=== PATIENT | female | born 1945 | race Caucasian/White ===

== ENCOUNTER 2023-10-14 09:33 | Inpatient (IN) | payer MEDICARE, OTHER, SELFPAY ==
[2023-10-14] VITALS (50 sets, daily range): BP systolic 61–126; BP diastolic 38–95; BMI 31.5; BMI 34.2
[2023-10-14 06:44] LABS: Glucose - Point of Care 140 mg/dl (70-99)
--- NOTE | 2023-10-14 07:01 | ED.GENMED ---
History of Present Illness
General
Chief Complaint: Unresponsive
Source: records, ambulance crew and [facility]
Exam Limitations: clinical condition
Time Seen by Provider: 10/14/23 06:57
Nursing documentation reviewed up to this point in time: agreed with
History of Present Illness
History of Present Illness:
77-year-old female with past medical history as documented presents to the emergency room for evaluation of respiratory distress. Patient is unable to meaningfully participate in history due to change in mental status and respiratory distress. Per
EMS report they received a call for 'unresponsive patient.' On their arrival [facility] they found the patient unresponsive and hypoxic. Accu-Chek normal. They placed patient on 15 L nonrebreather with improvement in oxygenation from the low
80s to the mid 90s. She apparently has been on Levaquin for the past few days for pneumonia diagnosis outpatient.
Past History
Past History
ED Past Medical History: Arrthythmia (PAF), COPD (Restrictive lung disease, O2 dependent), GERD, HTN, NIDDM, Psychiatric (Chronic anxiety), Other (Pulmonary hypertension, chronic interstitial lung disease, O2 dependent) and Other (Morbid obesity,
constipation); Negative CVA or WI
ED Past Surgical History: Appendectomy, Gynecological (Oophorectomy) and Tonsilectomy
Social History
Tobacco: Non-smoker
Alcohol: None
Drug: None
Personal:
Living: [facility] (Resident of [facility] since July 2020)
Employment: Not employed
Family History
Family History: Hypertension; Negative Early CAD
Review of Systems
Review of Systems
Unable to obtain full review of systems at this time due to: due to acuity
All Other Systems: Not applicable
Phy Exam
Physical Exam
Physical Exam:
General: Laying in bed obtunded
Head: Normocephalic, atraumatic
Eyes: Conjunctiva normal, pupils 3 mm and reactive to light bilaterally
Throat: Dry mucous membranes, not protecting airway, heavy secretions in posterior oropharynx
Neck: Trachea midline, supple without meningismus
Lungs: Rales throughout all lung gonsalves; hypoxia, tachypnea
Heart: Tachycardia with irregularly irregular rhythm, no murmurs, gallops, or rubs appreciated
Abd: Soft, non distended
Neuro: Obtunded
Skin: Dry
Extremities: Equal pulses in all extremities
Scores
Heart Failure Risk
Heart Failure Risk Score: Not Applicable
Heart Score for Chest Pain Patients
STEMI patient?: Not applicable
Withdrawal Assessment of Alcohol
Withdrawal Assessment Completed?: Not applicable
Course
Orders/Labs/Results
Orders:
Orders
10/14/23 06:48
Propofol 1,000,000 Mcg/100 ml [Diprivan] 1,000,000 mcg in 100 ml .ROUTE .STK-MED
10/14/23 06:52
Electrocardiogram (*1) Urgent
Reason for Study: Other
Other Reason for Exam: Possible Sepsis
Cardiac Monitoring- Treatment ONCE
IV Insert/Care/Rem.- Treatment PRN
Straight cath- Treatment ONCE
Complete Blood Count/With Diff Urgent
Comprehensive Metabolic Panel Urgent
Urinalysis Reflex To Culture Urgent
Date Specimen was Collected: 10/14/23
Time Specimen was Collected: 06:53
Portable Chest Xray [CR Chest Portable - 1 View] Urgent
Comment:
Reason For Exam: intubated
Reason Study Needs to be Portable: Unable to Transport
O2 Therapy [RESP] Urgent
Titrate/Wean O2 to maintain O2 sat greater than (%): 93
Special Instructions: TO MAINTAIN CONTINUOUS O2 SATS > OR = 93%
Pulse Ox/cont/shift [RESP] Urgent
Quantity: 1
Special Instructions: CONTINUOUS
10/14/23 06:53
EKG- Treatment ONCE
10/14/23 06:57
ABG [Arterial Blood Gas] Urgent
%Oxygen/Room Air: 84
02/13/24 06:58
NSS 1000mL Bolus over 1 hr 0.9% Sodium Chloride 1000 ml [Nss] 1,000 ml IV BOLUS
Vancomycin 1500 mg IVPB NOW Vancomycin [Vancocin] 1,500 mg 0.9% Sodium Chloride [Nss] 20 ml 0.9% Sodium Chloride 250 ml [Nss] 250 ml IV NOW
Zosyn 3.375 grams IVPB NOW Piperacillin/Tazo 3.375 Gram [Zosyn] 3.375 gram in 50 ml IV NOW
10/14/23 06:59
Triglycerides Routine
Comment: baseline levels with propofol infusion
Propofol INFUSION Titrate NOW X 1 BOTTLE Propofol 1,000,000 Mcg/100 ml [Diprivan] 1,000,000 mcg in 100 ml IV NOW
Indication:: Light Sedation
Begin Infusion:: Now
Goal:: RASS 0 to -2
Maximum dose in mcg/kg/min:: 50
Initial dose based on RASS:: Yes
If RASS is:: +1 or pt hemodynamically unstable (SBP < 90mmHg), initiate at 10 mcg/kg/min
If RASS is:: +2, initiate at 20 mcg/kg/min
If RASS is:: greater than or equal to +3, initiate at 30 mcg/kg/min
Titration Instructions:: Titrate by 5-10 mcg/kg/min every 5 minutes until RASS 0 to -2 achieved.
Taper Instructions:: If RASS is at or below goal for 4 consecutive hours decrease infusion by
Taper Instructions:: 5-10 mcg/kg/min every 2 hours to off.
Over-sedation Instructions:: If CPOT 0-2 (at goal) AND RASS -3 to -5 (below goal) decrease sedative by
Over-sedation Instructions:: 50% first. If pain score remains at goal and RASS remains below goal in
Over-sedation Instructions:: 1 hour, decrease opioid infusion by 50%.
Notify provider:: immediately if patient exhibits signs/symptoms of propofol-related
Notify provider:: infusion syndrome.
Additional Instructions:: Patient MUST be mechanically ventilated and MUST receive analgesia.
10/14/23 07:00
Lactic Acid Q4H
Comment: ON ICE, CANCEL 2ND ORDER IF FIRST LACTIC ACID LEVEL <2
Blood Culture Q30M
SAMUEL Source: Blood/Venous
Specimen Description:
Comment: FROM 2 SEPARATE SITES
10/14/23 07:30
Blood Culture Q30M
SAMUEL Source: Blood/Venous
Specimen Description:
Comment: FROM 2 SEPARATE SITES
10/14/23 11:00
Lactic Acid Q4H
Comment: ON ICE, CANCEL 2ND ORDER IF FIRST LACTIC ACID LEVEL <2
Abnormal Lab Results
10/14/23
06:43
POC Glucose 140 H mg/dl
(70-99)
Vital Signs
Initial and Last Documented VS:
Initial Vital Signs
Pulse BP Pulse Ox
131 103/52 98
10/14/23 06:46 10/14/23 06:46 10/14/23 06:46
Last Documented Vital Signs
Pulse BP Pulse Ox
131 103/52 98
10/14/23 06:46 10/14/23 06:46 10/14/23 06:46
Procedures
Cardioversion
Indication:: Afib
Performed by:: Jaime Brizuela MD
Synchronized?: Yes
Energy Used: 200 joules
Number of attempts: 1
Successful?: Yes
ASA Risk Score: Class IV
Any reaction or bad outcome to prior sedation/anesthesia?: No history of a reaction
Sedation level to be attained: deep
Chart and allergies reviewed: No
Patient reassessed prior to sedation: Yes
Time out completed at (validating right patient & procedure): 07:08
History of difficult intubation: Not applicable
Airway free of obstruction: Not applicable
Patient has a gag reflex: Not applicable
Patient is able to open mouth: Not applicable
Patient has no dentures: Not applicable
Patient has no loose teeth: Not applicable
Medication administered by Provider during Moderate Sedation: Other (intubated)
Start Time: 07:08
Stop Time: 07:25
Intubations
Procedure completed by: Jaime Brizuela MD
Method of Intubation: curved blade
Tube size (cm): 7.5
Placement confirmed by: auscutation, CXR, capnography and direct visualization
Breath sounds after intubation: equal
Intubation complications: no complications
Central Line
Left Femoral:
Indication for procedure:: shock
Procedure completed by: Jaime Brizuela MD
Consent form signed: No
If no, reason: Emergency procedure
Anesthesia: 1% Lidocaine
Central line lumen: triple
Number of attempts: 1
Central line complications: none
Sterile dressing applied?: Yes
MDM/Problems Addressed
Differential Diagnosis Includes:
Pneumonia, COPD, CHF, aspiration
MDM/Problems Addressed:
77-year-old female presents obtunded and hypoxic from [facility] that she is currently being treated for pneumonia as an outpatient. She arrives to us normotensive but tachycardic with heart rates in the 130s-150s, tachypneic, low-grade fever.
She is obtunded. Thick secretions in the posterior oropharynx and very dry mucous membranes. Accu-Chek normal. She was intubated on arrival. Review chest x-ray shows appropriate ET tube placement, left lower lobe pneumonia. EKG shows A-fib with
RVR. She is on Eliquis. After intubation she had significant hypotension with blood pressures in the 60s (no sedation ordered for this reason at least initially). IV fluids started on arrival and she remained hypotensive after a few minutes and
with heart rates in the 150s, A-fib with RVR on the monitor she was cardioverted as documented in procedure note. Blood pressure normalized after cardioversion, sinus rhythm on the monitor with heart rates in the 60s-70s. At this point initiated
low-dose propofol for sedation. Placed a left femoral CVC for medications and pressors if needed. Will cover with Vanco and Zosyn for pneumonia. Usual lab work sent off, blood cultures, lactate. Case discussed with hospitalist for admission to
the ICU.
Chronic conditions affecting care:
COPD complicates her acute respiratory failure
*Radiology
Radiology exam reviewed: preliminary read by ED provider and radiology read reviewed
*Pulse Oximetry
Patient hypoxic: no
*EKG
Interpreted by ED Provider?: Yes
Heart Rate: 153
Rate: tachycardiac
Rhythm: a-fib
[place]: normal axis
Interval: normal interval
QRS Pattern: normal QRS
Ischemia: non-specific ST changes
*Critical Care Note
Total Time (30-74mins, 75-104mins- exclusive of procedures): 61
comment:
Critical care statement: A total of 61 minutes of critical care time was provided for this patient. This includes management of unstable vital signs, evaluation of the patient at bedside, frequent reassessment, discussion with
consultants/hospitalist, and review of pertinent medical records. This time was separate from time utilized to perform any aforementioned documented procedures
Data Reviewed
Review of Other/Old Records Reveals: Labs and Records
Source: records, ambulance crew and [facility]
Patient Management
Discussion with other providers: Hospitalist (Discussed with hospitalist)
Escalation/DeEscalation of care consider admission/obs:
Admission indicated
ED Attending Note
-
Portions of this chart may have been created with voice recognition software.� Occasional wrong word or��sound alike� substitutions may have occurred due to the inherent limitations of voice recognition software.
Discharge Plan
Departure
Patient Disposition: Admit
Date of Disposition: 10/14/23
Time of Disposition: 07:46
Admit to: ICU
Admit to doctor: Jimmy
Presentation/result/management discussed w/ accepting MD/DO: Hospitalist
Discharge Problem:
Acute hypoxic respiratory failure, Pneumonia, Sepsis
Prescriptions:
No Action
bisacodyl [OneLAX Bisacodyl] 10 MG suppository
10 mg NV [id number] PRN (Reason: if mom ineffective)
acetaminophen 325 MG tablet
650 mg PO Q4HPRN PRN (Reason: mild pain, fever>100.4F)
lidocaine 4 % Adhesive Patch,Medicated
1 patch TOPICAL DAILY
metoprolol succinate [Toprol XL] 25 mg Tablet Extended Release 24 Hr
25 mg PO DAILY
Rx Instructions:
Hold if pulse is <60
pantoprazole [Protonix] [address] For Susp In Packet
20 mg PO HS
Rx Instructions:
2mg/ml 10mlat 2029
digoxin [Digitek] 0.25 MG tablet
0.25 mg PO HS
cyanocobalamin (vitamin B-12) 1,000 MCG tablet
1,000 mcg PO DAILY
polyethylene glycol 3350 17 GRAMS powder in packet
17 grams PO DAILY Qty: 0 0RF
tamsulosin [Flomax] 0.4 mg capsule
0.4 mg PO HS Qty: 30 0RF
sennosides-docusate sodium [Senna Plus] 8.6-50 mg Tablet
2 tab PO DAILY
cranberry 450 mg Tablet
425 mg PO DAILY
Eliquis 5 mg Tablet
5 mg PO BID Qty: 0 0RF
Anti-Dandruff 1 % Shampoo
1 applic TOPICAL MOTH
Debrox 6.5 % Drops
2 drp OTIC (EAR) TUFR
Chloraseptic Sore Throat 6-10 mg Lozenge
1 brianda MUCOUS MEMBRANE Q4HPRN PRN (Reason: sore throat)
Refresh Optive 0.5-0.9 % Drops
1 drp BOTH EYES BID
phenylephrine-cocoa butter 0.25-88.44 % Suppository
1 supp NV DAILYPRN PRN (Reason: hemmorhoids)
midodrine 5 mg Tablet
5 mg PO Q8HPRN PRN (Reason: SBP < 90) Qty: 30 0RF
carbidopa-levodopa 25-100 mg Tablet
0.5 tab PO TID Qty: 90 0RF
levetiracetam 500 mg/5 mL (5 mL) Solution
1,500 mg PO BID Qty: 250 0RF
lacosamide 100 mg Tablet
100 mg PO BID Qty: 60 0RF
furosemide [Lasix] 40 MG tablet
40 mg PO DAILY PRN (Reason: Fluid retention/Swelling) Qty: 0 0RF
[2023-10-14] MEDS: ZOSYN 50 IV (07:32)
[2023-10-14] MEDS: NSS 1000 IV ×4 (07:32→21:54)
[2023-10-14] MEDS: DIPRIVAN 100 IV ×2 (07:33→20:11)
[2023-10-14 07:35] LABS: % Basophils 0.5 % (0-2); % Immature Granulocytes 1.5 % (0-0.5); % Lymphocytes 12.7 % (20.5-51.1); % Monocytes 10.3 % (1.7-9.3); Absolute Immature Granulocytes 0.1 10^3/uL (0-0.05); Absolute Lymphocytes 0.9 10^3/uL (1.2-3.4); Absolute Monocytes 0.8 10^3/uL (0.1-0.6); Absolute Neutrophils 5.5 10^3/uL (1.4-6.5); Hemoglobin 13.2 g/dL (12.0-16.0); Mean Corp Hgb Conc. 32.2 g/dL (33.0-37.0); Mean Corpuscular Hgb 35.8 pg (27.0-31.0); Mean Corpuscular Volume 111.1 fL (81.0-99.0); Mean Platelet Volume 8.8 fL (7.4-10.4); Nucleated Red Blood Cells % 0 %; Platelet Count 187 10^3/uL (130-400); Red Blood Cell Count 3.69 10^6/uL (4.20-5.40); Red Cell Dist. Width 13.8 % (11.5-14.5); White Blood Cell Count 7.3 10^3/uL (4.8-10.8)
[2023-10-14 07:46] LABS: Lactic Acid 1.4 mmol/L (0.7-2.0)
[2023-10-14] MEDS: TYLENOL/FEVERALL 650 MG RECTAL (07:51)
[2023-10-14 07:53] LABS: Blood Urea Nitrogen 12 mg/dl (7-17); Carbon Dioxide 38 mmol/L (22-30); Chloride 100 mmol/L (98-107); Estimated Creatinine Clearance 77 ml/min; Glucose 147 mg/dl (70-99); Sodium 136 mmol/L (135-145); Triglycerides 56 mg/dl (10-149); eGFR > 60.00
[2023-10-14] MEDS: VANCOCIN 300 ML IV (08:04)
[2023-10-14] MEDS: VANCOCIN 300 MG IV (08:04)
[2023-10-14 08:20] LABS: B.E. 10.6 mmol/L; HCO3 35.7 mmol/L (21-28); PCO2 49 mmHg (32-35); PO2 225 mmHg (83-108); pH 7.47 (7.35-7.45)
[2023-10-14 08:28] LABS: Urine Albumin 1+ (Neg - Trace); Urine Bilirubin 1+ (Negative); Urine Character Clear (Clear); Urine Color Yellow; Urine Glucose Negative (Negative); Urine Ketone Negative (Negative); Urine Leukocyte Trace (Negative); Urine Nitrite Negative (Negative); Urine Occult Blood Negative (Negative); Urine Specific Gravity 1.025 (<1.030); Urine Urobilinogen 3+ (Neg - 1+)
[2023-10-14 08:36] LABS: Urine Mucus Many
[2023-10-14 08:37] LABS: Urine Squamous Cell >30 /LPF (Few)
[2023-10-14 08:40] LABS: Urine Red Blood Cell 0-2 /HPF (0-2)
[2023-10-14 08:41] LABS: Urine Bacteria Few (Negative)
--- NOTE | 2023-10-14 09:14 | HPS.HSE ---
Family Physician
-
Family Physician: Solomon Troy DO
Chief Complaint
-
Acute Hypoxia, Unresponsiveness
History of Present Illness
77 y/o female with past medical history of seizure diagnosis in September 2023, atrial fibrillation on Eliquis at home, pulmonary hypertension, restrictive lung disease, chronic respiratory failure, obstructive sleep apnea, non-alcoholic
steatohepatitis, gastroesophageal reflux disease, chronic dysphagia, History of left lower extremity deep vein thrombosis (January 2023), hypertension, diabetes mellitus, gout, Basal Cell Skin Cancer, urinary retention, osteoporosis, ambulatory
dysfunction anxiety, and morbid obesity presented from [facility] with with unresponsiveness and hypoxia. Patient was intubated and sedated at the time of patient encounter. Patient was on Levaquin outpatient for pneumonia. Patient was also
recently hospitalized for a new-onset seizure.
Medical History
Past Medical History
Past Medical History: Reports Other (As per HPI above)
Past Surgical History: Reports Appendectomy, Gynocological (Oophorectomy) and Tonsilectomy
Social History
Unable to obtain full social history at this time due to: Patient Intubation
Family History
Family History: Hypertension
Allergies / Home Medications
Allergies reflects when Allergies were last updated in [facility].
Home Medications with original date entered in [facility]
Allergy/Medication List:
Allergies
Allergy/AdvReac Type Severity Reaction Status Date / Time
Influenza Virus Vaccines Allergy Unknown ' Verified 09/17/23 04:18
Ricardo
Mosher
told me
never to
take it'
Neuromuscular Blockers, Allergy Unknown Unknown Verified 09/17/23 04:18
Steroidal
steroids Allergy Unknown in a Uncoded 09/17/23 04:18
coma for 5
days after
taken
Home Medications
acetaminophen 325 mg tablet 650 mg PO Q4HPRN PRN mild pain, fever>100.4F 07/18/20
cyanocobalamin (vitamin B-12) 1,000 mcg tablet 1,000 mcg PO DAILY Supplement 01/20/23
digoxin 250 mcg (0.25 mg) tablet (Digitek) 0.25 mg PO HS AFib 01/20/23
lidocaine 4 % topical patch 1 patch topical DAILY lower back 01/20/23
metoprolol succinate 25 mg tablet,extended release 24 hr (Toprol XL) 25 mg PO DAILY Blood pressure 01/20/23
pantoprazole 40 mg granules delayed-release for susp in packet (Protonix) 20 mg PO HS Gastrointestinal issue 01/20/23
polyethylene glycol 3350 17 gram oral powder packet 17 grams PO DAILY Constipation #0 ea 01/23/23
tamsulosin 0.4 mg capsule (Flomax) 0.4 mg PO HS Urinary issue #30 caps 01/24/23
cranberry fruit 450 mg tablet (cranberry) 425 mg PO DAILY UTI prophylaxis 02/20/23
sennosides 8.6 mg-docusate sodium 50 mg tablet (Senna Plus) 2 tab PO DAILY Constipation 02/20/23
benzocaine 6 mg-menthol 10 mg lozenges (Chloraseptic Sore Throat) 1 brianda mucous membrane Q4HPRN PRN cough/sore throat 09/17/23
carbamide peroxide 6.5 % ear drops (Debrox) 4 drp RIGHT EAR HS x 30 days starting 10/08/23 09/17/23
carboxymethylcellulose 0.5 %-glycerin 0.9 % eye drops (Refresh Optive) 1 drp BOTH EYES BID Eye Condition 09/17/23
phenylephrine 0.25 %-cocoa butter 88.44 % rectal suppository 1 supp TN DAILYPRN PRN hemorrhoids 09/17/23
selenium sulfide 1 % shampoo (Anti-Dandruff) 1 applic topical MOTH scalp 09/17/23
furosemide 40 mg tablet (Lasix) 40 mg PO DAILY PRN Fluid retention/Swelling #0 tabs 09/22/23
Probiotic 250 mg PO DAILY GI health 10/14/23
apixaban 5 mg tablet (Eliquis) 5 mg PO BID Blood Clot Prevention/Tx 10/14/23
bisacodyl 10 mg rectal suppository 10 mg TN DAILY PRN every 3 days if no BM and MOM and/or lactulose ine 10/14/23
carbidopa 25 mg-levodopa 100 mg tablet 0.5 tab PO TID parkinson's disease 10/14/23
dextromethorphan-guaifenesin 10 mg-100 mg/5 mL oral liquid (Tussin DM) 10 ml PO Q4H PRN cough/congestion 10/14/23
ipratropium 0.5 mg-albuterol 3 mg (2.5 mg base)/3 mL nebulization soln 3 ml inhalation BID Cough 10/14/23
ipratropium 0.5 mg-albuterol 3 mg (2.5 mg base)/3 mL nebulization soln 3 ml inhalation Q4H PRN cough 10/14/23
lacosamide 100 mg tablet 100 mg PO BID seizure 10/14/23
levetiracetam 500 mg/5 mL (5 mL) oral solution 1,500 mg PO BID seizure 10/14/23
magnesium hydroxide 400 mg/5 mL oral suspension (Milk of Magnesia) 60 ml PO HS PRN constipation 10/14/23
midodrine 5 mg tablet 5 mg PO Q8HPRN PRN SBP<90 10/14/23
oseltamivir 75 mg capsule (Tamiflu) 75 mg PO DAILY Flu A Prophylaxis 10/14/23
Review of Systems
-
Unable to obtain full review of systems at this time due to: Patient Intubation
Physical Exam
Vital Signs
Vital Signs
Temp Pulse Resp BP Pulse Ox
100.3 F 53 16 92/45 99
10/14/23 07:18 10/14/23 08:45 10/14/23 08:45 10/14/23 08:45 10/14/23 08:45
Physical Exam
General: No Apparent Distress and Intubated
HEENT: NormoCephalic
Respiratory: Other (Equal air entry bilaterally)
Cardiac: S1/S2 and Regular Rhythm
GI: Soft, Non Tender and Normal Bowel Sounds
Musculoskeletal: No Cyanosis
Skin: Warm and Dry
Neuro: Sedated
Psych: Calm
Laboratory Results
-
10/14/23 07:21
10/14/23 07:21
Laboratory Results
pH 7.47 (7.35-7.45) H 10/14/23 08:11
pCO2 49 mmHg (32-35) H 10/14/23 08:11
pO2 225 mmHg (83-108) H 10/14/23 08:11
HCO3 35.7 mmol/L (21-28) H 10/14/23 08:11
Lactic Acid Cancelled 10/14/23 11:00
Total Bilirubin Cancelled 10/14/23 07:21
AST Cancelled 10/14/23 07:21
ALT Cancelled 10/14/23 07:21
Alkaline Phosphatase Cancelled 10/14/23 07:21
Impression/Plan
-
Assessment/Plan
Acute Hypoxic Respiratory Failure
Acute Toxic Metabolic Encephalopathy
Left Lower Lobe Pneumonia (diagnosed and was being treated with antibiotics for pneumonia as an outpatient)
Suspected Sepsis Secondary to Pneumonia
-Monitor in ICU, continue mechanical ventilation
-Continue broad spectrum antibiotics with Vancomycin and Zosyn
-Follow blood and sputum cultures
Atrial Fibrillation with Rapid Ventricular Response
Hypotension
Atrial Fibrillation - on Eliquis at home
-Cardioverted in the ER to NSR on October 14, 2023
Seizure diagnosis in September 2023
History of Parkinsonism
-On home Keppra 1500 mg BID PO and Lacosamide 100 mg PO BID
-Continue seizure medications when able
-September 2023 neurology note indicates that patient should take Sinemet 0.5 tab TID with titration to 1 tab TID within 1 week
Pulmonary hypertension
Restrictive lung disease
Chronic respiratory failure
Obstructive sleep apnea
Non-alcoholic steatohepatitis
Gastroesophageal reflux disease - continue PPI
Chronic dysphagia - will consider speech consultation
History of left lower extremity deep vein thrombosis (January 2023) - will continue Eliquis when able
Hypertension
Diabetes mellitus - accuchecks and sliding scale insulin
Gout
Basal Cell Skin Cancer
Urinary retention
Osteoporosis
Ambulatory dysfunction
Anxiety
Morbid obesity
DVT PPx: SCDs, Eliquis when able
Code Status: Full Code
Acute Hypoxic Respiratory Failure, Suspected Sepsis from pneumonia, AFib with RVR needing mechanical ventilation and close monitoring in the ICU is a high risk encounter.
[2023-10-14] MEDS: VERSED 1 MG IV (09:30)
--- NOTE | 2023-10-14 09:43 | CON.INTV ---
Consultation
Consultation Request
Date/Time Consultation Requested: 10/14/2023912
Date/Time Consultation Performed: 10/14/2023939
Requesting Provider: Dr. Hutchinson
Performing Provider: Dr.. Moreno
Reason for Consultation: Hypotension/Intubated
Medical History
-
Chief Complaint: Found unresponsive
History of Present Illness:
77-year-old F with PMHx of A-fib on digoxin and Eliquis, kyphosis with restrictive lung disease, chronic hypotension on midodrine, chronic respiratory failure, history of seizures with parkinsonism diagnosed last month during hospitalization, and
CHETNA who p/w unresponsiveness. Patient was TRX to ER via EMS from [facility] and in the ER she was intubated. Pt tachycardic and hypotensive in ER and was cardioverted and developed tachy-lang syndrome. Of note, she is Rx midodrine as an
outpatient. She was TRX here to ICU for additional care. Of note she was recently hospitalized here for seizures and takes lacosamide and keppra, and neurology concluded that patient has multifactorial encephalopathy and had experienced focal
status epilepticus last month. Due to her parkinsonism symptoms, Sinemet was started last month as well. [facility] where she had been taking care of of until this current hospital stay.
Seen this AM, she remains tachy/lang with HR as low as 31 and as high as 132. She is intubated on AC/VC 16/450/40%/5, SpO2 98%, peak pressures 28, VTE 450. BP 84/58 and she has received 2L since admission.
PMHx: Essential tremor, A-fib on Eliquis, CHF, COPD, former tobacco use disorder, sleep apnea, dyspepsia, history of UTI, gout, kyphosis, left femur fracture, DM type II, impaired vision, history of skin cancer, anxiety/depression, left-sided DVT,
osteoporosis, ambulatory dysfunction, chronic hypotension on midodrine
PSHx: �Appendectomy, left proximal femur ORIF, tonsillectomy, ZULY
Past Medical History
Past Medical History: Other (Above as per HPI)
Past Surgical History: Other (Above as per HPI)
Social History
Tobacco: Non-smoker
Alcohol: None
Drug: Other (Former amphetamine use)
Living: Residential
Family History
Family History: Reviewed & Not Pertinent
Allergies / Home Medications
Allergies
Allergy/AdvReac Type Severity Reaction Status Date / Time
Influenza Virus Vaccines Allergy Unknown ' Verified 09/17/23 04:18
Ricardo
Msoher
told me
never to
take it'
Neuromuscular Blockers, Allergy Unknown Unknown Verified 09/17/23 04:18
Steroidal
steroids Allergy Unknown in a Uncoded 09/17/23 04:18
coma for 5
days after
taken
Home Medications
Medication Instructions Recorded Confirmed Last Taken Type
acetaminophen 325 mg tablet 650 mg PO Q4HPRN PRN mild pain, 07/18/20 10/14/23 10/11/23 History
fever>100.4F
cyanocobalamin (vitamin B-12) 1,000 mcg PO DAILY Supplement 01/20/23 10/14/23 10/13/23 History
1,000 mcg tablet
digoxin 250 mcg (0.25 mg) tablet 0.25 mg PO HS AFib 01/20/23 10/14/23 10/13/23 History
(Digitek)
lidocaine 4 % topical patch 1 patch topical DAILY lower back 01/20/23 10/14/23 10/13/23 History
metoprolol succinate 25 mg 25 mg PO DAILY Blood pressure 01/20/23 10/14/23 10/13/23 History
tablet,extended release 24 hr
(Toprol XL)
pantoprazole 40 mg granules 20 mg PO HS Gastrointestinal issue 01/20/23 10/14/23 10/13/23 History
delayed-release for susp in packet
(Protonix)
polyethylene glycol 3350 17 gram 17 grams PO DAILY Constipation #0 05/25/23 02/13/24 02/12/24 Rx
oral powder packet ea
tamsulosin 0.4 mg capsule (Flomax) 0.4 mg PO HS Urinary issue #30 caps 01/24/23 10/14/23 10/13/23 Rx
cranberry fruit 450 mg tablet 425 mg PO DAILY UTI prophylaxis 02/20/23 10/14/23 10/13/23 History
(cranberry)
sennosides 8.6 mg-docusate sodium 2 tab PO DAILY Constipation 02/20/23 10/14/23 10/13/23 History
50 mg tablet (Senna Plus)
benzocaine 6 mg-menthol 10 mg 1 brianda mucous membrane Q4HPRN PRN 09/17/23 10/14/23 10/10/23 History
lozenges (Chloraseptic Sore Throat) cough/sore throat
carbamide peroxide 6.5 % ear drops 4 drp RIGHT EAR HS x 30 days 09/17/23 10/14/23 10/13/23 History
(Debrox) starting 10/08/23
carboxymethylcellulose 0.5 1 drp BOTH EYES BID Eye Condition 09/17/23 10/14/23 10/13/23 History
%-glycerin 0.9 % eye drops
(Refresh Optive)
phenylephrine 0.25 %-cocoa butter 1 supp IN DAILYPRN PRN hemorrhoids 09/17/23 10/14/23 Unknown History
88.44 % rectal suppository
selenium sulfide 1 % shampoo 1 applic topical MOTH scalp 09/17/23 10/14/23 Unknown History
(Anti-Dandruff)
furosemide 40 mg tablet (Lasix) 40 mg PO DAILY PRN Fluid 09/22/23 10/14/23 02/19/23 Rx
retention/Swelling #0 tabs
Probiotic 250 mg PO DAILY GI health 10/14/23 10/14/23 10/13/23 History
apixaban 5 mg tablet (Eliquis) 5 mg PO BID Blood Clot 10/14/23 10/14/2310/13/24 History
Prevention/Tx
bisacodyl 10 mg rectal suppository 10 mg IN DAILY PRN every 3 days if 10/14/23 10/14/23 Unknown History
no BM and MOM and/or lactulose ine
carbidopa 25 mg-levodopa 100 mg 0.5 tab PO TID parkinson's disease 10/14/23 10/14/23 10/13/23 History
tablet
dextromethorphan-guaifenesin 10 10 ml PO Q4H PRN cough/congestion 10/14/23 10/14/23 Unknown History
mg-100 mg/5 mL oral liquid (Tussin
DM)
ipratropium 0.5 mg-albuterol 3 mg 3 ml inhalation BID Cough 10/14/23 10/14/23 10/13/23 History
(2.5 mg base)/3 mL nebulization
soln
ipratropium 0.5 mg-albuterol 3 mg 3 ml inhalation Q4H PRN cough 10/14/23 10/14/23 10/14/23 05:50 History
(2.5 mg base)/3 mL nebulization
soln
lacosamide 100 mg tablet 100 mg PO BID seizure 10/14/23 10/14/23 10/13/23 History
levetiracetam 500 mg/5 mL (5 mL) 1,500 mg PO BID seizure 10/14/23 10/14/23 10/13/23 History
oral solution
magnesium hydroxide 400 mg/5 mL 60 ml PO HS PRN constipation 10/14/23 10/14/23 Unknown History
oral suspension (Milk of Magnesia)
midodrine 5 mg tablet 5 mg PO Q8HPRN PRN SBP<90 10/14/23 10/14/23 Unknown History
oseltamivir 75 mg capsule (Tamiflu) 75 mg PO DAILY Flu A Prophylaxis 10/14/23 10/14/23 10/13/23 History
Review of Systems
-
Unable to Obtain full review of systems at this time due to: Patient Intubation
Vitals / Labs / Diagnostic Testing
Vital Signs
Temp Pulse Resp BP Pulse Ox
100.3 F 53 16 92/45 99
10/14/23 07:18 10/14/23 08:45 10/14/23 08:45 10/14/23 08:45 10/14/23 08:45
Lab Data
10/14/23 07:21
10/14/23 07:21
Laboratory Results
10/14/23
08:11
pH 7.47 H
pCO2 49 H
pO2 225 H
HCO3 35.7 H
O2 Delivery Level
Diagnostic Testing:
Physical Exam
-
HEENT: Normocephalic and Anicteric
Cardiovascular: S1/S2 and Peripheral Edema (Trace lower extremity pitting edema)
Respiratory: Wheeze (Negative), Rales (Negative), Rhonchi (Right anterior hemithorax), Non-Labored Respirations and Other (Mechanical breath sounds heard bilaterally)
GI: Soft, Non Distended and Non Tender
Neurology: Tremors (negative) and Other (Opens eyes but not following commands)
Skin: Warm and Dry
General: Chills (negative) and Other (Intubated/sedated)
Assessment
-
Assessment: 77-year-old F former tobacco smoker with PMHx of A-fib on digoxin and Eliquis, kyphosis with reported history of restrictive lung disease, chronic hypotension on midodrine, chronic respiratory failure, history of seizures with
parkinsonism diagnosed last month during hospitalization, and CHETNA who p/w unresponsiveness. Patient found to be tachycardic, hypotensive, cardioverted in the ER and then developed tachybradycardia syndrome. CXR was concerning for left lower lobe
pneumonia - of note patient was on Levaquin for the past few days for pneumonia which was diagnosed as an outpatient. Patient transferred to the ICU for further care and critical care services consulted for additional management/recommendations.
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
left-sided DVT, osteoporosis, ambulatory dysfunction, chronic hypotension on midodrine
Impression:
#Acute respiratory failure with hypoxemia on mechanical ventilation
#Left sided HAP
#Influenza A
#Acute COPD exacerbation due to above with flu and bacterial superinfection
#Septic shock due to pneumonia
#Elevated troponin - likely due to type II DC from demand ischemia
#Tachy-Lang syndrome
#Primary hyperthyroidism
#Moderate restrictive lung defect (T% predicted via PFT from 2016)
#Physical deconditioning with wheel chair bound status at baseline
Plan:
- Continue mechanical ventilation with daily SAT/SBT if clinically appropriate
- Start vasopressors with neosynephrine and maintain MAP>65
- if pressor requirements remain low and pt not extubated by tomorrow AM, then will start tube feeds at that time
- Titrate FiO2 and PEEP to maintain SpO2 >90-94%
- Lightly sedate to maintain RASS -1 to -2
- Cardiology on board --> continue rate control medications with hold parameters given her intermittent bradycardia
- Change DuoNebs to atrovent + xopenex given her tachycardia
- Continue broad spectrum ABx (cefepime/vanc) and follow up infectious workup (sputum Cx and blood Cx)
- Check urine legionella and Strep pneumonia
- Check MRSA swab --> if negative then DC vanc
- Consider starting methimazole given her elevated free T4 with low TSH; check total T4 and T3 and re-assess
- Will start systemic steroids but first check random cortisol level ---> if <19 then start hydrocortisone, otherwise will start Solumedrol
- Trend troponin level until begins to downtrend
- Maintain MAP>65
- Maintain BG 140-180 with ISS q6hr
- Check flu swab and if (+) then resume tamiflu 75 BID x 5 days
- reduce lacosamide to 50mg IV BID given bradycardia
- Titrate FiO2 to keep SpO2 >90-94%
- PPI for stress ulcer ppx
- DVT ppx - Eliquis
Lines:
Left femoral CVC - placed by ER on 10-14-2023
Critical care statement: A total of 40 minutes of critical care time was provided for this patient today. This includes management of unstable vital signs, evaluation of the patient at bedside, reviewing the patient's pertinent medical records
including radiographs, microbiology, laboratory evaluations, and discussion with primary team, consultants, pharmacy, nutrition, physical therapy, case management, charge nurse, critical care nursing, and respiratory therapy.
Data:
CXR 10-14-2023:
Endotracheal tube is present with tip 2.2 cm above the guanakito.
Nasogastric or orogastric tube present with tip extending into the left upper quadrant, off the inferior to the radiograph.
Focal parenchymal airspace opacity within the left lower lung, which likely represents pneumonia.
PFT - 08/2016
FEV1/FVC: 61
FEV1: 1L (53%)
FVC: 1.64L (66%)
T% (2.78L)
VC: 66%
RV: 61%
DLco: 45%
VA: 85% (3.65L)
DLco/VA: 52%
Flow volume loop: Scooped expiratory limb and restricted
--- NOTE | 2023-10-14 10:17 | CON.CAR ---
Addendum entered and electronically signed by Benton Grajeda MD 10/14/23 11:41:
I saw and examined the patient.
The HYDRAULIC ASSEMBLER or PA's note was reviewed and I agree with the note.
Comment: Unresponsive on ventilator
Neck: Supple, no JVD, HJR, carotids +2 B/L, no bruits bilaterally.
Heart: Non displaced PMI, RRR, no murmurs, No S3, S4, no rubs.
Lungs: Scattered rhonchi
Abdomen: Normal bowel sounds, soft, non-tender, non-distended.
Extremities: No clubbing, cyanosis or edema bilaterally.
Neuro: Unresponsive
Nella has a history of atrial fibrillation on chronic Eliquis, interstitial lung disease on chronic oxygen, sleep apnea, seizure disorder, chronic dysphagia, GERD, ESPARZA, anxiety. She presented with unresponsiveness and hypoxia. She had been on
Levaquin for pneumonia. She was intubated and is currently sedate. Cardiology is consulted for rapid atrial fibrillation with hypotension underwent cardioversion in the ER with initial yarsani of sinus rhythm. She has had evidence of
tachycardia since that cardioversion and blood pressure is borderline with plans for possibly going on pressors.
She has some evidence of tachy bradycardia which likely is exacerbated by respiratory failure. She underwent cardioversion which was initially successful but now is having episodes of probable atrial tachycardia. There is consideration for
pressors as well for hypotension and would prefer Demetrio-Synephrine. Need to be careful about treating tachycardia as this may worsen bradycardia when she converts to sinus rhythm. Need to treat underlying likely sepsis. Vimpat was started for
seizures in September 2023 and has been associated with increased risk of sick sinus syndrome and atrial and ventricular arrhythmias. May need to consider changing medications although bradycardia/tachycardia could be associated with current
underlying conditions. No indication for pacing at present. Await proBNP.
Original Note:
Consultation
Consultation Request
Date/Time Consultation Requested: 10/14/2023
Date/Time Consultation Performed: 10/14/2023
Requesting Provider: Dr. Hutchinson
Performing Provider: Ruby Millan PA-C for Dr. Grajeda
Reason for Consultation: tachy-katerine syndrome, Afib w/ RVR
Medical History
-
History of Present Illness:
Patient is a 77 y/o female with past medical history of seizure diagnosis in September 2023, paroxysmal atrial fibrillation on chronic anticoagulation with Eliquis, pulmonary hypertension, restrictive lung disease, chronic respiratory failure,
obstructive sleep apnea, non-alcoholic steatohepatitis, gastroesophageal reflux disease, chronic dysphagia, left lower extremity deep vein thrombosis (January 2023), hypertension, diabetes mellitus, gout, Basal Cell Skin Cancer, urinary retention,
osteoporosis, ambulatory dysfunction anxiety, and morbid obesity whom presented 10/14/2023 from [facility] with with unresponsiveness and hypoxia.�She apparently has been on Levaquin for the past few days for pneumonia. She required intubation
in emergency department upon arrival and is currently intubated and sedated. Chest x-ray concerning for left lower lobe pneumonia. She was noted to be in atrial fibrillation with rapid ventricular response associated with hypotension and
underwent successful cardioversion with yarsani of sinus rhythm. Patient has continued to have evidence of tachybradycardia syndrome with PAF followed by bradycardia with heart rate in the 40s following cardioversion. Patient currently remains
hypotensive despite yarsani of sinus rhythm.
PMH:
Paroxysmal atrial fibrillation
Chronic anticoagulation on Eliquis
VDRF (2009)
ILD/Restrictive lung disease/chronic respiratory failure/chronic O2
CHETNA
Seizure disorder
Chronic Dysphagia on pureed diet
GERD
ESPARZA
Anxiety
History of left lower extremity deep vein thrombosis (January 2023)
Non-occlusive DVT L popliteal vein
Gout
Basal Cell Skin Cancer
Urinary retention Osteoporosis
Ambulatory dysfunction/bed-bound
Past Medical History
Past Medical History: Other (See HPI)
Past Surgical History: Appendectomy, Gynecological (ZULY w/ right oopherectomy), Orthopedic (Left Femur JUANITA) and Tonsilectomy
Social History
Tobacco: Non-Smoker
Alcohol: None
Drug: None
Living: [facility] (Resident of [facility] since July 2020)
Family History
Family History: Other (Father: stroke, CAD. Mother:COPD)
Allergies / Home Medications
Allergy/AdvReac Type Severity Reaction Status Date / Time
Influenza Virus Vaccines Allergy Unknown ' Verified 09/17/23 04:18
Ricardo
Mosher
told me
never to
take it'
Neuromuscular Blockers, Allergy Unknown Unknown Verified 09/17/23 04:18
Steroidal
steroids Allergy Unknown in a Uncoded 09/17/23 04:18
coma for 5
days after
taken
Medication Instructions Recorded Confirmed Type
acetaminophen 325 mg tablet 650 mg PO Q4HPRN PRN mild pain, 07/18/20 10/14/23 History
fever>100.4F
cyanocobalamin (vitamin B-12) 1,000 mcg PO DAILY Supplement 01/20/23 10/14/23 History
1,000 mcg tablet
digoxin 250 mcg (0.25 mg) tablet 0.25 mg PO HS AFib 01/20/23 10/14/23 History
(Digitek)
lidocaine 4 % topical patch 1 patch topical DAILY lower back 01/20/23 10/14/23 History
metoprolol succinate 25 mg 25 mg PO DAILY Blood pressure 01/20/23 10/14/23 History
tablet,extended release 24 hr
(Toprol XL)
pantoprazole 40 mg granules 20 mg PO HS Gastrointestinal issue 01/20/23 10/14/23 History
delayed-release for susp in packet
(Protonix)
polyethylene glycol 3350 17 gram 17 grams PO DAILY Constipation #0 01/23/23 10/14/23 Rx
oral powder packet ea
tamsulosin 0.4 mg capsule (Flomax) 0.4 mg PO HS Urinary issue #30 caps 01/24/23 10/14/23 Rx
cranberry fruit 450 mg tablet 425 mg PO DAILY UTI prophylaxis 02/20/23 10/14/23 History
(cranberry)
sennosides 8.6 mg-docusate sodium 2 tab PO DAILY Constipation 02/20/23 10/14/23 History
50 mg tablet (Senna Plus)
benzocaine 6 mg-menthol 10 mg 1 brianda mucous membrane Q4HPRN PRN 09/17/23 10/14/23 History
lozenges (Chloraseptic Sore Throat) cough/sore throat
carbamide peroxide 6.5 % ear drops 4 drp RIGHT EAR HS x 30 days 09/17/23 10/14/23 History
(Debrox) starting 10/08/23
carboxymethylcellulose 0.5 1 drp BOTH EYES BID Eye Condition 09/17/23 10/14/23 History
%-glycerin 0.9 % eye drops
(Refresh Optive)
phenylephrine 0.25 %-cocoa butter 1 supp [place] DAILYPRN PRN hemorrhoids 09/17/23 10/14/23 History
88.44 % rectal suppository
selenium sulfide 1 % shampoo 1 applic topical MOTH scalp 09/17/23 10/14/23 History
(Anti-Dandruff)
furosemide 40 mg tablet (Lasix) 40 mg PO DAILY PRN Fluid 09/22/23 10/14/23 Rx
retention/Swelling #0 tabs
Probiotic 250 mg PO DAILY GI health 10/14/23 10/14/23 History
apixaban 5 mg tablet (Eliquis) 5 mg PO BID Blood Clot 10/14/23 10/14/23 History
Prevention/Tx
bisacodyl 10 mg rectal suppository 10 mg [place] DAILY PRN every 3 days if 10/14/23 10/14/23 History
no BM and MOM and/or lactulose ine
carbidopa 25 mg-levodopa 100 mg 0.5 tab PO TID parkinson's disease 10/14/23 10/14/23 History
tablet
dextromethorphan-guaifenesin 10 10 ml PO Q4H PRN cough/congestion 10/14/23 10/14/23 History
mg-100 mg/5 mL oral liquid (Tussin
DM)
ipratropium 0.5 mg-albuterol 3 mg 3 ml inhalation BID Cough 10/14/23 10/14/23 History
(2.5 mg base)/3 mL nebulization
soln
ipratropium 0.5 mg-albuterol 3 mg 3 ml inhalation Q4H PRN cough 10/14/23 10/14/23 History
(2.5 mg base)/3 mL nebulization
soln
lacosamide 100 mg tablet 100 mg PO BID seizure 10/14/23 10/14/23 History
levetiracetam 500 mg/5 mL (5 mL) 1,500 mg PO BID seizure 10/14/23 10/14/23 History
oral solution
magnesium hydroxide 400 mg/5 mL 60 ml PO HS PRN constipation 10/14/23 10/14/23 History
oral suspension (Milk of Magnesia)
midodrine 5 mg tablet 5 mg PO Q8HPRN PRN SBP<90 10/14/23 10/14/23 History
oseltamivir 75 mg capsule (Tamiflu) 75 mg PO DAILY Flu A Prophylaxis 10/14/23 10/14/23 History
Review of Systems
-
Unable to obtain full review of systems at this time due to: Patient Intubation
History Source: [facility], Transfer Record and Coordinating Provider
Physical Exam
Vital Signs
Temp Pulse Resp BP Pulse Ox
100.3 F 53 16 92/45 99
10/14/23 07:18 10/14/23 08:45 10/14/23 08:45 10/14/23 08:45 10/14/23 08:45
GEN: Intubated and sedated
LUNGS: Course/rhonchus breath sounds on right, decreased BS on left anteriorly
CV: Reg, S1/S2, no murmur, rub or gallop
ABD: soft, BS+, NT/ND
EXT: Trace to +1 LE edema, +1 LUE edema
NEURO:unable to access, intubated and sedated
SKIN: No rash, warm, dry, pink
Lab Results
10/14/23 07:21
10/14/23 07:21
Impression / Plan
-
Family Physician:� Solomon Troy, DO
Manager Sap: Dr. Solis, last seen in May 2020 in office
Impression:
Presents 10/14/2022 with unresponsiveness, hypoxia
Acute hypoxic respiratory failure requiring intubation 10/14/2023
Pneumonia
Fever
Atrial fibrillation with rapid ventricular response
Status post cardioversion 10/14/2023 in emergency department
Tachybradycardia syndrome
Hypotension
Paroxysmal atrial fibrillation
Chronic anticoagulation on Eliquis
VDRF (2009)
ILD/Restrictive lung disease/chronic respiratory failure/chronic O2
CHETNA
Seizure disorder (diagnosed September 2023)
Chronic Dysphagia on pureed diet
GERD
ESPARZA
Anxiety
History of left lower extremity deep vein thrombosis (January 2023)
Non-occlusive DVT L popliteal vein
Gout
Basal Cell Skin Cancer
Urinary retention Osteoporosis
Ambulatory dysfunction/bed-bound
Echo 04/03/2020: EF 55 to 60%, stage II DD. Mildly dilated RA. Mild MR, mild TR with PAP 50 mmHg
Plan:
Patient is a 77 y/o female with past medical history of seizure diagnosis in September 2023, paroxysmal atrial fibrillation on chronic anticoagulation with Eliquis, pulmonary hypertension, restrictive lung disease, chronic respiratory failure,
obstructive sleep apnea, non-alcoholic steatohepatitis, gastroesophageal reflux disease, chronic dysphagia, left lower extremity deep vein thrombosis (January 2023), hypertension, diabetes mellitus, gout, Basal Cell Skin Cancer, urinary retention,
osteoporosis, ambulatory dysfunction anxiety, and morbid obesity whom presented 10/14/2023 from [facility] with with unresponsiveness and hypoxia.�She apparently has been on Levaquin for the past few days for pneumonia. She required intubation
in emergency department upon arrival and is currently intubated and sedated. Chest x-ray concerning for left lower lobe pneumonia. She was noted to be in atrial fibrillation with rapid ventricular response associated with hypotension and
underwent successful cardioversion with yarsani of sinus rhythm. Patient has continued to have evidence of tachybradycardia syndrome with PAF followed by bradycardia with heart rate in the 40s following cardioversion. Patient currently remains
hypotensive despite yarsani of sinus rhythm.
-Presents 10/14/2023 with unresponsiveness and hypoxia.
-Acute hypoxic respiratory failure requiring intubation 10/14/2023.
-Chest x-ray concerning for pneumonia. Treatment per primary service
-Would test for COVID and Flu
-Blood cultures pending
-Paroxysmal atrial fibrillation with rapid ventricular response on presentation to the emergency department 10/14/2023. Patient underwent successful urgent cardioversion with yarsani of sinus rhythm.
-Now having runs of tachy-katerine syndrome on tele post CV. Continue to monitor. Was on Toprol as outpt. Would hold due to hypotension. Consider prn IV Lopressor if needed for tachy arrhythmia
-Troponin pending, although will likely be elevated given urgent CV. ProBNP pending
-Check TSH and dig level
-Maintained on chronic anticoagulation with Eliquis. Would continue Eliquis given CV 10/14/2023. If unable to give Eliquis then would need heparin gtt
-Hypotensive back in sinus rhythm. Getting IVF If BP does not improve may require pressors.
-Recently diagnosed w/ seizure disorder in September 2023 and started on Vimpat and Keppra. Consider neurology consult as per review of literature Vimpat can be cardiotoxic w/ increased risk of SSS and both atrial and ventricular arrhythmias
Data Reviewed
-
EKG: Report Reviewed by me, Discussed with Physician and Discussed with Nurse
Radiology: Report Reviewed by me and Discussed with Physician
Labs: Labs Reviewed by me, Discussed with Physician and Discussed with Nurse
Old Records: Reviewed
--- NOTE | 2023-10-14 10:40 | PTCARENOTE ---
Received pt from ed vented on propofol as charted with 2nd liter of nss infusing. CHG completed. Pt with smear of stool. Agressive mouth care completed. Large amounts of oral and ett secretions. IV sites as charted. Purewick placed given
baseline incontinence with femoral central line placed in ed. Pt squeezing eyes shut with, moving r arm towards ett, not following any commands, Restrained for safety. Discussed on rounds tachy katerine since cardioversion in ED. Dr Grajeda at
bedside. Aware of borderline bp, preferred neosynephrine given tachycardia. Demetrio gtt ordered on rounds. Otherwise please refer to flowsheet.
[2023-10-14 11:17] LABS: INR 2.25; PT 24.8 Sec (11.4-14.6)
[2023-10-14 11:18] LABS: APTT 41.4 Sec (23.4-35.0)
[2023-10-14 11:24] LABS: Digoxin 0.9 ng/ml (0.8-2.0); Magnesium 1.6 mg/dl (1.6-2.3)
[2023-10-14 11:36] LABS: NT-proBNP 4040 pg/ml; Troponin I 0.056 ng/ml
[2023-10-14 11:57] LABS: Glucose - Point of Care 156 mg/dl (70-99)
[2023-10-14] MEDS: NEO-SYNEPHRINE 250 IV ×2 (12:21→23:36)
[2023-10-14 12:23] LABS: TSH Reflex To Free T4 0.09 uIU/ml (0.47-4.68)
[2023-10-14 12:53] LABS: Free T4 3.12 ng/dl (0.78-2.19)
--- NOTE | 2023-10-14 13:00 | PTCARENOTE ---
Systems without change since admission. Propofol stopped. Phenylephrine started as charted for persistent hypotension. Otherwise no changes.
[2023-10-14] MEDS: ELIQUIS 5 MG TUBE ×2 (14:11→21:25)
[2023-10-14] MEDS: VIMPAT 50 MG TUBE ×2 (14:11→21:25)
[2023-10-14] MEDS: LIDOCAINE 4% PATCH 1 PATCH TOPICAL (14:11)
[2023-10-14] MEDS: STERILE WATER FOR INJECTION 10 ML IV ×2 (14:12→21:25)
[2023-10-14] MEDS: MIRALAX 17 GRAMS TUBE (14:12)
[2023-10-14] MEDS: MAXIPIME 2000 MG IV ×2 (14:12→21:25)
[2023-10-14] MEDS: VITAMIN B-12 1000 MCG TUBE (14:12)
[2023-10-14] MEDS: SENOKOT-S 2 TABLET TUBE (14:12)
[2023-10-14] MEDS: ProAmatine 5 MG TUBE (14:13)
[2023-10-14] MEDS: KEPPRA 1500 MG TUBE ×2 (14:19→21:25)
[2023-10-14] MEDS: SUBLIMAZE 50 MCG IV ×3 (14:42→22:19)
[2023-10-14] MEDS: NOVOLOG FLEXPEN-LOW RESISTANCE SC ×3 (15:10→23:36)
[2023-10-14] MEDS: TAMIFLU 75 MG TUBE ×2 (15:10→21:29)
[2023-10-14] MEDS: SINEMET 25-100 0.5 TABLET TUBE ×2 (15:12→21:26)
--- NOTE | 2023-10-14 15:12 | PHA.VAN.IN ---
Assessment
- Assessment
Renal Function: Appears similar to baseline
Concomitant Antimicrobials: cefepime, oseltamivir
- Previous Dosing Experience
Previous Regimen: Vanc 1000mg Q12H
Date of Regimen: Aug 2017
Provided Trough of: 12
Patient's SCR is: Similar to previous dosing experience
Patient's weight is: Decreased compared to previous dosing experience (Patient wighs ~77kg vs ~95kg previously)
AUC Dosing Plan
- Dosing Variables
Dosing Weight (kg): 77
Dosing CrCl (ml/min): 77
Vd coefficient (L/kg): 0.6
- Empiric Dosing
Initial / Loading Dose: 1500mg - 10/14 08:04
Maintenance Regimen: Vanc 750mg Q12H starting at 1800
Estimated AUC (mcg*h/mL): 492
Estimated Peak (mcg*h/mL): 29
Estimated Trough (mcg/ml): 13.7
Estimated Half Life (H): 10.1
Will decrease dose slightly from prior dosing experience - patient has aged ~6 to 7 years and weight has reduced
- Monitoring
No levels ordered at this time: consider levels in next few days
MRSA Screen: Ordered per protocol
Pharmacokinetics Vancomycin I
- -
Patient Age: 77
Patient Sex: Female
Vancomycin Day #: 1
Indication: Skin And Soft Tissue
Requesting Provider: Dr. Moreno
Pertinent Antimicrobial Allergies:
no pertinent antibiotic allergies
Height / Weight:
Height 4 ft 11 in
Actual Weight 76.7 kg
Pertinent Past Medical History: BMI ~34, Restrictive lung disease, DM
- Vital Signs / Lab Results
Temp Pulse Resp BP Pulse Ox
98.1 F 40 16 92/76 100
10/14/23 12:09 10/14/23 15:00 10/14/23 15:00 10/14/23 14:31 10/14/23 15:00
Lab Results - Hematology
10/14/23
07:21
WBC 7.3
Lab Results - Chemistry
10/14/23
07:21
BUN 12
Creatinine 0.3 L
Estimated Creat Clear 77
Albumin Cancelled
10/14/23 10/14/23
07:21 11:00
Lactic Acid 1.4 Cancelled
Lab Results - Urine
10/14/23
07:21
Urine Nitrite (Reflex) Negative
Leukocyte Esterase Rfl Trace A
Urine WBC (Reflex) 3-5
Ur Squamous Epith Cells >30
Urine Bacteria (Reflex) Few A
Microbiology Results
10/14/23 10:51 Gram Stain - Preliminary
Sputum
10/14/23 13:33 Influenza Types A & B (GALE) - Final
Nasal Swab Influenza A Positive, NAAT
--- NOTE | 2023-10-14 17:00 | PTCARENOTE ---
PT without urine output since st cath in ED. Bladder scan for 44ml. Dr Moreno aware and will address.
[2023-10-14 17:07] LABS: Troponin I 0.046 ng/ml
[2023-10-14 17:21] LABS: Glucose - Point of Care 131 mg/dl (70-99)
[2023-10-14] MEDS: MAGNESIUM OXIDE 500 MG PO (18:03)
[2023-10-14] MEDS: DESENEX/MITRAZOL/ZEASORB 1 APPLIC TOPICAL (20:10)
--- NOTE | 2023-10-14 20:23 | PTCARENOTE ---
received patient. does not follows commands. b/l soft wrist restraints in place. pt awake and coughing over ventilator. ICU ELECTRICAL INSTRUMENT TECHNICIAN notified, propofol gtt initiated. SB on monitor with intermittent tachycardia. doppler pedal pulses. layton gtt infusing
through femoral CVC to maintain MAP >65. #7.5 ETT, 23 at lip, moved to center. large amount of puente secretions orally and through ETT. oral care provided. vent settings: 16-450-5-40%. OGT in place, clamped and used for meds. + bowel sounds noted.
purewick in place, draining frothy yellow urine. droplet precautions maintained for flu. labs sent. plan of care ongoing.
[2023-10-14] MEDS: DUONEB 3 ML INH (20:35)
[2023-10-14 20:36] LABS: Triglycerides 91 mg/dl (10-149)
[2023-10-14] MEDS: DEBROX EAR DROPS 4 DROP RIGHT EAR (21:24)
[2023-10-14] MEDS: LANOXIN 125 MCG PO (21:30)
[2023-10-14] MEDS: PERIDEX 0.12% ORAL RINSE 15 ML PO (21:55)
--- NOTE | 2023-10-14 22:56 | W.PN.UPDATE ---
Update Note
Progress Note Update
Procedure Note: Arterial Line�
� Right Wrist Arrow 20 (11/02)�
Diagnosis:��Sepsis
IV Line Comments: Uneventful Procedure�
Juan's test completed pre-procedure: Yes�
A-Line Comments: Sterile technique as per standard protocol, Ultrasound guided insertion�
Functioning A-line in situ: Yes�
A-line Insertion Start Time:�1030�
A-line in at:��1035
[2023-10-14 23:33] LABS: Glucose - Point of Care 90 mg/dl (70-99)
[2023-10-14 23:38] LABS: B.E. 5.7 mmol/L; HCO3 27.5 mmol/L (21-28); Ionized Calcium 1.05 mMOL/L (1.15-1.33); O2 Saturation % 99.7 % (94-98); PCO2 30 mmHg (32-35); PO2 108 mmHg (83-108); Potassium 3.1 mMOL/L (3.5-5.1); Sodium 137 mMOL/L (136-145); pH 7.57 (7.35-7.45)
[2023-10-15] VITALS (7 sets, daily range): BP systolic 97–108; BP diastolic 36–54; BMI 34.3
--- NOTE | 2023-10-15 00:17 | PTCARENOTE ---
patient reassessed. bustos inserted, 175ml dumped post insertion, dark yellow. urine sent. ICU SEED SPECIALIST placed right radial arterial line, leveled and zeroed. ABG sent. layton/propofol/IVF infusing through femoral CVC. patient bathed, oral care and suction
provided, fresh linens placed and repositioned with pillows. plan of care ongoing.
[2023-10-15 01:52] LABS: ALT (SGPT) 10 U/L (0-35); AST (SGOT) 25 U/L (14-36); Albumin 1.9 g/dl (3.5-5.0); Alkaline Phosphatase 74 U/L (38-126); Blood Urea Nitrogen 19 mg/dl (7-17); Calcium 7.3 mg/dl (8.4-10.2); Carbon Dioxide 27 mmol/L (22-30); Chloride 103 mmol/L (98-107); Estimated Creatinine Clearance 71 ml/min; Glucose 96 mg/dl (70-99); Magnesium 1.6 mg/dl (1.6-2.3); Phosphorus 1.7 mg/dl (2.5-4.5); Potassium 3.2 mmol/L (3.5-5.1); Sodium 136 mmol/L (135-145); Total Bilirubin 1.4 mg/dl (0.2-1.3); Total Protein 4.6 g/dl (6.3-8.2); eGFR > 60.00
[2023-10-15 02:21] LABS: Free T3 2.91 pg/ml (2.77-5.27)
[2023-10-15] MEDS: KCL 100 IV (02:24)
[2023-10-15] MEDS: SUBLIMAZE 50 MCG IV (02:24)
[2023-10-15 04:48] LABS: B.E. 7.1 mmol/L; HCO3 28.8 mmol/L (21-28); Ionized Calcium 1.07 mMOL/L (1.15-1.33); O2 Saturation % 99.9 % (94-98); PCO2 30 mmHg (32-35); PO2 141 mmHg (83-108); Potassium 3.7 mMOL/L (3.5-5.1); Sodium 137 mMOL/L (136-145); pH 7.59 (7.35-7.45)
[2023-10-15 05:01] LABS: % Basophils 0.3 % (0-2); % Immature Granulocytes 0.4 % (0-0.5); % Lymphocytes 15.9 % (20.5-51.1); % Neutrophils 73.4 % (42.2-75.2); Absolute Lymphocytes 1.2 10^3/uL (1.2-3.4); Absolute Monocytes 0.8 10^3/uL (0.1-0.6); Absolute Neutrophils 5.5 10^3/uL (1.4-6.5); Hematocrit 31.5 % (37.0-47.0); Hemoglobin 10.7 g/dL (12.0-16.0); Mean Corpuscular Hgb 34.2 pg (27.0-31.0); Mean Corpuscular Volume 100.6 fL (81.0-99.0); Mean Platelet Volume 9.3 fL (7.4-10.4); Nucleated Red Blood Cells % 0 %; Platelet Count 161 10^3/uL (130-400); Red Blood Cell Count 3.13 10^6/uL (4.20-5.40); Red Cell Dist. Width 13.9 % (11.5-14.5); White Blood Cell Count 7.5 10^3/uL (4.8-10.8)
[2023-10-15] MEDS: NOVOLOG FLEXPEN-LOW RESISTANCE SC ×4 (05:01→23:54)
[2023-10-15] MEDS: MAXIPIME 2000 MG IV ×3 (05:01→21:31)
[2023-10-15] MEDS: STERILE WATER FOR INJECTION 10 ML IV ×3 (05:01→21:31)
[2023-10-15] MEDS: DIPRIVAN 100 IV ×2 (05:05→10:49)
[2023-10-15 05:12] LABS: Glucose - Point of Care 78 mg/dl (70-99)
--- NOTE | 2023-10-15 05:20 | PTCARENOTE ---
patient reassessed. AM labs sent. SB/ST on monitor. vent settings adjusted: 12-450-5-40%. moderate amount of secretions, oral care and suction provided. ETT repositioned. pt repositioned. plan of care ongoing.
[2023-10-15] MEDS: CALCIUM CHLORIDE 10% SYRINGE 60 MG IV (05:50)
[2023-10-15] MEDS: XOPENEX 1.25 MG INHALANT SOLUTION INH ×3 (07:25→20:24)
[2023-10-15] MEDS: ATROVENT NEBULES 0.5 MG INH ×3 (07:25→20:24)
[2023-10-15] MEDS: LIDOCAINE 4% PATCH 1 PATCH TOPICAL (07:55)
[2023-10-15] MEDS: DESENEX/MITRAZOL/ZEASORB 1 APPLIC TOPICAL ×2 (07:55→20:02)
[2023-10-15] MEDS: PROTONIX IV 40 MG IV (07:56)
[2023-10-15] MEDS: NSS (PRESERVATIVE FREE) 10 ML IV (07:56)
[2023-10-15] MEDS: PERIDEX 0.12% ORAL RINSE 15 ML PO (08:00)
--- NOTE | 2023-10-15 08:00 | PTCARENOTE ---
Assumed care of patient. Pt rec'd sedated on ventilator. Bilateral wrist restraints on. Eye movement to voice...coughs and turns red w/ repositioning. Attempts to ONEAL's...weak and tremulous. S1 S2 irregular w/ sinus katerine/BBC/prolonged
QT...PVC's noted. Bilateral RP's & DP's by doppler. +2 generalized edema. Knee hi SCD's on. #7.5 ETT 23cm left lip...current vent settings: 10/400/+5/40%...sats 99%. Lungs diminished w/ scattered rhonchi in bilateral bases. Suctioned orally
for thick puente via ETT and orally. Abdomen obese...+BS. OG clamped...placement confirmed. Incontinent of soft brown/puente stool. Pericare done...miconazole powder to bilateral groins. Monaco draining rylan urine. Monaco care done. Skin pale in
color...sacrum intact (red blanchable). Right radial nicholas...flushed and zeroed. Left femoral TLC w/ NSS, layton gtt, and propofol gtts infusing...see interventions. Peripheral INT's flushed and WNL. VS documented. Will continue to monitor
closely.
[2023-10-15] MEDS: KEPPRA 1500 MG TUBE (08:01)
[2023-10-15] MEDS: VIMPAT 50 MG TUBE (08:02)
[2023-10-15] MEDS: MIRALAX 17 GRAMS TUBE (08:02)
[2023-10-15] MEDS: SENOKOT-S 2 TABLET TUBE (08:02)
[2023-10-15] MEDS: ELIQUIS 5 MG TUBE (08:02)
[2023-10-15] MEDS: SINEMET 25-100 0.5 TABLET TUBE ×2 (08:02→15:13)
[2023-10-15] MEDS: VISBIOME 1 CAP TUBE (08:02)
[2023-10-15] MEDS: VITAMIN B-12 1000 MCG TUBE (08:02)
[2023-10-15] MEDS: TAMIFLU 75 MG TUBE ×2 (08:04→20:07)
--- NOTE | 2023-10-15 08:28 | W.PN.INTV ---
Today's Communication / Plan
Recommendations
Extubated today to nasal cannula
Starting stress dose steroids
Wean off vasopressors
Aspiration precautions
Abx x 10-14 days total
Replete K>4, Mg>2, PO4>3
Assessment
-
Assessment: 77-year-old F former tobacco smoker with PMHx of A-fib on digoxin and Eliquis, kyphosis with reported history of restrictive lung disease, chronic hypotension on midodrine, chronic respiratory failure, history of seizures with
parkinsonism diagnosed last month during hospitalization, and CHETNA who p/w unresponsiveness. Patient found to be tachycardic, hypotensive, cardioverted in the ER and then developed tachybradycardia syndrome. CXR was concerning for left lower lobe
pneumonia - of note patient was on Levaquin for the past few days for pneumonia which was diagnosed as an outpatient. Patient transferred to the ICU for further care and critical care services consulted for additional management/recommendations.
Chronic conditions TOOL TENDER: Essential tremor, A-fib on Eliquis, CHF, COPD, former tobacco use disorder, sleep apnea, dyspepsia, history of UTI, gout, kyphosis, left femur fracture, DM type II, impaired vision, history of skin cancer, anxiety/depression,
left-sided DVT, osteoporosis, ambulatory dysfunction, chronic hypotension on midodrine
Impression:
#Acute respiratory failure with hypoxemia on mechanical ventilation --> now extubated
#Left sided HAP
#Influenza A
#Acute COPD exacerbation due to above with flu and bacterial superinfection
#Septic shock due to pneumonia
#Critical illness related corticosteroid insufficiency
#Elevated troponin - likely due to type II OH from demand ischemia
#Tachy-katerine syndrome
#Primary hyperthyroidism
#Moderate restrictive lung defect (T% predicted via PFT from 2016)
#Physical deconditioning with wheel chair bound status at baseline
Plan:
- Continue mechanical ventilation with daily SAT/SBT if clinically appropriate --> patient was weaned today, did well with VTe 320-350 and no hypercapnea on blood gas, and pt was extubated to nasal cannula
- Continue vasopressors with neosynephrine and maintain MAP>65
- non-invasive hemodynamic monitoring was used showing low stroke volume, low CI and elevated SVR
- Give 1 L bolus to help improve pre-load and assess for response in hemodynamics
- Titrate FiO2 to maintain SpO2 >90-94%
- Cardiology on board --> continue rate control medications with hold parameters given her intermittent bradycardia
- Change DuoNebs to atrovent + xopenex given her tachycardia
- Continue broad spectrum ABx (cefepime) and follow up infectious workup (sputum Cx and blood Cx); MRSA swab negative, hence IV vanco DC'd
- Negative urine legionella and Strep pneumonia
- Consider starting methimazole given her elevated free T4 with low TSH; Total T4 and free T3 are WNL; will hold off for now
- Given her low random cortisol level with septic shock, I will start stress dose steroids with plans to taper
- No need to continue trending troponin as it had peaked at 0.056
- Maintain MAP>65
- Maintain BG 140-180 with ISS q6hr
- Continue tamiflu 75 BID x 5 days
- Reduced lacosamide to 50mg IV BID given bradycardia
- Titrate FiO2 to keep SpO2 >90-94%
- PPI (home med)
- DVT ppx - Eliquis
Lines:
Left femoral CVC - placed by ER on 10-14-2023 --> plan to remove by tomorrw assuming she has adequate PIV access and if off the vasopressors
Critical care statement: A total of 43 minutes of critical care time was provided for this patient today. This includes management of unstable vital signs, evaluation of the patient at bedside, reviewing the patient's pertinent medical records
including radiographs, microbiology, laboratory evaluations, and discussion with primary team, consultants, pharmacy, nutrition, physical therapy, case management, charge nurse, critical care nursing, and respiratory therapy.
Data:
CXR 10-15-2023:
Lines and tubes as described.
The endotracheal tube is low.
Bibasilar atelectasis persists.
CXR 10-14-2023:
Endotracheal tube is present with tip 2.2 cm above the guanakito.
Nasogastric or orogastric tube present with tip extending into the left upper quadrant, off the inferior to the radiograph.
Focal parenchymal airspace opacity within the left lower lung, which likely represents pneumonia.
PFT - 08/2016
FEV1/FVC: 61
FEV1: 1L (53%)
FVC: 1.64L (66%)
T% (2.78L)
VC: 66%
RV: 61%
DLco: 45%
VA: 85% (3.65L)
DLco/VA: 52%
Flow volume loop: Scooped expiratory limb and restricted
Subjective Dataa
Subjective Data
Date of Service:
Date of Service: October 15, 2023
Chief Complaint: Cotton Farmer Follow Up
Subjective:
Pt seen this AM. Remains on layton at 80mcg/min. She is on propofol at 20mcg/kg/min and getting fentanyl pushes. When sedation is lowered she awakens and is following commands. Wants the tube out of her throat.
Review of Systems
General: Other (Negative unless mentioned above)
Objective Data
Data Reviewed
Vital Signs / I&O / Oxygen:
Vital Signs
Temp Pulse Resp BP Pulse Ox
97.8 F 61 10 97/36 100
10/15/23 07:50 10/15/23 09:00 10/15/23 09:00 10/15/23 04:00 10/15/23 09:00
Intake and Output
10/14/23 10/15/23 10/16/23
06:59 06:59 06:59
Intake Total 3505.7 / 3615.4 529.1 / 529.1
Output Total 240 / 262
Balance 3265.7 / 3353.4 507.1 / 507.1
SaO2 [A/C] 99
SaO2 100
Nasal Cannula flow liters per 100
minute
Physical Exam
General: Comfortable and Chills (negative)
HEENT: Normocephalic and Anicteric
Cardiovascular: S1-S2, Peripheral Edema and Other (Bradycardic)
Respiratory: ET Tube and Other (Mechanical breath sounds)
GI: Soft, Non Distended and Non Tender
Neurology: Tremors (occasionally seen at rest on RUE) and Other (Sedated but when sedation lowered she is awake, alert and following commands)
Skin: Warm and Dry
Labs/Micro/Reports
Lab Data
10/15/23 04:29
10/15/23 01:19
Laboratory Results
10/14/23 10/14/23 10/15/23
10:51 23:28 04:29
PT 24.8 H
INR 2.25
APTT 41.4 H
pH 7.57 H 7.59 H
pCO2 30 L 30 L
pO2 108 141 H
HCO3 27.5 28.8 H
O2 Delivery Level
10/15/23
06:00
PT
INR
APTT
pH Cancelled
pCO2 Cancelled
pO2 Cancelled
HCO3 Cancelled
O2 Delivery Level Cancelled
Microbiology
10/14/23 10:51 Sputum Respiratory Culture - Preliminary
NO GROWTH
10/14/23 10:51 Sputum Gram Stain - Preliminary
10/14/23 08:08 Blood/Venous Blood Culture - Preliminary
No Growth in 24 hours- Final report to follow
10/14/23 23:28 Urine Legionella Urinary Antigen - Final
Negative for Legionella pneumophila Serogroup 1 antigen.
A negative result does not rule out the possiblity of
Legionella infection due to other serogroups or species of
Legionella. Clinical correlation is recommended.
10/14/23 23:28 Urine Streptococcus pneumoniae Antigen (M - Final
Negative for Streptococcus pneumoniae antigen.
A negative result does not exclude infection with
Streptococcus pneumoniae. Clinical correlation is
recommended.
10/14/23 07:21 Blood/Venous Blood Culture - Preliminary
No Growth in 24 hours- Final report to follow
10/14/23 13:33 Nose Nasal Screen MRSA (PCR) - Final
MRSA not detected - performed by PCR methodology.
10/14/23 13:33 Nasal Swab Influenza Types A & B (GALE) - Final
Influenza A Positive, NAAT
--- NOTE | 2023-10-15 09:10 | W.PN.CARDCBS ---
Today's Communication / Plan
-
Hold digoxin as it may be provoking episodes of tachycardia
Replete electrolytes
Monitor on tele
Impression / Plan
-
Family Physician:� Solomon Troy, DO
Multiple Drum Sander: Dr. Solis, last seen in May 2020 in office
Impression:
Influenza A
Presents 10/14/2022 with unresponsiveness, hypoxia
Acute hypoxic respiratory failure requiring intubation 10/14/2023
Pneumonia
Fever
Atrial fibrillation with rapid ventricular response
Status post cardioversion 10/14/2023 in emergency department
Tachybradycardia syndrome
Hypotension
Paroxysmal atrial fibrillation
Chronic anticoagulation on Eliquis
VDRF (2009)
ILD/Restrictive lung disease/chronic respiratory failure/chronic O2
CHETNA
Seizure disorder (diagnosed September 2023)
Chronic Dysphagia on pureed diet
GERD
ESPARZA
Anxiety
History of left lower extremity deep vein thrombosis (January 2023)
Non-occlusive DVT L popliteal vein
Gout
Basal Cell Skin Cancer
Urinary retention Osteoporosis
Ambulatory dysfunction/bed-bound
Echo 04/03/2020: EF 55 to 60%, stage II DD. Mildly dilated RA. Mild MR, mild TR with PAP 50 mmHg
Patient is a 77 y/o female with past medical history of seizure diagnosis in September 2023, paroxysmal atrial fibrillation on chronic anticoagulation with Eliquis, pulmonary hypertension, restrictive lung disease, chronic respiratory failure,
obstructive sleep apnea, non-alcoholic steatohepatitis, gastroesophageal reflux disease, chronic dysphagia, left lower extremity deep vein thrombosis (January 2023), hypertension, diabetes mellitus, gout, Basal Cell Skin Cancer, urinary retention,
osteoporosis, ambulatory dysfunction anxiety, and morbid obesity whom presented 10/14/2023 from [facility] with with unresponsiveness and hypoxia.�She apparently has been on Levaquin for the past few days for pneumonia. She required intubation
in emergency department upon arrival and is currently intubated and sedated. Chest x-ray concerning for left lower lobe pneumonia. She was noted to be in atrial fibrillation with rapid ventricular response associated with hypotension and
underwent successful cardioversion with baptist of sinus rhythm. Patient has continued to have evidence of tachybradycardia syndrome with PAF followed by bradycardia with heart rate in the 40s following cardioversion. Patient currently remains
hypotensive despite baptist of sinus rhythm.
Plan:
-Presents 10/14/2023 with unresponsiveness and hypoxia requiring intubation 10/14/2023 and CXR c/w pneumonia, now Flu+
-Paroxysmal atrial fibrillation with rapid ventricular response on presentation to the emergency department 10/14/2023. Patient underwent successful urgent cardioversion with baptist of sinus rhythm.
-In sinus rhythm with short salvos of likely SVT/AVNRT
-These episodes of tachycardia could be provoked by digoxin, would hold for now
-Continue to monitor on tele
-Home Toprol on hold for hypotension and add back as BP improves
-Cont Eliquis for cardioembolic ppx of AFib
Progress Note - Multiple Drum Sander
Subjective
Date of Service: October 15, 2023
NAOE. Remains intubated and sedated in the MICU. Pressor support with phenylephrine.
Objective
Labs:
10/15/23 04:29
10/15/23 01:19
Labs
Hgb 10.7 g/dL (12.0-16.0) L 10/15/23 04:29
Hct 31.5 % (37.0-47.0) L 10/15/23 04:29
Plt Count 161 10^3/uL (130-400) 10/15/23 04:29
PT 24.8 Sec (11.4-14.6) H 10/14/23 10:51
INR 2.25 10/14/23 10:51
APTT 41.4 Sec (23.4-35.0) H 10/14/23 10:51
Sodium 136 mmol/L (135-145) 10/15/23 01:19
Potassium 3.2 mmol/L (3.5-5.1) L 10/15/23 01:19
BUN 19 mg/dl (7-17) H 10/15/23 01:19
Creatinine 0.3 mg/dL (0.6-1.0) L 10/15/23 01:19
Glucose 96 mg/dl (70-99) 10/15/23 01:19
Digoxin 0.9 ng/ml (0.8-2.0) 10/14/23 10:51
Troponins
10/14/23 10/14/23 10/14/23
10:51 16:28 21:42
Troponin I 0.056 H* 0.046 H* Cancelled
Vital Signs and I&O:
Vital Signs
Temp Pulse Resp BP Pulse Ox
97.8 F 41 10 97/36 99
10/15/23 07:50 10/15/23 07:33 10/15/23 07:33 10/15/23 04:00 10/15/23 08:00
Vital Signs
Temp Pulse Resp BP Pulse Ox
97.8 F 41 10 97/36 99
10/15/23 07:50 10/15/23 07:33 10/15/23 07:33 10/15/23 04:00 10/15/23 08:00
Intake & Output
10/13/23 10/14/23 10/15/23 10/16/23
06:59 06:59 06:59 06:59
Intake Total 3505.7 / 3615.4 529.1 / 529.1
Output Total 240 / 262
Balance 3265.7 / 3353.4 507.1 / 507.1
Physical Exam
Physical Exam
Gen: NAD
HEENT: NC/AT, sclera anicteric
Neck: No JVD
CV: RRR, NL s1/s2, no M/R/G
Lungs: Mechanically ventilated
Abd: S/ND
: Monaco with rylan urine.
Ext: Nonpitting LE edema
Skin: Warm, dry.
Neuro: Sedated
[2023-10-15 09:29] LABS: Glycohemoglobin (HgbA1c) 5.2 % (4.0-5.6)
--- NOTE | 2023-10-15 10:15 | PTCARENOTE ---
Pt placed on Hemosphere monitoring via arterial line. Cardiac output, index, and SVR derived from Hemosphere monitor. Stroke volume is currently 70.
[2023-10-15] MEDS: NSS 1000 IV (10:42)
[2023-10-15] MEDS: NEO-SYNEPHRINE 250 IV (10:48)
[2023-10-15] MEDS: NSS 500 IV (10:59)
[2023-10-15 11:56] LABS: Glucose - Point of Care 75 mg/dl (70-99)
--- NOTE | 2023-10-15 12:00 | PTCARENOTE ---
Diprivan gtt off since 1129. Placed on CPAP/PSV wean. Will monitor closely.
[2023-10-15] MEDS: MAGNESIUM OXIDE 500 MG PO ×2 (12:29→19:52)
[2023-10-15] MEDS: NEUTRA-PHOS POWDER PACKET 500 MG PO ×3 (12:29→19:54)
[2023-10-15 12:47] LABS: B.E. 1.5 mmol/L; HCO3 26.6 mmol/L (21-28); O2 Saturation % 99.4 % (94-98); PCO2 43 mmHg (32-35); PO2 102 mmHg (83-108)
--- NOTE | 2023-10-15 13:20 | PTCARENOTE ---
Hem[employer] monitoring rep....Lucia Juarez...[phone]. Call with any questions or concerned. Will return tmr for follow up.
[2023-10-15] MEDS: SOLU-CORTEF 50 MG IV ×2 (13:58→20:08)
--- NOTE | 2023-10-15 15:20 | PTCARENOTE ---
Pt incontinent of liquid brown stool....rectal trumpet inserted. Pt extubated to 6L N/C...sats 100%. Will continue to monitor.
--- NOTE | 2023-10-15 15:52 | CM ---
CM following re: discharge planning.
Reviewed pt's chart, met with pt.
Pt is a 77 year old female, admitted with primary dx of Acute respiratory failure with hypoxemia on mechanical ventilation
Pt is intermediate care at [facility] and is on an [place] bed hold.
The patient requires total care, is dependent/requires total assist for mobility, transfers using a damian lift to w/c, is non-ambulatory & w/c bound. She was not participating in PT/OT at the SNF. The patient is able to feed herself with
assistance.
D/C plan: return to [facility] when medically ready.
CM will follow with discharge plan updates as hospitalization progresses
--- NOTE | 2023-10-15 16:15 | PTCARENOTE ---
No major changes in physical assessment. Pt currently on 4L N/C...sats 99%. Currently on NSS and layton gtt...see intervention. Call wyman within reach. Will continue to monitor closely.
[2023-10-15 17:26] LABS: Blood Urea Nitrogen 17 mg/dl (7-17); Calcium 7.5 mg/dl (8.4-10.2); Carbon Dioxide 26 mmol/L (22-30); Chloride 109 mmol/L (98-107); Estimated Creatinine Clearance 71 ml/min; Glucose 102 mg/dl (70-99); Magnesium 1.6 mg/dl (1.6-2.3); Phosphorus 3.9 mg/dl (2.5-4.5); Potassium 4.2 mmol/L (3.5-5.1); Sodium 136 mmol/L (135-145); eGFR > 60.00
[2023-10-15 17:37] LABS: Glucose - Point of Care 93 mg/dl (70-99)
--- NOTE | 2023-10-15 19:16 | W.PN.HOSP.TC ---
Today's Communication/Plan
-
Continue antibiotics
Extubated
Wean pressors
Assessment / Plan
Assessment / Plan
Physical Exam
General: No Apparent Distress and Intubated earlier in the day
HEENT: Normocephalic
Respiratory: Other (Equal air entry bilaterally)
Cardiac: S1/S2 and Regular Rhythm
GI: Soft, Non Tender and Normal Bowel Sounds
Musculoskeletal: No Cyanosis
Skin: Warm and Dry
Neuro: Sedated
Psych: Calm

Assessment/Plan
Acute Hypoxic Respiratory Failure
Acute Toxic Metabolic Encephalopathy
Left Lower Lobe Pneumonia (diagnosed and was being treated with antibiotics for pneumonia as an outpatient)
Suspected Sepsis Secondary to Pneumonia
Influenza A
Septic Shock
-Monitor in ICU, was intubated, on 10/15/23 was extubated to nasal cannula
-Continue broad spectrum antibiotics with Cefepime
-Vancomycin discontinued due to the fact that MRSA is negative
-Continue tamiflu 75 BID x 5 days
-Wean vasopressors
-IV fluids to help with hemodynamics
-Was on Levaquin for pneumonia outpatient
-Follow blood and sputum cultures
-Titrate FiO2 to maintain SpO2 >90-94%
-Low random cortisol in setting of septic shock: stress dose steroids started
Atrial Fibrillation with Rapid Ventricular Response with Associated Hypotension
Tachycardia bradycardia syndrome
Probably Atrial tachycardia
Hypotension
Atrial Fibrillation - on Eliquis at home
-Cardioverted in the ER to NSR on October 14, 2023
-Continue Eliquis
Seizure diagnosis in September 2023
History of Parkinsonism
-On home Keppra 1500 mg BID PO and Lacosamide 50 mg PO BID (Lacosamide reduced from home 100 mg PO BID due to bradycardia)
-Continue seizure medications when able
-September 2023 neurology note indicates that patient should take Sinemet 0.5 tab TID with titration to 1 tab TID within 1 week
Pulmonary hypertension
Restrictive lung disease/Interstitial Lung Disease on Chronic Oxygen - Duonebs changed to Atrovent + Xopenex given her tachycardia
Chronic respiratory failure
Obstructive sleep apnea
Non-alcoholic steatohepatitis
Gastroesophageal reflux disease - continue PPI
Chronic dysphagia - will consider speech consultation
History of left lower extremity deep vein thrombosis (January 2023) - will continue Eliquis when able
Hypertension
Diabetes mellitus - accuchecks and sliding scale insulin
Gout
Basal Cell Skin Cancer
Urinary retention
Osteoporosis
Ambulatory dysfunction
Anxiety
Morbid obesity
DVT PPx: Eliquis
Code Status: Full Code
Septic shock is a high risk encounter
Anticipated Discharge: > 48 hours
Subjective/Interval History
-
Date of Service: October 15, 2023
Patient was seen and examined. She remained intubated, but extubated later in the day.
Objective Data
-
Labs:
Laboratory Results
10/15/23 10/15/23 10/15/23
12:37 15:08 16:15
HCO3 26.6
Sodium Cancelled Cancelled
Potassium Cancelled Cancelled
Chloride Cancelled Cancelled
Carbon Dioxide Cancelled Cancelled
BUN Cancelled Cancelled
Creatinine Cancelled Cancelled
Glucose Cancelled Cancelled
Calcium Cancelled Cancelled
10/15/23
16:51
HCO3
Sodium 136
Potassium 4.2 D
Chloride 109 H
Carbon Dioxide 26
BUN 17
Creatinine 0.3 L
Glucose 102 H
Calcium 7.5 L
Vital Signs:
Vital Signs
Temp Pulse Resp BP Pulse Ox
97.9 F 82 23 104/52 98
02/14/24 15:00 10/15/23 18:30 10/15/23 18:30 10/15/23 16:00 10/15/23 18:30
I&O
10/14/23 10/15/23 10/16/23
06:59 06:59 06:59
Intake Total 3505.7 / 3615.4 2029.9 / 2029.
Output Total 240 / 262 147 / 147
Balance 3265.7 / 3353.4 1883.9 / 1883.9
[2023-10-15] MEDS: PROTONIX 20 MG PO (19:55)
[2023-10-15] MEDS: ELIQUIS 5 MG PO (19:55)
[2023-10-15] MEDS: VIMPAT 50 MG PO (19:56)
[2023-10-15] MEDS: KEPPRA 1500 MG PO (19:59)
--- NOTE | 2023-10-15 20:00 | PTCARENOTE ---
rec`d pt at 1900 awake and alert resting in bed. flat affect. left hand contracted. pt continuously repeats words. SR on monitor. +2 edema. DP/PT found by doppler. 20g Rt AC. Left fem 3 lumen. 22g in left finger. 22g right hand. RT R a-line. 2L NC
satting at 98%. lung sounds diminished and rancorous. occasional wet cough, not productive. + BS, rectal trumpet in place. Monaco in place draining yellow urine. skin opening on rt cheek, open to air. SCDs on bilaterally. MASD in groin area. call
wyman in reach, safe environment maintained.
[2023-10-15] MEDS: DEBROX EAR DROPS 4 DROP RIGHT EAR (21:30)
[2023-10-15] MEDS: SINEMET 25-100 0.5 TABLET PO (21:31)
[2023-10-16] VITALS (9 sets, daily range): BP systolic 93–114; BP diastolic 49–67; BMI 36.8
[2023-10-16] LABS: Glucose - Point of Care 117 mg/dl (70-99)
--- NOTE | 2023-10-16 | PTCARENOTE ---
pt reassessed, no changes in pt assessment. pt resting in bed.
[2023-10-16] MEDS: SOLU-CORTEF 50 MG IV ×4 (01:36→20:27)
[2023-10-16] MEDS: ProAmatine 5 MG PO (02:25)
--- NOTE | 2023-10-16 04:00 | PTCARENOTE ---
pt reassessed. no changes in pt assessment. pt resting.
[2023-10-16 04:38] LABS: % Immature Granulocytes 0.5 % (0-0.5); % Lymphocytes 9.7 % (20.5-51.1); % Monocytes 2.8 % (1.7-9.3); Absolute Lymphocytes 0.4 10^3/uL (1.2-3.4); Absolute Monocytes 0.1 10^3/uL (0.1-0.6); Absolute Neutrophils 3.8 10^3/uL (1.4-6.5); Hemoglobin 9.8 g/dL (12.0-16.0); Mean Corp Hgb Conc. 33.8 g/dL (33.0-37.0); Mean Corpuscular Volume 103.6 fL (81.0-99.0); Mean Platelet Volume 9.2 fL (7.4-10.4); Nucleated Red Blood Cells % 0 %; Platelet Count 149 10^3/uL (130-400); Red Cell Dist. Width 14.4 % (11.5-14.5); White Blood Cell Count 4.3 10^3/uL (4.8-10.8)
[2023-10-16 04:54] LABS: ALT (SGPT) < 10 U/L (0-35); AST (SGOT) 27 U/L (14-36); Alkaline Phosphatase 74 U/L (38-126); Blood Urea Nitrogen 18 mg/dl (7-17); Calcium 7.2 mg/dl (8.4-10.2); Carbon Dioxide 30 mmol/L (22-30); Chloride 110 mmol/L (98-107); Estimated Creatinine Clearance 71 ml/min; Glucose 120 mg/dl (70-99); Magnesium 1.8 mg/dl (1.6-2.3); Phosphorus 4.4 mg/dl (2.5-4.5); Potassium 4.7 mmol/L (3.5-5.1); Sodium 136 mmol/L (135-145); Total Protein 4.8 g/dl (6.3-8.2); eGFR > 60.00
[2023-10-16] MEDS: MAXIPIME 2000 MG IV ×3 (05:17→20:47)
[2023-10-16] MEDS: STERILE WATER FOR INJECTION 10 ML IV ×3 (05:18→20:47)
[2023-10-16] MEDS: NOVOLOG FLEXPEN-LOW RESISTANCE SC ×4 (05:21→23:35)
[2023-10-16 05:31] LABS: Glucose - Point of Care 118 mg/dl (70-99)
[2023-10-16] MEDS: XOPENEX 1.25 MG INHALANT SOLUTION INH ×3 (07:50→20:12)
[2023-10-16] MEDS: ATROVENT NEBULES 0.5 MG INH ×3 (07:51→20:12)
--- NOTE | 2023-10-16 08:15 | PTCARENOTE ---
Received pt in droplet precautions. She is awake and calling out 'help, help, help'. She was oriented to place and time. She was able to tell me she was here for PNA and able to make her needs known. Left knuckle #22g protective catheter, right
AC#20g flushed and patent. Right hand #20g protective catheter leaked with flushing. Right radial arterial line transduced, calibrated and monitored. Left femoral TL CVC with 0.9NSS @ 75ml/hr via distal port. Proximal and medial ports flushed and
patent. Weak radial pulses. Doppler DP pulses. +2 anasarca. Moist non-productive cough. Tolerating oxygen 2 liters nasal cannula. 97%. Lungs diminished posteriorly, Right base fine crackles. Obese. NPO except meds. Nasal trumpet [place] for diarrhea.
Colace, senna and miralax held at this time. Monaco catheter with small amounts rylan urine. Tremors noted in her left foot and both hands. Thorough moth care performed. Aspiration precautions maintained. Safe environment maintained. Will continue to
monitor.
[2023-10-16] MEDS: VISBIOME 1 CAP PO (08:43)
[2023-10-16] MEDS: KEPPRA 1500 MG PO ×2 (08:43→20:30)
[2023-10-16] MEDS: PROTONIX 20 MG PO (08:43)
[2023-10-16] MEDS: VITAMIN B-12 1000 MCG TUBE (08:44)
[2023-10-16] MEDS: VIMPAT 50 MG PO ×2 (08:44→20:38)
[2023-10-16] MEDS: SINEMET 25-100 0.5 TABLET PO ×2 (08:44→20:48)
[2023-10-16] MEDS: ELIQUIS 5 MG PO ×2 (08:44→20:38)
[2023-10-16] MEDS: LIDOCAINE 4% PATCH 1 PATCH TOPICAL (08:45)
[2023-10-16] MEDS: DESENEX/MITRAZOL/ZEASORB 1 APPLIC TOPICAL ×2 (08:45→20:38)
[2023-10-16] MEDS: SAFETUSSIN DM (SUGAR/ALCOHOL FREE) 200 MG PO (08:47)
--- NOTE | 2023-10-16 09:05 | PTCARENOTE ---
Dr. Moreno aware pt off vasopressors. ABP reading 20mmHg higher than her left U/A cuff pressure. Tolerating oxygen 2 liters and mentating at her baseline. Able to make her needs known. Will discontinue as ordered.
--- NOTE | 2023-10-16 09:16 | W.PN.INTV ---
Today's Communication / Plan
Recommendations
Remove femoral CVC and place midline (IV team came to bedside)
Stress dose steroids with wean
Diet as per DESIGNATED BROKER --> pt failed --> dobhoff being placed by RN and then tube feeds will start
Aspiration precautions
Abx x 14 days total
Replete K>4, Mg>2, PO4>3
Downgrade out of ICU to IMU. Pulmonary will follow.
Assessment
-
Assessment: 77-year-old F former tobacco smoker with PMHx of A-fib on digoxin and Eliquis, kyphosis with reported history of restrictive lung disease, chronic hypotension on midodrine, chronic respiratory failure, history of seizures with
parkinsonism diagnosed last month during hospitalization, and CHETNA who p/w unresponsiveness. Patient found to be tachycardic, hypotensive, cardioverted in the ER and then developed tachybradycardia syndrome. CXR was concerning for left lower lobe
pneumonia - of note patient was on Levaquin for the past few days for pneumonia which was diagnosed as an outpatient. Patient transferred to the ICU for further care and critical care services consulted for additional management/recommendations.
Chronic conditions VALET: Essential tremor, A-fib on Eliquis, CHF, COPD, former tobacco use disorder, sleep apnea, dyspepsia, history of UTI, gout, kyphosis, left femur fracture, DM type II, impaired vision, history of skin cancer, anxiety/depression,
left-sided DVT, osteoporosis, ambulatory dysfunction, chronic hypotension on midodrine
Impression:
#Acute respiratory failure with hypoxemia required mechanical ventilation on admission--> extubated 10/15/2023
#Left sided HAP
#Influenza A
#Acute COPD exacerbation due to above with flu and bacterial superinfection
#Septic shock due to pneumonia - shock state now resolved
#Critical illness related corticosteroid insufficiency
#Elevated troponin - likely due to type II IL from demand ischemia
#Tachy-katerine syndrome
#Primary hyperthyroidism
#Moderate restrictive lung defect (T% predicted via PFT from 2016)
#Physical deconditioning with wheel chair bound status at baseline
Plan:
- Maintain MAP>65
- IV team will place midline and then we will remove femoral CVC
- Titrate FiO2 to maintain SpO2 >90-94%
- Cardiology on board --> continue rate control medications with hold parameters given her intermittent bradycardia
- Changed DuoNebs to atrovent + xopenex given her tachycardia
- Continue broad spectrum ABx (cefepime) and follow up infectious workup (sputum Cx and blood Cx); MRSA swab negative, hence IV vanco DC'd --> would complete 10-14 day course of ABx, and assuming pt remains afebrile by tomorrow then would narrow ABx
to rocephin.
- Negative urine legionella and Strep pneumonia
- Consider starting methimazole given her elevated free T4 with low TSH; Total T4 and free T3 are WNL; will consult endo for better insight on this
- Given her low random cortisol level with septic shock on ICU admission, I started stress dose steroids with plans to taper --> finish 3 days of 50mg IV q6hr and then taper after that (this is ordered)
- No need to continue trending troponin as it had peaked at 0.056
- Maintain MAP>65
- Maintain BG 140-180 with ISS q6hr
- Continue tamiflu 75 BID x 5 days
- Reduced lacosamide to 50mg IV BID given bradycardia
- Titrate FiO2 to keep SpO2 >90-94%
- PPI (home med)
- DVT ppx - Eliquis
Dispo: Downgrade out of ICU to IMU. Pulmonary service will continue to follow.
Lines:
Left femoral CVC - placed by ER on 10-14-2023 --> plan to remove today --> IV team contacted who will place midline and then remove CVC.
Data:
CXR 10-15-2023:
Lines and tubes as described.
The endotracheal tube is low.
Bibasilar atelectasis persists.
CXR 10-14-2023:
Endotracheal tube is present with tip 2.2 cm above the guan[place]ito.
Nasogastric or orogastric tube present with tip extending into the left upper quadrant, off the inferior to the radiograph.
Focal parenchymal airspace opacity within the left lower lung, which likely represents pneumonia.
PFT - 08/2016
FEV1/FVC: 61
FEV1: 1L (53%)
FVC: 1.64L (66%)
T% (2.78L)
VC: 66%
RV: 61%
DLco: 45%
VA: 85% (3.65L)
DLco/VA: 52%
Flow volume loop: Scooped expiratory limb and restricted
Subjective Dataa
Subjective Data
Date of Service:
Date of Service: October 16, 2023
Chief Complaint: Hvac Project Manager Follow Up
Subjective:
Pt seen this AM. [place] removed. Stool is loose - C diff negative. On 2L/min NC with SpO2 97%. Off pressors since yesterday evening. BP via A line 116/66. She is awake and confused. Says she needs 'help,' but does not elaborate further.
Review of Systems
General: Other (Unable to obtain due to patient's clinical status/confusion)
Objective Data
Data Reviewed
Vital Signs / I&O / Oxygen:
Vital Signs
Temp Pulse Resp BP Pulse Ox
97.9 F 78 27 106/53 95
10/16/23 08:18 10/16/23 09:12 10/16/23 09:12 10/16/23 09:12 10/16/23 09:12
Intake and Output
10/15/23 10/16/23 10/17/23
06:59 06:59 06:59
Intake Total 3505.7 / 3615.4 2930.9 / 3005.9 270 / 270
Output Total 240 / 262 272 / 297 50 / 50
Balance 3265.7 / 3353.4 2658.9 / 2708.9 220 / 220
SaO2 [CPAP/PSV] 99
SaO2 [A/C] 99
SaO2 95
Nasal Cannula flow liters per 2
minute
Physical Exam
General: Comfortable and Chills (negative)
HEENT: Normocephalic and Anicteric
Cardiovascular: S1-S2 and Peripheral Edema (+1 LE pitting edema)
Respiratory: Other (Reduced breath sounds bilaterally)
GI: Soft, Non Distended and Non Tender
Neurology: Awake and Tremors
Skin: Warm, Dry and Cyanosis (negative)
Labs/Micro/Reports
Lab Data
10/16/23 04:25
10/16/23 04:25
Laboratory Results
10/15/23
12:37
pH 7.40
pCO2 43 H
pO2 102
HCO3 26.6
O2 Delivery Level
Microbiology
10/14/23 08:08 Blood/Venous Blood Culture - Preliminary
No Growth in 48 hours- Final report to follow
10/14/23 07:21 Blood/Venous Blood Culture - Preliminary
No Growth in 48 hours- Final report to follow
10/15/23 15:08 Feces/Stool C. difficile GDH Antigen & Toxins - Final
Negative for toxigenic C.difficile
10/14/23 10:51 Sputum Respiratory Culture - Preliminary
NO GROWTH
10/14/23 10:51 Sputum Gram Stain - Preliminary
10/14/23 23:28 Urine Legionella Urinary Antigen - Final
Negative for Legionella pneumophila Serogroup 1 antigen.
A negative result does not rule out the possiblity of
Legionella infection due to other serogroups or species of
Legionella. Clinical correlation is recommended.
10/14/23 23:28 Urine Streptococcus pneumoniae Antigen (M - Final
Negative for Streptococcus pneumoniae antigen.
A negative result does not exclude infection with
Streptococcus pneumoniae. Clinical correlation is
recommended.
10/14/23 13:33 Nose Nasal Screen MRSA (PCR) - Final
MRSA not detected - performed by PCR methodology.
10/14/23 13:33 Nasal Swab Influenza Types A & B (GALE) - Final
Influenza A Positive, NAAT
--- NOTE | 2023-10-16 10:06 | W.PN.CARDCBS ---
Today's Communication / Plan
-
-She appears volume overloaded. Will give 1 dose of Lasix 40 IV and reassess
-Resume Toprol-XL low-dose and digoxin
-Outpatient she is on as needed midodrine and will use if needed
-Check echocardiogram
-Check EKG
Impression / Plan
-
Family Physician:� Solomon Troy, DO
Rivet Machine Operator: Dr. Solis, last seen in May 2020 in office
Impression:
Influenza A
Presents 10/14/2022 with unresponsiveness, hypoxia
Acute hypoxic respiratory failure requiring intubation 10/14/2023
Pneumonia
Fever
Atrial fibrillation with rapid ventricular response
Status post cardioversion 10/14/2023 in emergency department
Tachybradycardia syndrome
Hypotension
Paroxysmal atrial fibrillation
Chronic anticoagulation on Eliquis
VDRF (2009)
ILD/Restrictive lung disease/chronic respiratory failure/chronic O2
CHETNA
Seizure disorder (diagnosed September 2023)
Chronic Dysphagia on pureed diet
GERD
ESPARZA
Anxiety
History of left lower extremity deep vein thrombosis (January 2023)
Non-occlusive DVT L popliteal vein
Gout
Basal Cell Skin Cancer
Urinary retention Osteoporosis
Ambulatory dysfunction/bed-bound
Echo 04/03/2020: EF 55 to 60%, stage II DD. Mildly dilated RA. Mild MR, mild TR with PAP 50 mmHg
Plan:
-Presents 10/14/2023 with unresponsiveness and hypoxia requiring intubation 10/14/2023 and CXR c/w pneumonia, now Flu+
-Paroxysmal atrial fibrillation with rapid ventricular response on presentation to the emergency department 10/14/2023. Patient underwent successful urgent cardioversion with oriental orthodox of sinus rhythm.
-In sinus rhythm with short salvos of likely atrial fibrillation/SVT or atrial tach reviewed with electrophysiology
-Resume digoxin but will try lower dose 0.125 mg daily. Resume Toprol-XL 25 mg daily
-Watch blood pressure at home on midodrine 5 mg 3 times daily as needed
-Cont Eliquis for cardioembolic ppx of AFib
-Patient appears volume overloaded will give 40 mg of IV Lasix now and reassess in the morning. Follow weights, input and output.
-Check echocardiogram
-Likely non-SD troponin elevation can assess further as an outpatient. Check EKG
-Continue treatment of influenza/pneumonia
Patient is a 77 y/o female with past medical history of seizure diagnosis in September 2023, paroxysmal atrial fibrillation on chronic anticoagulation with Eliquis, pulmonary hypertension, restrictive lung disease, chronic respiratory failure,
obstructive sleep apnea, non-alcoholic steatohepatitis, gastroesophageal reflux disease, chronic dysphagia, left lower extremity deep vein thrombosis (January 2023), hypertension, diabetes mellitus, gout, Basal Cell Skin Cancer, urinary retention,
osteoporosis, ambulatory dysfunction anxiety, and morbid obesity whom presented 10/14/2023 from [facility] with with unresponsiveness and hypoxia.�She apparently has been on Levaquin for the past few days for pneumonia. She required intubation
in emergency department upon arrival and is currently intubated and sedated. Chest x-ray concerning for left lower lobe pneumonia. She was noted to be in atrial fibrillation with rapid ventricular response associated with hypotension and
underwent successful cardioversion with oriental orthodox of sinus rhythm. Patient has continued to have evidence of tachybradycardia syndrome with PAF followed by bradycardia with heart rate in the 40s following cardioversion. Patient currently remains
hypotensive despite oriental orthodox of sinus rhythm.
Progress Note - Rivet Machine Operator
Subjective
Date of Service: October 16, 2023
She is nervous but currently extubated and denies chest pain and palpitations.
Objective
Labs:
10/16/23 04:25
10/16/23 04:25
Labs
Hgb 9.8 g/dL (12.0-16.0) L 10/16/23 04:25
Hct 29.0 % (37.0-47.0) L 10/16/23 04:25
Plt Count 149 10^3/uL (130-400) 02/15/24 04:25
PT 24.8 Sec (11.4-14.6) H 10/14/23 10:51
INR 2.25 10/14/23 10:51
APTT 41.4 Sec (23.4-35.0) H 10/14/23 10:51
Sodium 136 mmol/L (135-145) 10/16/23 04:25
Potassium 4.7 mmol/L (3.5-5.1) 10/16/23 04:25
BUN 18 mg/dl (7-17) H 10/16/23 04:25
Creatinine 0.3 mg/dL (0.6-1.0) L 10/16/23 04:25
Glucose 120 mg/dl (70-99) H 10/16/23 04:25
Digoxin 0.9 ng/ml (0.8-2.0) 10/14/23 10:51
Troponins
10/14/23 10/14/23 10/14/23
10:51 16:28 21:42
Troponin I 0.056 H* 0.046 H* Cancelled
Vital Signs and I&O:
Vital Signs
Temp Pulse Resp BP Pulse Ox
97.9 F 78 27 106/53 96
10/16/23 08:18 10/16/23 09:12 10/16/23 09:12 10/16/23 09:12 10/16/23 09:17
Vital Signs
Temp Pulse Resp BP Pulse Ox
97.9 F 78 27 106/53 96
10/16/23 08:18 10/16/23 09:12 10/16/23 09:12 10/16/23 09:12 10/16/23 09:17
Intake & Output
10/14/23 10/15/23 10/16/23 10/17/23
06:59 06:59 06:59 06:59
Intake Total 3505.7 / 3615.4 2930.9 / 3005.9 270 / 270
Output Total 240 / 262 272 / 297 50 / 50
Balance 3265.7 / 3353.4 2658.9 / 2708.9 220 / 220
Physical Exam
Physical Exam
General: Ill-appearing woman
Neck: Supple, difficult to assess JVD, HJR,
Heart: Distant heart sounds ed PMI, RRR, no murmurs, No S3, S4, no rubs.
Lungs: Decreased breath sounds and crackles
Extremities: No clubbing, cyanosis +2 edema bilaterally.
Neuro: Grossly nonfocal, awake, alert and oriented x3.
--- NOTE | 2023-10-16 11:42 | PTOTSP ---
Dysphagia Evaluation
Patient has a chronic history of dysphagia (baseline diet ground solids, thin liquids) and a prior swallow study 01/24/2023 which identified moderate oral/pharyngeal dysphagia. Patient has acute (i.e., LLL PNA prior to admission, flu positive, AHRF
with 2 day intubation and extubation less than 48 hours ago) on chronic risk factors (i.e., COPD, Parkinsonism, GERD) for dysphagia at this time.
Signs concerning for aspiration observed with thin and mildly thick liquids at time of evaluation. Given risk factors, bacterial PNA, and dysphagia history, recommend video swallow study prior to any potential diet initiation.
Recommend:
1. NPO
2. Oral care 3-5x daily with suctioning
3. Medications crushed in puree if medically cleared to do so
4. Video swallow study when medically cleared to leave the floors to r/o aspiration and develop treatment plan
5. Will continue to follow for dysphagia tx as appropriate at the acute care level.
[2023-10-16 11:46] LABS: Glucose - Point of Care 117 mg/dl (70-99)
[2023-10-16] MEDS: SENOKOT-S TUBE (12:11)
[2023-10-16] MEDS: MIRALAX PO (12:11)
[2023-10-16] MEDS: TOPROL XL 25 MG PO (12:21)
[2023-10-16] MEDS: TAMIFLU 75 MG TUBE ×2 (12:26→20:46)
[2023-10-16] MEDS: LANOXIN 125 MCG PO (12:26)
--- NOTE | 2023-10-16 12:37 | W.PN.HOSP.TC ---
Today's Communication/Plan
-
Antibiotics, diuresis
Speaking, good insight
Video Swallow again needed, should be NPO as per speech until then
Assessment / Plan
Assessment / Plan
Physical Exam
General: No Apparent Distress
HEENT: Normocephalic
Respiratory: Other (Equal air entry bilaterally) on 2 L nasal cannula oxygen
Cardiac: S1/S2 and Regular Rhythm
GI: Soft, Non Tender and Normal Bowel Sounds
Musculoskeletal: No Cyanosis
Skin: Warm and Dry
Neuro: Awake. Alert.
Psych: Calm

Assessment/Plan
Acute Hypoxic Respiratory Failure
Acute Toxic Metabolic Encephalopathy
Left Lower Lobe Pneumonia (diagnosed and was being treated with antibiotics for pneumonia as an outpatient)
Suspected Sepsis Secondary to Pneumonia
Influenza A
Septic Shock
-Monitor in ICU, was intubated, on 10/15/23 was extubated to nasal cannula
-Continue broad spectrum antibiotics with Cefepime
-Vancomycin discontinued due to the fact that MRSA is negative
-Continue tamiflu 75 BID x 5 days
-IV fluids to help with hemodynamics
-Was on Levaquin for pneumonia outpatient
-Follow blood and sputum cultures
-Titrate FiO2 to maintain SpO2 >90-94%
-Low random cortisol in setting of septic shock: stress dose steroids continued
Atrial Fibrillation with Rapid Ventricular Response with Associated Hypotension
Tachycardia bradycardia syndrome
Probably Atrial tachycardia
Hypotension
Atrial Fibrillation - on Eliquis at home
-Cardioverted in the ER to NSR on October 14, 2023
-Continue Eliquis
-Digoxin resumed but at a lower dose of 0.125 mg daily
-Continue Toprol XL 25 mg daily
-Midodrine 5 mg 3 times daily as needed
Volume Overloaded
-Lasix dosing as per cardiology
-Echocardiogram
Seizure diagnosis in September 2023
History of Parkinsonism
-On home Keppra 1500 mg BID PO and Lacosamide 50 mg PO BID (Lacosamide reduced from home 100 mg PO BID due to bradycardia)
-Continue seizure medications when able
-September 2023 neurology note indicates that patient should take Sinemet 0.5 tab TID with titration to 1 tab TID within 1 week
Pulmonary hypertension
Restrictive lung disease/Interstitial Lung Disease on Chronic Oxygen - Duonebs changed to Atrovent + Xopenex given her tachycardia
Chronic respiratory failure
Obstructive sleep apnea
Non-alcoholic steatohepatitis
Gastroesophageal reflux disease - continue PPI
Chronic dysphagia - will consider speech consultation
History of left lower extremity deep vein thrombosis (January 2023) - will continue Eliquis when able
Hypertension
Diabetes mellitus - accuchecks and sliding scale insulin
Gout
Basal Cell Skin Cancer
Urinary retention
Osteoporosis
Ambulatory dysfunction
Anxiety
Morbid obesity
DVT PPx: Eliquis
Code Status: Full Code
Anticipated Discharge: > 48 hours
Subjective/Interval History
-
Date of Service: October 16, 2023
Patient was seen and examined. She was awake, speaking, and demonstrated good insight as to why she is in the hospital.
Objective Data
-
Labs:
Laboratory Results
10/16/23
04:25
WBC 4.3 L
Hgb 9.8 L
Hct 29.0 L
Plt Count 149
Sodium 136
Potassium 4.7
Chloride 110 H
Carbon Dioxide 30
BUN 18 H
Creatinine 0.3 L
Glucose 120 H
Calcium 7.2 L
Total Bilirubin 1.0
AST 27
ALT < 10
Alkaline Phosphatase 74
Vital Signs:
Vital Signs
Temp Pulse Resp BP Pulse Ox
97.4 F 63 27 114/67 96
10/16/23 11:27 10/16/23 12:26 10/16/23 09:12 10/16/23 12:21 10/16/23 09:17
I&O
10/15/23 10/16/23 10/17/23
06:59 06:59 06:59
Intake Total 3505.7 / 3615.4 2930.9 / 3005.9 270 / 270
Output Total 240 / 262 272 / 297 50 / 50
Balance 3265.7 / 3353.4 2658.9 / 2708.9 220 / 220
--- NOTE | 2023-10-16 14:25 | CM ---
CM following re: discharge planning.
Discussed in rounds, reviewed pt's chart, met with pt. per Rounds meeting, pt extubated yesterday, requires 2L NC of O2, continue supportive care.
Pt is correction care at [facility] and is on an [place] bed hold.
The patient requires total care, is dependent/requires total assist for mobility, transfers using a Mukund lift to w/c, is non-ambulatory & w/c bound. She was not participating in PT/OT at the SNF. The patient is able to feed herself with
assistance.
CM faxed pt's clinical to [facility] for a review.
D/C plan: return to [facility] for a LTC when medically ready.
CM will follow with discharge plan updates as hospitalization progresses
--- NOTE | 2023-10-16 16:45 | PTOTSP ---
Video Swallow Examination
Patient presents with mild oral and at least moderate-severe pharyngeal dysphagia. She had silent transient aspiration which did not clear the larynx with thin liquids via straw, mildly thick liquids via cup, and puree. Cued coughing was
ineffective to clear larynx.
Severity of pharyngeal dysphagia is worse than last known swallow study (moderate oral/pharyngeal). Suspect recent extubation (<48 hours) and acute illness (septic shock) may be further impacting dysphagia severity.
Recommend:
1. NPO - consider temporary non-oral means
2. Medications via non-oral means
3. Oral care 3-5x daily with suctioning
4. Will follow up for dysphagia tx at the acute care level as appropriate and determine appropriateness for aspiration risk hydration protocol pending mentation and respiratory status.
[2023-10-16 17:13] LABS: Glucose - Point of Care 134 mg/dl (70-99)
--- NOTE | 2023-10-16 18:15 | PTCARENOTE ---
Pt removed her DHT, new DHT to be reinserted. Once DHT in place will restrain as ordered.
[2023-10-16] MEDS: SINEMET 25-100 PO (19:15)
[2023-10-16] MEDS: NSS (PRESERVATIVE FREE) IV (19:16)
--- NOTE | 2023-10-16 20:00 | PTCARENOTE ---
rec`d pt at 1900 awake and alert resting in bed. pt continuously repeats words. RN continues to reorient pt. SR on monitor. +2 edema. DP/PT found by doppler. 22g in left finger. Rt midline. 2L NC satting at 100%. lung sounds diminished and
rancorous. occasional wet cough, not productive. + BS, rectal trumpet in place. Left nare dobhoff with TF. osmo 1.2 20mLs/hr with 25 flush. skin opening on rt and left cheek, open to air. SCDs on bilaterally. MASD in groin area. Deconex placed. eye
drops given PRN. call wyman in reach, safe environment maintained.
[2023-10-16] MEDS: LOPRESSOR TUBE (20:43)
[2023-10-16] MEDS: DEBROX EAR DROPS 4 DROP RIGHT EAR (20:56)
[2023-10-16] MEDS: REFRESH EYE DROPS (PF) 1 DROPS BOTH EYES (22:13)
[2023-10-16] MEDS: CARDURA 1 MG TUBE (22:13)
[2023-10-16 23:33] LABS: Glucose - Point of Care 146 mg/dl (70-99)
[2023-10-17] VITALS (12 sets, daily range): BP systolic 89–113; BP diastolic 44–71; BMI 36.9
--- NOTE | 2023-10-17 00:06 | PTCARENOTE ---
pt reassessed. no changes in pt assessment. call wyman in reach.
[2023-10-17] MEDS: SOLU-CORTEF 50 MG IV ×4 (01:14→19:51)
[2023-10-17 05:32] LABS: Glucose - Point of Care 140 mg/dl (70-99)
[2023-10-17] MEDS: NOVOLOG FLEXPEN-LOW RESISTANCE SC ×3 (05:40→18:24)
[2023-10-17 05:41] LABS: % Immature Granulocytes 0.3 % (0-0.5); % Lymphocytes 14.3 % (20.5-51.1); % Monocytes 8.1 % (1.7-9.3); % Neutrophils 77.3 % (42.2-75.2); Absolute Lymphocytes 0.6 10^3/uL (1.2-3.4); Absolute Monocytes 0.3 10^3/uL (0.1-0.6); Hematocrit 31.6 % (37.0-47.0); Hemoglobin 10.2 g/dL (12.0-16.0); Mean Corp Hgb Conc. 32.3 g/dL (33.0-37.0); Mean Corpuscular Hgb 34.2 pg (27.0-31.0); Mean Platelet Volume 9.3 fL (7.4-10.4); Nucleated Red Blood Cells % 0 %; Platelet Count 179 10^3/uL (130-400); Red Blood Cell Count 2.98 10^6/uL (4.20-5.40); Red Cell Dist. Width 14.4 % (11.5-14.5); White Blood Cell Count 3.8 10^3/uL (4.8-10.8)
[2023-10-17] MEDS: STERILE WATER FOR INJECTION 20 ML IV (05:47)
[2023-10-17] MEDS: ROCEPHIN 2000 MG IV (05:47)
[2023-10-17] MEDS: STERILE WATER FOR INJECTION IV ×3 (05:51→21:38)
[2023-10-17 05:59] LABS: ALT (SGPT) < 10 U/L (0-35); AST (SGOT) 24 U/L (14-36); Albumin 2.1 g/dl (3.5-5.0); Alkaline Phosphatase 72 U/L (38-126); Blood Urea Nitrogen 22 mg/dl (7-17); Calcium 7.8 mg/dl (8.4-10.2); Carbon Dioxide 29 mmol/L (22-30); Chloride 104 mmol/L (98-107); Estimated Creatinine Clearance 74 ml/min; Glucose 154 mg/dl (70-99); Magnesium 2.1 mg/dl (1.6-2.3); Phosphorus 3.3 mg/dl (2.5-4.5); Potassium 4.7 mmol/L (3.5-5.1); Sodium 136 mmol/L (135-145); Total Protein 5.1 g/dl (6.3-8.2); eGFR > 60.00
--- NOTE | 2023-10-17 06:10 | PTCARENOTE ---
pt reassessed. no changes. rectal trumpet out.
[2023-10-17] MEDS: ATROVENT NEBULES 0.5 MG INH ×3 (07:14→20:17)
[2023-10-17] MEDS: XOPENEX 1.25 MG INHALANT SOLUTION INH ×3 (07:14→20:17)
--- NOTE | 2023-10-17 08:30 | PTCARENOTE ---
Received pt @ change of shift. Pt. drowsy, awakens to verbal stimuli, blinks spont. Oriented to self, required reorientation to time/place. Confused/forgetful. SB-SR-ST/afib w PVC's. SpO2 99% on 2LNC. Occ moist cleaner assistant cough. L nare dobhoff w TF
infusing; no residual. Inc bowel, rectal trumpet removed this AM d/t diarrhea improving. Inc of bladder. R midline in place, patent, dressing c/d/i. Repositioned per protocol. SAfe environment maintained.
--- NOTE | 2023-10-17 08:49 | PTOTSP ---
PT will sign off as Pt requires total care at baseline and resides in LTC setting at [facility].
[2023-10-17] MEDS: KEPPRA 1500 MG PO ×2 (08:55→19:50)
[2023-10-17] MEDS: LOPRESSOR TUBE ×2 (08:55→21:40)
[2023-10-17] MEDS: ELIQUIS 5 MG PO ×2 (08:55→19:51)
[2023-10-17] MEDS: DESENEX/MITRAZOL/ZEASORB 1 APPLIC TOPICAL ×2 (08:55→19:51)
[2023-10-17] MEDS: MIRALAX 17 GRAMS PO (08:56)
[2023-10-17] MEDS: NSS (PRESERVATIVE FREE) IV (08:56)
[2023-10-17] MEDS: LIDOCAINE 4% PATCH 1 PATCH TOPICAL (08:56)
[2023-10-17] MEDS: SENOKOT-S TUBE (08:57)
[2023-10-17] MEDS: PREVACID 30 MG TUBE (08:57)
[2023-10-17] MEDS: SINEMET 25-100 0.5 TABLET PO ×3 (08:57→21:38)
[2023-10-17] MEDS: VISBIOME 1 CAP PO (08:58)
[2023-10-17] MEDS: VIMPAT 50 MG PO ×2 (08:58→19:50)
[2023-10-17] MEDS: VITAMIN B-12 1000 MCG TUBE (08:59)
[2023-10-17] MEDS: TAMIFLU TUBE (09:18)
--- NOTE | 2023-10-17 09:43 | W.PN.PUL3 ---
Today's Communication / Plan
-
Continue stress dose steroids with wean
Diet as per TRANSMISSION ENGINEER --> pt failed --> dobhoff placed by RN and tube feeds started
Aspiration precautions
Abx x 14 days total - narrowed to rocephin today
Replete K>4, Mg>2, PO4>3
Assessment
-
Assessment:��77-year-old F former tobacco smoker with PMHx of A-fib on digoxin and Eliquis, kyphosis with reported history of restrictive lung disease, chronic hypotension on midodrine, chronic respiratory failure, history of seizures with
parkinsonism diagnosed last month during hospitalization, and CHETNA who p/w unresponsiveness.� Patient found to be tachycardic, hypotensive, cardioverted in the ER and then developed tachybradycardia syndrome.� CXR was concerning for left lower lobe
pneumonia - of note patient was on Levaquin for the past few days for pneumonia which was diagnosed as an outpatient.� Patient transferred to the ICU for further care and critical care services consulted for additional management/recommendations.�
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
left-sided DVT, osteoporosis, ambulatory dysfunction, chronic hypotension on midodrine
Impression:
#Acute respiratory failure with hypoxemia required mechanical ventilation on admission--> extubated 10/15/2023
#Left sided HAP
#Influenza A
#Acute COPD exacerbation due to above with flu and bacterial superinfection
#Septic shock due to pneumonia - shock state now resolved
#Critical illness related corticosteroid insufficiency
#Elevated troponin - likely due to type II FL from demand ischemia - troponin peaked at 0.056 on 10/14/2023
#Tachy-katerine syndrome
#Primary hyperthyroidism vs euthyroid sick syndrome
#Moderate restrictive lung defect (T% predicted via PFT from 2016)
#Physical deconditioning with wheel chair bound status at baseline
Plan:
- Maintain MAP>65
- Titrate FiO2 to maintain SpO2 >90-94%
- Cardiology on board --> continue rate control medications with hold parameters given her intermittent bradycardia
- Changed DuoNebs to atrovent + xopenex given her tachycardia
- Continue broad spectrum ABx (on 10/17 I narrowed Abx from cefepime to rocephin) and follow up infectious workup (sputum Cx and blood Cx); MRSA swab negative, hence IV vanco DC'd -->�would complete 10-14 day course of ABx
- Negative urine legionella and Strep pneumonia
- Consider starting methimazole given her elevated free T4 with low TSH; Total T4 and free T3 are WNL; endo consulted and recs appreciated --> hold off methimazole for now and recheck TFTs in 1 week - if TSH still low then will start methimazole at
that time
- Given her low random cortisol level with septic shock on ICU admission, I started stress dose steroids with plans to taper --> finish 3 days of 50mg IV q6hr and then taper after that (this is ordered)
- No need to continue trending troponin as it had peaked at 0.056
- Maintain MAP>65
- Maintain BG 140-180 with ISS q6hr
- Continue tamiflu 75 BID x 5 days
- Reduced lacosamide to 50mg IV BID given bradycardia
- Titrate FiO2 to keep SpO2 >90-94%
- PPI (home med)
- DVT ppx - Eliquis
Data:
CXR 10-15-2023:
Lines and tubes as described.
The endotracheal tube is low.
Bibasilar atelectasis persists.
CXR 10-14-2023:
Endotracheal tube is present with tip 2.2 cm above the guanakito.
Nasogastric or orogastric tube present with tip extending into the left upper quadrant, off the inferior to the radiograph.
Focal parenchymal airspace opacity within the left lower lung, which likely represents pneumonia.
PFT - 08/2016
FEV1/FVC: 61
FEV1: 1L (53%)
FVC: 1.64L (66%)
T% (2.78L)
VC: 66%
RV: 61%
DLco: 45%
VA: 85% (3.65L)
DLco/VA: 52%
Flow volume loop: Scooped expiratory limb and restricted
Subjective Data
-
Date of Service:
Date of Service: October 17, 2023
Chief Complaint: Pulmonary Follow Up
Subjective:
Patient seen this morning. Saturating 95% on 2 L/min nasal cannula. She is lethargic but easily arousable/confused. No acute events reported overnight.
Review of Systems
General: Other (Negative unless mentioned above)
Objective Data
Data Reviewed
Vital Signs / I&O / Oxygen:
Vital Signs
Temp Pulse Resp BP Pulse Ox
98 F 51 20 100/61 99
10/17/23 07:25 10/17/23 08:55 10/17/23 07:16 10/17/23 04:00 10/17/23 07:16
Intake and Output
10/16/23 10/17/23 10/18/23
06:59 06:59 06:59
Intake Total 2930.9 / 3005.9 795 / 795
Output Total 272 / 297 75 / 75
Balance 2658.9 / 2708.9 720 / 720
SaO2 [CPAP/PSV] 99
SaO2 [A/C] 99
SaO2 99
Nasal Cannula flow liters per 2
minute
Physical Exam
General: Comfortable
HEENT: Normocephalic and Anicteric
Cardiovascular: S1-S2, Murmur (negative), Peripheral Edema (+2 LE pitting edema) and Other (bradycardic)
Respiratory: Clear, Wheeze (negative), Crackles (negative), Non-Labored Respirations and Other (Reduced BS b/l)
GI: Soft, Non Distended, Non Tender and Normal Bowel Sounds
Neurology: Lethargic (Easily arousable to tactile stimuli)
Skin: Warm and Dry
Labs/Micro/Reports
Lab Data
10/17/23 05:07
10/17/23 05:07
Microbiology
10/14/23 08:08 Blood/Venous Blood Culture - Preliminary
No Growth in 72 hours- Final report to follow
10/14/23 07:21 Blood/Venous Blood Culture - Preliminary
No Growth in 72 hours- Final report to follow
10/14/23 10:51 Sputum Respiratory Culture - Final
Yeast
10/14/23 10:51 Sputum Gram Stain - Final
10/15/23 15:08 Feces/Stool C. difficile GDH Antigen & Toxins - Final
Negative for toxigenic C.difficile
10/14/23 23:28 Urine Legionella Urinary Antigen - Final
Negative for Legionella pneumophila Serogroup 1 antigen.
A negative result does not rule out the possiblity of
Legionella infection due to other serogroups or species of
Legionella. Clinical correlation is recommended.
10/14/23 23:28 Urine Streptococcus pneumoniae Antigen (M - Final
Negative for Streptococcus pneumoniae antigen.
A negative result does not exclude infection with
Streptococcus pneumoniae. Clinical correlation is
recommended.
10/14/23 13:33 Nose Nasal Screen MRSA (PCR) - Final
MRSA not detected - performed by PCR methodology.
10/14/23 13:33 Nasal Swab Influenza Types A & B (GALE) - Final
Influenza A Positive, NAAT
[2023-10-17] MEDS: COMPOUND MEDICATION 1 UNIT TUBE (10:59)
--- NOTE | 2023-10-17 11:53 | W.PN.CARDCBS ---
Today's Communication / Plan
-
still with paroxysms of afib. Cont Metoprolol/Digoxin
Cont Eliquis
Will continue Lasix 40mg Iv daily and try and diurese.
Impression / Plan
-
Family Physician:� Solomon Troy, DO
Supervisory Investigative Specialist: Dr. Solis, last seen in May 2020 in office
Impression:
Influenza A
Presents 10/14/2022 with unresponsiveness, hypoxia
Acute hypoxic respiratory failure requiring intubation 10/14/2023
Pneumonia
Fever
Atrial fibrillation with rapid ventricular response
Status post cardioversion 10/14/2023 in emergency department
Tachybradycardia syndrome
Hypotension
Paroxysmal atrial fibrillation
Chronic anticoagulation on Eliquis
VDRF (2009)
ILD/Restrictive lung disease/chronic respiratory failure/chronic O2
CHETNA
Seizure disorder (diagnosed September 2023)
Chronic Dysphagia on pureed diet
GERD
ESPARZA
Anxiety
History of left lower extremity deep vein thrombosis (January 2023)
Non-occlusive DVT L popliteal vein
Gout
Basal Cell Skin Cancer
Urinary retention Osteoporosis
Ambulatory dysfunction/bed-bound
Echo 04/03/2020: EF 55 to 60%, stage II DD. Mildly dilated RA. Mild MR, mild TR with PAP 50 mmHg
Echo 10/17/23: EF 55%, dilated atrium. Moderate MR, mild
Plan:
-Presents 10/14/2023 with unresponsiveness and hypoxia requiring intubation 10/14/2023 and CXR c/w pneumonia, now Flu+
-Paroxysmal atrial fibrillation with rapid ventricular response on presentation to the emergency department 10/14/2023. Patient underwent successful urgent cardioversion with gnosticist of sinus rhythm.
-In sinus rhythm, still with bursts of afib.
-continue Digoxin 0.125 mg daily and metoprolol 12.5mg po bid
-Watch blood pressure at home on midodrine 5 mg 3 times daily as needed
-Cont Eliquis for cardioembolic ppx of AFib
-weights still elevated. Will continue Lasix 40mg IV daily. Creat normal.
-Likely non-NM troponin elevation
-Continue treatment of influenza/pneumonia
Patient is a 77 y/o female with past medical history of seizure diagnosis in September 2023, paroxysmal atrial fibrillation on chronic anticoagulation with Eliquis, pulmonary hypertension, restrictive lung disease, chronic respiratory failure,
obstructive sleep apnea, non-alcoholic steatohepatitis, gastroesophageal reflux disease, chronic dysphagia, left lower extremity deep vein thrombosis (January 2023), hypertension, diabetes mellitus, gout, Basal Cell Skin Cancer, urinary retention,
osteoporosis, ambulatory dysfunction anxiety, and morbid obesity whom presented 10/14/2023 from [facility] with unresponsiveness and hypoxia.�She apparently has been on Levaquin for the past few days for pneumonia. She required intubation
in emergency department upon arrival and is currently intubated and sedated. Chest x-ray concerning for left lower lobe pneumonia. She was noted to be in atrial fibrillation with rapid ventricular response associated with hypotension and
underwent successful cardioversion with gnosticist of sinus rhythm. Patient has continued to have evidence of tachybradycardia syndrome with PAF followed by bradycardia with heart rate in the 40s following cardioversion. Patient currently remains
hypotensive despite gnosticist of sinus rhythm.
Progress Note - Supervisory Investigative Specialist
Subjective
Date of Service: October 17, 2023
denies overt chest pains/palps. IN restraints
Objective
Labs:
10/17/23 05:07
10/17/23 05:07
Labs
Hgb 10.2 g/dL (12.0-16.0) L 10/17/23 05:07
Hct 31.6 % (37.0-47.0) L 10/17/23 05:07
Plt Count 179 10^3/uL (130-400) D 10/17/23 05:07
PT 24.8 Sec (11.4-14.6) H 10/14/23 10:51
INR 2.25 10/14/23 10:51
APTT 41.4 Sec (23.4-35.0) H 10/14/23 10:51
Sodium 136 mmol/L (135-145) 10/17/23 05:07
Potassium 4.7 mmol/L (3.5-5.1) 10/17/23 05:07
BUN 22 mg/dl (7-17) H 10/17/23 05:07
Creatinine 0.4 mg/dL (0.6-1.0) L 10/17/23 05:07
Glucose 154 mg/dl (70-99) H 10/17/23 05:07
Digoxin 0.9 ng/ml (0.8-2.0) 10/14/23 10:51
Troponins
10/14/23 10/14/23
16:28 21:42
Troponin I 0.046 H* Cancelled
Vital Signs and I&O:
Vital Signs
Temp Pulse Resp BP Pulse Ox
98 F 51 20 100/61 99
10/17/23 07:25 10/17/23 08:55 10/17/23 07:16 10/17/23 04:00 10/17/23 07:16
Vital Signs
Temp Pulse Resp BP Pulse Ox
98 F 51 20 100/61 99
10/17/23 07:25 10/17/23 08:55 10/17/23 07:16 10/17/23 04:00 10/17/23 07:16
Intake & Output
10/15/23 10/16/23 10/17/23 10/18/23
06:59 06:59 06:59 06:59
Intake Total 3505.7 / 3615.4 2930.9 / 3005.9 795 / 795
Output Total 240 / 262 272 / 297 75 / 75
Balance 3265.7 / 3353.4 2658.9 / 2708.9 720 / 720
Physical Exam
Physical Exam
GEN: No distress, awake
HEENT: supple, anicteric, mmm
LUNGS: scatt rhonchi
CV: irreg, S1/S2, 1/6 syst LSB, no gallop
ABD: soft, BS+, NT/ND
EXT: No edema
NEURO: Gross non-focal
SKIN: No rash
[2023-10-17] MEDS: TAMIFLU 75 MG TUBE ×2 (12:13→19:50)
[2023-10-17 12:23] LABS: Glucose - Point of Care 141 mg/dl (70-99)
--- NOTE | 2023-10-17 12:27 | CM ---
CM following re: discharge planning.
Discussed in rounds, reviewed pt's chart, met with pt. per Rounds meeting, pt requires 2L NC of O2, tolerated mask treatment well, continue supportive care.
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
The patient requires total care, is dependent/requires total assist for mobility, transfers using a Mukund lift to w/c, is non-ambulatory & w/c bound. She was not participating in PT/OT at the SNF. The patient is able to feed herself with
assistance.
CM faxed pt's clinical to [facility] for a review.
D/C plan: return to [facility] for a LTC when medically ready.
CM will follow with discharge plan updates as hospitalization progresses
--- NOTE | 2023-10-17 12:43 | W.PN.HOSP.TC ---
Today's Communication/Plan
-
Continue antibiotics, diuresis
AFib - monitor
Assessment / Plan
Assessment / Plan
Physical Exam
General: No Apparent Distress
HEENT: Normocephalic
Respiratory: Other (Equal air entry bilaterally) on 2 L nasal cannula oxygen
Cardiac: S1/S2 and Regular Rhythm
GI: Soft, Non Tender and Normal Bowel Sounds
Musculoskeletal: No Cyanosis
Skin: Warm and Dry
Neuro: Awake. Alert.
Psych: Calm

Assessment/Plan
Acute Hypoxic Respiratory Failure
Acute Toxic Metabolic Encephalopathy
Left Lower Lobe Pneumonia (diagnosed and was being treated with antibiotics for pneumonia as an outpatient)
Suspected Sepsis Secondary to Pneumonia
Influenza A
Septic Shock
-Monitored in ICU, was intubated, on 10/15/23 was extubated to nasal cannula
-Status post Cefepime
-Vancomycin discontinued due to the fact that MRSA is negative
-Now on Ceftriaxone; continue
-Continue Tamiflu 75 BID x 5 days
-IV fluids to help with hemodynamics
-Was on Levaquin for pneumonia outpatient
-Follow blood and sputum cultures
-Titrate FiO2 to maintain SpO2 >90-94%
-Low random cortisol in setting of septic shock: stress dose steroids continued
Atrial Fibrillation with Rapid Ventricular Response with Associated Hypotension - status post successful urgent cardioversion with evangelical of sinus rhythm
Tachycardia bradycardia syndrome
Probably Atrial tachycardia
Hypotension
Atrial Fibrillation - on Eliquis at home
-Cardioverted in the ER to NSR on October 14, 2023
-Continue Eliquis
-Digoxin resumed but at a lower dose of 0.125 mg daily
-Continue Lopressor 12.5 mg BID
-Midodrine 5 mg 3 times daily as needed
Volume Overloaded
-Lasix dosing IV 40 mg daily
-Echocardiogram
Seizure diagnosis in September 2023
History of Parkinsonism
-On home Keppra 1500 mg BID PO and Lacosamide 50 mg PO BID (Lacosamide reduced from home 100 mg PO BID due to bradycardia)
-Continue seizure medications when able
-September 2023 neurology note indicates that patient should take Sinemet 0.5 tab TID with titration to 1 tab TID within 1 week
Pulmonary hypertension
Restrictive lung disease/Interstitial Lung Disease on Chronic Oxygen - Duonebs changed to Atrovent + Xopenex given her tachycardia
Chronic respiratory failure
Obstructive sleep apnea
Non-alcoholic steatohepatitis
Gastroesophageal reflux disease - continue PPI
Chronic dysphagia - speech following - continue NPO
History of left lower extremity deep vein thrombosis (January 2023) - continue Eliquis
Hypertension
Diabetes mellitus - accuchecks and sliding scale insulin
Gout
Basal Cell Skin Cancer
Urinary retention
Osteoporosis
Ambulatory dysfunction
Anxiety
Morbid obesity
DVT PPx: Eliquis
Code Status: Full Code
Anticipated Discharge: > 48 hours
Subjective/Interval History
-
Date of Service: October 17, 2023
Patient was seen and examined. She was sleepy and drowsy but somewhat responded to calling and commands.
Objective Data
-
Labs:
Laboratory Results
10/17/23
05:07
WBC 3.8 L
Hgb 10.2 L
Hct 31.6 L
Plt Count 179 D
Sodium 136
Potassium 4.7
Chloride 104
Carbon Dioxide 29
BUN 22 H
Creatinine 0.4 L
Glucose 154 H
Calcium 7.8 L
Total Bilirubin 1.0
AST 24
ALT < 10
Alkaline Phosphatase 72
Vital Signs:
Vital Signs
Temp Pulse Resp BP Pulse Ox
97.8 F 51 20 100/61 99
10/17/23 12:00 10/17/23 08:55 10/17/23 07:16 10/17/23 04:00 10/17/23 07:16
I&O
10/16/23 10/17/23 10/18/23
06:59 06:59 06:59
Intake Total 2930.9 / 3005.9 795 / 795
Output Total 272 / 297 75 / 75
Balance 2658.9 / 2708.9 720 / 720
[2023-10-17] MEDS: LASIX 40 MG IV (14:10)
[2023-10-17] MEDS: LANOXIN 125 MCG PO (14:10)
--- NOTE | 2023-10-17 14:58 | PTCARENOTE ---
L nare Dobbhoff sluggish to flush for med pass. Unable to flush after med pass completion. Pharmacy aware and further orders received for compound med- see MAR. Able to flush tube @ first, then clogged off again. L nare Dobbhoff removed and
replaced w another Dobbhoff. Inserted in L nare @ 70cm and placement confirmed w abd x-ray and Dr. Moreno approval to use. TF infusing and medical records receptionist via new tube w/ out issue. Pt.'s HR bradycardic w HR 40-50's, Dr. Solis (cards) aware of
HR/digoxin order, received input to give med-see MAR. HR remains bradycardic s/p dig admin w HR 40-50's.
[2023-10-17 18:24] LABS: Glucose - Point of Care 140 mg/dl (70-99)
[2023-10-17] MEDS: TYLENOL ORAL SOLUTION 650 MG PO (20:55)
[2023-10-17] MEDS: CARDURA 1 MG TUBE (21:39)
[2023-10-17] MEDS: DEBROX EAR DROPS 4 DROP RIGHT EAR (21:39)
[2023-10-17] MEDS: SAFETUSSIN DM (SUGAR/ALCOHOL FREE) 200 MG PO (21:41)
--- NOTE | 2023-10-17 22:00 | PTCARENOTE ---
Received pt resting in bed, calling out. Pt. oriented to self and place but is forgetful and anxious. Calling out 'help me help me' when staff is in the room providing care. She is unable to verbalize what she needs help with. Did complain of mild
pain 'all over.' Tylenol given. Restraints in place for safety per orders. SR with occasional PVCs on tele, HR in the 70s but occasionally drops to 50s. +2 anasarca. Titrated up to 3L for sats in high 80s while coughing. Moist, harsh PHYSICIAN PRESIDENT cough.
Rhonchi throughout with mild exp wheezing anteriorly. DH tube with osmo @ 30ml/hr with 25ml/hr h20 flush. + bowel sounds. Purewick in place- voiding yellow urine. R midline patent and capped. Turning q2. Monitoring
[2023-10-18] VITALS (13 sets, daily range): BP systolic 81–156; BP diastolic 41–95; PULSE 95–97; BMI 37.4
[2023-10-18] MEDS: NOVOLOG FLEXPEN-LOW RESISTANCE 1 UNITS SC ×3 (01:01→11:09)
[2023-10-18 01:10] LABS: Glucose - Point of Care 178 mg/dl (70-99)
[2023-10-18] MEDS: SOLU-CORTEF 50 MG IV ×3 (02:10→20:31)
[2023-10-18] MEDS: ProAmatine 5 MG PO ×3 (02:10→17:07)
--- NOTE | 2023-10-18 02:16 | PTCARENOTE ---
Pt been resting calmly. BP dropped to 81/45. PRN midodrine given. HR mostly 40s-50s but had periods of HR in 100s.
[2023-10-18 04:24] LABS: % Immature Granulocytes 0.4 % (0-0.5); % Lymphocytes 11.4 % (20.5-51.1); % Monocytes 7.9 % (1.7-9.3); % Neutrophils 80.3 % (42.2-75.2); Absolute Lymphocytes 0.7 10^3/uL (1.2-3.4); Absolute Monocytes 0.5 10^3/uL (0.1-0.6); Absolute Neutrophils 4.6 10^3/uL (1.4-6.5); Hematocrit 30.2 % (37.0-47.0); Mean Corp Hgb Conc. 33.1 g/dL (33.0-37.0); Mean Corpuscular Hgb 34.4 pg (27.0-31.0); Mean Corpuscular Volume 103.8 fL (81.0-99.0); Mean Platelet Volume 9.3 fL (7.4-10.4); Nucleated Red Blood Cells % 0 %; Platelet Count 194 10^3/uL (130-400); Red Blood Cell Count 2.91 10^6/uL (4.20-5.40); Red Cell Dist. Width 14.3 % (11.5-14.5); White Blood Cell Count 5.7 10^3/uL (4.8-10.8)
[2023-10-18 04:48] LABS: Blood Urea Nitrogen 25 mg/dl (7-17); Calcium 8.2 mg/dl (8.4-10.2); Carbon Dioxide 31 mmol/L (22-30); Chloride 104 mmol/L (98-107); Estimated Creatinine Clearance 74 ml/min; Glucose 166 mg/dl (70-99); Potassium 4.7 mmol/L (3.5-5.1); Sodium 139 mmol/L (135-145); eGFR > 60.00
[2023-10-18] MEDS: STERILE WATER FOR INJECTION 20 ML IV (06:09)
[2023-10-18] MEDS: ROCEPHIN 2000 MG IV (06:09)
[2023-10-18] MEDS: TYLENOL ORAL SOLUTION 650 MG PO ×2 (06:09→11:55)
--- NOTE | 2023-10-18 07:08 | W.PN.HOSP.TC ---
Today's Communication/Plan
-
cont tube feeds
midodrine scheduled with holding parameters
lasix diuresis
cont abx
ativan prn anxiety
stable for downgrade to Tele
Assessment / Plan
Assessment / Plan
Physical Exam
General: No Apparent Distress
HEENT: Normocephalic
Respiratory: clear to auscultation b/l on 2 L nasal cannula oxygen
Cardiac: S1/S2 and Regular Rhythm
GI: Soft, Non Tender and Normal Bowel Sounds NGT tube feed in place
Musculoskeletal: No Cyanosis
Skin: Warm and Dry
Neuro: Lethargic but arousable oriented x2, disoriented to time
Psych: Calm

Assessment/Plan
Acute Hypoxic Respiratory Failure
Acute Toxic Metabolic Encephalopathy
Left Lower Lobe Pneumonia (diagnosed and was being treated with antibiotics for pneumonia as an outpatient)
Suspected Sepsis Secondary to Pneumonia
Influenza A
Septic Shock
-Monitored in ICU, was intubated, on 10/15/23 extubated to nasal cannula
-Was on Levaquin for pneumonia outpatient
-Status post Cefepime
-MRSA neg empiric Vancomycin discontinued
-Now on Ceftriaxone; continue
-Continue Tamiflu 75 BID x 5 days
-IVF support completed
-Follow blood and sputum cultures no significant growth to date
-Titrate FiO2 to maintain SpO2 >90-94%
-Low random cortisol in setting of septic shock: stress dose steroid taper as per Breakfast Hostess
Atrial Fibrillation with Rapid Ventricular Response with Associated Hypotension - status post successful urgent cardioversion with caodaism of sinus rhythm
Tachycardia bradycardia syndrome
Probably Atrial tachycardia
Hypotension
Atrial Fibrillation - on Eliquis at home
-Cardioverted in the ER to NSR on October 14, 2023
-Continue Eliquis
-Digoxin resumed but at a lower dose of 0.125 mg daily
-Continue Lopressor 12.5 mg BID
-Midodrine 5 mg 3 times daily as needed, scheduled TID with holding parameters also started
Volume Overloaded
-Lasix dosing IV 40 mg daily
-Echocardiogram appreciated EF 55-60% severe atrial dilation, mod MR
-cardio eval appreciated
Seizure diagnosis in September 2023
History of Parkinsonism
-On home Keppra 1500 mg BID PO and Lacosamide 50 mg PO BID (Lacosamide reduced from home 100 mg PO BID due to bradycardia)
-Continue seizure medications when able
-September 2023 neurology note indicates that patient should take Sinemet 0.5 tab TID with titration to 1 tab TID within 1 week
Possible Hyperthyroidism vs Sick Euthyroid syndrome
-Endocrine eval appreciated
-possible start methimazole if repeat TSH remains low 10/23/23
Anxiety 10/18
noted to be anxious earlier in the day
since resolved spontaneously
will cont to monitor, ativan 0.25 mg IV q8Hprn ordered
Pulmonary hypertension
Restrictive lung disease/Interstitial Lung Disease on Chronic Oxygen - Duonebs changed to Atrovent + Xopenex given her tachycardia
Chronic respiratory failure
Obstructive sleep apnea
Non-alcoholic steatohepatitis
Gastroesophageal reflux disease - continue PPI
Chronic dysphagia - speech following - continue NPO
History of left lower extremity deep vein thrombosis (January 2023) - continue Eliquis
Hypertension
Diabetes mellitus - accuchecks and sliding scale insulin
Gout
Basal Cell Skin Cancer
Urinary retention
Osteoporosis
Ambulatory dysfunction
Anxiety
Morbid obesity
DVT PPx: Eliquis
GI ppx: prevacid
Code Status: Full Code
Stable for downgrade to Tele 10/18/23
Primary contact friend Pat updated at contact number as listed in Stretchr
I spent a total of 50 minutes with the patient or on the floor. More than 50% of this time involved counseling and coordination of care.
Anticipated Discharge: > 48 hours
Subjective/Interval History
-
Date of Service: October 18, 2023
Seen examined at bedside in no acute distress appears comfortable at this time. Lethargic but arousable oriented x2 disoriented to time
Objective Data
-
Labs:
Laboratory Results
10/18/23
03:56
WBC 5.7
Hgb 10.0 L
Hct 30.2 L
Plt Count 194
Sodium 139
Potassium 4.7
Chloride 104
Carbon Dioxide 31 H
BUN 25 H
Creatinine 0.4 L
Glucose 166 H
Calcium 8.2 L
Vital Signs:
Vital Signs
Temp Pulse Resp BP Pulse Ox
97.5 F 58 23 92/54 92
10/18/23 03:47 10/18/23 06:00 10/18/23 06:00 10/18/23 06:00 10/18/23 05:30
I&O
10/17/23 10/18/23 10/19/23
06:59 06:59 06:59
Intake Total 795 / 840 1185 / 1185
Output Total 75 / 75 875 / 875
Balance 720 / 765 310 / 310
[2023-10-18] MEDS: XOPENEX 1.25 MG INHALANT SOLUTION INH ×3 (07:45→20:00)
[2023-10-18] MEDS: ATROVENT NEBULES 0.5 MG INH ×3 (07:45→20:00)
[2023-10-18] MEDS: LASIX 40 MG IV (08:25)
[2023-10-18] MEDS: VISBIOME 1 CAP PO (08:26)
[2023-10-18] MEDS: SINEMET 25-100 0.5 TABLET PO ×3 (08:26→22:52)
[2023-10-18] MEDS: PREVACID 30 MG TUBE (08:26)
[2023-10-18] MEDS: KEPPRA 1500 MG PO ×2 (08:26→20:30)
[2023-10-18] MEDS: VIMPAT 50 MG PO ×2 (08:26→20:30)
[2023-10-18] MEDS: LOPRESSOR TUBE ×2 (08:27→20:29)
[2023-10-18] MEDS: SENOKOT-S 2 TABLET TUBE (08:27)
[2023-10-18] MEDS: MIRALAX 17 GRAMS PO (08:27)
[2023-10-18] MEDS: VITAMIN B-12 1000 MCG TUBE (08:27)
[2023-10-18] MEDS: LIDOCAINE 4% PATCH 1 PATCH TOPICAL (08:27)
[2023-10-18] MEDS: ELIQUIS 5 MG PO ×2 (08:27→20:30)
[2023-10-18] MEDS: TAMIFLU 75 MG TUBE ×2 (08:28→20:34)
[2023-10-18] MEDS: NSS (PRESERVATIVE FREE) IV (08:28)
[2023-10-18] MEDS: DESENEX/MITRAZOL/ZEASORB 1 APPLIC TOPICAL ×2 (08:29→20:35)
--- NOTE | 2023-10-18 09:10 | W.PN.PUL3 ---
Today's Communication / Plan
-
Continue stress dose steroids with wean (already ordered)
Start midodrine with goal MAP >65
Diet as per PET CARE ASSOCIATE --> pt failed --> dobhoff placed by RN and tube feeds started
If she continues to fail then she will need PEG tube
Aspiration precautions
Abx x 14 days total - narrowed to rocephin on 10/17/2023
Replete K>4, Mg>2, PO4>3
Assessment
-
Assessment:��77-year-old F former tobacco smoker with PMHx of A-fib on digoxin and Eliquis, kyphosis with reported history of restrictive lung disease, chronic hypotension on midodrine, chronic respiratory failure, history of seizures with
parkinsonism diagnosed last month during hospitalization, and CHETNA who p/w unresponsiveness.� Patient found to be tachycardic, hypotensive, cardioverted in the ER and then developed tachybradycardia syndrome.� CXR was concerning for left lower lobe
pneumonia - of note patient was on Levaquin for the past few days for pneumonia which was diagnosed as an outpatient.� Patient transferred to the ICU for further care and critical care services consulted for additional management/recommendations.�
Chronic conditions LOGGING ASSISTANT: Essential tremor, A-fib on Eliquis, CHF, COPD, former tobacco use disorder, sleep apnea, dyspepsia, history of UTI, gout, kyphosis, left femur fracture, DM type II, impaired vision, history of skin cancer, anxiety/depression,
left-sided DVT, osteoporosis, ambulatory dysfunction, chronic hypotension on midodrine
Impression:
#Acute respiratory failure with hypoxemia required mechanical ventilation on admission--> extubated 10/15/2023
#Left sided HAP
#Influenza A
#Acute COPD exacerbation due to above with flu and bacterial superinfection
#Septic shock due to pneumonia - shock state now resolved
#Critical illness related corticosteroid insufficiency
#Elevated troponin - likely due to type II [place] from demand ischemia - troponin peaked at 0.056 on 10/14/2023
#Tachy-katerine syndrome
#Primary hyperthyroidism vs euthyroid sick syndrome
#Moderate restrictive lung defect (T% predicted via PFT from 2016)
#Physical deconditioning with wheel chair bound status at baseline
Plan:
- Maintain MAP>65
- Titrate FiO2 to maintain SpO2 >90-94%
- Cardiology on board --> continue rate control medications with hold parameters given her intermittent bradycardia
- Changed DuoNebs to atrovent + xopenex given her tachycardia
- Continue broad spectrum ABx (on 10/17 I narrowed Abx from cefepime to rocephin) and follow up infectious workup (sputum Cx and blood Cx); MRSA swab negative, hence IV vanco DC'd -->�would complete 10-14 day course of ABx
- Negative urine legionella and Strep pneumonia
- Consider starting methimazole given her elevated free T4 with low TSH; Total T4 and free T3 are WNL; endo consulted and recs appreciated --> hold off methimazole for now and recheck TFTs in 1 week - if TSH still low then will start methimazole at
that time
- Given her low random cortisol level with septic shock on ICU admission, I started stress dose steroids with plans to taper --> finish 3 days of 50mg IV q6hr and then taper after that (this is ordered)
- No need to continue trending troponin as it had peaked at 0.056
- Midodrine started today per hospitalist given hypotension overnight
- Maintain MAP>65
- Maintain BG 140-180 with ISS q6hr
- Continue tamiflu 75 BID x 5 days
- Reduced lacosamide to 50mg IV BID given bradycardia
- Titrate FiO2 to keep SpO2 >90-94%
- PPI (home med)
- DVT ppx - Eliquis
Data:
CXR 10-15-2023:
Lines and tubes as described.
The endotracheal tube is low.
Bibasilar atelectasis persists.
CXR 10-14-2023:
Endotracheal tube is present with tip 2.2 cm above the guanakito.
Nasogastric or orogastric tube present with tip extending into the left upper quadrant, off the inferior to the radiograph.
Focal parenchymal airspace opacity within the left lower lung, which likely represents pneumonia.
PFT - 08/2016
FEV1/FVC: 61
FEV1: 1L (53%)
FVC: 1.64L (66%)
T% (2.78L)
VC: 66%
RV: 61%
DLco: 45%
VA: 85% (3.65L)
DLco/VA: 52%
Flow volume loop: Scooped expiratory limb and restricted
Subjective Data
-
Date of Service:
Date of Service: October 18, 2023
Chief Complaint: Pulmonary Follow Up
Subjective:
Patient seen today at bedside. She is sleeping but easily arousable. She is answering my questions appropriately today. Occasionally confused. She is on 2 L/min nasal cannula saturating 96%. Hypotensive overnight with SBP in the 80s�90s.
Midodrine started today. Heart rate in the 50s�70s.
Review of Systems
General: Other (Negative unless mentioned above)
Objective Data
Data Reviewed
Vital Signs / I&O / Oxygen:
Vital Signs
Temp Pulse Resp BP Pulse Ox
97.0 F 53 19 102/44 95
10/18/23 08:00 10/18/23 08:30 10/18/23 08:30 10/18/23 08:00 10/18/23 08:30
Intake and Output
10/17/23 10/18/23 10/19/23
06:59 06:59 06:59
Intake Total 795 / 840 1185 / 1260 150 / 150
Output Total 75 / 75 875 / 875
Balance 720 / 765 310 / 385 150 / 150
SaO2 [CPAP/PSV] 99
SaO2 [A/C] 99
SaO2 95
Nasal Cannula flow liters per 2
minute
Physical Exam
General: Comfortable
HEENT: Normocephalic and Anicteric
Cardiovascular: S1-S2, Murmur (negative) and Peripheral Edema (+2 pitting pedal edema)
Respiratory: Clear, Wheeze (negative), Crackles (negative), Non-Labored Respirations, Accessory Resp Muscle Use (negative) and Other (Reduced BS b/l)
GI: Soft, Non Distended, Non Tender and Normal Bowel Sounds
Neurology: Lethargic (Easily arousable to tactile stimuli and voice, answering my questions appropriately)
Skin: Warm and Dry
Labs/Micro/Reports
Lab Data
10/18/23 03:56
10/18/23 03:56
Microbiology
10/14/23 08:08 Blood/Venous Blood Culture - Preliminary
No Growth in 4 days- Final report to follow
10/14/23 07:21 Blood/Venous Blood Culture - Preliminary
No Growth in 4 days- Final report to follow
10/14/23 10:51 Sputum Respiratory Culture - Final
Yeast
10/14/23 10:51 Sputum Gram Stain - Final
10/15/23 15:08 Feces/Stool C. difficile GDH Antigen & Toxins - Final
Negative for toxigenic C.difficile
10/14/23 23:28 Urine Legionella Urinary Antigen - Final
Negative for Legionella pneumophila Serogroup 1 antigen.
A negative result does not rule out the possiblity of
Legionella infection due to other serogroups or species of
Legionella. Clinical correlation is recommended.
10/14/23 23:28 Urine Streptococcus pneumoniae Antigen (M - Final
Negative for Streptococcus pneumoniae antigen.
A negative result does not exclude infection with
Streptococcus pneumoniae. Clinical correlation is
recommended.
[2023-10-18] MEDS: LANOXIN 125 MCG PO (11:09)
[2023-10-18 11:13] LABS: Glucose - Point of Care 180 mg/dl (70-99)
--- NOTE | 2023-10-18 11:48 | W.PN.CARDCBS ---
Today's Communication / Plan
-
Continue IV Lasix and follow weight and input/output
Atrial fibrillation stable currently. If significant recurrence could consider amiodarone but would need to alter other medications given drug to drug interactions
Continue treatment of pneumonia
Consider psychiatry for anxiety
Impression / Plan
-
Family Physician:� Solomon Troy, DO
Mobile Device Developer: Dr. Solis, last seen in May 2020 in office
Impression:
Influenza A
Presents 10/14/2022 with unresponsiveness, hypoxia
Acute hypoxic respiratory failure requiring intubation 10/14/2023
Pneumonia
Fever
Atrial fibrillation with rapid ventricular response
Status post cardioversion 10/14/2023 in emergency department
Tachybradycardia syndrome
Hypotension
Paroxysmal atrial fibrillation
Chronic anticoagulation on Eliquis
VDRF (2009)
ILD/Restrictive lung disease/chronic respiratory failure/chronic O2
CHETNA
Seizure disorder (diagnosed September 2023)
Chronic Dysphagia on pureed diet
GERD
ESPARZA
Anxiety
History of left lower extremity deep vein thrombosis (January 2023)
Non-occlusive DVT L popliteal vein
Gout
Basal Cell Skin Cancer
Urinary retention Osteoporosis
Ambulatory dysfunction/bed-bound
Echo 04/03/2020: EF 55 to 60%, stage II DD. Mildly dilated RA. Mild MR, mild TR with PAP 50 mmHg
Echo 10/17/23: EF 55%, dilated atrium. Moderate MR, mild
Plan:
-Presents 10/14/2023 with unresponsiveness and hypoxia requiring intubation 10/14/2023 and CXR c/w pneumonia, now Flu+
-Today appears very anxious and is screaming. Fairly comfortable otherwise.
-Paroxysmal atrial fibrillation with rapid ventricular response on presentation to the emergency department 10/14/2023. Patient underwent successful urgent cardioversion with yazdanism of sinus rhythm.
-In sinus rhythm, still with bursts of afib, however none noted this morning..
-continue Digoxin 0.125 mg daily and metoprolol 12.5mg po bid. Although would need to reassess drug to drug interactions if significant breakthrough of atrial arrhythmias consider amiodarone. I cannot find that she has failed amiodarone previously.
-She continues on midodrine as needed for low blood pressure which has been chronic.
-Cont Eliquis for cardioembolic ppx of AFib
-Weights still elevated. Will continue Lasix 40mg IV daily. Creat normal.
-Likely non-NM troponin elevation
-Continue treatment of influenza/pneumonia
-Continue treatment of anxiety. Consider psychiatry.
Patient is a 77 y/o female with past medical history of seizure diagnosis in September 2023, paroxysmal atrial fibrillation on chronic anticoagulation with Eliquis, pulmonary hypertension, restrictive lung disease, chronic respiratory failure,
obstructive sleep apnea, non-alcoholic steatohepatitis, gastroesophageal reflux disease, chronic dysphagia, left lower extremity deep vein thrombosis (January 2023), hypertension, diabetes mellitus, gout, Basal Cell Skin Cancer, urinary retention,
osteoporosis, ambulatory dysfunction anxiety, and morbid obesity whom presented 10/14/2023 from [facility] with with unresponsiveness and hypoxia.�She apparently has been on Levaquin for the past few days for pneumonia. She required intubation
in emergency department upon arrival and is currently intubated and sedated. Chest x-ray concerning for left lower lobe pneumonia. She was noted to be in atrial fibrillation with rapid ventricular response associated with hypotension and
underwent successful cardioversion with yazdanism of sinus rhythm. Patient has continued to have evidence of tachybradycardia syndrome with PAF followed by bradycardia with heart rate in the 40s following cardioversion. Patient currently remains
hypotensive despite yazdanism of sinus rhythm.
Progress Note - Mobile Device Developer
Subjective
Date of Service: October 18, 2023
She is screaming that she needs help. She denies chest pain and palpitations.
Objective
Labs:
10/18/23 03:56
10/18/23 03:56
Labs
Hgb 10.0 g/dL (12.0-16.0) L 10/18/23 03:56
Hct 30.2 % (37.0-47.0) L 10/18/23 03:56
Plt Count 194 10^3/uL (130-400) 10/18/23 03:56
PT 24.8 Sec (11.4-14.6) H 10/14/23 10:51
INR 2.25 10/14/23 10:51
APTT 41.4 Sec (23.4-35.0) H 10/14/23 10:51
Sodium 139 mmol/L (135-145) 10/18/23 03:56
Potassium 4.7 mmol/L (3.5-5.1) 10/18/23 03:56
BUN 25 mg/dl (7-17) H 10/18/23 03:56
Creatinine 0.4 mg/dL (0.6-1.0) L 10/18/23 03:56
Glucose 166 mg/dl (70-99) H 10/18/23 03:56
Digoxin 0.9 ng/ml (0.8-2.0) 10/14/23 10:51
Vital Signs and I&O:
Vital Signs
Temp Pulse Resp BP Pulse Ox
97.2 F 65 21 113 96
10/18/23 11:44 10/18/23 11:30 10/18/23 11:30 10/18/23 10:00 10/18/23 11:30
Vital Signs
Temp Pulse Resp BP Pulse Ox
97.2 F 65 21 113 96
10/18/23 11:44 10/18/23 11:30 10/18/23 11:30 10/18/23 10:00 10/18/23 11:30
Intake & Output
10/16/23 10/17/23 10/18/23 10/19/23
06:59 06:59 06:59 06:59
Intake Total 2930.9 / 3005.9 795 / 840 1185 / 1260 150 / 150
Output Total 272 / 297 75 / 75 875 / 875
Balance 2658.9 / 2708.9 720 / 765 310 / 385 150 / 150
Physical Exam
Physical Exam
General: yelling intermittently
Heart: Distant heart sounds no obvious murmur, No S3, S4, no rubs.
Lungs: Coarse anterior breath sounds
Extremities: No clubbing, cyanosis and +1 edema bilaterally.
--- NOTE | 2023-10-18 11:56 | PTCARENOTE ---
Received pt resting in bed, calling out. Pt. oriented to self and place but is forgetful and anxious. Calling out 'help me help me' when staff is in the room providing care. She is unable to verbalize what she needs help with. Says no to pain.
Restraints in place for safety per orders. SB with occasional PVCs on tele, HR in the 70s but occasionally drops to 50s. +2 anasarca. Placed O2 on for SpO2 88-90%. 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 Rhonchi throughout with mild exp wheezing anteriorly. DH tube
with osmo @ 55ml/hr with 25ml/hr h20 flush. + bowel sounds. Purewick in place- voiding yellow urine. R midline patent and capped. Turning q2. Monitoring
[2023-10-18] MEDS: NOVOLOG FLEXPEN-LOW RESISTANCE 2 UNITS SC (17:06)
[2023-10-18 17:15] LABS: Glucose - Point of Care 202 mg/dl (70-99)
[2023-10-18] MEDS: CARDURA 1 MG TUBE (22:53)
[2023-10-19] VITALS (7 sets, daily range): BP systolic 107–112; BP diastolic 50–59; BMI 37.2
[2023-10-19] MEDS: NOVOLOG FLEXPEN-LOW RESISTANCE 1 UNITS SC ×3 (00:04→12:51)
[2023-10-19] MEDS: DEBROX EAR DROPS 4 DROP RIGHT EAR ×2 (00:04→20:53)
[2023-10-19 00:10] LABS: Glucose - Point of Care 166 mg/dl (70-99)
[2023-10-19 03:53] LABS: % Basophils 0.1 % (0-2); % Immature Granulocytes 0.9 % (0-0.5); % Lymphocytes 5.8 % (20.5-51.1); % Monocytes 8.3 % (1.7-9.3); % Neutrophils 84.9 % (42.2-75.2); Absolute Immature Granulocytes 0.1 10^3/uL (0-0.05); Absolute Lymphocytes 0.5 10^3/uL (1.2-3.4); Absolute Monocytes 0.6 10^3/uL (0.1-0.6); Absolute Neutrophils 6.6 10^3/uL (1.4-6.5); Hematocrit 31.1 % (37.0-47.0); Hemoglobin 10.2 g/dL (12.0-16.0); Mean Corp Hgb Conc. 32.8 g/dL (33.0-37.0); Mean Corpuscular Hgb 35.3 pg (27.0-31.0); Mean Corpuscular Volume 107.6 fL (81.0-99.0); Mean Platelet Volume 9.5 fL (7.4-10.4); Nucleated Red Blood Cells % 0 %; Platelet Count 201 10^3/uL (130-400); Red Blood Cell Count 2.89 10^6/uL (4.20-5.40); Red Cell Dist. Width 14.1 % (11.5-14.5); White Blood Cell Count 7.7 10^3/uL (4.8-10.8)
[2023-10-19] MEDS: TYLENOL ORAL SOLUTION 650 MG PO (04:13)
[2023-10-19 04:16] LABS: Blood Urea Nitrogen 25 mg/dl (7-17); Carbon Dioxide 38 mmol/L (22-30); Chloride 106 mmol/L (98-107); Digoxin 0.7 ng/ml (0.8-2.0); Estimated Creatinine Clearance 75 ml/min; Glucose 174 mg/dl (70-99); Magnesium 2.3 mg/dl (1.6-2.3); Phosphorus 2.3 mg/dl (2.5-4.5); Potassium 5.1 mmol/L (3.5-5.1); Sodium 138 mmol/L (135-145); eGFR > 60.00
[2023-10-19] MEDS: ROCEPHIN 2000 MG IV (05:46)
[2023-10-19] MEDS: STERILE WATER FOR INJECTION 20 ML IV (05:47)
[2023-10-19 05:54] LABS: Glucose - Point of Care 183 mg/dl (70-99)
--- NOTE | 2023-10-19 07:27 | W.PN.HOSP.TC ---
Today's Communication/Plan
-
cont tube feeds
psych eval in AM
ativan prn
steroid taper
glycemic control
wean restraints as tolerated
Assessment / Plan
Assessment / Plan
Physical Exam
General: No Apparent Distress
HEENT: Normocephalic
Respiratory: clear to auscultation b/l on 2 L nasal cannula oxygen
Cardiac: S1/S2 and Regular Rhythm
GI: Soft, Non Tender and Normal Bowel Sounds NGT tube feed in place
Musculoskeletal: No Cyanosis
Skin: Warm and Dry
Neuro: Lethargic but arousable noncommunicative today
Psych: Calm

Assessment/Plan
Acute Hypoxic Respiratory Failure
Acute Toxic Metabolic Encephalopathy
Left Lower Lobe Pneumonia (diagnosed and was being treated with antibiotics for pneumonia as an outpatient)
Suspected Sepsis Secondary to Pneumonia
Influenza A
Septic Shock
-Monitored in ICU, was intubated, on 10/15/23 extubated to nasal cannula
-Was on Levaquin for pneumonia outpatient
-Status post Cefepime
-MRSA neg empiric Vancomycin discontinued
-Now on Ceftriaxone; continue
-Continue Tamiflu 75 BID x 5 days
-IVF support completed
-Follow blood and sputum cultures no significant growth to date
-Titrate FiO2 to maintain SpO2 >90-94%
-Low random cortisol in setting of septic shock: stress dose steroid taper as per Cinetechnician
-Stable for downgraded to Tele 10/18/23
Atrial Fibrillation with Rapid Ventricular Response with Associated Hypotension - status post successful urgent cardioversion with worship of sinus rhythm
Tachycardia bradycardia syndrome
Probably Atrial tachycardia
Hypotension
Atrial Fibrillation - on Eliquis at home
-Cardioverted in the ER to NSR on October 14, 2023
-Continue Eliquis
-Digoxin resumed but at a lower dose of 0.125 mg daily
-Continue Lopressor 12.5 mg BID
-Midodrine 5 mg 3 times daily as needed, scheduled TID with holding parameters also started
Volume Overloaded
-Lasix dosing IV 40 mg daily
-Echocardiogram appreciated EF 55-60% severe atrial dilation, mod MR
-cardio eval appreciated
Seizure diagnosis in September 2023
History of Parkinsonism
-On home Keppra 1500 mg BID PO and Lacosamide 50 mg PO BID (Lacosamide reduced from home 100 mg PO BID due to bradycardia)
-Continue seizure medications when able
-September 2023 neurology note indicates that patient should take Sinemet 0.5 tab TID with titration to 1 tab TID within 1 week
Possible Hyperthyroidism vs Sick Euthyroid syndrome
-Endocrine eval appreciated
-possible start methimazole if repeat TSH remains low 10/23/23
Anxiety 10/18
noted to be anxious earlier in the day
since resolved spontaneously
will cont to monitor, ativan 0.25 mg IV q8Hprn ordered
Hypophosphatemia
-monitor and replete as necessary
Pulmonary hypertension
Restrictive lung disease/Interstitial Lung Disease on Chronic Oxygen - Duonebs changed to Atrovent + Xopenex given her tachycardia
Chronic respiratory failure
Obstructive sleep apnea
Non-alcoholic steatohepatitis
Gastroesophageal reflux disease - continue PPI
Chronic dysphagia - speech following - continue NPO
History of left lower extremity deep vein thrombosis (January 2023) - continue Eliquis
Hypertension
Diabetes mellitus - accuchecks and sliding scale insulin
Gout
Basal Cell Skin Cancer
Urinary retention
Osteoporosis
Ambulatory dysfunction
Anxiety
Morbid obesity
DVT PPx: Eliquis
GI ppx: prevacid
Code Status: Full Code
Primary contact friend Marina updated at contact number as listed in [facility]
I spent a total of 55 minutes with the patient or on the floor. More than 50% of this time involved counseling and coordination of care.
Anticipated Discharge: 24 - 48 hours
Subjective/Interval History
-
Date of Service: October 19, 2023
noncommunicative today. lethargic but arousable.
Objective Data
-
Labs:
Laboratory Results
10/19/23
03:32
WBC 7.7
Hgb 10.2 L
Hct 31.1 L
Plt Count 201
Sodium 138
Potassium 5.1
Chloride 106
Carbon Dioxide 38 H
BUN 25 H
Creatinine 0.3 L
Glucose 174 H
Calcium 8.0 L
Vital Signs:
Vital Signs
Temp Pulse Resp BP Pulse Ox
98.4 F 56 15 107/59 98
10/19/23 03:08 10/19/23 06:00 10/19/23 06:00 10/19/23 04:00 10/19/23 06:00
I&O
10/18/23 10/19/23 10/20/23
06:59 06:59 06:59
Intake Total 1185 / 1260 1030 / 1030
Output Total 875 / 875 550 / 550
Balance 310 / 385 480 / 480
[2023-10-19] MEDS: KEPPRA 1500 MG PO ×2 (08:01→20:52)
[2023-10-19] MEDS: SOLU-CORTEF 50 MG IV (08:01)
[2023-10-19] MEDS: LASIX 40 MG IV (08:01)
[2023-10-19] MEDS: SENOKOT-S 2 TABLET TUBE (08:02)
[2023-10-19] MEDS: ELIQUIS 5 MG PO ×2 (08:02→20:52)
[2023-10-19] MEDS: VISBIOME 1 CAP PO (08:02)
[2023-10-19] MEDS: ProAmatine 5 MG PO ×3 (08:02→17:49)
[2023-10-19] MEDS: PREVACID 30 MG TUBE (08:02)
[2023-10-19] MEDS: VIMPAT 50 MG PO ×2 (08:02→20:52)
[2023-10-19] MEDS: LIDOCAINE 4% PATCH 1 PATCH TOPICAL (08:03)
[2023-10-19] MEDS: DESENEX/MITRAZOL/ZEASORB 1 APPLIC TOPICAL ×2 (08:03→20:55)
[2023-10-19] MEDS: VITAMIN B-12 1000 MCG TUBE (08:03)
[2023-10-19] MEDS: SINEMET 25-100 0.5 TABLET PO ×3 (08:03→23:04)
[2023-10-19] MEDS: MIRALAX 17 GRAMS PO (08:03)
[2023-10-19] MEDS: LOPRESSOR TUBE (08:04)
[2023-10-19] MEDS: NSS (PRESERVATIVE FREE) IV (08:04)
[2023-10-19] MEDS: ATROVENT NEBULES 0.5 MG INH ×3 (08:07→20:39)
[2023-10-19] MEDS: XOPENEX 1.25 MG INHALANT SOLUTION INH ×2 (08:07→13:18)
--- NOTE | 2023-10-19 09:45 | W.PN.PUL3 ---
Today's Communication / Plan
-
Continue stress dose steroids with wean (already ordered)
Continue midodrine with goal MAP >65
Diet as per LABEL STAMPER --> pt failed --> dobhoff placed by RN and tube feeds started
If she continues to fail then she will need PEG tube
Aspiration precautions
Abx x 14 days total - narrowed to rocephin on 10/17/2023
Replete K>4, Mg>2, PO4>3
Assessment
-
Assessment:��77-year-old F former tobacco smoker with PMHx of A-fib on digoxin and Eliquis, kyphosis with reported history of restrictive lung disease, chronic hypotension on midodrine, chronic respiratory failure, history of seizures with
parkinsonism diagnosed last month during hospitalization, and CHETNA who p/w unresponsiveness.� Patient found to be tachycardic, hypotensive, cardioverted in the ER and then developed tachybradycardia syndrome.� CXR was concerning for left lower lobe
pneumonia - of note patient was on Levaquin for the past few days for pneumonia which was diagnosed as an outpatient.� Patient transferred to the ICU for further care and critical care services consulted for additional management/recommendations.�
Chronic conditions DATA MANAGER: Essential tremor, A-fib on Eliquis, CHF, COPD, former tobacco use disorder, sleep apnea, dyspepsia, history of UTI, gout, kyphosis, left femur fracture, DM type II, impaired vision, history of skin cancer, anxiety/depression,
left-sided DVT, osteoporosis, ambulatory dysfunction, chronic hypotension on midodrine
Impression:
#Acute respiratory failure with hypoxemia required mechanical ventilation on admission--> extubated 10/15/2023
#Left sided HAP
#Influenza A
#Acute COPD exacerbation due to above with flu and bacterial superinfection
#Septic shock due to pneumonia - shock state now resolved
#Critical illness related corticosteroid insufficiency
#Elevated troponin - likely due to type II [place] from demand ischemia - troponin peaked at 0.056 on 10/14/2023
#Tachy-katerine syndrome
#Primary hyperthyroidism vs euthyroid sick syndrome
#Moderate restrictive lung defect (T% predicted via PFT from 2016)
#Physical deconditioning with wheel chair bound status at baseline
Plan:
- Maintain MAP>65
- Titrate FiO2 to maintain SpO2 >90-94%
- Cardiology on board --> continue rate control medications with hold parameters given her intermittent bradycardia
- Changed DuoNebs to atrovent + xopenex given her tachycardia --> ok to use this prn given it seems to agitate the pt when we give the scheduled neb treatments. We can change this back to scheduled if needed if her SOB worsens
- Continue broad spectrum ABx (on 10/17 I narrowed Abx from cefepime to rocephin) and follow up infectious workup (sputum Cx and blood Cx); MRSA swab negative, hence IV vanco DC'd -->�would complete 10-14 day course of ABx
- Negative urine legionella and Strep pneumonia
- Consider starting methimazole given her elevated free T4 with low TSH; Total T4 and free T3 are WNL; endo consulted and recs appreciated --> hold off methimazole for now and recheck TFTs in 1 week - if TSH still low then will start methimazole at
that time
- Given her low random cortisol level with septic shock on ICU admission, I started stress dose steroids with plans to taper --> finish 3 days of 50mg IV q6hr and then taper after that (this is ordered)
- No need to continue trending troponin as it had peaked at 0.056
- Midodrine started per hospitalist given hypotension overnight from 10/17 - 10/18 --> BP better now
- Maintain MAP>65
- Maintain BG 140-180 with ISS q6hr
- Continue tamiflu 75 BID x 5 days
- Reduced lacosamide to 50mg IV BID given bradycardia
- Titrate FiO2 to keep SpO2 >90-94%
- PPI (home med)
- DVT ppx - Eliquis
Pulmonary service will continue to follow along
Data:
CXR 10-15-2023:
Lines and tubes as described.
The endotracheal tube is low.
Bibasilar atelectasis persists.
CXR 10-14-2023:
Endotracheal tube is present with tip 2.2 cm above the guanakito.
Nasogastric or orogastric tube present with tip extending into the left upper quadrant, off the inferior to the radiograph.
Focal parenchymal airspace opacity within the left lower lung, which likely represents pneumonia.
PFT - 08/2016
FEV1/FVC: 61
FEV1: 1L (53%)
FVC: 1.64L (66%)
T% (2.78L)
VC: 66%
RV: 61%
DLco: 45%
VA: 85% (3.65L)
DLco/VA: 52%
Flow volume loop: Scooped expiratory limb and restricted
Subjective Data
-
Date of Service:
Date of Service: October 19, 2023
Chief Complaint: Pulmonary Follow Up
Subjective:
Patient seen today. Afebrile overnight. No acute events reported from overnight. Currently on 2 L/min nasal cannula saturating 99%. Patient says she feels okay, denies chest pain, fevers or chills. Still occasionally confused and lethargic.
Review of Systems
General: Other (Negative unless mentioned above)
Objective Data
Data Reviewed
Vital Signs / I&O / Oxygen:
Vital Signs
Temp Pulse Resp BP Pulse Ox
97.5 F 73 16 107/59 96
10/19/23 07:30 10/19/23 08:10 10/19/23 08:10 10/19/23 04:00 10/19/23 08:10
Intake and Output
10/18/23 10/19/23 10/20/23
06:59 06:59 06:59
Intake Total 1185 / 1260 1830 / 1910 240 / 240
Output Total 875 / 875 550 / 550
Balance 310 / 385 1280 / 1360 240 / 240
SaO2 [CPAP/PSV] 99
SaO2 [A/C] 99
SaO2 96
Nasal Cannula flow liters per 2
minute
Physical Exam
General: Comfortable
HEENT: Normocephalic and Anicteric
Cardiovascular: S1-S2, Murmur (negative) and Peripheral Edema (+1 pitting pedal edema)
Respiratory: Clear, Wheeze (negative), Crackles (negative), Non-Labored Respirations, Accessory Resp Muscle Use (negative) and Other (Reduced BS b/l)
GI: Soft, Non Distended, Non Tender and Normal Bowel Sounds
Neurology: Lethargic (Easily arousable to tactile stimuli and voice, answering my questions appropriately)
Skin: Warm and Dry
Labs/Micro/Reports
Lab Data
10/19/23 03:32
10/19/23 03:32
Microbiology
10/14/23 08:08 Blood/Venous Blood Culture - Final
No Growth - Final Report
10/14/23 07:21 Blood/Venous Blood Culture - Final
No Growth - Final Report
10/14/23 10:51 Sputum Respiratory Culture - Final
Yeast
10/14/23 10:51 Sputum Gram Stain - Final
--- NOTE | 2023-10-19 09:54 | PTCARENOTE ---
Received pt resting in bed, calling out. Pt. oriented to self but is forgetful and anxious. Calling out 'help me help me' when staff is in the room providing care. She is unable to verbalize what she needs help with. Says no to pain. Restraints in
place for safety per orders. SB with occasional PVCs/PACs on tele, HR in the 70s but occasionally drops to 50s and rises to 100s. +2 anasarca. 2L O2 SpO2 99-100%. 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 Rhonchi throughout. DH tube with osmo @ 55ml/hr with 25ml/hr
h20 flush. + bowel sounds. Purewick in place, minimal UOP noted. R midline patent and capped. Turning q2. Monitoring
--- NOTE | 2023-10-19 10:00 | W.PN.CARDCBS ---
Today's Communication / Plan
-
Seems weak and frail and noncommunicative today, keeps eyes closed.
Consider psychiatry
Continue current dose of diuretic. Check proBNP level given volume status is difficult to ascertain
Continue current treatment of paroxysmal A-fib, remains in sinus
Impression / Plan
-
Family Physician:� Solomon Troy, DO
Telesales Specialist: Dr. Solis, last seen in May 2020 in office
Impression:
Influenza A
Presents 10/14/2022 with unresponsiveness, hypoxia
Acute hypoxic respiratory failure requiring intubation 10/14/2023
Pneumonia
Fever
Atrial fibrillation with rapid ventricular response
Status post cardioversion 10/14/2023 in emergency department
Tachybradycardia syndrome
Hypotension
Paroxysmal atrial fibrillation
Chronic anticoagulation on Eliquis
VDRF (2009)
ILD/Restrictive lung disease/chronic respiratory failure/chronic O2
CHETNA
Seizure disorder (diagnosed September 2023)
Chronic Dysphagia on pureed diet
GERD
ESPARZA
Anxiety
History of left lower extremity deep vein thrombosis (January 2023)
Non-occlusive DVT L popliteal vein
Gout
Basal Cell Skin Cancer
Urinary retention Osteoporosis
Ambulatory dysfunction/bed-bound
Echo 04/03/2020: EF 55 to 60%, stage II DD. Mildly dilated RA. Mild MR, mild TR with PAP 50 mmHg
Echo 10/17/23: EF 55%, dilated atrium. Moderate MR, mild
Plan:
Continues to fail clinically with fatigue and weakness. Will not open her eyes and will not answer questions this morning. She initially presented 10/14/2023 with unresponsiveness and hypoxia requiring intubation 10/14/2023 and CXR c/w pneumonia,
now Flu+
-Paroxysmal atrial fibrillation with rapid ventricular response on presentation to the emergency department 10/14/2023. Patient underwent successful urgent cardioversion with moravian of sinus rhythm. She remains in sinus rhythm. Continue
digoxin and metoprolol. Continue oral anticoagulation.
-Cont Eliquis for cardioembolic ppx of AFib
-Telemetry stable with no bursts of atrial fibrillation overnight.
-If significant recurrence of atrial fibrillation could consider amiodarone. I cannot find a contraindication.
-She has chronic intermittent hypotension. She continues on midodrine as needed for low blood pressure which has been chronic.
-Heart failure with preserved ejection fraction. Weights still elevated. Will continue Lasix 40mg IV daily. Creat normal.
-Oxygen requirement stable
-Likely non-MD troponin elevation with peak 0.056.
-Continue treatment of influenza/pneumonia
-Continue treatment of anxiety. Consider psychiatry.
Patient is a 77 y/o female with past medical history of seizure diagnosis in September 2023, paroxysmal atrial fibrillation on chronic anticoagulation with Eliquis, pulmonary hypertension, restrictive lung disease, chronic respiratory failure,
obstructive sleep apnea, non-alcoholic steatohepatitis, gastroesophageal reflux disease, chronic dysphagia, left lower extremity deep vein thrombosis (January 2023), hypertension, diabetes mellitus, gout, Basal Cell Skin Cancer, urinary retention,
osteoporosis, ambulatory dysfunction anxiety, and morbid obesity whom presented 10/14/2023 from [facility] with with unresponsiveness and hypoxia.�She apparently has been on Levaquin for the past few days for pneumonia. She required intubation
in emergency department upon arrival and is currently intubated and sedated. Chest x-ray concerning for left lower lobe pneumonia. She was noted to be in atrial fibrillation with rapid ventricular response associated with hypotension and
underwent successful cardioversion with moravian of sinus rhythm. Patient has continued to have evidence of tachybradycardia syndrome with PAF followed by bradycardia with heart rate in the 40s following cardioversion. Patient currently remains
hypotensive despite moravian of sinus rhythm.
Progress Note - Telesales Specialist
Subjective
Date of Service: October 19, 2023
Would not open her eyes or communicate today
Objective
Labs:
10/19/23 03:32
10/19/23 03:32
Labs
Hgb 10.2 g/dL (12.0-16.0) L 10/19/23 03:32
Hct 31.1 % (37.0-47.0) L 10/19/23 03:32
Plt Count 201 10^3/uL (130-400) 10/19/23 03:32
PT 24.8 Sec (11.4-14.6) H 10/14/23 10:51
INR 2.25 10/14/23 10:51
APTT 41.4 Sec (23.4-35.0) H 10/14/23 10:51
Sodium 138 mmol/L (135-145) 10/19/23 03:32
Potassium 5.1 mmol/L (3.5-5.1) 10/19/23 03:32
BUN 25 mg/dl (7-17) H 10/19/23 03:32
Creatinine 0.3 mg/dL (0.6-1.0) L 10/19/23 03:32
Glucose 174 mg/dl (70-99) H 10/19/23 03:32
Digoxin 0.7 ng/ml (0.8-2.0) L 10/19/23 03:32
Vital Signs and I&O:
Vital Signs
Temp Pulse Resp BP Pulse Ox
97.5 F 79 19 109/51 97
10/19/23 07:30 10/19/23 09:30 10/19/23 09:30 10/19/23 08:00 10/19/23 09:30
Vital Signs
Temp Pulse Resp BP Pulse Ox
97.5 F 79 19 109/51 97
10/19/23 07:30 10/19/23 09:30 10/19/23 09:30 10/19/23 08:00 10/19/23 09:30
Intake & Output
10/17/23 10/18/23 10/19/23 10/20/23
06:59 06:59 06:59 06:59
Intake Total 795 / 840 1185 / 1260 1830 / 1910 240 / 240
Output Total 75 / 75 875 / 875 550 / 550
Balance 720 / 765 310 / 385 1280 / 1360 240 / 240
Physical Exam
Physical Exam
General: Chronically ill woman
Heart: Distant heart sounds regular
Lungs: Coarse anterior breath sounds
Extremities: No clubbing, cyanosis and trace to +1 dependent edema bilaterally.
[2023-10-19 12:43] LABS: Glucose - Point of Care 150 mg/dl (70-99)
[2023-10-19] MEDS: LANOXIN 125 MCG PO (12:49)
[2023-10-19 17:43] LABS: Glucose - Point of Care 215 mg/dl (70-99)
[2023-10-19] MEDS: NOVOLOG FLEXPEN-LOW RESISTANCE 2 UNITS SC (17:49)
[2023-10-19] MEDS: SODIUM PHOSPHATE 255 MEQ IV (18:40)
[2023-10-19] MEDS: XOPENEX 0.63 MG INHALANT SOLUTION 0.630000000000000004 MG INH (20:39)
[2023-10-19] MEDS: SOLU-CORTEF 25 MG IV (20:52)
[2023-10-19] MEDS: LOPRESSOR 12.5 MG TUBE (20:53)
[2023-10-19] MEDS: CARDURA 1 MG TUBE (23:04)
[2023-10-20 00:10] LABS: Glucose - Point of Care 184 mg/dl (70-99)
[2023-10-20] MEDS: NOVOLOG FLEXPEN-LOW RESISTANCE 1 UNITS SC ×3 (00:18→18:35)
[2023-10-20 05:11] LABS: % Basophils 0.1 % (0-2); % Immature Granulocytes 0.8 % (0-0.5); % Lymphocytes 8.2 % (20.5-51.1); % Monocytes 12.7 % (1.7-9.3); % Neutrophils 78.2 % (42.2-75.2); Absolute Immature Granulocytes 0.1 10^3/uL (0-0.05); Absolute Lymphocytes 0.6 10^3/uL (1.2-3.4); Absolute Neutrophils 5.9 10^3/uL (1.4-6.5); Hematocrit 30.8 % (37.0-47.0); Hemoglobin 10.2 g/dL (12.0-16.0); Mean Corp Hgb Conc. 33.1 g/dL (33.0-37.0); Mean Corpuscular Hgb 35.4 pg (27.0-31.0); Mean Corpuscular Volume 106.9 fL (81.0-99.0); Mean Platelet Volume 9.3 fL (7.4-10.4); Nucleated Red Blood Cells % 0 %; Platelet Count 208 10^3/uL (130-400); Red Blood Cell Count 2.88 10^6/uL (4.20-5.40); Red Cell Dist. Width 13.9 % (11.5-14.5); White Blood Cell Count 7.6 10^3/uL (4.8-10.8)
[2023-10-20 05:35] LABS: NT-proBNP 1690 pg/ml
[2023-10-20 05:39] LABS: Chloride 102 mmol/L (98-107); Potassium 4.8 mmol/L (3.5-5.1); Sodium 136 mmol/L (135-145)
[2023-10-20 05:48] LABS: Blood Urea Nitrogen 27 mg/dl (7-17); Calcium 8.3 mg/dl (8.4-10.2); Estimated Creatinine Clearance 75 ml/min; Glucose 164 mg/dl (70-99); Magnesium 2.2 mg/dl (1.6-2.3); Phosphorus 2.2 mg/dl (2.5-4.5); eGFR > 60.00
[2023-10-20] MEDS: ROCEPHIN 2000 MG IV (05:53)
[2023-10-20] MEDS: STERILE WATER FOR INJECTION 20 ML IV (05:53)
[2023-10-20 05:58] VITALS: BMI 37.2
[2023-10-20 06:24] LABS: Glucose - Point of Care 171 mg/dl (70-99)
--- NOTE | 2023-10-20 06:59 | W.PN.HOSP.TC ---
Today's Communication/Plan
-
cont tube feeds
psych neuro eval
ativan prn
steroid tapered off
glycemic control
wean restraints as tolerated
replete phos
Assessment / Plan
Assessment / Plan
Physical Exam
General: No Apparent Distress
HEENT: Normocephalic
Respiratory: clear to auscultation b/l on 2 L nasal cannula oxygen
Cardiac: S1/S2 and Regular Rhythm
GI: Soft, Non Tender and Normal Bowel Sounds NGT tube feed in place
Musculoskeletal: No Cyanosis, upper extremities rigidity noted
Skin: Warm and Dry
Neuro: Lethargic difficult to arouse nonverbal
Psych: Calm

Assessment/Plan
Acute Hypoxic Respiratory Failure
Acute Toxic Metabolic Encephalopathy
Left Lower Lobe Pneumonia (diagnosed and was being treated with antibiotics for pneumonia as an outpatient)
Suspected Sepsis Secondary to Pneumonia
Influenza A
Septic Shock
-Monitored in ICU, was intubated, on 10/15/23 extubated to nasal cannula
-Was on Levaquin for pneumonia outpatient
-Status post Cefepime
-MRSA neg empiric Vancomycin discontinued
-Now on Ceftriaxone; continue
-Continue Tamiflu 75 BID x 5 days
-IVF support completed
-Follow blood and sputum cultures no significant growth to date
-Titrate FiO2 to maintain SpO2 >90-94%
-Low random cortisol in setting of septic shock: stress dose steroid tapered off as per Filing Writer
-Downgraded to Tele 10/18/23
Atrial Fibrillation with Rapid Ventricular Response with Associated Hypotension - status post successful urgent cardioversion with congregation of sinus rhythm
Tachycardia bradycardia syndrome
Probably Atrial tachycardia
Hypotension
Atrial Fibrillation - on Eliquis at home
-Cardioverted in the ER to NSR on October 14, 2023
-Continue Eliquis
-Digoxin resumed but at a lower dose of 0.125 mg daily
-Continue Lopressor 12.5 mg BID
-Midodrine 5 mg 3 times daily as needed, scheduled TID with holding parameters also started
Volume Overloaded
-Lasix dosing IV 40 mg daily
-Echocardiogram appreciated EF 55-60% severe atrial dilation, mod MR
-cardio eval appreciated
Seizure diagnosis in September 2023
History of Parkinsonism
-On home Keppra 1500 mg BID PO and Lacosamide 50 mg PO BID (Lacosamide reduced from home 100 mg PO BID due to bradycardia)
-Continue seizure medications when able
-neurology eval appreciated cont Sinemet 0.5 tab TID, EEG supportive toxic metabolic encephalopathy, avoid antipsychotics, cont current sz medications as above
-CT head appreciated no acute abn's
Possible Hyperthyroidism vs Sick Euthyroid syndrome
-Endocrine eval appreciated
-possible start methimazole if repeat TSH remains low 10/23/23
Anxiety
significant anxiety noted 10/18 patient screaming 'help'
since resolved without medication
ativan 0.25 mg IV q8Hprn ordered but has yet to require
psych eval appreciated since signed off
Hypophosphatemia
-monitor and replete as necessary
Pulmonary hypertension
Restrictive lung disease/Interstitial Lung Disease on Chronic Oxygen - Duonebs changed to Atrovent + Xopenex given her tachycardia
Chronic respiratory failure
Obstructive sleep apnea
Non-alcoholic steatohepatitis
Gastroesophageal reflux disease - continue PPI
Chronic dysphagia - speech following - continue NPO
History of left lower extremity deep vein thrombosis (January 2023) - continue Eliquis
Hypertension
Diabetes mellitus - accuchecks and sliding scale insulin
Gout
Basal Cell Skin Cancer
Urinary retention
Osteoporosis
Ambulatory dysfunction
Anxiety
Morbid obesity
DVT PPx: Eliquis
GI ppx: prevacid
Code Status: Full Code
I spent a total of 55 minutes with the patient or on the floor. More than 50% of this time involved counseling and coordination of care.
Anticipated Discharge: > 48 hours
Subjective/Interval History
-
Date of Service: October 20, 2023
Altered mental status persists. lethargic, difficult to arouse. Some upper extremity rigidity noted.
Objective Data
-
Labs:
Laboratory Results
10/20/23
04:51
WBC 7.6
Hgb 10.2 L
Hct 30.8 L
Plt Count 208
Sodium 136
Potassium 4.8
Chloride 102
Carbon Dioxide Pending
BUN 27 H
Creatinine 0.3 L
Glucose 164 H
Calcium 8.3 L
Vital Signs:
Vital Signs
Temp Pulse Resp BP Pulse Ox
98.8 F 77 18 110/57 97
10/19/23 22:50 10/19/23 22:50 10/19/23 22:50 10/19/23 22:50 10/19/23 22:50
I&O
10/18/23 10/19/23 10/20/23
06:59 06:59 06:59
Intake Total 1185 / 1260 1830 / 1910 2275 / 2275
Output Total 875 / 875 550 / 550 450 / 450
Balance 310 / 385 1280 / 1360 1825 / 1825
[2023-10-20 07:00] VITALS: BP 106/57
[2023-10-20] MEDS: XOPENEX 0.63 MG INHALANT SOLUTION 0.630000000000000004 MG INH ×2 (07:34→19:42)
[2023-10-20] MEDS: ATROVENT NEBULES 0.5 MG INH ×2 (07:34→19:42)
[2023-10-20 07:58] LABS: Carbon Dioxide 36 mmol/L (22-30)
[2023-10-20] MEDS: SENOKOT-S 2 TABLET TUBE (08:56)
[2023-10-20] MEDS: SODIUM PHOSPHATE 255 MEQ IV (08:56)
[2023-10-20] MEDS: ELIQUIS 5 MG TUBE ×2 (08:56→20:00)
[2023-10-20] MEDS: PREVACID 30 MG TUBE (08:57)
[2023-10-20] MEDS: VISBIOME 1 CAP TUBE (08:57)
[2023-10-20] MEDS: VITAMIN B-12 1000 MCG TUBE (08:57)
[2023-10-20] MEDS: LOPRESSOR 12.5 MG TUBE (08:57)
[2023-10-20] MEDS: ProAmatine 5 MG TUBE ×3 (08:57→18:39)
[2023-10-20] MEDS: SINEMET 25-100 0.5 TABLET TUBE ×3 (08:58→23:00)
[2023-10-20] MEDS: VIMPAT 50 MG TUBE ×2 (08:58→20:00)
[2023-10-20] MEDS: LIDOCAINE 4% PATCH 1 PATCH TOPICAL (08:59)
[2023-10-20] MEDS: MIRALAX 17 GRAMS TUBE (08:59)
[2023-10-20] MEDS: DESENEX/MITRAZOL/ZEASORB 1 APPLIC TOPICAL ×2 (09:02→20:01)
[2023-10-20] MEDS: LASIX 40 MG IV ×2 (09:03→15:41)
[2023-10-20] MEDS: NSS (PRESERVATIVE FREE) IV (09:05)
[2023-10-20] MEDS: SOLU-CORTEF 25 MG IV (09:07)
[2023-10-20] MEDS: KEPPRA 1500 MG TUBE ×2 (09:50→20:00)
[2023-10-20 11:00] VITALS: BP 107/54
--- NOTE | 2023-10-20 11:29 | CS.PSYCHR ---
Consult Summary - Psychiatry
-
Pt seen, chart reviewed, discussed with nursing staff. Pt is 77 yo female admitted 10/14/23, presented unresponsive, hypoxic, was cardioverted and intubated in ED. Pt admitted with acute hypoxic respiratory failure, acute TME, Left lower lobe
pneumonia, suspected sepsis. Pt has had persistent confusion, oriented x 1. Pt noted with some anxiety, calling out 'help me' at times, though not able to verbalize specific needs. Pt lying in bed, sleeping/ lethargic, not responding to verbal
attempts at waking her. Pt receiving meds through tube.
PMH: seizure diagnosis in September 2023, atrial fibrillation on Eliquis at home, pulmonary hypertension, restrictive lung disease, chronic respiratory failure, obstructive sleep apnea, non-alcoholic steatohepatitis, gastroesophageal reflux disease,
chronic dysphagia, hx of left lower extremity DVT January 2023, hypertension, diabetes mellitus, gout, Basal Cell Skin Cancer, urinary retention, osteoporosis, ambulatory dysfunction, morbid obesity
Pt had Neurology consult during previous admission Sep 2023, dx with multifactorial encephalopathy.
Psych Hx: unspecified anxiety, unable to obtain further info
MSE: as above, lethargic/sleeping, difficult to arouse
Imp: TME; Unspecified anxiety. No primary or acute psychiatric disorder evident
Rec: Continue order for Ativan 0.25 mg IV prn- not given yet
Psychiatry will sign off; please reconsult for any further concerns
--- NOTE | 2023-10-20 11:54 | CM ---
patient continues NPO with oral intake.
DH feeding tube.
Patient from [facility] total care, damian lift.
Continues on oxygen 2 liters.
Plan: back to [facility] when stable.
--- NOTE | 2023-10-20 14:39 | EEG.RPT ---
Electroencephalogram Report
Recording
Date of EE10/20/23
Length of EEG recordin minutes
Done with Video Recording: Yes
Patient Status: Inpatient
Recording Conditions: Awake and Drowsy
Hyperventilation Performed: No
Photic Stimulation Performed: Yes
Hand Dominance: Unknown
Report
LESS THAN 1 HOUR EEG REPORT
METHODS:
A 21 channel digitized electroencephalogram (EEG) was performed in the Clinical Neurophysiology Laboratory. The 10/20 international system of electrode placement was used with EKG and lateral/vertical eye movements recorded. Study lasted 27 minutes.
ELECTROENCEPHALOGRAPHER IMPRESSION(S):
Quality of study
Good
Background
Predominantly medium amplitude delta frequency
No normal posterior dominant rhythm seen
No background asymmetry seen
Sleep
Drowsiness present
Hyperventilation
Not performed
Photic Stimulation
No activation
EKG
Normal sinus rhythm
Abnormalities
Frequent generalized frontally predominant triphasic waves throughout the study. No evolution of rhythmicity to the triphasic waves and no electrographic or clinical seizures were seen.
���������������
LESS THAN 1 HOUR EEG INTERPRETATION:
The study was moderately abnormal due to diffuse slowing along with triphasic waves. Diffuse slowing is nonspecific as to etiology and indicates moderate cerebral dysfunction. Triphasic waves are generally seen in metabolic causes of
encephalopathy including but not limited to hypercarbia, liver and renal failure, lithium intoxication, and other toxic metabolic encephalopathies.
CLINICAL CORRELATION:
This study support mild to moderate cerebral dysfunction and is nonspecific as to etiology, findings of slowing as well as triphasic waves may be seen in a number of toxic metabolic encephalopathies. No electrographic seizures or interictal
epileptiform discharges were seen.
--- NOTE | 2023-10-20 14:43 | CON.NEURO4 ---
Consultation - Neurology 4
-
CONSULTING PHYSICIAN: Luana Dennis
REFERRING PHYSICIAN: Hospitalist
DICTATED BY: Luana Dennis
DATE/TIME OF REQUEST: 10/20/23
DATE/TIME OF CONSULTATION: 10/20/23
Reason for Consultation: Encephalopathy
History of Present Illness:
Patient is a 77-year-old woman with a past medical history of epilepsy, atrial fibrillation, interstitial lung disease presented to hospital with respiratory failure and pneumonia suspected due to influenza A and had septic shock as well. She
required intubation. She was treated for bacterial pneumonia as well. She was continued on anticoagulation for history of atrial fibrillation. She required cardioversion due to atrial fibrillation with associated hypotension, additionally treated
for volume overload with diuretics.
Since extubation patient has remained persistently encephalopathic with little verbal output. No overt seizure activity has been seen.
She had a recent hospitalization here at [place] from 09/17 to 09/22 where the main diagnosis was status epilepticus which was treated with antiseizure medications in the form of levetiracetam and lacosamide. It was noted that she had rigidity and
parkinsonism and is started on low-dose carbidopa/levodopa 0.5 mg tablet 3 times a day.
Past Medical History: Parkinson's disease, epilepsy, chronic dysphagia, interstitial lung disease, GERD, left lower extremity DVT, atrial fibrillation, basal skin cancer, urinary retention, osteoporosis
Surgical History: Total abdominal hysterectomy, oophorectomy, appendectomy, tonsillectomy, left proximal femur ORIH
Family History: Unable to obtain
Social History: intermediate, retired, no tobacco or alcohol
Review of Symptoms:
Unable to obtain with encephalopathy
Physical Exam:
Elderly woman appears chronically ill no signs of overt distress, oropharynx is dry, neck with limited range of motion no meningismus, no signs of head or neck trauma, heart rate irregular, breathing with scattered rales, no wheezing, abdomen soft
nontender, no lower extremity edema or rash
Neurologic Examination:
Mental status examination shows GCS [id number], patient will moan to noxious stimulation but did not produce any discernible words and does not obey any commands, does not open eyes or track.
Cranial nerve examination showed round and reactive pupils equal 3 mm to light, resting gaze is midline extraocular movements with vestibular ocular reflex testing were normal, there is mild dysarthria, tongue is midline, and face is grossly
symmetric
There is no tremor seen, bilateral arm rigidity is noted, arms withdraw 2/5 strength and symmetric manner as well as the legs 2/5 and symmetric manner to noxious stimulation
Noxious stimulation present in all limbs
Unable to obtain any reflexes
Unable to evaluate for ataxia
Unable to evaluate gait
Neuro Imaging: CT head non contrast no acute abnormality, no hemorrhage, mass or actute infarct
Impressions
1. Mixed toxic metabolic encephalopathy due to recent severe illness with pneumonia requiring intubation, influenza on top of a suspected neurodegenerative disorder with parkinsonism
2. Epilepsy with previous status epilepticus
3. EEG with triphasic waves and slowing supportive toxic metabolic encephalopathy
4. Concern for a parkinsonian disorder: Parkinson's disease and Dementia with lewy bodies are most likely
Recommendations:
1. Continue the existing antiseizure medication regimen with levetiracetam 1500 mg twice daily and lacosamide 50 mg twice daily
2. Keep the same dose of carbidopa/levodopa, I do not think the small dose is contributing to her mental status abnormalities
3. Avoid antipsychotic medications especially first generation such as haloperidol as these can worsen parkinsonism and rigidity, if they become consideration then would refer small doses of quetiapine or risperidone
4. Minimize sedating medications
5. Not recommending any further brain imaging
Discussed patient care with: Hospitalist
[2023-10-20 15:00] VITALS: BP 106/55
[2023-10-20 15:04] LABS: Glucose - Point of Care 134 mg/dl (70-99)
[2023-10-20] MEDS: NOVOLOG FLEXPEN-LOW RESISTANCE SC (15:04)
--- NOTE | 2023-10-20 15:09 | W.PN.CARDCBS ---
Addendum entered and electronically signed by Benton Grajeda MD 10/20/23 15:38:
I saw and examined the patient.
The SHEET ROCK INSTALLER or PA's note was reviewed and I agree with the note.
Comment: General: Awake but no response
Neck: Supple, no JVD, HJR, carotids +2 B/L, no bruits bilaterally.
Heart: Non displaced PMI, Irreg, no murmurs, No S3, S4, no rubs.
Lungs: Poor effort
Extremities: No clubbing, cyanosis or edema bilaterally.
Neuro: Awake but no response
Mental status remains poor. Stable from cardiology viewpoint. Might consider change to oral Lasix in the next 24 hours. Rate controlled in atrial fibrillation. Continue Toprol and Eliquis. Overall prognosis remains poor. Neuro and psychiatry
now seeing patient.
Original Note:
Today's Communication / Plan
-
Weight is up, BP and Cre stable. Will try an extra dose of Lasix 40 mg IV this evening
Impression / Plan
-
Family Physician:� Solomon Troy, DO
Truck Body Repairer: Dr. Solis, last seen in May 2020 in office
Impression:
Influenza A
Presents 10/14/2022 with unresponsiveness, hypoxia
Acute hypoxic respiratory failure requiring intubation 10/14/2023
Pneumonia
Fever
Atrial fibrillation with rapid ventricular response
Status post cardioversion in the ER 10/14/23
Tachybradycardia syndrome
Hypotension
Acute HFpEF
Paroxysmal atrial fibrillation
Chronic anticoagulation on Eliquis
VDRF (2009)
ILD/Restrictive lung disease/chronic respiratory failure/chronic O2
CHETNA
Seizure disorder (diagnosed September 2023)
Chronic Dysphagia on pureed diet
GERD
ESPARZA
Anxiety
History of left lower extremity deep vein thrombosis (January 2023)
Non-occlusive DVT L popliteal vein
Gout
Basal Cell Skin Cancer
Urinary retention Osteoporosis
Ambulatory dysfunction/bed-bound
Echo 04/03/2020: EF 55 to 60%, stage II DD. Mildly dilated RA. Mild MR, mild TR with PAP 50 mmHg
Echo 10/17/23: EF 55%, dilated atrium. Moderate MR, mild
Plan:
-Neurology and Psychiatry consults from 10/20/23 reviewed. Mixed TME from recent VDRF, PNA and h/o epilepsy suspected as causes. Psychiatry recommends Ativan as a PRN.
-From a CV standpoint, weight is stable at 183 lbs. Weight on admission to ICU on 10/14/23 was 169 lbs. Lasix 40 mg IV daily is ordered. Patient was taking Lasix 40 mg PO daily PRN prior to admission.
-BP and Cre stable. Will try an extra dose of Lasix 40 mg IV x1 10/20/23 evening.
-Patient with a h/o paroxysmal Afib and was in rapid Afib on admission 10/14/23 that was treated with emergent CV that day.
-Last ECG 10/16/23 with SVT. HRs 70s on Lopressor 12.5 mg tube BID started 10/19/23 and Digoxin 0.125 mg daily ordered to start 10/20/23. Patient was taking Toprol XL 25 mg daily prior to admission and now receiving meds via tube.
-Outpatient dose of Eliquis 5 mg BID resumed 10/20/23 AM.
-If significant recurrence of atrial fibrillation could consider amiodarone, there is no obvious contraindication.
-Midodrine PRN hypotension ordered
-Troponin peaked at 0.056. No ischemic ECG changes. No chest pain. Will manage as a nonischemic myocardial injury Troponin elevation due to VDRF.
-Likely non-UT troponin elevation with peak 0.056.
Patient is a 77 y/o female with past medical history of seizure diagnosis in September 2023, paroxysmal atrial fibrillation on chronic anticoagulation with Eliquis, pulmonary hypertension, restrictive lung disease, chronic respiratory failure,
obstructive sleep apnea, non-alcoholic steatohepatitis, gastroesophageal reflux disease, chronic dysphagia, left lower extremity deep vein thrombosis (January 2023), hypertension, diabetes mellitus, gout, Basal Cell Skin Cancer, urinary retention,
osteoporosis, ambulatory dysfunction anxiety, and morbid obesity whom presented 10/14/2023 from [facility] with with unresponsiveness and hypoxia.�She apparently has been on Levaquin for the past few days for pneumonia. She required intubation
in emergency department upon arrival and is currently intubated and sedated. Chest x-ray concerning for left lower lobe pneumonia. She was noted to be in atrial fibrillation with rapid ventricular response associated with hypotension and
underwent successful cardioversion with jainism of sinus rhythm. Patient has continued to have evidence of tachybradycardia syndrome with PAF followed by bradycardia with heart rate in the 40s following cardioversion. Patient currently remains
hypotensive despite jainism of sinus rhythm.
Progress Note - Truck Body Repairer
Subjective
Date of Service: October 20, 2023
Not opening her eyes to talk
Objective
Labs:
10/20/23 04:51
10/20/23 04:51
Labs
Hgb 10.2 g/dL (12.0-16.0) L 10/20/23 04:51
Hct 30.8 % (37.0-47.0) L 10/20/23 04:51
Plt Count 208 10^3/uL (130-400) 10/20/23 04:51
PT 24.8 Sec (11.4-14.6) H 10/14/23 10:51
INR 2.25 10/14/23 10:51
APTT 41.4 Sec (23.4-35.0) H 10/14/23 10:51
Sodium 136 mmol/L (135-145) 10/20/23 04:51
Potassium 4.8 mmol/L (3.5-5.1) 10/20/23 04:51
BUN 27 mg/dl (7-17) H 10/20/23 04:51
Creatinine 0.3 mg/dL (0.6-1.0) L 10/20/23 04:51
Glucose 164 mg/dl (70-99) H 10/20/23 04:51
Digoxin 0.7 ng/ml (0.8-2.0) L 10/19/23 03:32
Vital Signs and I&O:
Vital Signs
Temp Pulse Resp BP Pulse Ox
97.7 F 76 18 107/54 95
10/20/23 11:00 10/20/23 11:00 10/20/23 11:00 10/20/23 11:00 10/20/23 11:00
Vital Signs
Temp Pulse Resp BP Pulse Ox
97.7 F 76 18 107/54 95
10/20/23 11:00 10/20/23 11:00 10/20/23 11:00 10/20/23 11:00 10/20/23 11:00
Intake & Output
10/18/23 10/19/23 10/20/23 10/21/23
06:59 06:59 06:59 06:59
Intake Total 1185 / 1260 1830 / 1910 2275 / 2275
Output Total 875 / 875 550 / 550 450 / 450
Balance 310 / 385 1280 / 1360 1825 / 1825
Physical Exam
Physical Exam
General: Frail appearing. NAD.
Skin: Warm, dry and pink.
Heart: Reg
Lungs: No wheeze
Extremities: Trace B/L LE edema
[2023-10-20] MEDS: LANOXIN 125 MCG TUBE (15:40)
--- NOTE | 2023-10-20 15:52 | W.PN.PUL3 ---
Today's Communication / Plan
-
O2
Atb
CXR
Asp precs
Assessment
-
Assessment:��77-year-old F former tobacco smoker with PMHx of A-fib on digoxin and Eliquis, kyphosis with reported history of restrictive lung disease, chronic hypotension on midodrine, chronic respiratory failure, history of seizures with
parkinsonism diagnosed last month during hospitalization, and CHETNA who p/w unresponsiveness.� Patient found to be tachycardic, hypotensive, cardioverted in the ER and then developed tachybradycardia syndrome.� CXR was concerning for left lower lobe
pneumonia - of note patient was on Levaquin for the past few days for pneumonia which was diagnosed as an outpatient.� Patient transferred to the ICU for further care and critical care services consulted for additional management/recommendations.�
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
left-sided DVT, osteoporosis, ambulatory dysfunction, chronic hypotension on midodrine
Impression:
#Acute respiratory failure with hypoxemia required mechanical ventilation on admission--> extubated 10/15/2023
#Left sided HAP
#Influenza A
#Acute COPD exacerbation due to above with flu and bacterial superinfection
#Septic shock due to pneumonia - shock state now resolved
#Critical illness related corticosteroid insufficiency
#Elevated troponin - likely due to type II FL from demand ischemia - troponin peaked at 0.056 on 10/14/2023
#Tachy-katerine syndrome
#Primary hyperthyroidism vs euthyroid sick syndrome
#Moderate restrictive lung defect (T% predicted via PFT from 2016)
#Physical deconditioning with wheel chair bound status at baseline
Plan:
Continue O2 protocol
Currently on O2 2L, POx 96%
- Cardiology on board --> continue rate control medications with hold parameters given her intermittent bradycardia
Diuretic dosing x1 at 40 mg IV 10-20
- Changed DuoNebs to atrovent + xopenex bid given her tachycardia --> ok to use this prn given it seems to agitate the pt when we give the scheduled neb treatments.
- Continue broad spectrum ABx (on 10/17, narrowed Abx from cefepime [which started on adm 10-14) to high dose rocephin) and follow up infectious workup (sputum Cx with yeast, and blood Cxs negative); MRSA swab negative, hence IV vanco DC'd -->�would
complete 10 d till 10-24
Portable CXR 10-21
- Negative urine legionella and Strep pneumonia
- Elevated free T4 with low TSH; Total T4 and free T3 are WNL; endo consulted 10-17 and recs appreciated --> hold off methimazole for now and recheck TFTs in 1 week - if TSH still low then will start methimazole at that time
-S/p HC stress dosing, random cortisol level was within normal range
- No need to continue trending troponin as it had peaked at 0.056
- Midodrine started per hospitalist given hypotension overnight from 10/17 - 10/18 --> BP better now
- Maintain MAP>65
- Maintain BG 140-180 with ISS q6hr
- Completed tamiflu 75 BID x 5 days
- Seen by Neurology, mixed TME, continue levetiracetam, lacosamide
Seen by Psych, TME, unspecified anxiety, rec ativan prn IV and signed off same day 10-20
- Titrate FiO2 to keep SpO2 >90-94%
- PPI (home med)
- DVT ppx - Eliquis
Data:
CXR 10-15-2023:
Lines and tubes as described.
The endotracheal tube is low.
Bibasilar atelectasis persists.
CXR 10-14-2023:
Endotracheal tube is present with tip 2.2 cm above the guanakito.
Nasogastric or orogastric tube present with tip extending into the left upper quadrant, off the inferior to the radiograph.
Focal parenchymal airspace opacity within the left lower lung, which likely represents pneumonia.
PFT - 08/2016
FEV1/FVC: 61
FEV1: 1L (53%)
FVC: 1.64L (66%)
T% (2.78L)
VC: 66%
RV: 61%
DLco: 45%
VA: 85% (3.65L)
DLco/VA: 52%
Flow volume loop: Scooped expiratory limb and restricted
Subjective Data
-
Date of Service:
Date of Service: October 20, 2023
Chief Complaint: Pulmonary Follow Up
Subjective:
MS status remains poor
Review of Systems
General: Unobtainable - Pat Unresp
Objective Data
Data Reviewed
Vital Signs / I&O / Oxygen:
Vital Signs
Temp Pulse Resp BP Pulse Ox
98.4 F 91 18 106/55 98
10/20/23 15:00 10/20/23 15:41 10/20/23 15:00 10/20/23 15:41 10/20/23 15:00
Intake and Output
10/19/23 10/20/23 10/21/23
06:59 06:59 06:59
Intake Total 1830 / 1910 2275 / 2275
Output Total 550 / 550 450 / 450
Balance 1280 / 1360 1825 / 1825
SaO2 [CPAP/PSV] 99
SaO2 [A/C] 99
SaO2 98
Nasal Cannula flow liters per 2
minute
Physical Exam
General: Comfortable
HEENT: Normocephalic, Anicteric and Other (DHT)
Cardiovascular: S1-S2, Murmur (negative) and Peripheral Edema (+1 pitting pedal edema)
Respiratory: Clear, Wheeze (negative), Crackles (negative), Non-Labored Respirations, Accessory Resp Muscle Use (negative) and Other (Reduced BS b/l)
GI: Soft, Non Distended, Non Tender and Normal Bowel Sounds
Neurology: Lethargic (Easily arousable to tactile stimuli and voice, answering my questions appropriately)
Skin: Warm and Dry
Labs/Micro/Reports
Lab Data
10/20/23 04:51
10/20/23 04:51
Microbiology
10/14/23 08:08 Blood/Venous Blood Culture - Final
No Growth - Final Report
10/14/23 07:21 Blood/Venous Blood Culture - Final
No Growth - Final Report
--- NOTE | 2023-10-20 16:23 | WOUNDNOTE ---
[facility] RN note: Patient seen for HAPI report for stage 2 cheek pressure injury. Patient has a nickel sized dry scabbed abrasion on her R facial cheek suspect r/t medical adhesive from previous ETT albarado use. Area SPRING. Sacral crease with MASD. Patient
incontinent of liquid stool. Aggie care given and patient turned to L semi side lying position with help from ASHELY Alexis. Skin on heels intact. Foam dressing maintained on heels. Patient is on a [facility] air bed. Heels off bed with an air chair cushion.
Skin care needed being met. Patient at high risk for pressure injury despite pressure relief measures in place d/t overall medical condition. See physician report for patient history. Consult as needed.
[2023-10-20 18:36] LABS: Glucose - Point of Care 160 mg/dl (70-99)
[2023-10-20 19:22] VITALS: BP 95/47
[2023-10-20] MEDS: LOPRESSOR TUBE (19:59)
[2023-10-20 22:50] VITALS: BP 106/57
[2023-10-20] MEDS: DEBROX EAR DROPS 4 DROP RIGHT EAR (23:00)
[2023-10-20] MEDS: CARDURA 1 MG TUBE (23:01)
[2023-10-21 00:21] LABS: Glucose - Point of Care 150 mg/dl (70-99)
[2023-10-21] MEDS: NOVOLOG FLEXPEN-LOW RESISTANCE 1 UNITS SC (00:26)
--- NOTE | 2023-10-21 00:39 | PTCARENOTE ---
Mirella WALLACE made aware that pt removed her dobhoff tube. aware that she had rec'd all of her po meds for this shift. No new orders obtained.
[2023-10-21 03:52] VITALS: BP 107/57
[2023-10-21 05:40] LABS: % Eosinophils 0.7 % (0-6); % Lymphocytes 15.7 % (20.5-51.1); % Monocytes 14.4 % (1.7-9.3); % Neutrophils 68.2 % (42.2-75.2); Absolute Eosinophils 0.1 10^3/uL (0-0.7); Absolute Immature Granulocytes 0.1 10^3/uL (0-0.05); Absolute Lymphocytes 1.1 10^3/uL (1.2-3.4); Absolute Neutrophils 4.6 10^3/uL (1.4-6.5); Hematocrit 29.3 % (37.0-47.0); Hemoglobin 9.8 g/dL (12.0-16.0); Mean Corp Hgb Conc. 33.4 g/dL (33.0-37.0); Mean Corpuscular Hgb 34.6 pg (27.0-31.0); Mean Corpuscular Volume 103.5 fL (81.0-99.0); Mean Platelet Volume 9.4 fL (7.4-10.4); Nucleated Red Blood Cells % 0 %; Platelet Count 189 10^3/uL (130-400); Red Blood Cell Count 2.83 10^6/uL (4.20-5.40); Red Cell Dist. Width 14.2 % (11.5-14.5); White Blood Cell Count 6.8 10^3/uL (4.8-10.8)
[2023-10-21] MEDS: STERILE WATER FOR INJECTION 20 ML IV (05:53)
[2023-10-21] MEDS: ROCEPHIN 2000 MG IV (05:53)
[2023-10-21 05:58] VITALS: BMI 36.3
[2023-10-21 06:02] LABS: Glucose - Point of Care 98 mg/dl (70-99)
[2023-10-21] MEDS: NOVOLOG FLEXPEN-LOW RESISTANCE SC ×3 (06:02→18:08)
[2023-10-21 06:08] LABS: Blood Urea Nitrogen 22 mg/dl (7-17); Calcium 7.6 mg/dl (8.4-10.2); Chloride 96 mmol/L (98-107); Estimated Creatinine Clearance 74 ml/min; Glucose 100 mg/dl (70-99); Magnesium 2.1 mg/dl (1.6-2.3); Phosphorus 2.9 mg/dl (2.5-4.5); Sodium 135 mmol/L (135-145); eGFR > 60.00
[2023-10-21 06:43] LABS: Carbon Dioxide 39 mmol/L (22-30)
--- NOTE | 2023-10-21 07:28 | W.PN.HOSP.TC ---
Addendum entered and electronically signed by Kelsea Lin MD 10/22/23 09:10:
Stage 2 left cheek pressure injury
-cont local wound care
Original Note:
Today's Communication/Plan
-
hold off on re-insertion dobhoff for now
minimize sedating medications as possible
sz medications and digoxin converted to IV while NPO
glycemic control
medsitter requested (patient anxious while alone in room)
Assessment / Plan
Assessment / Plan
Physical Exam
General: No Apparent Distress
HEENT: Normocephalic
Respiratory: clear to auscultation b/l on 2 L nasal cannula oxygen
Cardiac: S1/S2 and Regular Rhythm
GI: Soft, Non Tender and Normal Bowel Sounds NGT tube feed in place
Musculoskeletal: No Cyanosis, upper extremities rigidity noted swollen +2 pitting edema
Skin: Warm and Dry
Neuro: Awake Alert
Psych: Intermittently anxious Confused but redirectable

Assessment/Plan
Acute Hypoxic Respiratory Failure
Acute Toxic Metabolic Encephalopathy
Left Lower Lobe Pneumonia (diagnosed and was being treated with antibiotics for pneumonia as an outpatient)
Suspected Sepsis Secondary to Pneumonia
Influenza A
Septic Shock
-Monitored in ICU, was intubated, on 10/15/23 extubated to nasal cannula
-Was on Levaquin for pneumonia outpatient
-Status post Cefepime
-MRSA neg empiric Vancomycin discontinued
-Now on Ceftriaxone; continue
-Continue Tamiflu 75 BID x 5 days
-IVF support completed
-Follow blood and sputum cultures no significant growth to date
-Titrate FiO2 to maintain SpO2 >90-94%
-Low random cortisol in setting of septic shock: stress dose steroid tapered off as per Car Sales Associate
-Downgraded to Tele 10/18/23
Dysphagia AMS
neurology eval appreciated AMS can take weeks to recover in Parkinsonian neurodegenerative disorder patients
on NGT tube feeds patient however self removed dobhoff 10/21
more awake and alert as day progressed unfortunately failed VSE earlier in the day but was lethargic at the time the test was performed
will hold off on re-inserting Dobhoff for now as patient's mental status improving concern re-insertion will require more sedation restraints leading worsening mental status and reducing patient's chance to return to oral feeding
necessary oral meds converted to IV for now as able.
Atrial Fibrillation with Rapid Ventricular Response with Associated Hypotension - status post successful urgent cardioversion with church of sinus rhythm
Tachycardia bradycardia syndrome
Probably Atrial tachycardia
Hypotension
Atrial Fibrillation - on Eliquis at home
-Cardioverted in the ER to NSR on October 14, 2023
-Continue Eliquis
-Digoxin resumed but at a lower dose of 0.125 mg daily
-Continue Lopressor 12.5 mg BID
-Midodrine 5 mg 3 times daily as needed, scheduled TID with holding parameters also started
Volume Overloaded
-Lasix dosing IV 40 mg daily
-Echocardiogram appreciated EF 55-60% severe atrial dilation, mod MR
-cardio eval appreciated
Seizure diagnosis in September 2023
History of Parkinsonism
-On home Keppra 1500 mg BID PO and Lacosamide 50 mg PO BID (Lacosamide reduced from home 100 mg PO BID due to bradycardia)
-Continue seizure medications converted to IV when unable to take oral
-neurology eval appreciated cont Sinemet 0.5 tab TID, EEG supportive toxic metabolic encephalopathy, avoid antipsychotics, cont current sz medications as above
-CT head appreciated no acute abn's
Possible Hyperthyroidism vs Sick Euthyroid syndrome
-Endocrine eval appreciated
-possible start methimazole if repeat TSH remains low 10/23/23
Anxiety
significant anxiety noted 10/18 patient screaming 'help'
since resolved without medication
ativan 0.25 mg IV q8Hprn
psych eval appreciated since signed off
Hypophosphatemia
-monitor and replete as necessary
Pulmonary hypertension
Restrictive lung disease/Interstitial Lung Disease on Chronic Oxygen - Duonebs changed to Atrovent + Xopenex given her tachycardia
Chronic respiratory failure
Obstructive sleep apnea
Non-alcoholic steatohepatitis
Gastroesophageal reflux disease - continue PPI
Chronic dysphagia - speech following - continue NPO
History of left lower extremity deep vein thrombosis (January 2023) - continue Eliquis
Hypertension
Diabetes mellitus - accuchecks and sliding scale insulin
Gout
Basal Cell Skin Cancer
Urinary retention
Osteoporosis
Ambulatory dysfunction
Anxiety
Morbid obesity
DVT PPx: Eliquis
GI ppx: prevacid
Code Status: Full Code
I spent a total of 55 minutes with the patient or on the floor. More than 50% of this time involved counseling and coordination of care.
Anticipated Discharge: 24 - 48 hours
Subjective/Interval History
-
Date of Service: October 21, 2023
patient had removed her own dobhoff. Gradually more awake and alert as the day progressed. Crying but redirectable. Unfortunately failed VSE but it was noted that patient was lethargic at the time the test was performed.
Objective Data
-
Labs:
Laboratory Results
10/21/23
05:33
WBC 6.8
Hgb 9.8 L
Hct 29.3 L
Plt Count 189
Sodium 135
Potassium 4.0
Chloride 96 L
Carbon Dioxide 39 H
BUN 22 H
Creatinine 0.3 L
Glucose 100 H
Calcium 7.6 L
Vital Signs:
Vital Signs
Temp Pulse Resp BP Pulse Ox
98.3 F 93 18 107/57 92
10/21/23 03:52 10/21/23 03:52 10/21/23 03:52 10/21/23 03:52 10/21/23 03:52
I&O
10/20/23 10/21/23 10/22/23
06:59 06:59 06:59
Intake Total 2275 / 2275 1170 / 1170
Output Total 450 / 450
Balance 1825 / 1825 1170 / 1170
[2023-10-21] MEDS: XOPENEX 0.63 MG INHALANT SOLUTION 0.630000000000000004 MG INH (07:52)
[2023-10-21] MEDS: ATROVENT NEBULES 0.5 MG INH (07:52)
[2023-10-21 08:30] VITALS: BP 110/59
[2023-10-21] MEDS: NSS (PRESERVATIVE FREE) 0.125 ML IV ×2 (08:37→17:22)
[2023-10-21] MEDS: ATIVAN 0.25 MG IV ×2 (08:38→17:21)
[2023-10-21] MEDS: FLUSH (NSS) 2 FLUSH IV (08:39)
[2023-10-21] MEDS: LIDOCAINE 4% PATCH 1 PATCH TOPICAL (09:02)
[2023-10-21] MEDS: LASIX 40 MG IV (09:03)
[2023-10-21] MEDS: FLUSH (NSS) 1 FLUSH IV (09:04)
[2023-10-21] MEDS: DESENEX/MITRAZOL/ZEASORB 1 APPLIC TOPICAL ×2 (09:05→20:25)
[2023-10-21] MEDS: NSS (PRESERVATIVE FREE) IV (09:06)
--- NOTE | 2023-10-21 10:00 | PN.CDI ---
CDI
- -
CDI:
Physician Documentation Request
Admit Date: 10/14/23 09:33
Dear Doctor Riley,
Patient admitted with acute hypoxic respiratory failure.
10/18 Nursing skin assessment, 'Stage 2 left cheek pressure injury.'
Physician documentation of the type and location of wounds is required for compliant documentation. Based on the above clinical findings and your assessment, please provide the following in your progress note:
Type (etiology) of ulcer/wound:
- Pressure (decubitus) ulcer
- Non-healing surgical wound
- Other =
- Unable to determine
For a pressure ulcer, please also include the stage* of the ulcer:
- Stage 1 - Skin intact, non-blanchable redness
- Stage 2 - Partial thickness loss of dermis, includes intact or open blister
- Stage 3 - Full thickness tissue not including bone, tendon or muscle
- Stage 4 - Full thickness tissue loss, including exposed bone, tendon or muscle
- Unstageable - Full thickness loss in which the base of the ulcer is covered by slough (yellow, puente, packer, green or brown) and/or eschar (puente, brown or black) in the wound bed.
- Unable to determine
Use of terms such as suspected, likely, concern for, or probable (associated with a specific diagnosis that is being evaluated, monitored, or treated as if it exists) are acceptable and can be coded in the inpatient setting, when documented at the
time of discharge.
Thank you,
Stacey RINALDI,RN,CCDS
CDI Specialist
Available via [place] text
Please use your independent medical judgment in providing your response.
*Source: National Pressure Ulcer Advisory Panel (NPUAP)
[2023-10-21 12:27] LABS: Glucose - Point of Care 102 mg/dl (70-99)
[2023-10-21 13:05] VITALS: BP 107/61
--- NOTE | 2023-10-21 13:26 | W.PN.PUL3 ---
Today's Communication / Plan
-
VEST/HS-alb tid
Atbs
BDs
Assessment
-
Assessment:��77-year-old F former tobacco smoker with PMHx of A-fib on digoxin and Eliquis, kyphosis with reported history of restrictive lung disease, chronic hypotension on midodrine, chronic respiratory failure, history of seizures with
parkinsonism diagnosed last month during hospitalization, and CHETNA who p/w unresponsiveness.� Patient found to be tachycardic, hypotensive, cardioverted in the ER and then developed tachybradycardia syndrome.� CXR was concerning for left lower lobe
pneumonia - of note patient was on Levaquin for the past few days for pneumonia which was diagnosed as an outpatient.� Patient transferred to the ICU for further care and critical care services consulted for additional management/recommendations.�
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
left-sided DVT, osteoporosis, ambulatory dysfunction, chronic hypotension on midodrine
Impression:
#Acute respiratory failure with hypoxemia required mechanical ventilation on admission--> extubated 10/15/2023
#Left sided HAP
#Influenza A
CHRIS atelectasis on CXR 10-21
#Acute COPD exacerbation due to above with flu and bacterial superinfection
#Septic shock due to pneumonia - shock state now resolved
#Critical illness related corticosteroid insufficiency
#Elevated troponin - likely due to type II [place] from demand ischemia - troponin peaked at 0.056 on 10/14/2023
#Tachy-katerine syndrome
#Primary hyperthyroidism vs euthyroid sick syndrome
#Moderate restrictive lung defect (T% predicted via PFT from 2016)
#Physical deconditioning with wheel chair bound status at baseline
Plan:
Continue O2 protocol
Currently on O2 2L, POx 96%
- Cardiology on board --> continue rate control medications with hold parameters given her intermittent bradycardia
Diuretic dosing 40 mg IV qd
- Changed DuoNebs to atrovent + xopenex bid given her tachycardia --> ok to use this prn given it seems to agitate the pt when we give the scheduled neb treatments.
- Continue broad spectrum ABx (on 10/17, narrowed Abx from cefepime [which started on adm 10-14) to high dose rocephin) and follow up infectious workup (sputum Cx with yeast, and blood Cxs negative); MRSA swab negative, hence IV vanco DC'd -->�would
complete 10 d till 10-24
- Negative urine legionella and Strep pneumonia
Portable CXR 10-21: CHRIS atelectasis/effusion
Start VEST/HS-alb tid
- Elevated free T4 with low TSH; Total T4 and free T3 are WNL; endo consulted 10-17 and recs appreciated --> hold off methimazole for now and recheck TFTs in 1 week - if TSH still low then will start methimazole at that time
-S/p HC stress dosing, random cortisol level was within normal range
- No need to continue trending troponin as it had peaked at 0.056
- Midodrine started per hospitalist given hypotension overnight from 10/17 - 10/18 --> BP better now
- Maintain MAP>65
- Maintain BG 140-180 with ISS q6hr
- Completed tamiflu 75 BID x 5 days
- Seen by Neurology, mixed TME, continue levetiracetam, lacosamide
Seen by Psych, TME, unspecified anxiety, rec ativan prn IV and signed off same day 10-20
- Titrate FiO2 to keep SpO2 >90-94%
Due to waxing and waning level of alertness 10-21 could not complete VSE
- PPI (home med)
- DVT ppx - Eliquis
Prognosis guarded
Rec GOC discussions with family
Data:
CXR 10-15-2023:
Lines and tubes as described.
The endotracheal tube is low.
Bibasilar atelectasis persists.
CXR 10-14-2023:
Endotracheal tube is present with tip 2.2 cm above the guanakito.
Nasogastric or orogastric tube present with tip extending into the left upper quadrant, off the inferior to the radiograph.
Focal parenchymal airspace opacity within the left lower lung, which likely represents pneumonia.
PFT - 08/2016
FEV1/FVC: 61
FEV1: 1L (53%)
FVC: 1.64L (66%)
T% (2.78L)
VC: 66%
RV: 61%
DLco: 45%
VA: 85% (3.65L)
DLco/VA: 52%
Flow volume loop: Scooped expiratory limb and restricted
Subjective Data
-
Date of Service:
Date of Service: October 21, 2023
Chief Complaint: Pulmonary Follow Up
Subjective:
Could not complete VSE due to decreased MS
Pulled off DHT last night
Remains lethargic
Review of Systems
General: Unobtainable - Pat Unresp
Objective Data
Data Reviewed
Vital Signs / I&O / Oxygen:
Vital Signs
Temp Pulse Resp BP Pulse Ox
98.2 F 84 18 107/61 93
10/21/23 13:05 10/21/23 13:05 10/21/23 13:05 10/21/23 13:05 10/21/23 13:05
Intake and Output
10/20/23 10/21/23 10/22/23
06:59 06:59 06:59
Intake Total 2275 / 2275 1170 / 1170
Output Total 450 / 450
Balance 1825 / 1825 1170 / 1170
SaO2 [CPAP/PSV] 99
SaO2 [A/C] 99
SaO2 93
Nasal Cannula flow liters per 2
minute
Physical Exam
General: Comfortable
HEENT: Normocephalic, Anicteric, Moist Mucous Membranes (n) and Other (DHT)
Cardiovascular: S1-S2, Murmur (negative) and Peripheral Edema (+1 pitting pedal edema)
Respiratory: Clear, Wheeze (negative), Crackles (negative), Non-Labored Respirations, Accessory Resp Muscle Use (negative) and Other (decreased sounds at L)
GI: Soft, Non Distended, Non Tender and Normal Bowel Sounds
Neurology: Lethargic (worsening MS)
Skin: Warm and Dry
Labs/Micro/Reports
Lab Data
10/21/23 05:33
10/21/23 05:33
Microbiology
10/14/23 08:08 Blood/Venous Blood Culture - Final
No Growth - Final Report
10/14/23 07:21 Blood/Venous Blood Culture - Final
No Growth - Final Report
--- NOTE | 2023-10-21 14:31 | W.PN.CARDCBS ---
Today's Communication / Plan
-
Continue IV Lasix for CHF
Check ECG and continue rate control of A-fib with Toprol and Eliquis
Workup for aspiration in progress
Mental status remains poor
Impression / Plan
-
Family Physician:� Solomon Troy, DO
Student Activities Director: Dr. Solis, last seen in May 2020 in office
Impression:
Influenza A
Presented 10/14/2022 with unresponsiveness, hypoxia
Acute hypoxic respiratory failure requiring intubation 10/14/2023
Pneumonia
Fever
Atrial fibrillation with rapid ventricular response
Status post cardioversion in the ER 10/14/23
Tachybradycardia syndrome
Hypotension
Acute HFpEF
Non-VA troponin elevation
Paroxysmal atrial fibrillation
Chronic anticoagulation on Eliquis
VDRF (2009)
ILD/Restrictive lung disease/chronic respiratory failure/chronic O2
CHETNA
Seizure disorder (diagnosed September 2023)
Chronic Dysphagia on pureed diet
GERD
ESPARZA
Anxiety
History of left lower extremity deep vein thrombosis (January 2023)
Non-occlusive DVT L popliteal vein
Gout
Basal Cell Skin Cancer
Urinary retention Osteoporosis
Ambulatory dysfunction/bed-bound
Echo 04/03/2020: EF 55 to 60%, stage II DD. Mildly dilated RA. Mild MR, mild TR with PAP 50 mmHg
Echo 10/17/23: EF 55%, dilated atrium. Moderate MR, mild
Plan:
She remains lethargic and no response to commands
Neurology and psychiatry feels that is metabolic
Volume status is very difficult but we will continue IV Lasix with stable renal function and continued hypoxia
Aspiration is being evaluated with barium swallow
Continue rate control of atrial fibrillation with Toprol and Eliquis
Patient is a 77 y/o female with past medical history of seizure diagnosis in September 2023, paroxysmal atrial fibrillation on chronic anticoagulation with Eliquis, pulmonary hypertension, restrictive lung disease, chronic respiratory failure,
obstructive sleep apnea, non-alcoholic steatohepatitis, gastroesophageal reflux disease, chronic dysphagia, left lower extremity deep vein thrombosis (January 2023), hypertension, diabetes mellitus, gout, Basal Cell Skin Cancer, urinary retention,
osteoporosis, ambulatory dysfunction anxiety, and morbid obesity whom presented 10/14/2023 from [facility] with unresponsiveness and hypoxia.�She apparently has been on Levaquin for the past few days for pneumonia. She required intubation
in emergency department upon arrival and is currently intubated and sedated. Chest x-ray concerning for left lower lobe pneumonia. She was noted to be in atrial fibrillation with rapid ventricular response associated with hypotension and
underwent successful cardioversion with taoist of sinus rhythm. Patient has continued to have evidence of tachybradycardia syndrome with PAF followed by bradycardia with heart rate in the 40s following cardioversion. Patient currently remains
hypotensive despite taoist of sinus rhythm.
Progress Note - Student Activities Director
Subjective
Date of Service: October 21, 2023
Patient lethargic and no response to command
Objective
Labs:
10/21/23 05:33
10/21/23 05:33
Labs
Hgb 9.8 g/dL (12.0-16.0) L 10/21/23 05:33
Hct 29.3 % (37.0-47.0) L 10/21/23 05:33
Plt Count 189 10^3/uL (130-400) 10/21/23 05:33
PT 24.8 Sec (11.4-14.6) H 10/14/23 10:51
INR 2.25 10/14/23 10:51
APTT 41.4 Sec (23.4-35.0) H 10/14/23 10:51
Sodium 135 mmol/L (135-145) 10/21/23 05:33
Potassium 4.0 mmol/L (3.5-5.1) 10/21/23 05:33
BUN 22 mg/dl (7-17) H 10/21/23 05:33
Creatinine 0.3 mg/dL (0.6-1.0) L 10/21/23 05:33
Glucose 100 mg/dl (70-99) H 10/21/23 05:33
Digoxin 0.7 ng/ml (0.8-2.0) L 10/19/23 03:32
Vital Signs and I&O:
Vital Signs
Temp Pulse Resp BP Pulse Ox
98.2 F 84 18 107/61 93
10/21/23 13:05 10/21/23 13:05 10/21/23 13:05 10/21/23 13:05 10/21/23 13:05
Vital Signs
Temp Pulse Resp BP Pulse Ox
98.2 F 84 18 107/61 93
10/21/23 13:05 10/21/23 13:05 10/21/23 13:05 10/21/23 13:05 10/21/23 13:05
Intake & Output
10/19/23 10/20/23 10/21/23 10/22/23
06:59 06:59 06:59 06:59
Intake Total 1830 / 1910 2275 / 2275 1170 / 1170
Output Total 550 / 550 450 / 450
Balance 1280 / 1360 1825 / 1825 1170 / 1170
Physical Exam
Physical Exam
General: Lethargic and no response to command
Neck: Supple, no JVD, HJR, carotids +2 B/L, no bruits bilaterally.
Heart: Non displaced PMI, irregular, no murmurs, No S3, S4, no rubs.
Lungs: Poor effort
Abdomen: Normal bowel sounds, soft, non-tender, non-distended.
Extremities: No clubbing, cyanosis or edema bilaterally.
Neuro: Lethargic and no response to commands
[2023-10-21] MEDS: SODIUM CHLORIDE 3% FOR INHALATION INH (15:29)
[2023-10-21 15:33] VITALS: BP 106/55
--- NOTE | 2023-10-21 16:03 | CM ---
patient continues NPO with oral intake.
DH feeding tube.
VSE unable to be completed today.
Continue IV Lasix.
Continues on oxygen 2 liters.
Plan: back to [facility] when stable, LTC.
[2023-10-21] MEDS: ELIQUIS TUBE ×2 (16:56→20:09)
[2023-10-21] MEDS: LOPRESSOR TUBE ×2 (16:56→20:09)
[2023-10-21] MEDS: KEPPRA TUBE (16:56)
[2023-10-21] MEDS: ProAmatine TUBE ×3 (16:57)
[2023-10-21] MEDS: PREVACID TUBE (16:57)
[2023-10-21] MEDS: MIRALAX TUBE (16:57)
[2023-10-21] MEDS: VISBIOME TUBE (16:58)
[2023-10-21] MEDS: SINEMET 25-100 TUBE ×3 (16:58→21:01)
[2023-10-21] MEDS: SENOKOT-S TUBE (16:58)
[2023-10-21] MEDS: VIMPAT TUBE (16:58)
[2023-10-21] MEDS: VITAMIN B-12 TUBE (16:59)
[2023-10-21] MEDS: LANOXIN TUBE (16:59)
[2023-10-21 18:08] LABS: Glucose - Point of Care 116 mg/dl (70-99)
[2023-10-21] MEDS: VIMPAT 50 MG IV (18:45)
[2023-10-21] MEDS: KEPPRA 1500 MG IV (18:45)
[2023-10-21] MEDS: FLUSH (NSS) 3 FLUSH IV (18:47)
[2023-10-21 19:10] VITALS: BP 141/97
[2023-10-21] MEDS: VENTOLIN NEBULES 2.5 MG INH (19:49)
[2023-10-21] MEDS: SODIUM CHLORIDE 3% FOR INHALATION 1 VIAL INH (19:49)
[2023-10-21] MEDS: CARDURA TUBE (21:01)
[2023-10-21] MEDS: DEBROX EAR DROPS 4 DROP RIGHT EAR (21:02)
[2023-10-21 23:06] VITALS: BP 126/73
[2023-10-21 23:56] LABS: Glucose - Point of Care 99 mg/dl (70-99)
[2023-10-22] MEDS: NOVOLOG FLEXPEN-LOW RESISTANCE SC ×5 (00:01→21:11)
[2023-10-22 03:25] VITALS: BP 129/73
--- NOTE | 2023-10-22 04:26 | DOWNTIME ---
There was a [employer] Client Rat Exterminator Downtime on 10/22/2023 from 0111 to 10/22/2023 at 0405. Downtime documentation of patient's care, including medication administrations, has been reconciled in the electronic record per guidelines. Refer to the
patient's paper chart under the miscellaneous tab to see printed paper medication records and downtime forms.
[2023-10-22 04:38] LABS: % Eosinophils 1.7 % (0-6); % Lymphocytes 17.6 % (20.5-51.1); % Monocytes 14.5 % (1.7-9.3); % Neutrophils 65.2 % (42.2-75.2); Absolute Eosinophils 0.1 10^3/uL (0-0.7); Absolute Immature Granulocytes 0.1 10^3/uL (0-0.05); Absolute Lymphocytes 0.9 10^3/uL (1.2-3.4); Absolute Monocytes 0.8 10^3/uL (0.1-0.6); Absolute Neutrophils 3.4 10^3/uL (1.4-6.5); Hematocrit 32.1 % (37.0-47.0); Hemoglobin 10.8 g/dL (12.0-16.0); Mean Corp Hgb Conc. 33.6 g/dL (33.0-37.0); Mean Corpuscular Hgb 35.3 pg (27.0-31.0); Mean Corpuscular Volume 104.9 fL (81.0-99.0); Mean Platelet Volume 9.4 fL (7.4-10.4); Nucleated Red Blood Cells % 0 %; Platelet Count 193 10^3/uL (130-400); Red Blood Cell Count 3.06 10^6/uL (4.20-5.40); Red Cell Dist. Width 14.3 % (11.5-14.5); White Blood Cell Count 5.2 10^3/uL (4.8-10.8)
[2023-10-22 05:22] LABS: Blood Urea Nitrogen 20 mg/dl (7-17); Chloride 95 mmol/L (98-107); Estimated Creatinine Clearance 74 ml/min; Glucose 97 mg/dl (70-99); Magnesium 2.2 mg/dl (1.6-2.3); Phosphorus 3.7 mg/dl (2.5-4.5); Potassium 3.8 mmol/L (3.5-5.1); Sodium 137 mmol/L (135-145); eGFR > 60.00
[2023-10-22 05:37] LABS: Carbon Dioxide 38 mmol/L (22-30)
[2023-10-22 05:40] LABS: Glucose - Point of Care 86 mg/dl (70-99)
[2023-10-22] MEDS: VIMPAT 50 MG IV ×2 (05:53→17:03)
[2023-10-22] MEDS: STERILE WATER FOR INJECTION 20 ML IV (05:54)
[2023-10-22] MEDS: ROCEPHIN 2000 MG IV (05:54)
[2023-10-22] MEDS: KEPPRA 1500 MG IV ×2 (05:55→17:03)
[2023-10-22 06:00] VITALS: BMI 35.8
--- NOTE | 2023-10-22 07:13 | W.PN.HOSP.TC ---
Today's Communication/Plan
-
strict supervised feed with dimitrios griceldamichael strategy assistance started, meds crushed in pureed
minimize sedating medications as possible
maintain sz medications and digoxin as IV for now
glycemic control
Assessment / Plan
Assessment / Plan
Physical Exam
General: No Apparent Distress
HEENT: Normocephalic
Respiratory: clear to auscultation b/l on 2 L nasal cannula oxygen
Cardiac: S1/S2 and Regular Rhythm
GI: Soft, Non Tender and Normal Bowel Sounds NGT tube feed in place
Musculoskeletal: No Cyanosis, upper extremities rigidity noted swollen +2 pitting edema
Skin: Warm and Dry
Neuro: Awake Alert
Psych: Intermittently anxious Confused but redirectable

Assessment/Plan
Acute Hypoxic Respiratory Failure
Acute Toxic Metabolic Encephalopathy
Left Lower Lobe Pneumonia (diagnosed and was being treated with antibiotics for pneumonia as an outpatient)
Suspected Sepsis Secondary to Pneumonia
Influenza A
Septic Shock
-Monitored in ICU, was intubated, on 10/15/23 extubated to nasal cannula
-Was on Levaquin for pneumonia outpatient
-Status post Cefepime
-MRSA neg empiric Vancomycin discontinued
-Now on Ceftriaxone; continue
-Continue Tamiflu 75 BID x 5 days
-IVF support completed
-Follow blood and sputum cultures no significant growth to date
-Titrate FiO2 to maintain SpO2 >90-94%
-Low random cortisol in setting of septic shock: stress dose steroid tapered off as per Drip Pumper
-Downgraded to Tele 10/18/23
Dysphagia AMS
neurology eval appreciated AMS can take weeks to recover in Parkinsonian neurodegenerative disorder patients
on NGT tube feeds patient however self removed dobhoff 10/21
more awake and alert as day progressed unfortunately failed VSE earlier in the day but was lethargic at the time the test was performed
will hold off on re-inserting Dobhoff for now as patient's mental status improving concern re-insertion will require more sedation restraints leading worsening mental status and reducing patient's chance to return to oral feeding
seizure medications and digoxin converted to IV for now
10/22 followup repeat speech VSE exam noted improvement
-patient able to swallow with reduce risk aspiration by using chin tuck strategy, concern however given patient's AMS that she would not be able to consistently perform this strategy on her own.
-IDDSI Level 4 (Puree), IDDSI Level 2 (Mildly Thick Liquids) with 1:1 supervision and direct assistance to tuck chin with every swallow. meds crushed in pureed
-POA patient's friend Pat updated regarding patient's situation, risk of aspiration, potential benefit and risks of alternative means of nutrition such as PEG tube also discussed, in agreement with pursuing diet as above for now, also re-confirmed
patient's full code status, POA also endorsed that she would be willing to consent to PEG tube if necessary
Atrial Fibrillation with Rapid Ventricular Response with Associated Hypotension - status post successful urgent cardioversion with religion of sinus rhythm
Tachycardia bradycardia syndrome
Probably Atrial tachycardia
Hypotension
Atrial Fibrillation - on Eliquis at home
-Cardioverted in the ER to NSR on October 14, 2023
-Continue Eliquis
-Digoxin resumed but at a lower dose of 0.125 mg daily
-Continue Lopressor 12.5 mg BID
-Midodrine 5 mg 3 times daily as needed, scheduled TID with holding parameters also started
Volume Overloaded
-Lasix dosing IV 40 mg daily
-Echocardiogram appreciated EF 55-60% severe atrial dilation, mod MR
-cardio eval appreciated
Seizure diagnosis in September 2023
History of Parkinsonism
-On home Keppra 1500 mg BID PO and Lacosamide 50 mg PO BID (Lacosamide reduced from home 100 mg PO BID due to bradycardia)
-Continue seizure medications converted to IV when unable to take oral
-neurology eval appreciated cont Sinemet 0.5 tab TID, EEG supportive toxic metabolic encephalopathy, avoid antipsychotics, cont current sz medications as above
-CT head appreciated no acute abn's
Possible Hyperthyroidism vs Sick Euthyroid syndrome
-Endocrine eval appreciated
-possible start methimazole if repeat TSH remains low 10/23/23
Anxiety
intermittently anxious yelling/confused
ativan 0.25 mg IV q8Hprn
psych eval appreciated since signed off
Hypophosphatemia
-monitor and replete as necessary
Stage 2 left cheek pressure injury
-cont local wound care
Pulmonary hypertension
Restrictive lung disease/Interstitial Lung Disease on Chronic Oxygen - Duonebs changed to Atrovent + Xopenex given her tachycardia
Chronic respiratory failure
Obstructive sleep apnea
Non-alcoholic steatohepatitis
Gastroesophageal reflux disease - continue PPI
Chronic dysphagia - speech following - continue NPO
History of left lower extremity deep vein thrombosis (January 2023) - continue Eliquis
Hypertension
Diabetes mellitus - accuchecks and sliding scale insulin
Gout
Basal Cell Skin Cancer
Urinary retention
Osteoporosis
Ambulatory dysfunction
Anxiety
Morbid obesity
DVT PPx: Eliquis
GI ppx: prevacid
Code Status: Full Code
I spent a total of 55 minutes with the patient or on the floor. More than 50% of this time involved counseling and coordination of care.
Anticipated Discharge: > 48 hours
Subjective/Interval History
-
Date of Service: October 22, 2023
Mental status slowly improving. remains confused intermittently lethargic but arousable.
Objective Data
-
Labs:
Laboratory Results
10/22/23
04:28
WBC 5.2
Hgb 10.8 L
Hct 32.1 L
Plt Count 193
Sodium 137
Potassium 3.8
Chloride 95 L
Carbon Dioxide 38 H
BUN 20 H
Creatinine 0.3 L
Glucose 97
Calcium 8.0 L
Vital Signs:
Vital Signs
Temp Pulse Resp BP Pulse Ox
98.2 F 90 18 129/73 95
10/22/23 03:25 10/22/23 03:25 10/22/23 03:25 10/22/23 03:25 10/22/23 03:25
I&O
10/21/23 10/22/23 10/23/23
06:59 06:59 06:59
Intake Total 1170 / 1170 0 / 0
Balance 1170 / 1170 0 / 0
[2023-10-22 07:20] VITALS: BP 96/63
[2023-10-22] MEDS: SODIUM CHLORIDE 3% FOR INHALATION INH (07:46)
[2023-10-22] MEDS: VENTOLIN NEBULES INH (08:11)
[2023-10-22] MEDS: VITAMIN B-12 TUBE (10:39)
[2023-10-22] MEDS: VISBIOME TUBE (10:39)
[2023-10-22] MEDS: SENOKOT-S TUBE (10:39)
[2023-10-22] MEDS: SINEMET 25-100 TUBE (10:39)
[2023-10-22] MEDS: ProAmatine TUBE (10:40)
[2023-10-22] MEDS: MIRALAX TUBE (10:40)
[2023-10-22] MEDS: LOPRESSOR TUBE (10:40)
[2023-10-22] MEDS: PREVACID TUBE (10:40)
[2023-10-22] MEDS: ELIQUIS TUBE (10:41)
[2023-10-22] MEDS: DESENEX/MITRAZOL/ZEASORB 1 APPLIC TOPICAL ×2 (10:50→19:24)
[2023-10-22] MEDS: LASIX 40 MG IV (10:50)
[2023-10-22] MEDS: LIDOCAINE 4% PATCH 1 PATCH TOPICAL (10:53)
[2023-10-22 11:22] LABS: Glucose - Point of Care 113 mg/dl (70-99)
[2023-10-22 11:24] VITALS: BP 132/79
--- NOTE | 2023-10-22 11:31 | PTOTSP ---
Video Swallow Examination
Patient presents with mild oral stage and moderate pharyngeal dysphagia for consistencies assessed. She had deep laryngeal penetration which did not clear with the swallow and did not consistently clear with a cued cough with thin liquids, mildly
thick liquids, and moderately thick liquids. Penetration could be eliminated with use of a chin tuck.
Per chart review, patient has had on-going AMS which per neurology may take weeks to recover given her Parkinsonian neurodegenerative disorder. Patient is at high risk to aspirate if she does not consistently use a chin tuck. She is at an elevated
risk for complications from aspiration given bedbound status, comorbidities, and current pulmonary status (white out of left lung).
If POA would like to opt for an oral diet understanding risk for aspiration and subsequent complication, consider IDDSI Level 4 (Puree), IDDSI Level 2 (Mildly Thick Liquids) with 1:1 supervision and direct assistance to tuck chin with every swallow.
If POA does not wish to initiate an oral diet due to these risks, consider non-oral means.
Recommend:
1. Goals of care discussion regarding nutrition/hydration
2. Medications - crushed in puree
3. Oral care 3-5x daily
4. Dysphagia tx pending patient/POA goals of care.
[2023-10-22] MEDS: LANOXIN 125 MCG IV (12:24)
[2023-10-22] MEDS: ELIQUIS 5 MG PO ×2 (12:28→19:24)
--- NOTE | 2023-10-22 14:52 | CM ---
Patient continues NPO with oral intake.
DH feeding tube.
VSE completed today.
Continue IV Lasix, IV anbx.
Continues on oxygen 2 liters.
Plan: back to [facility] when stable, LTC.
[2023-10-22] MEDS: VENTOLIN NEBULES 2.5 MG INH ×2 (15:30→19:47)
[2023-10-22] MEDS: SODIUM CHLORIDE 3% FOR INHALATION 1 VIAL INH ×2 (15:30→19:47)
[2023-10-22 15:31] VITALS: BP 141/73
--- NOTE | 2023-10-22 16:26 | W.PN.PUL3 ---
Today's Communication / Plan
-
O2
Asp precs
CPT
CXR AM
Assessment
-
Assessment:��77-year-old F former tobacco smoker with PMHx of A-fib on digoxin and Eliquis, kyphosis with reported history of restrictive lung disease, chronic hypotension on midodrine, chronic respiratory failure, history of seizures with
parkinsonism diagnosed last month during hospitalization, and CHETNA who p/w unresponsiveness.� Patient found to be tachycardic, hypotensive, cardioverted in the ER and then developed tachybradycardia syndrome.� CXR was concerning for left lower lobe
pneumonia - of note patient was on Levaquin for the past few days for pneumonia which was diagnosed as an outpatient.� Patient transferred to the ICU for further care and critical care services consulted for additional management/recommendations.�
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
left-sided DVT, osteoporosis, ambulatory dysfunction, chronic hypotension on midodrine
Impression:
#Acute respiratory failure with hypoxemia required mechanical ventilation on admission--> extubated 10/15/2023
#Left sided HAP
#Influenza A
CHRIS atelectasis on CXR 02-
#Acute COPD exacerbation due to above with flu and bacterial superinfection
#Septic shock due to pneumonia - shock state now resolved
#Critical illness related corticosteroid insufficiency
#Elevated troponin - likely due to type II [place] from demand ischemia - troponin peaked at 0.056 on 10/14/2023
#Tachy-katerine syndrome
#Primary hyperthyroidism vs euthyroid sick syndrome
#Moderate restrictive lung defect (T% predicted via PFT from 2016)
#Physical deconditioning with wheel chair bound status at baseline
Plan:
Continue O2 protocol
Currently on O2 2L, POx 99%
- Cardiology on board --> continue rate control medications and diuretic
- Changed DuoNebs to atrovent + xopenex bid given her tachycardia --> ok to use this prn given it seems to agitate the pt when we give the scheduled neb treatments.
- Continue broad spectrum ABx (on 10/17, narrowed Abx from cefepime [which started on adm 10-14) to high dose rocephin) and follow up infectious workup (sputum Cx with yeast, and blood Cxs negative); MRSA swab negative, hence IV vanco DC'd -->�would
complete 10 d till 10-24
- Negative urine legionella and Strep pneumonia
Portable CXR 10-21: CHRIS atelectasis/effusion
Started VEST/HS-alb tid
POx improved
Repeat CXR 10-23
- Elevated free T4 with low TSH; Total T4 and free T3 are WNL; endo consulted 10-17 and recs appreciated --> hold off methimazole for now and recheck TFTs in 1 week - if TSH still low then will start methimazole at that time
-S/p HC stress dosing, random cortisol level was within normal range
- No need to continue trending troponin as it had peaked at 0.056
- Midodrine started per hospitalist given hypotension overnight from 10/17 - 10/18 --> BP better now
- Maintain MAP>65
- Maintain BG 140-180 with ISS q6hr
- Completed tamiflu 75 BID x 5 days
- Seen by Neurology, mixed TME, continue levetiracetam, lacosamide
Seen by Psych, TME, unspecified anxiety, rec ativan prn IV and signed off same day 10-20
- Titrate FiO2 to keep SpO2 >90-94%
Due to waxing and waning level of alertness 10-21 could not complete VSE
Speech following, rec GOC discussion re nutrition/hydration, still with mild oral and moderate pharyngeal dysphagia
- PPI (home med)
- DVT ppx - Eliquis
Prognosis guarded
Rec GOC discussions with family
Data:
CXR 10-15-2023:
Lines and tubes as described.
The endotracheal tube is low.
Bibasilar atelectasis persists.
CXR 10-14-2023:
Endotracheal tube is present with tip 2.2 cm above the [place]ito.
Nasogastric or orogastric tube present with tip extending into the left upper quadrant, off the inferior to the radiograph.
Focal parenchymal airspace opacity within the left lower lung, which likely represents pneumonia.
PFT - 08/2016
FEV1/FVC: 61
FEV1: 1L (53%)
FVC: 1.64L (66%)
T% (2.78L)
VC: 66%
RV: 61%
DLco: 45%
VA: 85% (3.65L)
DLco/VA: 52%
Flow volume loop: Scooped expiratory limb and restricted
Subjective Data
-
Date of Service:
Date of Service: October 22, 2023
Chief Complaint: Pulmonary Follow Up
Subjective:
More awake today but agitated
Review of Systems
General: Other (poor historian, agitated)
Objective Data
Data Reviewed
Vital Signs / I&O / Oxygen:
Vital Signs
Temp Pulse Resp BP Pulse Ox
98.5 F 96 18 141/73 99
10/22/23 15:31 10/22/23 15:31 10/22/23 15:31 10/22/23 15:31 10/22/23 15:31
Intake and Output
10/21/23 10/22/23 10/23/23
06:59 06:59 06:59
Intake Total 1170 / 1170 0 / 0
Balance 1170 / 1170 0 / 0
SaO2 [CPAP/PSV] 99
SaO2 [A/C] 99
SaO2 99
Nasal Cannula flow liters per 2
minute
Physical Exam
General: Comfortable
HEENT: Normocephalic, Anicteric, Moist Mucous Membranes (n) and Other (DHT)
Cardiovascular: S1-S2, Murmur (negative) and Peripheral Edema (+1 pitting pedal edema)
Respiratory: Clear, Wheeze (negative), Crackles (negative), Non-Labored Respirations, Accessory Resp Muscle Use (negative) and Other (decreased sounds at L)
GI: Soft, Non Distended, Non Tender and Normal Bowel Sounds
Neurology: Lethargic (worsening MS)
Skin: Warm and Dry
Labs/Micro/Reports
Lab Data
10/22/23 04:28
10/22/23 04:28
[2023-10-22 16:49] LABS: Glucose - Point of Care 116 mg/dl (70-99)
[2023-10-22] MEDS: SINEMET 25-100 0.5 TABLET PO ×2 (17:03→21:03)
[2023-10-22 19:05] VITALS: BP 138/67
[2023-10-22] MEDS: LOPRESSOR 12.5 MG PO (19:23)
--- NOTE | 2023-10-22 19:31 | W.PN.CARDCBS ---
Today's Communication / Plan
-
Continue IV Lasix
Continue telemetry monitoring
Impression / Plan
-
Family Physician:� Solomon Troy, DO
Jail Keeper: Dr. Solis, last seen in May 2020 in office
Impression:
Influenza A
Presented 10/14/2022 with unresponsiveness, hypoxia
Acute hypoxic respiratory failure requiring intubation 10/14/2023
Pneumonia
Fever
Atrial fibrillation with rapid ventricular response
Status post cardioversion in the ER 10/14/23
Tachybradycardia syndrome
Hypotension
Acute HFpEF
Non-UT troponin elevation
Paroxysmal atrial fibrillation
Chronic anticoagulation on Eliquis
VDRF (2009)
ILD/Restrictive lung disease/chronic respiratory failure/chronic O2
CHETNA
Seizure disorder (diagnosed September 2023)
Chronic Dysphagia on pureed diet
GERD
ESPARZA
Anxiety
History of left lower extremity deep vein thrombosis (January 2023)
Non-occlusive DVT L popliteal vein
Gout
Basal Cell Skin Cancer
Urinary retention Osteoporosis
Ambulatory dysfunction/bed-bound
Echo 04/03/2020: EF 55 to 60%, stage II DD. Mildly dilated RA. Mild MR, mild TR with PAP 50 mmHg
Echo 10/17/23: EF 55%, dilated atrium. Moderate MR, mild
Plan:
Medically complex 77-year-old female with acute hypoxic respiratory failure with influenza A status post intubation 10/14/2023 and extubated 10/15/2023
-Pulmonary is following.
-On baseline nasal cannula O2, currently on 2 L nasal cannula.
-Antibiotics, vest therapy and bronchodilator agonist per pulmonary. Completed Tamiflu.
-Aspiration precautions and diet as per speech therapy
Tachybradycardia syndrome currently in rate controlled atrial fibrillation
-Patient had cardioversion in ED October 14, 2023
-Continue to monitor on telemetry
-Eliquis anticoagulation
Volume status is difficult however appears volume overloaded/suspect third spacing with hypoproteinemia and malnutrition
-Will continue IV Lasix
-Hyperthyroid status post endocrine consult with plan to repeat TFTs in 1 week-defer to primary
Patient is a 77 y/o female with past medical history of seizure diagnosis in September 2023, paroxysmal atrial fibrillation on chronic anticoagulation with Eliquis, pulmonary hypertension, restrictive lung disease, chronic respiratory failure,
obstructive sleep apnea, non-alcoholic steatohepatitis, gastroesophageal reflux disease, chronic dysphagia, left lower extremity deep vein thrombosis (January 2023), hypertension, diabetes mellitus, gout, Basal Cell Skin Cancer, urinary retention,
osteoporosis, ambulatory dysfunction anxiety, and morbid obesity whom presented 10/14/[address] [facility] with with unresponsiveness and hypoxia.�She apparently has been on Levaquin for the past few days for pneumonia. She required intubation
in emergency department upon arrival and is currently intubated and sedated. Chest x-ray concerning for left lower lobe pneumonia. She was noted to be in atrial fibrillation with rapid ventricular response associated with hypotension and
underwent successful cardioversion with restorationism of sinus rhythm. Patient has continued to have evidence of tachybradycardia syndrome with PAF followed by bradycardia with heart rate in the 40s following cardioversion. Patient currently remains
hypotensive despite restorationism of sinus rhythm.
Progress Note - Jail Keeper
Subjective
Date of Service: October 22, 2023
Seen and examined with nursing at bedside. Patient is slow to respond but does answer questions. Offers no complaints
Objective
Labs:
10/22/23 04:28
10/22/23 04:28
Labs
Hgb 10.8 g/dL (12.0-16.0) L 10/22/23 04:28
Hct 32.1 % (37.0-47.0) L 10/22/23 04:28
Plt Count 193 10^3/uL (130-400) 10/22/23 04:28
PT 24.8 Sec (11.4-14.6) H 10/14/23 10:51
INR 2.25 10/14/23 10:51
APTT 41.4 Sec (23.4-35.0) H 10/14/23 10:51
Sodium 137 mmol/L (135-145) 10/22/23 04:28
Potassium 3.8 mmol/L (3.5-5.1) 10/22/23 04:28
BUN 20 mg/dl (7-17) H 10/22/23 04:28
Creatinine 0.3 mg/dL (0.6-1.0) L 10/22/23 04:28
Glucose 97 mg/dl (70-99) 10/22/23 04:28
Digoxin 0.7 ng/ml (0.8-2.0) L 10/19/23 03:32
Vital Signs and I&O:
Vital Signs
Temp Pulse Resp BP Pulse Ox
98.5 F 96 18 141/73 99
10/22/23 15:31 10/22/23 15:31 10/22/23 15:31 10/22/23 15:31 10/22/23 15:31
Vital Signs
Temp Pulse Resp BP Pulse Ox
98.5 F 96 18 141/73 99
10/22/23 15:31 10/22/23 15:31 10/22/23 15:31 10/22/23 15:31 10/22/23 15:31
Intake & Output
10/20/23 10/21/23 10/22/23 10/23/23
06:59 06:59 06:59 06:59
Intake Total 2275 / 2275 1170 / 1170 0 / 0 120 / 120
Output Total 450 / 450
Balance 1825 / 1825 1170 / 1170 0 / 0 120 / 120
Physical Exam
Physical Exam
General: Awake and alert, appears older than stated age.
Heart: Non displaced PMI, irregular, no murmurs,
Lungs: Bronchovesicular breath sounds with overall poor effort.
Abdomen: obese, disteneded. NT +BS
Extremities: +++ edema
[2023-10-22] MEDS: DEBROX EAR DROPS 4 DROP RIGHT EAR (21:02)
[2023-10-22] MEDS: CARDURA 1 MG PO (21:02)
[2023-10-22 21:12] LABS: Glucose - Point of Care 122 mg/dl (70-99)
[2023-10-22 23:05] VITALS: BP 133/67
[2023-10-23 03:05] VITALS: BP 129/64
[2023-10-23 04:23] LABS: % Eosinophils 3.6 % (0-6); % Immature Granulocytes 0.5 % (0-0.5); % Lymphocytes 20.7 % (20.5-51.1); % Monocytes 16.8 % (1.7-9.3); % Neutrophils 58.4 % (42.2-75.2); Absolute Eosinophils 0.1 10^3/uL (0-0.7); Absolute Lymphocytes 0.8 10^3/uL (1.2-3.4); Absolute Monocytes 0.7 10^3/uL (0.1-0.6); Absolute Neutrophils 2.3 10^3/uL (1.4-6.5); Hematocrit 31.6 % (37.0-47.0); Hemoglobin 10.8 g/dL (12.0-16.0); Mean Corp Hgb Conc. 34.2 g/dL (33.0-37.0); Mean Corpuscular Hgb 35.6 pg (27.0-31.0); Mean Corpuscular Volume 104.3 fL (81.0-99.0); Nucleated Red Blood Cells % 0 %; Platelet Count 164 10^3/uL (130-400); Red Blood Cell Count 3.03 10^6/uL (4.20-5.40); Red Cell Dist. Width 13.9 % (11.5-14.5); White Blood Cell Count 3.9 10^3/uL (4.8-10.8)
[2023-10-23] MEDS: ROCEPHIN 2000 MG IV (05:05)
[2023-10-23] MEDS: STERILE WATER FOR INJECTION 20 ML IV (05:05)
[2023-10-23] MEDS: KEPPRA 1500 MG IV ×2 (05:06→17:55)
[2023-10-23] MEDS: VIMPAT 50 MG IV ×2 (05:06→17:55)
[2023-10-23 05:08] LABS: Free T3 3.04 pg/ml (2.77-5.27); Total Thyroxine 7.51 ug/dl (5.5-11.0)
[2023-10-23 05:26] LABS: TSH Reflex To Free T4 0.57 uIU/ml (0.47-4.68)
[2023-10-23 06:00] VITALS: BMI 34.8
--- NOTE | 2023-10-23 06:43 | W.PN.HOSP.TC ---
Today's Communication/Plan
-
cont supervised feeds
cont IV sz digoxin medications for now, eventual switch back to PO
lasix as per cardio
cont abx as per pulm
Fluconazole started for likely oral thrush
Oral care
Assessment / Plan
Assessment / Plan
Physical Exam
General: No Apparent Distress
HEENT: Normocephalic, white plaques noted on tongue suspect oral thrush
Respiratory: clear to auscultation b/l on 2 L nasal cannula oxygen
Cardiac: S1/S2 and Regular Rhythm
GI: Soft, Non Tender and Normal Bowel Sounds NGT tube feed in place
Musculoskeletal: No Cyanosis, upper extremities rigidity noted swollen +2 pitting edema
Skin: Warm and Dry
Neuro: Awake Alert
Psych: Intermittently anxious Confused but redirectable

Assessment/Plan
Acute Hypoxic Respiratory Failure
Acute Toxic Metabolic Encephalopathy
Left Lower Lobe Pneumonia (diagnosed and was being treated with antibiotics for pneumonia as an outpatient)
Suspected Sepsis Secondary to Pneumonia
Influenza A
Septic Shock
-Monitored in ICU, was intubated, on 10/15/23 extubated to nasal cannula
-Was on Levaquin for pneumonia outpatient
-Status post Cefepime
-MRSA neg empiric Vancomycin discontinued
-Now on Ceftriaxone; continue
-Continue Tamiflu 75 BID x 5 days
-IVF support completed
-Follow blood and sputum cultures no significant growth to date
-Titrate FiO2 to maintain SpO2 >90-94%
-Low random cortisol in setting of septic shock: stress dose steroid tapered off as per Day Care Teacher
-Downgraded to Tele 10/18/23
Dysphagia AMS
neurology eval appreciated AMS can take weeks to recover in Parkinsonian neurodegenerative disorder patients
on NGT tube feeds patient however self removed dobhoff 10/21
more awake and alert as day progressed unfortunately failed VSE earlier in the day but was lethargic at the time the test was performed
will hold off on re-inserting Dobhoff for now as patient's mental status improving concern re-insertion will require more sedation restraints leading worsening mental status and reducing patient's chance to return to oral feeding
seizure medications and digoxin converted to IV for now
10/22 followup repeat speech VSE exam noted improvement
-patient able to swallow with reduce risk aspiration by using chin tuck strategy, concern however given patient's AMS that she would not be able to consistently perform this strategy on her own.
-IDDSI Level 4 (Puree), IDDSI Level 2 (Mildly Thick Liquids) with 1:1 supervision and direct assistance to tuck chin with every swallow. meds crushed in pureed
-POA patient's friend Pat updated regarding patient's situation, risk of aspiration, potential benefit and risks of alternative means of nutrition such as PEG tube also discussed, in agreement with pursuing diet as above for now, also re-confirmed
patient's full code status, POA also endorsed that she would be willing to consent to PEG tube if necessary
Likely Oral thrush noted 10/23
Fluconazole treatment started 200 mg once followed by 100 mg daily planned for 7-14 days depending on clinical course
Atrial Fibrillation with Rapid Ventricular Response with Associated Hypotension - status post successful urgent cardioversion with uatsdin of sinus rhythm
Tachycardia bradycardia syndrome
Probably Atrial tachycardia
Hypotension
Atrial Fibrillation - on Eliquis at home
-Cardioverted in the ER to NSR on October 14, 2023
-Continue Eliquis
-Digoxin resumed but at a lower dose of 0.125 mg daily
-Continue Lopressor 12.5 mg BID
-Midodrine 5 mg 3 times daily as needed, scheduled TID with holding parameters also started
Volume Overloaded
-Lasix dosing IV 40 mg daily
-Echocardiogram appreciated EF 55-60% severe atrial dilation, mod MR
-cardio eval appreciated
Seizure diagnosis in September 2023
History of Parkinsonism
-On home Keppra 1500 mg BID PO and Lacosamide 50 mg PO BID (Lacosamide reduced from home 100 mg PO BID due to bradycardia)
-Continue seizure medications converted to IV when unable to take oral
-neurology eval appreciated cont Sinemet 0.5 tab TID, EEG supportive toxic metabolic encephalopathy, avoid antipsychotics, cont current sz medications as above
-CT head appreciated no acute abn's
Possible Hyperthyroidism (ruled out) vs Sick Euthyroid syndrome (more likely)
-Endocrine eval appreciated
-Repeat Thyroid function tests since show resolution TSH T4 T3 wnl
Anxiety
intermittently anxious yelling/confused, since improved
ativan 0.25 mg IV q8Hprn
psych eval appreciated since signed off
Hypophosphatemia
-monitor and replete as necessary
Stage 2 left cheek pressure injury
-cont local wound care
Pulmonary hypertension
Restrictive lung disease/Interstitial Lung Disease on Chronic Oxygen - Duonebs changed to Atrovent + Xopenex given her tachycardia
Chronic respiratory failure
Obstructive sleep apnea
Non-alcoholic steatohepatitis
Gastroesophageal reflux disease - continue PPI
Chronic dysphagia - speech following - continue NPO
History of left lower extremity deep vein thrombosis (January 2023) - continue Eliquis
Hypertension
Diabetes mellitus - accuchecks and sliding scale insulin
Gout
Basal Cell Skin Cancer
Urinary retention
Osteoporosis
Ambulatory dysfunction
Anxiety
Morbid obesity
DVT PPx: Eliquis
GI ppx: prevacid
Code Status: Full Code
I spent a total of 56 minutes with the patient or on the floor. More than 50% of this time involved counseling and coordination of care.
Anticipated Discharge: > 48 hours
Subjective/Interval History
-
Date of Service: October 23, 2023
Objective Data
-
Labs:
Laboratory Results
10/23/23 10/23/23
04:09 04:40
WBC 3.9 L
Hgb 10.8 L
Hct 31.6 L
Plt Count 164
Sodium Cancelled Pending
Potassium Cancelled Pending
Chloride Cancelled Pending
Carbon Dioxide Cancelled Pending
BUN Cancelled Pending
Creatinine Cancelled Pending
Glucose Cancelled Pending
Calcium Cancelled Pending
Vital Signs:
Vital Signs
Temp Pulse Resp BP Pulse Ox
97 F 92 18 129/64 95
10/23/23 03:05 10/23/23 03:05 10/23/23 03:05 10/23/23 03:05 10/23/23 03:05
I&O
10/21/23 10/22/23 10/23/23
06:59 06:59 06:59
Intake Total 1170 / 1170 0 / 0 120 / 120
Balance 1170 / 1170 0 / 0 120 / 120
[2023-10-23] MEDS: SODIUM CHLORIDE 3% FOR INHALATION 1 VIAL INH ×2 (07:53→20:34)
[2023-10-23] MEDS: VENTOLIN NEBULES 2.5 MG INH ×2 (07:54→20:34)
[2023-10-23 07:56] VITALS: BP 117/71
[2023-10-23 08:22] LABS: Glucose - Point of Care 79 mg/dl (70-99)
[2023-10-23] MEDS: NOVOLOG FLEXPEN-LOW RESISTANCE SC ×4 (08:43→22:18)
[2023-10-23] MEDS: LIDOCAINE 4% PATCH 1 PATCH TOPICAL (08:45)
[2023-10-23] MEDS: MIRALAX 17 GRAMS PO (08:45)
[2023-10-23] MEDS: SENOKOT-S 2 TABLET PO (08:46)
[2023-10-23] MEDS: LOPRESSOR 12.5 MG PO ×2 (08:46→19:41)
[2023-10-23] MEDS: VISBIOME 1 CAP PO (08:46)
[2023-10-23] MEDS: PREVACID 30 MG PO (08:46)
[2023-10-23] MEDS: SINEMET 25-100 0.5 TABLET PO ×3 (08:46→21:24)
[2023-10-23] MEDS: ELIQUIS 5 MG PO ×2 (08:47→19:42)
[2023-10-23] MEDS: VITAMIN B-12 1000 MCG PO (08:47)
[2023-10-23] MEDS: LASIX 40 MG IV (08:47)
[2023-10-23] MEDS: DESENEX/MITRAZOL/ZEASORB 1 APPLIC TOPICAL ×2 (08:49→19:42)
[2023-10-23 10:42] LABS: Blood Urea Nitrogen 16 mg/dl (7-17); Calcium 7.6 mg/dl (8.4-10.2); Carbon Dioxide 32 mmol/L (22-30); Chloride 102 mmol/L (98-107); Estimated Creatinine Clearance 72 ml/min; Glucose 88 mg/dl (70-99); Phosphorus 3.5 mg/dl (2.5-4.5); Potassium 4.2 mmol/L (3.5-5.1); Sodium 136 mmol/L (135-145); eGFR > 60.00
--- NOTE | 2023-10-23 11:35 | CM ---
Patient seen bedside.
Patient resumed diet, started on IDDSI level 4 puree diet.
Continues with IV diuresis and IV anbx.
PT/OT- total care.
ST- following for aspiration precautions.
Wound care following.
Plan: back to [facility] when medically stable. (no auth required)
Ambulance transport will be required.
Daja [facility]
Report# [phone]
[2023-10-23 11:57] VITALS: BP 99/58
[2023-10-23] MEDS: DIFLUCAN 200 MG PO (12:02)
[2023-10-23] MEDS: LANOXIN 125 MCG IV (12:02)
[2023-10-23 12:33] LABS: Glucose - Point of Care 139 mg/dl (70-99)
--- NOTE | 2023-10-23 12:39 | W.PN.PUL3 ---
Today's Communication / Plan
-
O2
CPT
Atb
Assessment
-
Assessment:��77-year-old F former tobacco smoker with PMHx of A-fib on digoxin and Eliquis, kyphosis with reported history of restrictive lung disease, chronic hypotension on midodrine, chronic respiratory failure, history of seizures with
parkinsonism diagnosed last month during hospitalization, and CHETNA who p/w unresponsiveness.� Patient found to be tachycardic, hypotensive, cardioverted in the ER and then developed tachybradycardia syndrome.� CXR was concerning for left lower lobe
pneumonia - of note patient was on Levaquin for the past few days for pneumonia which was diagnosed as an outpatient.� Patient transferred to the ICU for further care and critical care services consulted for additional management/recommendations.�
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
left-sided DVT, osteoporosis, ambulatory dysfunction, chronic hypotension on midodrine
Impression:
#Acute respiratory failure with hypoxemia required mechanical ventilation on admission--> extubated 10/15/2023
#Left sided HAP
#Influenza A
CHRIS atelectasis on CXR -
#Acute COPD exacerbation due to above with flu and bacterial superinfection
#Septic shock due to pneumonia - shock state now resolved
#Critical illness related corticosteroid insufficiency
#Elevated troponin - likely due to type II FL from demand ischemia - troponin peaked at 0.056 on 10/14/2023
#Tachy-katerine syndrome
#Primary hyperthyroidism vs euthyroid sick syndrome
#Moderate restrictive lung defect (T% predicted via PFT from 2016)
#Physical deconditioning with wheel chair bound status at baseline
Plan:
Continue O2 protocol
Currently on O2 2L, POx 99%
- Cardiology on board --> continue rate control medications and diuretic
- Changed DuoNebs to atrovent + xopenex bid given her tachycardia --> ok to use this prn given it seems to agitate the pt when we give the scheduled neb treatments.
- Continue broad spectrum ABx (on 10/17, narrowed Abx from cefepime [which started on adm 10-14) to high dose rocephin) and follow up infectious workup (sputum Cx with yeast, and blood Cxs negative); MRSA swab negative, hence IV vanco DC'd -->�to
complete 10 d ceftriaxone through 10-24 and can d/c then
- Negative urine legionella and Strep pneumonia
Portable CXR 10-21: CHRIS atelectasis
Started VEST/HS-alb tid
POx improved, POx 95% on 2L earlier today
Repeat CXR 10-23: resolved CHRIS atelectasis
D/c VEST and HS prior to d/c
- Elevated free T4 with low TSH; Total T4 and free T3 are WNL; endo consulted 10-17 and recs appreciated --> hold off methimazole for now and recheck TFTs in 1 week - if TSH still low then will start methimazole at that time
-S/p HC stress dosing, random cortisol level was within normal range
- No need to continue trending troponin as it had peaked at 0.056
- Midodrine started per hospitalist given hypotension overnight from 10/17 - 10/18 --> BP better now
- Maintain MAP>65
- Maintain BG 140-180 with ISS q6hr
- Completed tamiflu 75 BID x 5 days
- Seen by Neurology, mixed TME, continue levetiracetam, lacosamide
Seen by Psych, TME, unspecified anxiety, rec ativan prn IV and signed off same day 10-20
- Titrate FiO2 to keep SpO2 >90-94%
Due to waxing and waning level of alertness 10-21 could not complete VSE
Speech following, puree diet and thick liquids recommended
- PPI (home med)
- DVT ppx - Eliquis
OOB as tolerated
Data:
CXR 10-15-2023:
Lines and tubes as described.
The endotracheal tube is low.
Bibasilar atelectasis persists.
CXR 10-14-2023:
Endotracheal tube is present with tip 2.2 cm above the guanakito.
Nasogastric or orogastric tube present with tip extending into the left upper quadrant, off the inferior to the radiograph.
Focal parenchymal airspace opacity within the left lower lung, which likely represents pneumonia.
PFT - 08/2016
FEV1/FVC: 61
FEV1: 1L (53%)
FVC: 1.64L (66%)
T% (2.78L)
VC: 66%
RV: 61%
DLco: 45%
VA: 85% (3.65L)
DLco/VA: 52%
Flow volume loop: Scooped expiratory limb and restricted
Subjective Data
-
Date of Service:
Date of Service: October 23, 2023
Chief Complaint: Pulmonary Follow Up
Subjective:
No major events reported
More awake and conversant today
Review of Systems
General: Other (poor historian but denies major complaints)
Objective Data
Data Reviewed
Vital Signs / I&O / Oxygen:
Vital Signs
Temp Pulse Resp BP Pulse Ox
97.9 F 81 20 99/58 99
10/23/23 11:57 10/23/23 11:57 10/23/23 11:57 10/23/23 11:57 10/23/23 11:57
Intake and Output
10/22/23 10/23/23 10/24/23
06:59 06:59 06:59
Intake Total 0 / 0 120 / 120
Balance 0 / 0 120 / 120
SaO2 [CPAP/PSV] 99
SaO2 [A/C] 99
SaO2 99
Nasal Cannula flow liters per 2
minute
Physical Exam
General: Comfortable
HEENT: Normocephalic, Anicteric, Moist Mucous Membranes (n) and Other (DHT)
Cardiovascular: S1-S2, Murmur (negative) and Peripheral Edema (+1 pitting pedal edema)
Respiratory: Clear, Wheeze (negative), Crackles (negative), Non-Labored Respirations, Accessory Resp Muscle Use (negative) and Other (decreased sounds at L)
GI: Soft, Non Distended, Non Tender and Normal Bowel Sounds
Neurology: Awake and Other (poor historian)
Skin: Warm and Dry
Labs/Micro/Reports
Lab Data
10/23/23 04:09
10/23/23 07:50
[2023-10-23] MEDS: VENTOLIN NEBULES INH (13:44)
[2023-10-23] MEDS: SODIUM CHLORIDE 3% FOR INHALATION INH (13:44)
[2023-10-23 16:00] VITALS: BP 101/54
--- NOTE | 2023-10-23 16:47 | W.PN.CARDCBS ---
Addendum entered and electronically signed by Anastacio Solis MD 10/23/23 16:57:
I saw and examined the patient.
The Pecan Cleaner's note was reviewed and I agree with the note.
Comment:
GEN: No distress, awake,
HEENT: supple, anicteric, mmm
LUNGS: scatt rhnchi
CV: Irreg, S1/S2, 1/6 syst LSB, no gallop
ABD: soft, BS+, NT/ND
EXT: + 1 edema
NEURO: Gross non-focal
SKIN: Diffuse ecchymosis
PLan:
Continues to slowly improve. Will continue IV Lasix for another 24 hours and switch to Lasix 40 mg p.o. daily. Her creatinine remains normal.
Her A-fib remains rate controlled with a normal digoxin level. Continue Eliquis.
Original Note:
Today's Communication / Plan
-
Ongoing diuresis
Impression / Plan
-
Family Physician:� Solomon Troy, DO
Music Engineer: Dr. Solis, last seen in May 2020 in office
Impression:
Influenza A
Presented 10/14/2022 with unresponsiveness, hypoxia
Acute hypoxic respiratory failure requiring intubation 10/14/2023
Pneumonia
Fever
Atrial fibrillation with rapid ventricular response
Status post cardioversion in the ER 10/14/23
Tachybradycardia syndrome
Hypotension
Acute HFpEF
Non-CT troponin elevation
Paroxysmal atrial fibrillation
Chronic anticoagulation on Eliquis
VDRF (2009)
ILD/Restrictive lung disease/chronic respiratory failure/chronic O2
CHETNA
Seizure disorder (diagnosed September 2023)
Chronic Dysphagia on pureed diet
GERD
ESPARZA
Anxiety
History of left lower extremity deep vein thrombosis (January 2023)
Non-occlusive DVT L popliteal vein
Gout
Basal Cell Skin Cancer
Urinary retention Osteoporosis
Ambulatory dysfunction/bed-bound
Echo 04/03/2020: EF 55 to 60%, stage II DD. Mildly dilated RA. Mild MR, mild TR with PAP 50 mmHg
Echo 10/17/23: EF 55%, dilated atrium. Moderate MR, mild
Plan:
-Remains on Lasix 40 mg IV daily. Weight peaked at 184 lbs this admission and is down to 172 lbs on 10/23/23. Patient was taking Lasix 40 mg PO daily PRN prior to admission.
-Patient with a h/o paroxysmal Afib and was in rapid Afib on admission 10/14/23 that was treated with emergent CV that day and is back in Afib now.
-HRs 80s on Lopressor 12.5 mg BID started 10/19/23 and Digoxin 0.125 mg daily. Patient was taking Toprol XL 25 mg daily prior to admission and now receiving meds crushed
-Outpatient dose of Eliquis 5 mg BID resumed
-If significant recurrence of atrial fibrillation could consider amiodarone, there is no obvious contraindication.
-Midodrine PRN hypotension ordered
-Troponin peaked at 0.056. No ischemic ECG changes. No chest pain. Will manage as a nonischemic myocardial injury Troponin elevation due to VDRF.
Patient is a 77 y/o female with past medical history of seizure diagnosis in September 2023, paroxysmal atrial fibrillation on chronic anticoagulation with Eliquis, pulmonary hypertension, restrictive lung disease, chronic respiratory failure,
obstructive sleep apnea, non-alcoholic steatohepatitis, gastroesophageal reflux disease, chronic dysphagia, left lower extremity deep vein thrombosis (January 2023), hypertension, diabetes mellitus, gout, Basal Cell Skin Cancer, urinary retention,
osteoporosis, ambulatory dysfunction anxiety, and morbid obesity whom presented 10/14/[address] [facility] with with unresponsiveness and hypoxia.�She apparently has been on Levaquin for the past few days for pneumonia. She required intubation
in emergency department upon arrival and is currently intubated and sedated. Chest x-ray concerning for left lower lobe pneumonia. She was noted to be in atrial fibrillation with rapid ventricular response associated with hypotension and
underwent successful cardioversion with nondenominational of sinus rhythm. Patient has continued to have evidence of tachybradycardia syndrome with PAF followed by bradycardia with heart rate in the 40s following cardioversion. Patient currently remains
hypotensive despite nondenominational of sinus rhythm.
Progress Note - Music Engineer
Subjective
Date of Service: October 23, 2023
No SOB
Objective
Labs:
10/23/23 04:09
10/23/23 07:50
Labs
Hgb 10.8 g/dL (12.0-16.0) L 10/23/23 04:09
Hct 31.6 % (37.0-47.0) L 10/23/23 04:09
Plt Count 164 10^3/uL (130-400) 10/23/23 04:09
PT 24.8 Sec (11.4-14.6) H 10/14/23 10:51
INR 2.25 10/14/23 10:51
APTT 41.4 Sec (23.4-35.0) H 10/14/23 10:51
Sodium 136 mmol/L (135-145) 10/23/23 07:50
Potassium 4.2 mmol/L (3.5-5.1) 10/23/23 07:50
BUN 16 mg/dl (7-17) 10/23/23 07:50
Creatinine 0.2 mg/dL (0.6-1.0) L 10/23/23 07:50
Glucose 88 mg/dl (70-99) 10/23/23 07:50
Digoxin 0.7 ng/ml (0.8-2.0) L 10/19/23 03:32
Vital Signs and I&O:
Vital Signs
Temp Pulse Resp BP Pulse Ox
97.9 F 81 20 99/58 99
10/23/23 11:57 10/23/23 11:57 10/23/23 11:57 10/23/23 11:57 10/23/23 11:57
Vital Signs
Temp Pulse Resp BP Pulse Ox
97.9 F 81 20 99/58 99
10/23/23 11:57 10/23/23 11:57 10/23/23 11:57 10/23/23 11:57 10/23/23 11:57
Intake & Output
10/21/23 10/22/23 10/23/23 10/24/23
06:59 06:59 06:59 06:59
Intake Total 1170 / 1170 0 / 0 120 / 120
Balance 1170 / 1170 0 / 0 120 / 120
Physical Exam
Physical Exam
General: Frail appearing. NAD.
Skin: Warm, dry and pink.
Heart: Reg
Lungs: No wheeze
Extremities: Trace B/L LE edema
[2023-10-23 17:42] LABS: Glucose - Point of Care 115 mg/dl (70-99)
[2023-10-23 19:05] VITALS: BP 127/86
[2023-10-23] MEDS: CARDURA 1 MG PO (21:24)
[2023-10-23] MEDS: DEBROX EAR DROPS 4 DROP RIGHT EAR (21:29)
[2023-10-23 22:10] LABS: Glucose - Point of Care 116 mg/dl (70-99)
[2023-10-23 23:05] VITALS: BP 115/64
[2023-10-24 03:10] VITALS: BP 101/68
[2023-10-24] MEDS: VIMPAT 50 MG IV ×2 (05:09→17:44)
[2023-10-24] MEDS: KEPPRA 1500 MG IV ×2 (05:09→17:44)
[2023-10-24] MEDS: STERILE WATER FOR INJECTION 20 ML IV (05:10)
[2023-10-24] MEDS: ROCEPHIN 2000 MG IV (05:10)
[2023-10-24 06:00] VITALS: BMI 34.8
[2023-10-24 06:03] LABS: % Basophils 0.2 % (0-2); % Eosinophils 3.2 % (0-6); % Immature Granulocytes 0.5 % (0-0.5); % Lymphocytes 23.8 % (20.5-51.1); % Monocytes 14.4 % (1.7-9.3); % Neutrophils 57.9 % (42.2-75.2); Absolute Eosinophils 0.1 10^3/uL (0-0.7); Absolute Monocytes 0.6 10^3/uL (0.1-0.6); Absolute Neutrophils 2.5 10^3/uL (1.4-6.5); Hematocrit 31.7 % (37.0-47.0); Hemoglobin 10.3 g/dL (12.0-16.0); Mean Corp Hgb Conc. 32.5 g/dL (33.0-37.0); Mean Corpuscular Hgb 34.9 pg (27.0-31.0); Mean Corpuscular Volume 107.5 fL (81.0-99.0); Mean Platelet Volume 9.8 fL (7.4-10.4); Nucleated Red Blood Cells % 0 %; Platelet Count 165 10^3/uL (130-400); Red Blood Cell Count 2.95 10^6/uL (4.20-5.40); White Blood Cell Count 4.3 10^3/uL (4.8-10.8)
[2023-10-24 06:32] LABS: Blood Urea Nitrogen 17 mg/dl (7-17); Calcium 7.9 mg/dl (8.4-10.2); Chloride 96 mmol/L (98-107); Estimated Creatinine Clearance 72 ml/min; Glucose 87 mg/dl (70-99); Magnesium 2.1 mg/dl (1.6-2.3); Phosphorus 3.7 mg/dl (2.5-4.5); Potassium 3.8 mmol/L (3.5-5.1); Sodium 137 mmol/L (135-145); eGFR > 60.00
[2023-10-24 06:58] LABS: Carbon Dioxide 39 mmol/L (22-30)
[2023-10-24] MEDS: SODIUM CHLORIDE 3% FOR INHALATION 1 VIAL INH ×3 (07:26→20:27)
[2023-10-24] MEDS: VENTOLIN NEBULES 2.5 MG INH ×3 (07:26→20:27)
--- NOTE | 2023-10-24 07:36 | W.PN.HOSP.TC ---
Today's Communication/Plan
-
cont abx
convert IV sz medications and digox back to PO
continue supervised feeds
Fluconazole
Speech therapy
diuresis as per cardio
wean O2 supplementtation as tolerated
Assessment / Plan
Assessment / Plan
Physical Exam
General: No Apparent Distress
HEENT: Normocephalic, white plaques noted on tongue suspect oral thrush appears to be improved
Respiratory: clear to auscultation b/l on 2 L nasal cannula oxygen
Cardiac: S1/S2 and Regular Rhythm
GI: Soft, Non Tender and Normal Bowel Sounds
Musculoskeletal: No Cyanosis, upper extremities noted swollen +2 pitting edema
Skin: Warm and Dry
Neuro: Lethargic but arousable
Psych: confused but calm cooperative

Assessment/Plan
Acute Hypoxic Respiratory Failure
Acute Toxic Metabolic Encephalopathy
Left Lower Lobe Pneumonia (diagnosed and was being treated with antibiotics for pneumonia as an outpatient)
Suspected Sepsis Secondary to Pneumonia
Influenza A
Septic Shock
-Monitored in ICU, was intubated, on 10/15/23 extubated to nasal cannula
-Was on Levaquin for pneumonia outpatient
-Status post Cefepime
-MRSA neg empiric Vancomycin discontinued
-Now on Ceftriaxone; continue, planned for 14 days of abx 10/14/23-10/27/23
-Continue Tamiflu 75 BID x 5 days
-IVF support completed
-Follow blood and sputum cultures no significant growth to date
-Titrate FiO2 to maintain SpO2 >90-94%
-Low random cortisol in setting of septic shock: stress dose steroid tapered off as per Glass Frame Fitter
-Downgraded to Tele 10/18/23
Dysphagia AMS
neurology eval appreciated AMS can take weeks to recover in Parkinsonian neurodegenerative disorder patients
on NGT tube feeds patient however self removed dobhoff 10/21
more awake and alert as day progressed unfortunately failed VSE earlier in the day but was lethargic at the time the test was performed
will hold off on re-inserting Dobhoff for now as patient's mental status improving concern re-insertion will require more sedation restraints leading worsening mental status and reducing patient's chance to return to oral feeding
seizure medications and digoxin converted to IV for now
10/22 followup repeat speech VSE exam noted improvement
-patient able to swallow with reduce risk aspiration by using chin tuck strategy, concern however given patient's AMS that she would not be able to consistently perform this strategy on her own.
-IDDSI Level 4 (Puree), IDDSI Level 2 (Mildly Thick Liquids) with 1:1 supervision and direct assistance to tuck chin with every swallow. meds crushed in pureed
Hospitalist discussed with POA patient's friend Pat updated regarding patient's situation, risk of aspiration, potential benefit and risks of alternative means of nutrition such as PEG tube also discussed, in agreement with pursuing diet as above
for now, also re-confirmed patient's full code status, POA also endorsed that she would be willing to consent to PEG tube if necessary
Likely Oral thrush noted 10/23
Fluconazole treatment started 200 mg once followed by 100 mg daily planned for 7-14 days depending on clinical course
continue Fluconazole and oral care
Atrial Fibrillation with Rapid Ventricular Response with Associated Hypotension - status post successful urgent cardioversion with mandaeism of sinus rhythm
Tachycardia bradycardia syndrome
Probably Atrial tachycardia
Hypotension
Atrial Fibrillation - on Eliquis at home
-Cardioverted in the ER to NSR on October 14, 2023
-Continue Eliquis
-Digoxin resumed but at a lower dose of 0.125 mg daily
-Continue Lopressor 12.5 mg BID
-Midodrine 5 mg 3 times daily as needed, scheduled TID with holding parameters also started
Volume Overloaded
-Lasix dosing IV 40 mg daily
-Echocardiogram appreciated EF 55-60% severe atrial dilation, mod MR
-cardio eval appreciated
Seizure diagnosis in September 2023
History of Parkinsonism
-On home Keppra 1500 mg BID PO and Lacosamide 50 mg PO BID (Lacosamide reduced from home 100 mg PO BID due to bradycardia)
-Continue seizure medications convert to IV when unable to take oral
-neurology eval appreciated cont Sinemet 0.5 tab TID, EEG supportive toxic metabolic encephalopathy, avoid antipsychotics, cont current sz medications as above
-CT head appreciated no acute abn's
Possible Hyperthyroidism (ruled out) vs Sick Euthyroid syndrome (more likely)
-Endocrine eval appreciated
-Repeat Thyroid function tests since show resolution TSH T4 T3 wnl
Anxiety
intermittently anxious yelling/confused, since improved
ativan 0.25 mg IV q8Hprn
psych eval appreciated since signed off
Hypophosphatemia
-monitor and replete as necessary
Stage 2 left cheek pressure injury
-cont local wound care
Pulmonary hypertension
Restrictive lung disease/Interstitial Lung Disease on Chronic Oxygen - Duonebs changed to Atrovent + Xopenex given her tachycardia
Chronic respiratory failure
Obstructive sleep apnea
Non-alcoholic steatohepatitis
Gastroesophageal reflux disease - continue PPI
Chronic dysphagia - speech following - continue NPO
History of left lower extremity deep vein thrombosis (January 2023) - continue Eliquis
Hypertension
Diabetes mellitus - accuchecks and sliding scale insulin
Gout
Basal Cell Skin Cancer
Urinary retention
Osteoporosis
Ambulatory dysfunction
Anxiety
Morbid obesity
DVT PPx: Eliquis
GI ppx: prevacid
Code Status: Full Code
I spent a total of 56 minutes with the patient or on the floor. More than 50% of this time involved counseling and coordination of care.
Anticipated Discharge: > 48 hours
Subjective/Interval History
-
Date of Service: October 24, 2023
Seen and examined at bedside in no acute distress sitting up comfortably in bed. Mental status continues to slowly improve. More awake alert. confusion persists
Objective Data
-
Labs:
Laboratory Results
10/24/23
05:27
WBC 4.3 L
Hgb 10.3 L
Hct 31.7 L
Plt Count 165
Sodium 137
Potassium 3.8
Chloride 96 L
Carbon Dioxide 39 H
BUN 17
Creatinine 0.3 L
Glucose 87
Calcium 7.9 L
Vital Signs:
Vital Signs
Temp Pulse Resp BP Pulse Ox
98.0 F 62 18 101/68 97
10/24/23 03:10 10/24/23 07:29 10/24/23 07:29 10/24/23 03:10 10/24/23 07:29
I&O
10/23/23 10/24/23 10/25/23
06:59 06:59 06:59
Intake Total 120 / 120 300 / 300
Balance 120 / 120 300 / 300
[2023-10-24 09:05] VITALS: BP 131/70
[2023-10-24 09:38] LABS: Glucose - Point of Care 82 mg/dl (70-99)
[2023-10-24] MEDS: NOVOLOG FLEXPEN-LOW RESISTANCE SC ×4 (10:11→21:42)
[2023-10-24] MEDS: SINEMET 25-100 0.5 TABLET PO ×3 (10:45→21:42)
[2023-10-24] MEDS: VITAMIN B-12 1000 MCG PO (10:46)
[2023-10-24] MEDS: ELIQUIS 5 MG PO ×2 (10:46→20:16)
[2023-10-24] MEDS: VISBIOME 1 CAP PO (10:46)
[2023-10-24] MEDS: LOPRESSOR 12.5 MG PO (10:46)
[2023-10-24] MEDS: DIFLUCAN 100 MG PO (10:47)
[2023-10-24] MEDS: PREVACID 30 MG PO (10:47)
[2023-10-24] MEDS: SENOKOT-S 2 TABLET PO (10:47)
[2023-10-24] MEDS: LASIX 40 MG IV (10:50)
[2023-10-24] MEDS: DESENEX/MITRAZOL/ZEASORB 1 APPLIC TOPICAL ×2 (10:51→20:18)
[2023-10-24] MEDS: LIDOCAINE 4% PATCH 1 PATCH TOPICAL (10:51)
[2023-10-24] MEDS: MIRALAX 17 GRAMS PO (10:51)
[2023-10-24 12:03] VITALS: BP 107/70
[2023-10-24 12:20] LABS: Glucose - Point of Care 87 mg/dl (70-99)
[2023-10-24] MEDS: LANOXIN 125 MCG IV (13:03)
[2023-10-24 13:08] LABS: Iron 89 ug/dl (37-170)
--- NOTE | 2023-10-24 13:08 | W.PN.PUL.V3 ---
Today's Communication / Plan
-
Aspiration precautions.
Wean oxygen.
Diuresis.
Antibiotics.
Follow chest x-ray.
Assessment
-
Assessment:��77-year-old F former tobacco smoker with PMHx of A-fib on digoxin and Eliquis, kyphosis with reported history of restrictive lung disease, chronic hypotension on midodrine, chronic respiratory failure, history of seizures with
parkinsonism diagnosed last month during hospitalization, and CHETNA who p/w unresponsiveness.� Patient found to be tachycardic, hypotensive, cardioverted in the ER and then developed tachybradycardia syndrome.� CXR was concerning for left lower lobe
pneumonia - of note patient was on Levaquin for the past few days for pneumonia which was diagnosed as an outpatient.� Patient transferred to the ICU for further care and critical care services consulted for additional management/recommendations.�
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
left-sided DVT, osteoporosis, ambulatory dysfunction, chronic hypotension on midodrine
Impression:
#Acute respiratory failure with hypoxemia required mechanical ventilation on admission--> extubated 10/15/2023
#Left sided HAP
#Influenza A
CHRIS atelectasis on CXR 10-21
#Acute COPD exacerbation due to above with flu and bacterial superinfection
#Septic shock due to pneumonia - shock state now resolved
#Critical illness related corticosteroid insufficiency
#Elevated troponin - likely due to type II MT from demand ischemia - troponin peaked at 0.056 on 10/14/2023
#Tachy-katerine syndrome
#Primary hyperthyroidism vs euthyroid sick syndrome
#Moderate restrictive lung defect (T% predicted via PFT from 2016)
#Physical deconditioning with wheel chair bound status at baseline
Plan:
Respiratory status continues to be tenuou.
Continue supplemental oxygen-attempt to wean
Aspiration precautions
Speech therapy following-appreciate input-pur�ed diet with thickened liquids
Nebulizers as needed
Incentive spirometry and mucus clearing devices if able to
Vest therapy-respiratory therapy reports intolerance
Follow chest x-ray
Atrial fibrillation, rate controlled
Cardiology following-correspondence reviewed.
Diuresis as tolerated
Cultures reviewed
Continue antibiotics
Completed Tamiflu
Fluconazole for thrush
Neurology is following the patient-mixed toxic metabolic encephalopathy.
Seen by psychiatry as well.
DVT prophylaxis-the Eliquis
GI prophylaxis-on PPI.
Nutrition with aspiration precautions.
Early mobilization/physical therapy.
Reviewed with nursing.
Data:
CXR 10-15-2023:
Lines and tubes as described.
The endotracheal tube is low.
Bibasilar atelectasis persists.
CXR 10-14-2023:
Endotracheal tube is present with tip 2.2 cm above the guanakito.
Nasogastric or orogastric tube present with tip extending into the left upper quadrant, off the inferior to the radiograph.
Focal parenchymal airspace opacity within the left lower lung, which likely represents pneumonia.
PFT - 08/2016
FEV1/FVC: 61
FEV1: 1L (53%)
FVC: 1.64L (66%)
T% (2.78L)
VC: 66%
RV: 61%
DLco: 45%
VA: 85% (3.65L)
DLco/VA: 52%
Flow volume loop: Scooped expiratory limb and restricted
Subjective Data
-
Date of Service:
Date of Service: October 24, 2023
Chief Complaint: Pulmonary Follow Up and Dyspnea Follow Up
Subjective:
, Lethargic, unable to answer questions appropriately, mild respiratory distress,
Review of Systems
General: Unobtainable - Sedation
Objective Data
Data Reviewed
Vital Signs / I&O:
Vital Signs
Temp Pulse Resp BP Pulse Ox
97.7 F 120 20 107/70 99
10/24/23 12:03 10/24/23 12:03 10/24/23 12:03 10/24/23 12:03 10/24/23 12:03
Intake and Output
10/23/23 10/24/23 10/25/23
06:59 06:59 06:59
Intake Total 120 / 120 300 / 300
Balance 120 / 120 300 / 300
SaO2: 99
Nasal Cannula flow liters per minute: 2
Physical Exam
General: Respiratory Distress ( mild) and Comfortable
HEENT: Normocephalic, Anicteric, Moist Mucous Membranes (n) and Other (DHT)
Cardiovascular: S1-S2, Murmur (negative) and Peripheral Edema (+1 pitting pedal edema)
Respiratory: Clear, Wheeze (negative), Crackles (negative), Non-Labored Respirations, Accessory Resp Muscle Use (negative) and Other (decreased sounds at L)
GI: Soft, Non Distended, Non Tender and Normal Bowel Sounds
Neurology: Awake, Alert, No Motor Deficits and Other (poor historian-lethargic)
Skin: Warm, Dry, Good Color, Cyanosis (n) and Jaundice (n)
Labs/Micro/Reports
Lab Data
10/24/23 05:27
10/24/23 05:27
[2023-10-24 13:19] LABS: Percent Saturation 49 % (20-50); Total Iron Binding Capacity 180 ug/dl (265-497)
[2023-10-24 14:19] LABS: Vitamin B12 > 1000 pg/ml (239-931)
--- NOTE | 2023-10-24 14:57 | CM ---
Patient seen bedside.
Continues with IV diuresis and IV anbx.
PT/OT- total care.
ST- following for aspiration precautions.
Wound care following.
Plan: back to [facility] when medically stable. (no auth required)
Ambulance transport will be required.
[facility]
Report# [phone]
[2023-10-24 16:00] VITALS: BP 105/69
[2023-10-24 16:38] LABS: Glucose - Point of Care 129 mg/dl (70-99)
--- NOTE | 2023-10-24 18:26 | W.PN.CARDCBS ---
Today's Communication / Plan
-
Weight/output unchanged; PO lasix 24-48 hours
ABX per pulm/primary
Monitor renal function
Check dig level
Impression / Plan
-
Family Physician:� Solomon Troy, DO
Alternative Education Teacher: Dr. Solis, last seen in May 2020 in office
Impression:
Influenza A
Presented 10/14/2022 with unresponsiveness, hypoxia
Acute hypoxic respiratory failure requiring intubation 10/14/2023
Pneumonia
Fever
Atrial fibrillation with rapid ventricular response
Status post cardioversion in the ER 10/14/23
Tachybradycardia syndrome
Hypotension
Acute HFpEF
Non-WV troponin elevation
Paroxysmal atrial fibrillation
Chronic anticoagulation on Eliquis
VDRF (2009)
ILD/Restrictive lung disease/chronic respiratory failure/chronic O2
CHETNA
Seizure disorder (diagnosed September 2023)
Chronic Dysphagia on pureed diet
GERD
ESPARZA
Anxiety
History of left lower extremity deep vein thrombosis (January 2023)
Non-occlusive DVT L popliteal vein
Gout
Basal Cell Skin Cancer
Urinary retention Osteoporosis
Ambulatory dysfunction/bed-bound
Echo 04/03/2020: EF 55 to 60%, stage II DD. Mildly dilated RA. Mild MR, mild TR with PAP 50 mmHg
Echo 10/17/23: EF 55%, dilated atrium. Moderate MR, mild
Plan:
-Remains on Lasix 40 mg IV daily. Weight peaked at 184 lbs this admission and is down to 172 lbs on 10/23/23; unchanged 10/24/23. Patient was taking Lasix 40 mg PO daily PRN prior to admission.
-Patient with a h/o paroxysmal Afib and was in rapid Afib on admission 10/14/23 that was treated with emergent CV that day and is back in Afib now.
-HRs 80s on Lopressor 12.5 mg BID started 10/19/23 and Digoxin 0.125 mg daily. Patient was taking Toprol XL 25 mg daily prior to admission and now receiving meds crushed
- Check dig level
-Outpatient dose of Eliquis 5 mg BID resumed
-If significant recurrence of atrial fibrillation could consider amiodarone, there is no obvious contraindication.
-Midodrine PRN hypotension ordered
-Troponin peaked at 0.056. No ischemic ECG changes. No chest pain. Will manage as a nonischemic myocardial injury Troponin elevation due to VDRF.
Patient is a 77 y/o female with past medical history of seizure diagnosis in September 2023, paroxysmal atrial fibrillation on chronic anticoagulation with Eliquis, pulmonary hypertension, restrictive lung disease, chronic respiratory failure,
obstructive sleep apnea, non-alcoholic steatohepatitis, gastroesophageal reflux disease, chronic dysphagia, left lower extremity deep vein thrombosis (January 2023), hypertension, diabetes mellitus, gout, Basal Cell Skin Cancer, urinary retention,
osteoporosis, ambulatory dysfunction anxiety, and morbid obesity whom [place] [facility] with unresponsiveness and hypoxia.�She apparently has been on Levaquin for the past few days for pneumonia. She required intubation
in emergency department upon arrival and is currently intubated and sedated. Chest x-ray concerning for left lower lobe pneumonia. She was noted to be in atrial fibrillation with rapid ventricular response associated with hypotension and
underwent successful cardioversion with episcopal of sinus rhythm. Patient has continued to have evidence of tachybradycardia syndrome with PAF followed by bradycardia with heart rate in the 40s following cardioversion. Patient currently remains
hypotensive despite episcopal of sinus rhythm.
Progress Note - Alternative Education Teacher
Subjective
Date of Service: October 24, 2023
No complaints, resting comfortably. Denies cp, sob, cough, congestion, or weakness.
Objective
Labs:
10/24/23 05:27
10/24/23 05:27
Labs
Hgb 10.3 g/dL (12.0-16.0) L 10/24/23 05:27
Hct 31.7 % (37.0-47.0) L 10/24/23 05:27
Plt Count 165 10^3/uL (130-400) 10/24/23 05:27
PT 24.8 Sec (11.4-14.6) H 10/14/23 10:51
INR 2.25 10/14/23 10:51
APTT 41.4 Sec (23.4-35.0) H 10/14/23 10:51
Sodium 137 mmol/L (135-145) 10/24/23 05:27
Potassium 3.8 mmol/L (3.5-5.1) 10/24/23 05:27
BUN 17 mg/dl (7-17) 10/24/23 05:27
Creatinine 0.3 mg/dL (0.6-1.0) L 10/24/23 05:27
Glucose 87 mg/dl (70-99) 10/24/23 05:27
Digoxin 0.7 ng/ml (0.8-2.0) L 10/19/23 03:32
Vital Signs and I&O:
Vital Signs
Temp Pulse Resp BP Pulse Ox
97.8 F 73 18 105/69 99
10/24/23 16:00 10/24/23 16:00 10/24/23 16:00 10/24/23 16:00 10/24/23 16:00
Vital Signs
Temp Pulse Resp BP Pulse Ox
97.8 F 73 18 105/69 99
10/24/23 16:00 10/24/23 16:00 10/24/23 16:00 10/24/23 16:00 10/24/23 16:00
Intake & Output
10/22/23 10/23/23 10/24/23 10/25/23
06:59 06:59 06:59 06:59
Intake Total 0 / 0 120 / 120 300 / 300
Balance 0 / 0 120 / 120 300 / 300
Physical Exam
Physical Exam
GEN: No distress, awake,
HEENT: supple, anicteric, mmm
LUNGS: scatt rhnchi
CV: Irreg, S1/S2, 1/6 syst LSB, no gallop
ABD: soft, BS+, NT/ND
EXT: + 1 edema
NEURO: Gross non-focal
SKIN: Diffuse ecchymosis
[2023-10-24 19:00] VITALS: BP 99/63
[2023-10-24] MEDS: LOPRESSOR PO (20:17)
[2023-10-24 21:06] LABS: Glucose - Point of Care 117 mg/dl (70-99)
[2023-10-24] MEDS: DEBROX EAR DROPS 4 DROP RIGHT EAR (21:41)
[2023-10-24] MEDS: CARDURA 1 MG PO (21:43)
[2023-10-24] MEDS: TYLENOL ORAL SOLUTION 650 MG PO (22:40)
[2023-10-24 23:00] VITALS: BP 102/72
[2023-10-25 03:00] VITALS: BP 102/62
[2023-10-25 05:10] LABS: Hematocrit 30.7 % (37.0-47.0); Hemoglobin 9.8 g/dL (12.0-16.0); Mean Corp Hgb Conc. 31.9 g/dL (33.0-37.0); Mean Corpuscular Hgb 33.9 pg (27.0-31.0); Mean Corpuscular Volume 106.2 fL (81.0-99.0); Mean Platelet Volume 9.8 fL (7.4-10.4); Platelet Count 141 10^3/uL (130-400); Red Blood Cell Count 2.89 10^6/uL (4.20-5.40); Red Cell Dist. Width 14.1 % (11.5-14.5); White Blood Cell Count 4.7 10^3/uL (4.8-10.8)
[2023-10-25] MEDS: KEPPRA 1500 MG IV (05:15)
[2023-10-25] MEDS: ROCEPHIN 2000 MG IV (05:18)
[2023-10-25] MEDS: STERILE WATER FOR INJECTION 20 ML IV (05:18)
[2023-10-25] MEDS: VIMPAT 50 MG IV (05:21)
[2023-10-25 05:38] LABS: Blood Urea Nitrogen 17 mg/dl (7-17); Calcium 7.8 mg/dl (8.4-10.2); Chloride 95 mmol/L (98-107); Digoxin 0.7 ng/ml (0.8-2.0); Estimated Creatinine Clearance 72 ml/min; Glucose 78 mg/dl (70-99); Magnesium 1.9 mg/dl (1.6-2.3); Phosphorus 3.6 mg/dl (2.5-4.5); Potassium 3.8 mmol/L (3.5-5.1); Sodium 137 mmol/L (135-145); eGFR > 60.00
[2023-10-25 06:00] VITALS: BMI 32.6
[2023-10-25 06:07] LABS: Carbon Dioxide 39 mmol/L (22-30)
--- NOTE | 2023-10-25 07:37 | W.PN.HOSP.TC ---
Today's Communication/Plan
-
Abx completed
cont PO sz medications and digoxin
continue supervised feeds
Fluconazole
Speech therapy
diuresis as per cardio
wean O2 supplementation as tolerated
Assessment / Plan
Assessment / Plan
Physical Exam
General: No Apparent Distress
HEENT: Normocephalic, white plaques noted on tongue suspect oral thrush appears to be improved
Respiratory: clear to auscultation b/l on 2 L nasal cannula oxygen
Cardiac: S1/S2 and Regular Rhythm
GI: Soft, Non Tender and Normal Bowel Sounds
Musculoskeletal: No Cyanosis, upper extremities noted swollen +2 pitting edema
Skin: Warm and Dry
Neuro: Lethargic but arousable conversant
Psych: confused but calm cooperative

Assessment/Plan
Acute Hypoxic Respiratory Failure
Acute Toxic Metabolic Encephalopathy
Left Lower Lobe Pneumonia (diagnosed and was being treated with antibiotics for pneumonia as an outpatient)
Suspected Sepsis Secondary to Pneumonia
Influenza A
Septic Shock
-Monitored in ICU, was intubated, on 10/15/23 extubated to nasal cannula
-Was on Levaquin for pneumonia outpatient
-Status post Cefepime
-MRSA neg empiric Vancomycin discontinued
-Now on Ceftriaxone; continue, planned for 14 days of abx 10/14/23-10/27/23
-Continue Tamiflu 75 BID x 5 days
-IVF support completed
-Follow blood and sputum cultures no significant growth to date
-Titrate FiO2 to maintain SpO2 >90-94%
-Low random cortisol in setting of septic shock: stress dose steroid tapered off as per Material Processor
-Downgraded to Tele 10/18/23
Dysphagia AMS
neurology eval appreciated AMS can take weeks to recover in Parkinsonian neurodegenerative disorder patients
on NGT tube feeds patient however self removed dobhoff 10/21
10/22 followup repeat speech VSE exam noted improvement
-patient able to swallow with reduce risk aspiration by using chin tuck strategy, concern however given patient's AMS that she would not be able to consistently perform this strategy on her own.
-IDDSI Level 4 (Puree), IDDSI Level 2 (Mildly Thick Liquids) with 1:1 supervision and direct assistance to lenny plunkett with every swallow. meds crushed in pureed
Hospitalist discussed with POA patient's friend Pat updated regarding patient's situation, risk of aspiration, potential benefit and risks of alternative means of nutrition such as PEG tube also discussed, in agreement with pursuing diet as above
for now, also re-confirmed patient's full code status, POA also endorsed that she would be willing to consent to PEG tube if necessary
Likely Oral thrush noted 10/23
Fluconazole treatment started 200 mg once followed by 100 mg daily planned for 7-14 days depending on clinical course
continue Fluconazole and oral care
Atrial Fibrillation with Rapid Ventricular Response with Associated Hypotension - status post successful urgent cardioversion with scientology of sinus rhythm
Tachycardia bradycardia syndrome
Probably Atrial tachycardia
Hypotension
Atrial Fibrillation - on Eliquis at home
-Cardioverted in the ER to NSR on October 14, 2023
-Continue Eliquis
-Digoxin resumed but at a lower dose of 0.125 mg daily
-Continue Lopressor 12.5 mg BID
-Midodrine 5 mg 3 times daily as needed, scheduled TID with holding parameters also started
Volume Overloaded
-improved with Lasix dosing IV 40 mg daily transitioned to PO as per Cardio
-Echocardiogram appreciated EF 55-60% severe atrial dilation, mod MR
-cardio eval appreciated
Seizure diagnosis in September 2023
History of Parkinsonism
-On home Keppra 1500 mg BID PO and Lacosamide 50 mg PO BID (Lacosamide reduced from home 100 mg PO BID due to bradycardia)
-Continue seizure medications convert to IV when unable to take oral
-neurology eval appreciated cont Sinemet 0.5 tab TID, EEG supportive toxic metabolic encephalopathy, avoid antipsychotics, cont current sz medications as above
-CT head appreciated no acute abn's
Possible Hyperthyroidism (ruled out) vs Sick Euthyroid syndrome (more likely)
-Endocrine eval appreciated
-Repeat Thyroid function tests since show resolution TSH T4 T3 wnl
Anxiety
intermittently anxious yelling/confused, since improved
ativan 0.25 mg IV q8Hprn
psych eval appreciated since signed off
Hypophosphatemia
-monitor and replete as necessary
Stage 2 left cheek pressure injury
-cont local wound care
Pulmonary hypertension
Restrictive lung disease/Interstitial Lung Disease on Chronic Oxygen - Duonebs changed to Atrovent + Xopenex given her tachycardia
Chronic respiratory failure
Obstructive sleep apnea
Non-alcoholic steatohepatitis
Gastroesophageal reflux disease - continue PPI
Chronic dysphagia - speech following - continue NPO
History of left lower extremity deep vein thrombosis (January 2023) - continue Eliquis
Hypertension
Diabetes mellitus - accuchecks and sliding scale insulin
Gout
Basal Cell Skin Cancer
Urinary retention
Osteoporosis
Ambulatory dysfunction
Anxiety
Morbid obesity
DVT PPx: Eliquis
GI ppx: prevacid
Code Status: Full Code
I spent a total of 56 minutes with the patient or on the floor. More than 50% of this time involved counseling and coordination of care.
Anticipated Discharge: 24 - 48 hours
Subjective/Interval History
-
Date of Service: October 25, 2023
no acute distress. Mental status continues to improve. Remains confused lethargic but easily aroused conversant.
Objective Data
-
Labs:
Laboratory Results
10/25/23
04:48
WBC 4.7 L
Hgb 9.8 L
Hct 30.7 L
Plt Count 141
Sodium 137
Potassium 3.8
Chloride 95 L
Carbon Dioxide 39 H
BUN 17
Creatinine 0.3 L
Glucose 78
Calcium 7.8 L
Vital Signs:
Vital Signs
Temp Pulse Resp BP Pulse Ox
98.0 F 75 14 102/62 98
10/25/23 03:00 10/25/23 03:00 10/25/23 03:00 10/25/23 03:00 10/25/23 03:00
I&O
10/24/23 10/25/23 10/26/23
06:59 06:59 06:59
Intake Total 300 / 300 360 / 360
Balance 300 / 300 360 / 360
[2023-10-25 07:45] LABS: Glucose - Point of Care 90 mg/dl (70-99)
[2023-10-25 08:00] VITALS: BP 119/69
[2023-10-25] MEDS: VENTOLIN NEBULES 2.5 MG INH ×3 (08:03→20:32)
[2023-10-25] MEDS: SODIUM CHLORIDE 3% FOR INHALATION 1 VIAL INH ×3 (08:03→20:32)
[2023-10-25] MEDS: NOVOLOG FLEXPEN-LOW RESISTANCE SC ×3 (08:22→16:56)
[2023-10-25] MEDS: PREVACID 30 MG PO (08:24)
[2023-10-25] MEDS: SENOKOT-S 2 TABLET PO (08:24)
[2023-10-25] MEDS: DESENEX/MITRAZOL/ZEASORB 1 APPLIC TOPICAL ×2 (08:24→20:51)
[2023-10-25] MEDS: LOPRESSOR 12.5 MG PO ×2 (08:25→20:50)
[2023-10-25] MEDS: VISBIOME 1 CAP PO (08:25)
[2023-10-25] MEDS: MIRALAX 17 GRAMS PO (08:25)
[2023-10-25] MEDS: SINEMET 25-100 0.5 TABLET PO ×3 (08:25→22:33)
[2023-10-25] MEDS: ELIQUIS 5 MG PO ×2 (08:25→20:50)
[2023-10-25] MEDS: DIFLUCAN 100 MG PO (08:26)
[2023-10-25] MEDS: LASIX 40 MG IV (08:26)
[2023-10-25] MEDS: VITAMIN B-12 1000 MCG PO (08:26)
[2023-10-25] MEDS: LIDOCAINE 4% PATCH 1 PATCH TOPICAL (08:26)
[2023-10-25 11:20] LABS: Glucose - Point of Care 89 mg/dl (70-99)
--- NOTE | 2023-10-25 11:58 | W.PN.CARDCBS ---
Today's Communication / Plan
-
Her weight continues to come down. Weight is similar to weight at the end of September 2023.
Transition to Lasix 40 mg p.o. daily.
Continue to monitor daily weights. Creatinine stable.
Rate controlled atrial fibrillation. Continue Lopressor and digoxin. Lopressor 12.5 mg twice daily started October 19 and digoxin 0.125 mg daily.
Digoxin level 0.7.
Continue Eliquis for stroke prophylaxis. Continue rate control strategy for now. Could consider amiodarone for more persistent atrial fibrillation.
Continue medical therapy of non-AL troponin 0.05 peak
Midodrine as needed to support blood pressure.
Impression / Plan
-
Family Physician:� Solomon Troy, DO
Test Lead: Dr. Solis, last seen in May 2020 in office
Impression:
Influenza A
Presented 10/14/2022 with unresponsiveness, hypoxia
Acute hypoxic respiratory failure requiring intubation 10/14/2023
Pneumonia
Fever
Atrial fibrillation with rapid ventricular response
Status post cardioversion in the ER 10/14/23
Tachybradycardia syndrome
Hypotension
Acute HFpEF
Non-AL troponin elevation
Paroxysmal atrial fibrillation
Chronic anticoagulation on Eliquis
VDRF (2009)
ILD/Restrictive lung disease/chronic respiratory failure/chronic O2
CHETNA
Seizure disorder (diagnosed September 2023)
Chronic Dysphagia on pureed diet
GERD
ESPARZA
Anxiety
History of left lower extremity deep vein thrombosis (January 2023)
Non-occlusive DVT L popliteal vein
Gout
Basal Cell Skin Cancer
Urinary retention Osteoporosis
Ambulatory dysfunction/bed-bound
Echo 04/03/2020: EF 55 to 60%, stage II DD. Mildly dilated RA. Mild MR, mild TR with PAP 50 mmHg
Echo 10/17/23: EF 55%, dilated atrium. Moderate MR, mild
Plan:
Her weight continues to come down. Weight is similar to weight at the end of September 2023.
Transition to Lasix 40 mg p.o. daily.
Continue to monitor daily weights. Creatinine stable.
Rate controlled atrial fibrillation. Continue Lopressor and digoxin. Lopressor 12.5 mg twice daily started October 19 and digoxin 0.125 mg daily.
Digoxin level 0.7.
Continue Eliquis for stroke prophylaxis. Continue rate control strategy for now. Could consider amiodarone for more persistent atrial fibrillation.
Continue medical therapy of non-AL troponin 0.05 peak
Midodrine as needed to support blood pressure.
Patient is a 77 y/o female with past medical history of seizure diagnosis in September 2023, paroxysmal atrial fibrillation on chronic anticoagulation with Eliquis, pulmonary hypertension, restrictive lung disease, chronic respiratory failure,
obstructive sleep apnea, non-alcoholic steatohepatitis, gastroesophageal reflux disease, chronic dysphagia, left lower extremity deep vein thrombosis (January 2023), hypertension, diabetes mellitus, gout, Basal Cell Skin Cancer, urinary retention,
osteoporosis, ambulatory dysfunction anxiety, and morbid obesity whom presented 10/14/2023 from [facility] with with unresponsiveness and hypoxia.�She apparently has been on Levaquin for the past few days for pneumonia. She required intubation
in emergency department upon arrival and is currently intubated and sedated. Chest x-ray concerning for left lower lobe pneumonia. She was noted to be in atrial fibrillation with rapid ventricular response associated with hypotension and
underwent successful cardioversion with cheondoism of sinus rhythm. Patient has continued to have evidence of tachybradycardia syndrome with PAF followed by bradycardia with heart rate in the 40s following cardioversion. Patient currently remains
hypotensive despite cheondoism of sinus rhythm.
Progress Note - Test Lead
Subjective
Date of Service: October 25, 2023
Patient seen and examined. No chest pain or shortness of breath.
Objective
Labs:
10/25/23 04:48
10/25/23 04:48
Labs
Hgb 9.8 g/dL (12.0-16.0) L 10/25/23 04:48
Hct 30.7 % (37.0-47.0) L 10/25/23 04:48
Plt Count 141 10^3/uL (130-400) 10/25/23 04:48
PT 24.8 Sec (11.4-14.6) H 10/14/23 10:51
INR 2.25 10/14/23 10:51
APTT 41.4 Sec (23.4-35.0) H 10/14/23 10:51
Sodium 137 mmol/L (135-145) 10/25/23 04:48
Potassium 3.8 mmol/L (3.5-5.1) 10/25/23 04:48
BUN 17 mg/dl (7-17) 10/25/23 04:48
Creatinine 0.3 mg/dL (0.6-1.0) L 10/25/23 04:48
Glucose 78 mg/dl (70-99) 10/25/23 04:48
Digoxin 0.7 ng/ml (0.8-2.0) L 10/25/23 04:48
Vital Signs and I&O:
Vital Signs
Temp Pulse Resp BP Pulse Ox
98.4 F 68 18 119/69 97
10/25/23 08:00 10/25/23 08:07 10/25/23 08:07 10/25/23 08:00 10/25/23 08:07
Vital Signs
Temp Pulse Resp BP Pulse Ox
98.4 F 68 18 119/69 97
10/25/23 08:00 10/25/23 08:07 10/25/23 08:07 10/25/23 08:00 10/25/23 08:07
Intake & Output
10/23/23 10/24/23 10/25/23 10/26/23
06:59 06:59 06:59 06:59
Intake Total 120 / 120 300 / 300 360 / 360
Balance 120 / 120 300 / 300 360 / 360
Physical Exam
Physical Exam
General: No acute distress, awake, cachectic.
Neck: Negative JVD
Heart: Irregular irregular, Negative S3 positive S1/S2, Negative S4, No murmur
Lungs: CTA b/l, negative wheezes/rales/rhonchi
Abd: Positive BS, NT/ND, neg rebound/rigidity/guarding
Ext: Negative cyanosis/clubbing/edema
Neuro: nonfocal
[2023-10-25 12:00] VITALS: BP 113/69
[2023-10-25] MEDS: LANOXIN IV (13:00)
--- NOTE | 2023-10-25 13:50 | W.PN.PUL3 ---
Today's Communication / Plan
-
Discontinue antibiotics after today
Continue aspiration precautions
Assess for home oxygen
Disposition efforts
Chest x-ray in the next 4 to 6 weeks as outpatient
Pulmonary follow-up recommendations left in chart
We will sign off. Please call with questions
Assessment
-
Assessment:��77-year-old F former tobacco smoker with PMHx of A-fib on digoxin and Eliquis, kyphosis with reported history of restrictive lung disease, chronic hypotension on midodrine, chronic respiratory failure, history of seizures with
parkinsonism diagnosed last month during hospitalization, and CHETNA who p/w unresponsiveness.� Patient found to be tachycardic, hypotensive, cardioverted in the ER and then developed tachybradycardia syndrome.� CXR was concerning for left lower lobe
pneumonia - of note patient was on Levaquin for the past few days for pneumonia which was diagnosed as an outpatient.� Patient transferred to the ICU for further care and critical care services consulted for additional management/recommendations.�
Chronic conditions COUNSELOR AID: Essential tremor, A-fib on Eliquis, CHF, COPD, former tobacco use disorder, sleep apnea, dyspepsia, history of UTI, gout, kyphosis, left femur fracture, DM type II, impaired vision, history of skin cancer, anxiety/depression,
left-sided DVT, osteoporosis, ambulatory dysfunction, chronic hypotension on midodrine
Impression:
#Acute respiratory failure with hypoxemia required mechanical ventilation on admission--> extubated 10/15/2023
#Left sided HAP
#Influenza A
CHRIS atelectasis on CXR 10-21
#Acute COPD exacerbation due to above with flu and bacterial superinfection
#Septic shock due to pneumonia - shock state now resolved
#Critical illness related corticosteroid insufficiency
#Elevated troponin - likely due to type II IN from demand ischemia - troponin peaked at 0.056 on 10/14/2023
#Tachy-katerine syndrome
#Primary hyperthyroidism vs euthyroid sick syndrome
#Moderate restrictive lung defect (T% predicted via PFT from 2015)
#Physical deconditioning with wheel chair bound status at baseline
Plan:
Patient appears to be comfortable, 97% on 1 L
Chest exam is clear, slightly decreased breath sounds left base
Chest x-ray with left pleuroparenchymal process
Patient has completed 10 days of antibiotics
Moving forward
Continue with aspiration precautions
Discontinue antibiotics after today
Speech therapy following-appreciate input-pur�ed diet with thickened liquids
Nebulizers as needed
Incentive spirometry and mucus clearing devices if able to
Cannot tolerate vest therapy
Follow chest x-ray as outpatient
Atrial fibrillation, rate controlled
Cardiology following-correspondence reviewed.
Diuresis as tolerated
Cultures reviewed
Continue antibiotics
Completed Tamiflu
Fluconazole for thrush
Neurology is following the patient-mixed toxic metabolic encephalopathy.
Seen by psychiatry as well.
DVT prophylaxis-the Eliquis
GI prophylaxis-on PPI.
Nutrition with aspiration precautions.
Early mobilization/physical therapy.
Disposition efforts
We will sign off. Please call with questions
Data:
CXR 10-15-2023:
Lines and tubes as described.
The endotracheal tube is low.
Bibasilar atelectasis persists.
CXR 10-14-2023:
Endotracheal tube is present with tip 2.2 cm above the [place].
Nasogastric or orogastric tube present with tip extending into the left upper quadrant, off the inferior to the radiograph.
Focal parenchymal airspace opacity within the left lower lung, which likely represents pneumonia.
PFT - 08/2016
FEV1/FVC: 61
FEV1: 1L (53%)
FVC: 1.64L (66%)
T% (2.78L)
VC: 66%
RV: 61%
DLco: 45%
VA: 85% (3.65L)
DLco/VA: 52%
Flow volume loop: Scooped expiratory limb and restricted
Subjective Data
-
Date of Service:
Date of Service: October 25, 2023
Chief Complaint: Pulmonary Follow Up and Dyspnea Follow Up
Subjective:
Patient examined earlier this morning. Sleeping comfortably, did not awaken during exam
Objective Data
Data Reviewed
Vital Signs / I&O / Oxygen:
Vital Signs
Temp Pulse Resp BP Pulse Ox
98.3 F 66 18 113/69 93
10/25/23 12:00 10/25/23 13:34 10/25/23 13:34 10/25/23 12:00 10/25/23 12:00
Intake and Output
10/24/23 10/25/23 10/26/23
06:59 06:59 06:59
Intake Total 300 / 300 360 / 360
Balance 300 / 300 360 / 360
SaO2 [CPAP/PSV] 99
SaO2 [A/C] 99
SaO2 93
Nasal Cannula flow liters per 2
minute
Physical Exam
General: Comfortable
HEENT: Normocephalic, Moist Mucous Membranes (n) and Other (DHT)
Cardiovascular: S1-S2, Regular Rhythm, Murmur (n) and Peripheral Edema (+2 pitting pedal edema)
Respiratory: Clear, Wheeze (negative), Crackles (negative), Non-Labored Respirations, Stridor (n) and Other (decreased sounds at L)
GI: Soft, Non Distended, Non Tender and Normal Bowel Sounds
Neurology: Other (lethargic sleeping)
Skin: Good Color, Cyanosis (n) and Jaundice (n)
Labs/Micro/Reports
Lab Data
10/25/23 04:48
10/25/23 04:48
[2023-10-25] MEDS: LANOXIN 125 MCG PO (14:18)
[2023-10-25 15:09] VITALS: BP 118/71
[2023-10-25 16:34] LABS: Glucose - Point of Care 128 mg/dl (70-99)
[2023-10-25 19:00] VITALS: BP 106/62
[2023-10-25] MEDS: KEPPRA 1500 MG PO (20:49)
[2023-10-25] MEDS: VIMPAT 50 MG PO (20:50)
[2023-10-25 21:42] LABS: Glucose - Point of Care 151 mg/dl (70-99)
[2023-10-25 22:31] VITALS: BP 108/67
[2023-10-25] MEDS: CARDURA 1 MG PO (22:32)
[2023-10-25] MEDS: NOVOLOG FLEXPEN-LOW RESISTANCE 1 UNITS SC (22:34)
[2023-10-25] MEDS: DEBROX EAR DROPS 4 DROP RIGHT EAR (22:35)
[2023-10-26 03:56] VITALS: BP 101/70
[2023-10-26 05:57] LABS: Hemoglobin 9.7 g/dL (12.0-16.0)
[2023-10-26 06:00] VITALS: BMI 33.6
[2023-10-26 07:20] VITALS: BP 106/58
--- NOTE | 2023-10-26 07:20 | W.PN.HOSP.TC ---
Today's Communication/Plan
-
cont diuresis as per cardio
monitor off abx
cont fluconazole
supervised feeds
wean O2 supplementation as tolerated
Supervised feeds
Speech therapy
Assessment / Plan
Assessment / Plan
Physical Exam
General: No Apparent Distress
HEENT: Normocephalic, white plaques noted on tongue suspect oral thrush appears to be improved
Respiratory: clear to auscultation b/l on 2 L nasal cannula oxygen
Cardiac: S1/S2 and Regular Rhythm
GI: Soft, Non Tender and Normal Bowel Sounds
Musculoskeletal: No Cyanosis, upper extremities noted swollen +2 pitting edema
Skin: Warm and Dry
Neuro: Lethargic but arousable conversant
Psych: confused but calm cooperative

Assessment/Plan
Acute Hypoxic Respiratory Failure
Acute Toxic Metabolic Encephalopathy
Left Lower Lobe Pneumonia (diagnosed and was being treated with antibiotics for pneumonia as an outpatient)
Suspected Sepsis Secondary to Pneumonia
Influenza A
Septic Shock
-Monitored in ICU, was intubated, on 10/15/23 extubated to nasal cannula
-Was on Levaquin for pneumonia outpatient
-MRSA neg empiric Vancomycin discontinued
-Empiric cefipimed converted to Ceftriaxone;
-completed total 12 days of abx 10/14/23-10/25/23
-Completed Tamiflu 75 BID x 5 days
-IVF support completed
-blood and sputum cultures no significant growth to date
-Low random cortisol in setting of septic shock: stress dose steroid tapered off as per [employer] Curer
-Downgraded to Tele 10/18/23
Dysphagia AMS
neurology eval appreciated AMS can take weeks to recover in Parkinsonian neurodegenerative disorder patients
on NGT tube feeds patient however self removed dobhoff 10/21
10/22 followup repeat speech VSE exam noted improvement
-patient able to swallow with reduce risk aspiration by using chin tuck strategy, concern however given patient's AMS that she would not be able to consistently perform this strategy on her own.
-IDDSI Level 4 (Puree), IDDSI Level 2 (Mildly Thick Liquids) with 1:1 supervision and direct assistance to tuck chin with every swallow. meds crushed in pureed
Hospitalist discussed with POA patient's friend Marina updated regarding patient's situation, risk of aspiration, potential benefit and risks of alternative means of nutrition such as PEG tube also discussed, in agreement with pursuing diet as above
for now, also re-confirmed patient's full code status, POA also endorsed that she would be willing to consent to PEG tube if necessary
Likely Oral thrush noted 10/23
Fluconazole treatment started 200 mg once followed by 100 mg daily planned for 7-14 days depending on clinical course
continue Fluconazole and oral care
Atrial Fibrillation with Rapid Ventricular Response with Associated Hypotension - status post successful urgent cardioversion with adventism of sinus rhythm
Tachycardia bradycardia syndrome
Probably Atrial tachycardia
Hypotension
Atrial Fibrillation - on Eliquis at home
-Cardioverted in the ER to NSR on October 14, 2023
-Continue Eliquis
-Digoxin resumed but at a lower dose of 0.125 mg daily
-Continue Lopressor 12.5 mg BID
-Midodrine prn
Volume Overloaded
-improved with Lasix dosing IV 40 mg daily [correction to prior documentation], cont as per Cardio
-Echocardiogram appreciated EF 55-60% severe atrial dilation, mod MR
-cardio eval appreciated
Seizure diagnosis in September 2023
Parkinsonian disorder also diagnosed Sep 2023
-On home Keppra 1500 mg BID PO and Lacosamide 50 mg PO BID (Lacosamide reduced from home 100 mg PO BID due to bradycardia)
-Continue seizure medications convert to IV when unable to take oral
-neurology eval appreciated cont Sinemet 0.5 tab TID, EEG supportive toxic metabolic encephalopathy, avoid antipsychotics, cont current sz medications as above
-CT head appreciated no acute abn's
Possible Hyperthyroidism (ruled out) vs Sick Euthyroid syndrome (more likely)
-Endocrine eval appreciated
-Repeat Thyroid function tests since show resolution TSH T4 T3 wnl
Anxiety
intermittently anxious yelling/confused, since improved
ativan 0.25 mg IV q8Hprn
psych eval appreciated since signed off
Hypophosphatemia
-monitor and replete as necessary
Stage 2 left cheek pressure injury
-cont local wound care
Pulmonary hypertension
Restrictive lung disease/Interstitial Lung Disease on Chronic Oxygen - Duonebs changed to Atrovent + Xopenex given her tachycardia
Chronic respiratory failure
Obstructive sleep apnea
Non-alcoholic steatohepatitis
Gastroesophageal reflux disease - continue PPI
Chronic dysphagia - speech following - continue NPO
History of left lower extremity deep vein thrombosis (January 2023) - continue Eliquis
Hypertension
Diabetes mellitus - accuchecks and sliding scale insulin
Gout
Basal Cell Skin Cancer
Urinary retention
Osteoporosis
Ambulatory dysfunction
Anxiety
Morbid obesity
DVT PPx: Eliquis
GI ppx: prevacid
Code Status: Full Code
I spent a total of 55 minutes with the patient or on the floor. More than 50% of this time involved counseling and coordination of care.
Anticipated Discharge: 24 - 48 hours
Subjective/Interval History
-
Date of Service: October 26, 2023
Seen and examined at bedside in no acute distress sitting up comfortably in bed. Alternating btwn 2L and room air throughout the day.
Objective Data
-
Labs:
Laboratory Results
10/26/23
05:17
Hgb 9.7 L
Hct 30.0 L
Vital Signs:
Vital Signs
Temp Pulse Resp BP Pulse Ox
99.0 F 95 16 101/70 97
10/26/23 03:56 10/26/23 03:56 10/26/23 03:56 10/26/23 03:56 10/26/23 03:56
I&O
10/25/23 10/26/23 10/27/23
06:59 06:59 06:59
Intake Total 360 / 360 720 / 720
Balance 360 / 360 720 / 720
[2023-10-26] MEDS: SODIUM CHLORIDE 3% FOR INHALATION 1 VIAL INH ×3 (07:31→21:02)
[2023-10-26] MEDS: VENTOLIN NEBULES 2.5 MG INH ×3 (07:32→21:02)
[2023-10-26 08:13] LABS: Glucose - Point of Care 100 mg/dl (70-99)
[2023-10-26] MEDS: NOVOLOG FLEXPEN-LOW RESISTANCE SC ×4 (08:28→22:21)
[2023-10-26] MEDS: PREVACID 30 MG PO (08:29)
[2023-10-26] MEDS: LOPRESSOR 12.5 MG PO ×2 (08:29→20:00)
[2023-10-26] MEDS: DIFLUCAN 100 MG PO (08:29)
[2023-10-26] MEDS: KEPPRA 1500 MG PO ×2 (08:29→19:56)
[2023-10-26 08:30] VITALS: BMI 33.6
[2023-10-26] MEDS: LIDOCAINE 4% PATCH 1 PATCH TOPICAL (08:30)
[2023-10-26] MEDS: SENOKOT-S 2 TABLET PO (08:30)
[2023-10-26] MEDS: ELIQUIS 5 MG PO ×2 (08:31→19:56)
[2023-10-26] MEDS: SINEMET 25-100 0.5 TABLET PO ×3 (08:31→22:20)
[2023-10-26] MEDS: VISBIOME 1 CAP PO (08:31)
[2023-10-26] MEDS: MIRALAX 17 GRAMS PO (08:32)
[2023-10-26] MEDS: LASIX 40 MG IV (08:32)
[2023-10-26] MEDS: VITAMIN B-12 1000 MCG PO (08:33)
[2023-10-26] MEDS: VIMPAT 50 MG PO ×2 (08:34→19:57)
[2023-10-26] MEDS: DESENEX/MITRAZOL/ZEASORB 1 APPLIC TOPICAL ×2 (08:35→19:57)
[2023-10-26 11:35] VITALS: BP 90/49
--- NOTE | 2023-10-26 12:20 | W.PN.CARDCBS ---
Today's Communication / Plan
-
Her weight continues to come down. Wt Oct 25 may have been inaccurate. Weights trend down close to weight at the end of September 2023.
Transition to Lasix 40 mg p.o. daily likely next 24 hours.
Continue to monitor daily weights. Creatinine stable. proBNP improved from 4040 to 1690 on October 20, 2023
Rate controlled atrial fibrillation. Continue Lopressor and digoxin. Lopressor 12.5 mg twice daily started October 19 and digoxin 0.125 mg daily.
Recent Digoxin level 0.7.
Continue Eliquis for stroke prophylaxis. Continue rate control strategy for now. Could consider amiodarone for more persistent atrial fibrillation.
Bp on the lower side Oct 26 but has been stable.
Continue medical therapy of non-DC troponin 0.05 peak
Midodrine as needed to support blood pressure.
Impression / Plan
-
Family Physician:� Solomon Troy, DO
Thread Trimmer: Dr. Solis, last seen in May 2020 in office
Impression:
Influenza A
Presented 10/14/2022 with unresponsiveness, hypoxia
Acute hypoxic respiratory failure requiring intubation 10/14/2023
Pneumonia
Fever
Atrial fibrillation with rapid ventricular response
Status post cardioversion in the ER 10/14/23
Tachybradycardia syndrome
Hypotension
Acute HFpEF
Non-DC troponin elevation
Paroxysmal atrial fibrillation
Chronic anticoagulation on Eliquis
VDRF (2009)
ILD/Restrictive lung disease/chronic respiratory failure/chronic O2
CHETNA
Seizure disorder (diagnosed September 2023)
Chronic Dysphagia on pureed diet
GERD
ESPARZA
Anxiety
History of left lower extremity deep vein thrombosis (January 2023)
Non-occlusive DVT L popliteal vein
Gout
Basal Cell Skin Cancer
Urinary retention Osteoporosis
Ambulatory dysfunction/bed-bound
Echo 04/03/2020: EF 55 to 60%, stage II DD. Mildly dilated RA. Mild MR, mild TR with PAP 50 mmHg
Echo 10/17/23: EF 55%, dilated atrium. Moderate MR, mild
Plan:
Her weight continues to come down. Wt Oct 24 may have been inaccurate. Weights trend down close to weight at the end of September 2023.
Transition to Lasix 40 mg p.o. daily likely next 24 hours.
Continue to monitor daily weights. Creatinine stable. proBNP improved from 4040 to 1690 on October 20, 2023
Rate controlled atrial fibrillation. Continue Lopressor and digoxin. Lopressor 12.5 mg twice daily started October 19 and digoxin 0.125 mg daily.
Recent Digoxin level 0.7.
Continue Eliquis for stroke prophylaxis. Continue rate control strategy for now. Could consider amiodarone for more persistent atrial fibrillation.
Bp on the lower side Oct 26 but has been stable.
Continue medical therapy of non-DC troponin 0.05 peak
Midodrine as needed to support blood pressure.
Patient is a 77 y/o female with past medical history of seizure diagnosis in September 2023, paroxysmal atrial fibrillation on chronic anticoagulation with Eliquis, pulmonary hypertension, restrictive lung disease, chronic respiratory failure,
obstructive sleep apnea, non-alcoholic steatohepatitis, gastroesophageal reflux disease, chronic dysphagia, left lower extremity deep vein thrombosis (January 2023), hypertension, diabetes mellitus, gout, Basal Cell Skin Cancer, urinary retention,
osteoporosis, ambulatory dysfunction anxiety, and morbid obesity whom [facility] with with unresponsiveness and hypoxia.�She apparently has been on Levaquin for the past few days for pneumonia. She required intubation
in emergency department upon arrival and is currently intubated and sedated. Chest x-ray concerning for left lower lobe pneumonia. She was noted to be in atrial fibrillation with rapid ventricular response associated with hypotension and
underwent successful cardioversion with sabianism of sinus rhythm. Patient has continued to have evidence of tachybradycardia syndrome with PAF followed by bradycardia with heart rate in the 40s following cardioversion. Patient currently remains
hypotensive despite sabianism of sinus rhythm.
Progress Note - Thread Trimmer
Subjective
Date of Service: October 26, 2023
Patient seen and examined. No chest pain or shortness of breath.
Objective
Labs:
10/26/23 05:17
10/25/23 04:48
Labs
Hgb 9.7 g/dL (12.0-16.0) L 10/26/23 05:17
Hct 30.0 % (37.0-47.0) L 10/26/23 05:17
Plt Count 141 10^3/uL (130-400) 10/25/23 04:48
PT 24.8 Sec (11.4-14.6) H 10/14/23 10:51
INR 2.25 10/14/23 10:51
APTT 41.4 Sec (23.4-35.0) H 10/14/23 10:51
Sodium 137 mmol/L (135-145) 10/25/23 04:48
Potassium 3.8 mmol/L (3.5-5.1) 10/25/23 04:48
BUN 17 mg/dl (7-17) 10/25/23 04:48
Creatinine 0.3 mg/dL (0.6-1.0) L 10/25/23 04:48
Glucose 78 mg/dl (70-99) 10/25/23 04:48
Digoxin 0.7 ng/ml (0.8-2.0) L 10/25/23 04:48
Vital Signs and I&O:
Vital Signs
Temp Pulse Resp BP Pulse Ox
98.3 F 91 16 106/58 90
10/26/23 07:20 10/26/23 07:36 10/26/23 07:36 10/26/23 07:20 10/26/23 11:36
Vital Signs
Temp Pulse Resp BP Pulse Ox
98.3 F 91 16 106/58 90
10/26/23 07:20 10/26/23 07:36 10/26/23 07:36 10/26/23 07:20 10/26/23 11:36
Intake & Output
10/24/23 10/25/23 10/26/23 10/27/23
06:59 06:59 06:59 06:59
Intake Total 300 / 300 360 / 360 720 / 720
Balance 300 / 300 360 / 360 720 / 720
Physical Exam
Physical Exam
General: No acute distress, agitated, awake and alert
Neck: Negative JVD
Heart: Irregular regular, Negative S3 positive S1/S2, Negative S4, No murmur
Lungs: CTA b/l, negative wheezes/rales/rhonchi
Abd: Positive BS, NT/ND, neg rebound/rigidity/guarding
Ext: Negative cyanosis/clubbing. Bilateral lower extremity edema/lymphedema
Neuro: nonfocal
[2023-10-26 12:25] LABS: Glucose - Point of Care 140 mg/dl (70-99)
[2023-10-26] MEDS: LANOXIN 125 MCG PO (13:29)
[2023-10-26 15:35] VITALS: BP 116/61
[2023-10-26 16:20] LABS: Glucose - Point of Care 156 mg/dl (70-99)
[2023-10-26 16:31] LABS: Glucose - Point of Care 141 mg/dl (70-99)
[2023-10-26 21:25] LABS: Glucose - Point of Care 147 mg/dl (70-99)
[2023-10-26 22:19] VITALS: BP 100/54
[2023-10-26] MEDS: CARDURA 1 MG PO (22:21)
[2023-10-26] MEDS: DEBROX EAR DROPS 4 DROP RIGHT EAR (22:21)
[2023-10-26] MEDS: MILK OF MAGNESIA 60 ML PO (22:22)
[2023-10-27 06:00] VITALS: BMI 33.4
[2023-10-27 07:00] VITALS: BP 98/54
[2023-10-27 07:16] LABS: Glucose - Point of Care 82 mg/dl (70-99)
[2023-10-27] MEDS: NOVOLOG FLEXPEN-LOW RESISTANCE SC ×4 (07:29→22:19)
[2023-10-27] MEDS: KEPPRA 1500 MG PO ×2 (07:30→19:45)
[2023-10-27] MEDS: VISBIOME 1 CAP PO (07:34)
[2023-10-27] MEDS: PREVACID 30 MG PO (07:35)
[2023-10-27] MEDS: SINEMET 25-100 0.5 TABLET PO ×3 (07:36→21:52)
[2023-10-27] MEDS: DIFLUCAN 100 MG PO (07:36)
[2023-10-27] MEDS: SENOKOT-S 2 TABLET PO (07:36)
[2023-10-27] MEDS: ELIQUIS 5 MG PO ×2 (07:37→19:45)
[2023-10-27] MEDS: VITAMIN B-12 1000 MCG PO (07:37)
[2023-10-27] MEDS: LOPRESSOR 12.5 MG PO (07:38)
[2023-10-27] MEDS: LASIX 40 MG IV (07:38)
[2023-10-27] MEDS: VIMPAT 50 MG PO ×2 (07:39→19:46)
[2023-10-27 07:40] VITALS: BMI 33.4
[2023-10-27] MEDS: LIDOCAINE 4% PATCH 1 PATCH TOPICAL (07:40)
[2023-10-27] MEDS: MIRALAX 17 GRAMS PO (07:41)
[2023-10-27] MEDS: DESENEX/MITRAZOL/ZEASORB 1 APPLIC TOPICAL ×2 (07:42→19:46)
[2023-10-27] MEDS: SODIUM CHLORIDE 3% FOR INHALATION 1 VIAL INH ×3 (08:07→20:32)
[2023-10-27] MEDS: VENTOLIN NEBULES 2.5 MG INH ×3 (08:07→20:32)
--- NOTE | 2023-10-27 08:46 | W.PN.HOSP.TC ---
Today's Communication/Plan
-
Please see below
Assessment / Plan
Assessment / Plan
Physical Exam
General: No Apparent Distress
HEENT: Normocephalic
Respiratory: clear to auscultation b/l on 2 L nasal cannula oxygen
Cardiac: S1/S2 and irregular Rhythm
GI: Soft, Non Tender and Normal Bowel Sounds
Musculoskeletal: No Cyanosis, upper extremities noted swollen +2 pitting edema
Skin: Warm and Dry
Neuro: Awake. Alert.
Psych: confused but calm cooperative

Assessment/Plan
Acute Hypoxic Respiratory Failure
Acute Toxic Metabolic Encephalopathy
Left Lower Lobe Pneumonia (diagnosed and was being treated with antibiotics for pneumonia as an outpatient)
Suspected Sepsis Secondary to Pneumonia
Influenza A
Septic Shock
-Monitored in ICU, was intubated, on 10/15/23 extubated to nasal cannula
-Was on Levaquin for pneumonia outpatient
-MRSA neg empiric Vancomycin discontinued
-Empiric cefipime converted to Ceftriaxone;
-completed total 12 days of abx 10/14/23-10/25/23
-Completed Tamiflu 75 BID x 5 days
-IVF support completed
-blood and sputum cultures no significant growth to date
-Low random cortisol in setting of septic shock: stress dose steroid tapered off as per [employer]
-Downgraded to Tele 10/18/23
-Orthostatic vital signs discontinued as patient's nurse says that patient is unable to get up out of bed
-Home oxygen assessment
Dysphagia AMS
neurology eval appreciated AMS can take weeks to recover in Parkinsonian neurodegenerative disorder patients
on NGT tube feeds patient however self removed dobhoff 10/21
10/22 followup repeat speech VSE exam noted improvement
-patient able to swallow with reduce risk aspiration by using chin tuck strategy, concern however given patient's AMS that she would not be able to consistently perform this strategy on her own.
-IDDSI Level 4 (Puree), IDDSI Level 2 (Mildly Thick Liquids) with 1:1 supervision and direct assistance to lenny plunkett with every swallow. meds crushed in pureed
Hospitalist discussed with POA patient's friend Pat updated regarding patient's situation, risk of aspiration, potential benefit and risks of alternative means of nutrition such as PEG tube also discussed, in agreement with pursuing diet as above
for now, also re-confirmed patient's full code status, POA also endorsed that she would be willing to consent to PEG tube if necessary
Likely Oral thrush noted 10/23
Fluconazole treatment started 200 mg once followed by 100 mg daily planned for 7-14 days depending on clinical course
continue Fluconazole and oral care
Atrial Fibrillation with Rapid Ventricular Response with Associated Hypotension - status post successful urgent cardioversion with buddhist of sinus rhythm
Tachycardia bradycardia syndrome
Probably Atrial tachycardia
Hypotension
Atrial Fibrillation - on Eliquis at home
-Cardioverted in the ER to NSR on October 14, 2023
-Continue Eliquis
-Digoxin resumed but at a lower dose of 0.125 mg daily
-Continue Lopressor 12.5 mg BID
-Midodrine prn
Volume Overloaded
-improved with Lasix dosing IV 40 mg daily [correction to prior documentation]
-Now switch to oral Lasix
-Echocardiogram appreciated EF 55-60% severe atrial dilation, mod MR
-cardio eval appreciated
Seizure diagnosis in September 2023
Parkinsonian disorder also diagnosed Sep 2023
-On home Keppra 1500 mg BID PO and Lacosamide 50 mg PO BID (Lacosamide reduced from home 100 mg PO BID due to bradycardia)
-Continue seizure medications convert to IV when unable to take oral
-neurology eval appreciated cont Sinemet 0.5 tab TID, EEG supportive toxic metabolic encephalopathy, avoid antipsychotics, cont current sz medications as above
-CT head appreciated no acute abn's
Possible Hyperthyroidism (ruled out) vs Sick Euthyroid syndrome (more likely)
-Endocrine eval appreciated
-Repeat Thyroid function tests since show resolution TSH T4 T3 wnl
Anxiety
intermittently anxious yelling/confused, since improved
ativan 0.25 mg IV q8Hprn
psych eval appreciated since signed off
Hypophosphatemia
-monitor and replete as necessary
Stage 2 left cheek pressure injury
-cont local wound care
Pulmonary hypertension
Restrictive lung disease/Interstitial Lung Disease on Chronic Oxygen - Duonebs changed to Atrovent + Xopenex given her tachycardia
Chronic respiratory failure
Obstructive sleep apnea
Non-alcoholic steatohepatitis
Gastroesophageal reflux disease - continue PPI
Chronic dysphagia - speech following - continue NPO
History of left lower extremity deep vein thrombosis (January 2023) - continue Eliquis
Hypertension
Diabetes mellitus - accuchecks and sliding scale insulin
Gout
Basal Cell Skin Cancer
Urinary retention
Osteoporosis
Ambulatory dysfunction
Anxiety
Morbid obesity
DVT PPx: Eliquis
GI ppx: prevacid
Code Status: Full Code
Anticipated Discharge: Within 24 hours
Subjective/Interval History
-
Date of Service: October 27, 2023
Patient was seen and examined, was a poor historian, did not appear in any distress.
Objective Data
-
Vital Signs:
Vital Signs
Temp Pulse Resp BP Pulse Ox
98.0 F 83 18 98/54 94
10/27/23 07:00 10/27/23 08:08 10/27/23 08:08 10/27/23 07:00 10/27/23 08:08
I&O
10/26/23 10/27/23 10/28/23
06:59 06:59 06:59
Intake Total 720 / 720 450 / 450
Output Total 350 / 350
Balance 720 / 720 100 / 100
[2023-10-27 11:08] LABS: Glucose - Point of Care 131 mg/dl (70-99)
--- NOTE | 2023-10-27 12:09 | W.PN.CARDCBS ---
Addendum entered and electronically signed by Wilbur Yates DO 10/27/23 13:00:
I saw and examined the patient.
The Edger Tailer's note was reviewed and I agree with the note.
Comment:
Plan:
Transition to oral Lasix.
Outpatient follow-up to be arranged.
Check BMP 1 week.
Continue Eliquis for stroke prophylaxis.
Stable from cardiac standpoint
Discussed with nursing.
Please recall if needed.
Original Note:
Today's Communication / Plan
-
Transition to oral Lasix 40 mg daily 10/28/2023
Stable for d/c back to [facility]
Check BMP 1 week as outpt
Outpatient cardiology follow up arranged
Impression / Plan
-
Family Physician:� Solomon Troy, DO
Program Consultant: Dr. Solis, last seen in May 2020 in office
Impression:
Influenza A
Presented 10/14/2022 with unresponsiveness, hypoxia
Acute hypoxic respiratory failure requiring intubation 10/14/2023
Pneumonia
Fever
Atrial fibrillation with rapid ventricular response
Status post cardioversion in the ER 10/14/23
Tachybradycardia syndrome
Hypotension
Acute HFpEF, proBNP 1690
Non-HI troponin elevation
Paroxysmal atrial fibrillation
Chronic anticoagulation on Eliquis
VDRF (2009)
ILD/Restrictive lung disease/chronic respiratory failure/chronic O2
CHETNA
Seizure disorder (diagnosed September 2023)
Chronic Dysphagia on pureed diet
GERD
ESPARZA
Anxiety
History of left lower extremity deep vein thrombosis (January 2023)
Non-occlusive DVT L popliteal vein
Gout
Basal Cell Skin Cancer
Urinary retention Osteoporosis
Ambulatory dysfunction/bed-bound
Echo 04/03/2020: EF 55 to 60%, stage II DD. Mildly dilated RA. Mild MR, mild TR with PAP 50 mmHg
Echo 10/17/23: EF 55%, dilated atrium. Moderate MR, mild
Plan:
Acute heart failure with preserved EF,
Her weight continues to come down. After discussion with [facility] dry weight around 170 lbs. Currently 165 lbs
Transition to Lasix 40 mg p.o. daily 10/28/2023
Continue to monitor daily weights. Creatinine stable. proBNP improved from 4040 to 1690 on October 20, 2023
Check BMP 1 week after d/c
Rate controlled atrial fibrillation. Continue Lopressor and digoxin. Lopressor 12.5 mg twice daily started October 19 and digoxin 0.125 mg daily.
Recent Digoxin level 0.7 (10/25/2023)
Continue Eliquis for stroke prophylaxis. Continue rate control strategy for now. Could consider amiodarone for more persistent atrial fibrillation.
Bp remains on the lower side but overall stable.
Continue medical therapy of non-ischemic myocardial injury 0.05 peaked. No chest pain
Midodrine as needed to support blood pressure. has not required
Patient is a 77 y/o female with past medical history of seizure diagnosis in September 2023, paroxysmal atrial fibrillation on chronic anticoagulation with Eliquis, pulmonary hypertension, restrictive lung disease, chronic respiratory failure,
obstructive sleep apnea, non-alcoholic steatohepatitis, gastroesophageal reflux disease, chronic dysphagia, left lower extremity deep vein thrombosis (January 2023), hypertension, diabetes mellitus, gout, Basal Cell Skin Cancer, urinary retention,
osteoporosis, ambulatory dysfunction anxiety, and morbid obesity whom presented 10/14/2023 from [facility] with with unresponsiveness and hypoxia.�She apparently has been on Levaquin for the past few days for pneumonia. She required intubation
in emergency department upon arrival and is currently intubated and sedated. Chest x-ray concerning for left lower lobe pneumonia. She was noted to be in atrial fibrillation with rapid ventricular response associated with hypotension and
underwent successful cardioversion with lutheran of sinus rhythm. Patient has continued to have evidence of tachybradycardia syndrome with PAF followed by bradycardia with heart rate in the 40s following cardioversion. Patient currently remains
hypotensive despite lutheran of sinus rhythm.
Progress Note - Program Consultant
Subjective
Date of Service: October 27, 2023
patient seen and examined. Feeling better, eager to go back to [facility]
Objective
Labs:
10/26/23 05:17
10/25/23 04:48
Labs
Hgb 9.7 g/dL (12.0-16.0) L 10/26/23 05:17
Hct 30.0 % (37.0-47.0) L 10/26/23 05:17
Plt Count 141 10^3/uL (130-400) 10/25/23 04:48
PT 24.8 Sec (11.4-14.6) H 10/14/23 10:51
INR 2.25 10/14/23 10:51
APTT 41.4 Sec (23.4-35.0) H 10/14/23 10:51
Sodium 137 mmol/L (135-145) 10/25/23 04:48
Potassium 3.8 mmol/L (3.5-5.1) 10/25/23 04:48
BUN 17 mg/dl (7-17) 10/25/23 04:48
Creatinine 0.3 mg/dL (0.6-1.0) L 10/25/23 04:48
Glucose 78 mg/dl (70-99) 10/25/23 04:48
Digoxin 0.7 ng/ml (0.8-2.0) L 10/25/23 04:48
Vital Signs and I&O:
Vital Signs
Temp Pulse Resp BP Pulse Ox
98.0 F 83 18 98/54 94
10/27/23 07:00 10/27/23 08:08 10/27/23 08:08 10/27/23 07:00 10/27/23 08:08
Vital Signs
Temp Pulse Resp BP Pulse Ox
98.0 F 83 18 98/54 94
10/27/23 07:00 10/27/23 08:08 10/27/23 08:08 10/27/23 07:00 10/27/23 08:08
Intake & Output
10/25/23 10/26/23 10/27/23 10/28/23
06:59 06:59 06:59 06:59
Intake Total 360 / 360 720 / 720 450 / 450
Output Total 350 / 350
Balance 360 / 360 720 / 720 100 / 100
Physical Exam
Physical Exam
GEN: No distress, awake, Ox3
HEENT: supple, anicteric, mmm
LUNGS: CTA, no wheezes/rales anteriorly; wearing oxygen 2 LPM
CV: irreg irreg, S1/S2, 1/6 syst murmur
ABD: soft, BS+, NT/ND
EXT: Bilateral chronic lymphedema
NEURO: Gross non-focal
SKIN: No rash, warm, dry, pink
[2023-10-27] MEDS: LANOXIN 125 MCG PO (12:12)
--- NOTE | 2023-10-27 13:27 | CM ---
Plan: back to [facility] when medically stable. (no auth required)
Ambulance transport will be required.
Daja Blas [facility]
Report# [phone]
[2023-10-27 15:00] VITALS: BP 112/61
[2023-10-27 16:35] LABS: Glucose - Point of Care 126 mg/dl (70-99)
[2023-10-27] MEDS: LOPRESSOR PO (20:40)
[2023-10-27 21:37] LABS: Glucose - Point of Care 124 mg/dl (70-99)
[2023-10-27] MEDS: DEBROX EAR DROPS 4 DROP RIGHT EAR (21:53)
[2023-10-27] MEDS: CARDURA 1 MG PO (21:53)
[2023-10-27 23:00] VITALS: BP 100/54
[2023-10-28 06:00] VITALS: BMI 33.5
[2023-10-28 07:00] VITALS: BP 113/68
[2023-10-28] MEDS: SODIUM CHLORIDE 3% FOR INHALATION 1 VIAL INH ×2 (07:47→14:08)
[2023-10-28] MEDS: VENTOLIN NEBULES 2.5 MG INH ×2 (07:48→14:08)
[2023-10-28] MEDS: NOVOLOG FLEXPEN-LOW RESISTANCE SC ×3 (07:58→16:57)
[2023-10-28] MEDS: DESENEX/MITRAZOL/ZEASORB 1 APPLIC TOPICAL (07:59)
[2023-10-28] MEDS: LASIX 40 MG PO (08:00)
[2023-10-28] MEDS: KEPPRA 1500 MG PO (08:00)
[2023-10-28] MEDS: SINEMET 25-100 0.5 TABLET PO ×2 (08:01→15:31)
[2023-10-28] MEDS: DIFLUCAN 100 MG PO (08:01)
[2023-10-28] MEDS: PREVACID 30 MG PO (08:01)
[2023-10-28] MEDS: SENOKOT-S 2 TABLET PO (08:03)
[2023-10-28] MEDS: VIMPAT 50 MG PO (08:03)
[2023-10-28] MEDS: VISBIOME 1 CAP PO (08:04)
[2023-10-28] MEDS: LOPRESSOR 12.5 MG PO (08:04)
[2023-10-28] MEDS: LIDOCAINE 4% PATCH 1 PATCH TOPICAL (08:04)
[2023-10-28] MEDS: VITAMIN B-12 1000 MCG PO (08:04)
[2023-10-28] MEDS: ELIQUIS 5 MG PO (08:05)
[2023-10-28] MEDS: MIRALAX 17 GRAMS PO (08:06)
[2023-10-28 08:08] LABS: Glucose - Point of Care 88 mg/dl (70-99)
[2023-10-28 09:05] LABS: % Basophils 0.5 % (0-2); % Eosinophils 1.8 % (0-6); % Immature Granulocytes 0.3 % (0-0.5); % Monocytes 11.6 % (1.7-9.3); % Neutrophils 56.8 % (42.2-75.2); Absolute Eosinophils 0.1 10^3/uL (0-0.7); Absolute Lymphocytes 1.7 10^3/uL (1.2-3.4); Absolute Monocytes 0.7 10^3/uL (0.1-0.6); Absolute Neutrophils 3.4 10^3/uL (1.4-6.5); Hematocrit 35.6 % (37.0-47.0); Hemoglobin 11.5 g/dL (12.0-16.0); Mean Corp Hgb Conc. 32.3 g/dL (33.0-37.0); Mean Corpuscular Hgb 34.5 pg (27.0-31.0); Mean Corpuscular Volume 106.9 fL (81.0-99.0); Mean Platelet Volume 10.6 fL (7.4-10.4); Nucleated Red Blood Cells % 0 %; Platelet Count 114 10^3/uL (130-400); Red Blood Cell Count 3.33 10^6/uL (4.20-5.40)
[2023-10-28 09:54] LABS: ALT (SGPT) 11 U/L (0-35); AST (SGOT) 23 U/L (14-36); Albumin 2.4 g/dl (3.5-5.0); Alkaline Phosphatase 100 U/L (38-126); Blood Urea Nitrogen 12 mg/dl (7-17); Calcium 8.3 mg/dl (8.4-10.2); Carbon Dioxide 39 mmol/L (22-30); Chloride 97 mmol/L (98-107); Estimated Creatinine Clearance 71 ml/min; Glucose 88 mg/dl (70-99); Magnesium 1.8 mg/dl (1.6-2.3); Phosphorus 3.3 mg/dl (2.5-4.5); Potassium 3.7 mmol/L (3.5-5.1); Sodium 138 mmol/L (135-145); Total Bilirubin 1.6 mg/dl (0.2-1.3); Total Protein 5.4 g/dl (6.3-8.2); eGFR > 60.00
[2023-10-28] MEDS: DULCOLAX 10 MG RECTAL (10:22)
[2023-10-28 11:43] LABS: Glucose - Point of Care 145 mg/dl (70-99)
[2023-10-28] MEDS: LANOXIN 125 MCG PO (12:14)
--- NOTE | 2023-10-28 15:10 | PTCARENOTE ---
report called to eduardo at [facility].
--- NOTE | 2023-10-28 15:20 | CM ---
Plan: back to [facility] today.
Curt form [facility] updated.
Patient had BM prior to d/c.
Ambulance transport forms completed.
IMM completed.
Daja Sandy [facility]
Report# [phone]
--- NOTE | 2023-10-28 16:13 | W.PN.HOSP.TC ---
Today's Communication/Plan
-
Discharge today
Assessment / Plan
Assessment / Plan
Physical Exam
General: No Apparent Distress
HEENT: Normocephalic
Respiratory: clear to auscultation b/l on 2 L nasal cannula oxygen
Cardiac: S1/S2 and irregular Rhythm
GI: Soft, Non Tender and Normal Bowel Sounds
Musculoskeletal: No Cyanosis, upper extremities noted swollen +2 pitting edema
Skin: Warm and Dry
Neuro: Awake. Alert.
Psych: confused but calm cooperative

Assessment/Plan
Acute Hypoxic Respiratory Failure
Acute Toxic Metabolic Encephalopathy
Left Lower Lobe Pneumonia (diagnosed and was being treated with antibiotics for pneumonia as an outpatient)
Suspected Sepsis Secondary to Pneumonia
Influenza A
Septic Shock
-Monitored in ICU, was intubated, on 10/15/23 extubated to nasal cannula
-Was on Levaquin for pneumonia outpatient
-MRSA neg empiric Vancomycin discontinued
-Empiric cefipime converted to Ceftriaxone;
-Completed total 12 days of antibiotics 10/14/23 to 10/25/23
-Completed Tamiflu 75 BID x 5 days
-IVF support completed
-blood and sputum cultures no significant growth to date
-Low random cortisol in setting of septic shock: stress dose steroid tapered off as per Quality Assurance Supervisor
-Downgraded to Tele 10/18/23
-Orthostatic vital signs discontinued as patient's nurse says that patient is unable to get up out of bed
-Home oxygen assessment
-Continue Aspiration precautions
-Chest x-ray in the next 4 to 6 weeks as outpatient
Dysphagia AMS
neurology eval appreciated AMS can take weeks to recover in Parkinsonian neurodegenerative disorder patients
on NGT tube feeds patient however self removed dobhoff 10/21
10/22 followup repeat speech VSE exam noted improvement
-patient able to swallow with reduce risk aspiration by using chin tuck strategy, concern however given patient's AMS that she would not be able to consistently perform this strategy on her own.
-IDDSI Level 4 (Puree), IDDSI Level 2 (Mildly Thick Liquids) with 1:1 supervision and direct assistance to tuck chin with every swallow. meds crushed in pureed
Hospitalist discussed with POA patient's friend Pat updated regarding patient's situation, risk of aspiration, potential benefit and risks of alternative means of nutrition such as PEG tube also discussed, in agreement with pursuing diet as above
for now, also re-confirmed patient's full code status, POA also endorsed that she would be willing to consent to PEG tube if necessary
Likely Oral thrush noted 10/23
Fluconazole treatment started 200 mg once followed by 100 mg daily planned for 7-14 days depending on clinical course
continue Fluconazole and oral care
Atrial Fibrillation with Rapid Ventricular Response with Associated Hypotension - status post successful urgent cardioversion with jewish of sinus rhythm
Tachycardia bradycardia syndrome
Probably Atrial tachycardia
Hypotension
Atrial Fibrillation - on Eliquis at home
-Cardioverted in the ER to NSR on October 14, 2023
-Continue Eliquis
-Digoxin resumed but at a lower dose of 0.125 mg daily
-Continue Lopressor 12.5 mg BID
-Midodrine prn
Acute heart failure with preserved ejection fraction
Volume Overloaded
-Improved with Lasix dosing IV 40 mg daily [correction to prior documentation]
-Continue PO Lasix 40 mg daily
-Check BMP in 1 week
-Echocardiogram appreciated EF 55-60% severe atrial dilation, mod MR
-Cardio evaluation appreciated
Seizure diagnosis in September 2023
Parkinsonian disorder also diagnosed Sep 2023
-Continue home Keppra 1500 mg BID PO, and Lacosamide 50 mg PO BID (Lacosamide reduced from home 100 mg PO BID due to bradycardia)
-Continue seizure medications convert to IV when unable to take oral
-neurology eval appreciated cont Sinemet 0.5 tab TID, EEG supportive toxic metabolic encephalopathy, avoid antipsychotics, cont current sz medications as above
-CT head appreciated no acute abn's
Possible Hyperthyroidism (ruled out) vs Sick Euthyroid syndrome (more likely)
-Endocrine eval appreciated
-Repeat Thyroid function tests since show resolution TSH T4 T3 wnl
Anxiety
intermittently anxious yelling/confused, since improved
ativan 0.25 mg IV q8Hprn
psych eval appreciated since signed off
Hypophosphatemia
-monitor and replete as necessary
Stage 2 left cheek pressure injury
-cont local wound care
Thrombocytopenia
-Follow-up CBC outpatient
Pulmonary hypertension
Restrictive lung disease/Interstitial Lung Disease on Chronic Oxygen - Duonebs changed to Atrovent + Xopenex given her tachycardia
Chronic respiratory failure
Obstructive sleep apnea
Non-alcoholic steatohepatitis
Gastroesophageal reflux disease - continue PPI
Chronic dysphagia - speech following - diet recommendations above
History of left lower extremity deep vein thrombosis (January 2023) - continue Eliquis
Hypertension
Diabetes mellitus - accuchecks and sliding scale insulin
Gout
Basal Cell Skin Cancer
Urinary retention
Osteoporosis
Ambulatory dysfunction
Anxiety
Morbid obesity
DVT PPx: Eliquis
GI ppx: prevacid
Code Status: Full Code
More than 30 minutes spent in discharge including
Final examination of the patient
Summarizing hospital stay
Instructions for continuing care to all relevant caregivers
Preparation of discharge records, prescriptions, and referral forms
Total time spent (in minutes): 42
Anticipated Discharge: Today
Subjective/Interval History
-
Date of Service: October 28, 2023
Patient was seen and examined. No new symptoms reported, patient really wants to be discharged, and per nurse, patient had a bowel movement today.
Objective Data
-
Labs:
Laboratory Results
10/28/23
08:55
WBC 6.0
Hgb 11.5 L
Hct 35.6 L
Plt Count 114 L
Sodium 138
Potassium 3.7
Chloride 97 L
Carbon Dioxide 39 H
BUN 12
Creatinine 0.2 L
Glucose 88
Calcium 8.3 L
Total Bilirubin 1.6 H
AST 23
ALT 11
Alkaline Phosphatase 100
Vital Signs:
Vital Signs
Temp Pulse Resp BP Pulse Ox
97.6 F 87 16 113/68 100
10/28/23 07:00 10/28/23 14:09 10/28/23 14:09 10/28/23 08:04 10/28/23 14:09
I&O
10/27/23 10/28/23 10/29/23
06:59 06:59 06:59
Intake Total 450 / 450 360 / 360
Output Total 350 / 350
Balance 100 / 100 360 / 360
[2023-10-28 16:53] LABS: Glucose - Point of Care 100 mg/dl (70-99)
--- NOTE | 2023-10-28 17:33 | W.DS.TRANS ---
DC Summary - [employer] Man
-
Discharge Instructions:
Sleep Apnea Risk Intermediate
Discharge Diagnosis/Procedures Acute Hypoxic Respiratory Failure
Acute Toxic Metabolic Encephalopathy
Left Lower Lobe Pneumonia (diagnosed and was
being treated with antibiotics for pneumonia as
an outpatient)
Suspected Sepsis Secondary to Pneumonia
Influenza A
Septic Shock
Dysphagia
Acute Encephalopathy
Likely Oral thrush
Atrial Fibrillation with Rapid Ventricular
Response with Associated Hypotension - status
post successful urgent cardioversion with
hinduism of sinus rhythm
Tachycardia bradycardia syndrome
Probably Atrial tachycardia
Hypotension
Atrial Fibrillation
Acute heart failure with preserved ejection
fraction
Volume Overloaded
Seizure diagnosis in September 2023
Parkinsonian disorder also diagnosed September
2023
Possible Hyperthyroidism (ruled out) vs Sick
Euthyroid syndrome (more likely)
Anxiety
Hypophosphatemia
Stage 2 left cheek pressure injury
Thrombocytopenia
Pulmonary hypertension
Restrictive lung disease/Interstitial Lung
Disease on Chronic Oxygen
Chronic respiratory failure
Obstructive sleep apnea
Non-alcoholic steatohepatitis
Gastroesophageal reflux disease
Chronic dysphagia
History of left lower extremity deep vein
thrombosis (January 2023)
Hypertension
Diabetes mellitus
Gout
Basal Cell Skin Cancer
Urinary retention
Osteoporosis
Ambulatory dysfunction
Anxiety
Morbid obesity
Diet Other diet
Additional Diets DIET: IDDSI Level 4 (Puree), IDDSI Level 2 (
Mildly Thick Liquids) with 1:1 supervision and
direct assistance to lenny plunkett with every
swallow; medications crushed in pureed
Activity As tolerated
Driving Restrictions No driving
Blood Work BMP 1 week
Other Services PT,OT
Specialty Instructions Weigh Daily
Instructions:
Stand-Alone Forms:
Changes to Home Medications: Yes
Discharge Medications:
DC Medications w/original date entered in [employer]
cyanocobalamin (vitamin B-12) 1,000 mcg tablet 1,000 mcg PO DAILY Supplement 01/20/23
lidocaine 4 % topical patch 1 patch topical DAILY lower back 01/20/23
pantoprazole 40 mg granules delayed-release for susp in packet (Protonix) 20 mg PO HS Gastrointestinal issue 01/20/23
polyethylene glycol 3350 17 gram oral powder packet 17 grams PO DAILY Constipation #0 ea 01/23/23
cranberry fruit 450 mg tablet (cranberry) 425 mg PO DAILY UTI prophylaxis 02/20/23
sennosides 8.6 mg-docusate sodium 50 mg tablet (Senna Plus) 2 tab PO DAILY Constipation 02/20/23
benzocaine 6 mg-menthol 10 mg lozenges (Chloraseptic Sore Throat) 1 brianda mucous membrane Q4HPRN PRN cough/sore throat 09/17/23
carbamide peroxide 6.5 % ear drops (Debrox) 4 drp RIGHT EAR HS x 30 days starting 10/08/23 09/17/23
carboxymethylcellulose 0.5 %-glycerin 0.9 % eye drops (Refresh Optive) 1 drp BOTH EYES BID Eye Condition 09/17/23
phenylephrine 0.25 %-cocoa butter 88.44 % rectal suppository 1 supp [place] DAILYPRN PRN hemorrhoids 09/17/23
selenium sulfide 1 % shampoo (Anti-Dandruff) 1 applic topical MOTH scalp 09/17/23
Probiotic 250 mg PO DAILY GI health 10/14/23
apixaban 5 mg tablet (Eliquis) 5 mg PO BID Blood Clot Prevention/Tx 10/14/23
bisacodyl 10 mg rectal suppository 10 mg NJ DAILY PRN every 3 days if no BM and MOM and/or lactulose ine 10/14/23
carbidopa 25 mg-levodopa 100 mg tablet 0.5 tab PO TID parkinson's disease 10/14/23
dextromethorphan-guaifenesin 10 mg-100 mg/5 mL oral liquid (Tussin DM) 10 ml PO Q4H PRN cough/congestion 10/14/23
levetiracetam 500 mg/5 mL (5 mL) oral solution 1,500 mg PO BID seizure 10/14/23
magnesium hydroxide 400 mg/5 mL oral suspension (Milk of Magnesia) 60 ml PO HS PRN constipation 10/14/23
midodrine 5 mg tablet 5 mg PO Q8HPRN PRN SBP<90 10/14/23
albuterol sulfate 2.5 mg/3 mL (0.083 %) solution for nebulization 2.5 mg (3 mL) inhalation R Q4HPRN PRN SOB, COUGH, WHEEZE #75 mL 10/28/23
albuterol sulfate 2.5 mg/3 mL (0.083 %) solution for nebulization 2.5 mg (3 mL) inhalation R TID #75 mL 10/28/23
digoxin 125 mcg (0.125 mg) tablet 125 mcg PO NOON #60 tabs 10/28/23
doxazosin 1 mg tablet 1 mg PO HS #30 tabs 10/28/23
fluconazole 100 mg tablet 100 mg PO DAILY 9 days #9 tabs 10/28/23
furosemide 40 mg tablet 40 mg PO DAILY #30 tabs 10/28/23
lacosamide 50 mg tablet 50 mg PO BID #60 tabs 10/28/23
lansoprazole 30 mg delayed release,disintegrating tablet 30 mg PO DAILY #30 tabs 10/28/23
metoprolol tartrate 25 mg tablet 12.5 mg PO BID #60 tabs 10/28/23
miconazole nitrate 2 % topical powder (Miconazorb AF) 1 applic topical BID #85 grams 10/28/23
sodium chloride 3 % for nebulization (NebuSal) 4 ml inhalation R TID #120 mL 10/28/23
Home Medication Changes
Lacosamide decreased from 100 mg BID to 50 mg BID
Furosemide changed to 40 mg daily scheduled
Digoxin dose reduced
Lopressor is new and Toprol XL has been discontinued
Fluconazole is a new medication
Pending Results: No
Total time spent discharging patient (in min): 42
--- NOTE | 2023-10-31 09:51 | W.DCSUMMARY ---
Discharge Summary
Discharge Data
Date of Admission: 10/14/23
Date of Discharge: 10/28/23
Total time spent discharging patient (in min): 42
-
Pending Results: No
Hospital Course
77 y/o female with past medical history of seizure diagnosis in September 2023, atrial fibrillation on Eliquis at home, pulmonary hypertension, restrictive lung disease, chronic respiratory failure, obstructive sleep apnea, non-alcoholic
steatohepatitis, gastroesophageal reflux disease, chronic dysphagia, History of left lower extremity deep vein thrombosis (January 2023), hypertension, diabetes mellitus, gout, Basal Cell Skin Cancer, urinary retention, osteoporosis, ambulatory
dysfunction anxiety, and morbid obesity presented from [facility] with unresponsiveness and hypoxia. Patient was intubated and sedated at the time of patient encounter. Patient was on Levaquin outpatient for pneumonia. Patient was also recently
hospitalized for a new-onset seizure.
Patient was admitted to the ICU and started on broad spectrum antibiotics for pneumonia. Patient was started on Tamiflu for Influenza A. Patient was also started on vasopressors. Patient also had atrial fibrillation with rapid ventricular response
and cardioverted to normal sinus rhythm. Cardiology was consulted, and patient's intermitted bradycardia was noted, and they mentioned that need to be careful about treating tachycardia as this may worsen bradycardia when she converts to sinus
rhythm. Patient was extubated to nasal cannula oxygen on 10/15/23. Patient's Lacosamide was reduced to 50 mg BID due to bradycardia. Patient was given stress dose steroids. Patient's Digoxin was held as it was thought that it may be provoking
episodes of bradycardia - later Digoxin was resumed. Patient was placed on tube feeds by Dobhoff tube as she could not safely swallow. Patient was given some Lasix for fluid overload. Patient had an echocardiogram done (please see separate
echocardiogram report for further details).
Endocrinology was consulted and recommended not starting methimazole at this point but her levels should be rechecked in one week with a TSH, total T4, and total T3. If her TSH stays <0.1, then would consider starting a small dose of methimazole
given her history of atrial fibrillation. Patient was started on Midodrine.
Psychiatry was consulted for encephalopathy and anxiety and recommended continuing prn Ativan. Neurology was also consulted and recommended continuing patient's levetiracetam at 1500 mg twice daily and lacosamide at 50 mg twice daily, keeping the
same dose of Carbidopa/Levodopa, avoid antipsychotic medications (especially first generation) and minimizing sedating medications.
Patient self-removed her Dobhoff tube on 10/21/23. Patient was able to be started as per speech on 'IDDSI Level 4 (Puree), IDDSI Level 2 (Mildly Thick Liquids) with 1:1 supervision and direct assistance to tuck chin with every swallow. meds crushed
in pureed.' Fluconazole was started for oral thrush.
Discharge Plan
-
Patient Disposition: Long-Term/SNF
Discharge Diagnosis/Procedures: Acute Hypoxic Respiratory Failure
Acute Toxic Metabolic Encephalopathy
Left Lower Lobe Pneumonia (diagnosed and was being treated with antibiotics for pneumonia as an outpatient)
Suspected Sepsis Secondary to Pneumonia
Influenza A
Septic Shock
Dysphagia
Acute Encephalopathy
Likely Oral thrush
Atrial Fibrillation with Rapid Ventricular Response with Associated Hypotension - status post successful urgent cardioversion with yarsani of sinus rhythm
Tachycardia bradycardia syndrome
Probably Atrial tachycardia
Hypotension
Atrial Fibrillation
Acute heart failure with preserved ejection fraction
Volume Overloaded
Seizure diagnosis in September 2023
Parkinsonian disorder also diagnosed September 2023
Possible Hyperthyroidism (ruled out) vs Sick Euthyroid syndrome (more likely)
Anxiety
Hypophosphatemia
Stage 2 left cheek pressure injury
Thrombocytopenia
Pulmonary hypertension
Restrictive lung disease/Interstitial Lung Disease on Chronic Oxygen
Chronic respiratory failure
Obstructive sleep apnea
Non-alcoholic steatohepatitis
Gastroesophageal reflux disease
Chronic dysphagia
History of left lower extremity deep vein thrombosis (January 2023)
Hypertension
Diabetes mellitus
Gout
Basal Cell Skin Cancer
Urinary retention
Osteoporosis
Ambulatory dysfunction
Anxiety
Morbid obesity
Diet: Other diet
Additional Diets: DIET: IDDSI Level 4 (Puree), IDDSI Level 2 (Mildly Thick Liquids) with 1:1 supervision and direct assistance to lenny chin with every swallow; medications crushed in pureed
Activity: As tolerated
Driving Restrictions: No driving
Blood Work: BMP 1 week
Other Services: PT and OT
Specialty Instructions: Weigh Daily- Call MD for wt gain/loss 3 lbs overnight/5 lbs in 1 week
Activity Restrictions/Additional Instructions:
NEED TO CHECK ELECTROCARDIOGRAM BY 10/29/23 TO MAKE SURE QTc IS NOT PROLONGED PATIENT IS ON FLUCONAZOLE
air mattress
elevate heels off bed with pillows.
miconazole powder and zinc barrier ointment to liz/groin skin bid.
Referrals:
Patrica Bocanegra MD [Active] -
(Overdue for Pulm f/u
Needs appt 3-4 wks post dc (FLIGHT ENGINEER INSTRUCTOR or Daljit)
This may be dependent on transport, ([facility] Resident))
Ruby Millan PA-C [Specified Professional Personl] - 11/05/23 3:00 pm (You have a follow up visit with Dr. Solis's PARuby, in [address] in the [facility] office which is located behind the hospital. If you are unable to make this please
call [phone] to reschedule)
Solomon Troy DO [Family Provider] -
Prescriptions:
New
lacosamide 50 mg Tablet
50 mg PO BID Qty: 60 3RF
furosemide 40 mg Tablet
40 mg PO DAILY Qty: 30 1RF
digoxin 125 mcg (0.125 mg) Tablet
125 mcg PO NOON Qty: 60 1RF
albuterol sulfate 2.5 mg /3 mL (0.083 %) Solution For Nebulization
2.5 mg inhalation R Q4HPRN PRN (Reason: SOB, COUGH, WHEEZE) Qty: 75 0RF
albuterol sulfate 2.5 mg /3 mL (0.083 %) Solution For Nebulization
2.5 mg inhalation R TID Qty: 75 0RF
sodium chloride [NebuSal] 3 % Solution For Nebulization
4 ml inhalation R TID Qty: 120 0RF
lansoprazole 30 mg Tablet,Disintegrat, Delay Rel
30 mg PO DAILY Qty: 30 0RF
metoprolol tartrate 25 mg Tablet
12.5 mg PO BID Qty: 60 1RF
fluconazole 100 mg Tablet
100 mg PO DAILY 9 Days Qty: 9 0RF
miconazole nitrate [Miconazorb AF] 2 % Powder
1 applic topical BID Qty: 85 0RF
doxazosin 1 mg Tablet
1 mg PO HS Qty: 30 1RF
Continued
lidocaine 4 % Adhesive Patch,Medicated
1 patch TOPICAL DAILY
pantoprazole [Protonix] [address] For Susp In Packet
20 mg PO HS
Rx Instructions:
2mg/ml - administer 10ml at 2030
cyanocobalamin (vitamin B-12) 1,000 MCG tablet
1,000 mcg PO DAILY
polyethylene glycol 3350 17 GRAMS powder in packet
17 grams PO DAILY Qty: 0 0RF
sennosides-docusate sodium [Senna Plus] 8.6-50 mg Tablet
2 tab PO DAILY
Anti-Dandruff 1 % Shampoo
1 applic TOPICAL MOTH
Debrox 6.5 % Drops
4 drp RIGHT EAR HS
Chloraseptic Sore Throat 6-10 mg Lozenge
1 brianda MUCOUS MEMBRANE Q4HPRN PRN (Reason: cough/sore throat )
Refresh Optive 0.5-0.9 % Drops
1 drp BOTH EYES BID
phenylephrine-cocoa butter 0.25-88.44 % Suppository
1 supp [place] DAILYPRN PRN (Reason: hemorrhoids)
bisacodyl 10 mg Suppository
10 mg WI DAILY PRN (Reason: every 3 days if no BM and MOM and/or lactulose ine)
magnesium hydroxide [Milk of Magnesia] 400 mg/5 mL Suspension
60 ml PO HS PRN (Reason: constipation )
Probiotic
250 mg PO DAILY
midodrine 5 mg tablet
5 mg PO Q8HPRN PRN (Reason: SBP<90)
carbidopa-levodopa 25-100 mg tablet
0.5 tab PO TID MDD give at 0830, 1230, 1730
Eliquis 5 mg tablet
5 mg PO BID
dextromethorphan-guaifenesin [Tussin DM] 10-100 mg/5 mL Liquid
10 ml PO Q4H PRN (Reason: cough/congestion )
levetiracetam 500 mg/5 mL (5 mL) solution
1,500 mg PO BID
Held
cranberry 450 mg Tablet
425 mg PO DAILY
Hold Instructions: Resume on 11/05/23. Restart only if okay with outpatient physician.
Discontinued
acetaminophen 325 MG tablet
650 mg PO Q4HPRN PRN (Reason: mild pain, fever>100.4F)
metoprolol succinate [Toprol XL] 25 mg Tablet Extended Release 24 Hr
25 mg PO DAILY MDD hold for pulse<60
Rx Instructions:
Hold if pulse is <60
digoxin [Digitek] 0.25 MG tablet
0.25 mg PO HS MDD hold for pulse<60
tamsulosin [Flomax] 0.4 mg capsule
0.4 mg PO HS Qty: 30 0RF
furosemide [Lasix] 40 MG tablet
40 mg PO DAILY PRN (Reason: Fluid retention/Swelling) Qty: 0 0RF
ipratropium-albuterol 0.5 mg-3 mg(2.5 mg base)/3 mL solution for nebulization
3 ml INHALATION BID MDD from 2/4 thru 10/14/23
oseltamivir [Tamiflu] 75 mg Capsule
75 mg PO DAILY MDD give from 10/12 thru 10/22/23
ipratropium-albuterol 0.5 mg-3 mg(2.5 mg base)/3 mL solution for nebulization
3 ml INHALATION Q4H PRN (Reason: cough )
lacosamide 100 mg tablet
100 mg PO BID
Discharge Orders:
Discharge Patient (As Directed); Ordered 10/28/23
Ordered By: Shailesh Hutchinson
Discharge Date and Time
Discharge Date/Time: 10/28/23 17:43
== END 2023-10-28 17:43 | DRG 208 ==
LOC: 4 WEST ACU 09:33
PROVIDERS: Internal Medicine; Internal Medicine Cardiovascular Disease; Nurse Practitioner Family; Nurse Practitioner Primary Care; ADMITTING PHYSICIAN Hospitalist; CONSULT PHYSICIAN Internal Medicine Cardiovascular Disease; CONSULT PHYSICIAN Internal Medicine Critical Care Medicine; CONSULT PHYSICIAN Internal Medicine Endocrinology, Diabetes & Metabolism; CONSULT PHYSICIAN Student in an Organized Health Care Education/Training Program; EMERGENCY PHYSICIAN Emergency Medicine; FAMILY PHYSICIAN Student in an Organized Health Care Education/Training Program; OTHER PHYSICIAN Psychiatry & Neurology Psychiatry
PROC: 5A1945Z Respiratory Ventilation, 24-96 Consecutive Hours (ICD-10-PCS; 2023-10-14)
PROC: 0BH17EZ Insertion of Endotracheal Airway into Trachea, Via Natural or Artificial Opening (ICD-10-PCS; 2023-10-14)
PROC: 03HY32Z Insertion of Monitoring Device into Upper Artery, Percutaneous Approach (ICD-10-PCS; 2023-10-14)
DX: J96.21 Acute and chronic respiratory failure with hypoxia (principal); A41.89 Other specified sepsis; G92.8 Other toxic encephalopathy; R65.21 Severe sepsis with septic shock; J10.00 Influenza due to other identified influenza virus with unspecified type of pneumonia; I50.31 Acute diastolic (congestive) heart failure; G40.109 Localization-related (focal) (partial) symptomatic epilepsy and epileptic syndromes with simple partial seizures, not intractable, without status epilepticus; J84.9 Interstitial pulmonary disease, unspecified; J44.1 Chronic obstructive pulmonary disease with (acute) exacerbation; J44.0 Chronic obstructive pulmonary disease with (acute) lower respiratory infection; B37.0 Candidal stomatitis; I27.20 Pulmonary hypertension, unspecified; I48.0 Paroxysmal atrial fibrillation; G47.33 Obstructive sleep apnea (adult) (pediatric); K75.81 Nonalcoholic steatohepatitis (NASH); K21.9 Gastro-esophageal reflux disease without esophagitis; R13.10 Dysphagia, unspecified; M10.9 Gout, unspecified; M81.0 Age-related osteoporosis without current pathological fracture; E66.01 Morbid (severe) obesity due to excess calories; F41.9 Anxiety disorder, unspecified; E11.9 Type 2 diabetes mellitus without complications; J98.4 Other disorders of lung; R33.9 Retention of urine, unspecified; I49.5 Sick sinus syndrome; I95.89 Other hypotension; M40.209 Unspecified kyphosis, site unspecified; F32.A Depression, unspecified; E05.90 Thyrotoxicosis, unspecified without thyrotoxic crisis or storm; G20.A1 Parkinson's disease without dyskinesia, without mention of fluctuations; I11.0 Hypertensive heart disease with heart failure; E83.39 Other disorders of phosphorus metabolism; L89.892 Pressure ulcer of other site, stage 2; D69.59 Other secondary thrombocytopenia; R77.8 Other specified abnormalities of plasma proteins; Z68.33 Body mass index [BMI] 33.0-33.9, adult; Z74.01 Bed confinement status; Z79.01 Long term (current) use of anticoagulants; Z79.899 Other long term (current) drug therapy; Z86.718 Personal history of other venous thrombosis and embolism; Z87.891 Personal history of nicotine dependence; Z99.3 Dependence on wheelchair; Z99.81 Dependence on supplemental oxygen
CPT/HCPCS: 70450; 71045; 74018; 74230; 80048; 80053; 80162; 81003; 81015; 82330; 82533; 82607; 82805; 82962; 83036; 83540; 83550; 83605; 83735; 83880; 84100; 84132; 84302; 84436; 84439; 84443; 84478; 84481; 84484; 85014; 85018; 85025; 85027; 85610; 85730; 87040; 87070; 87205; 87324; 87449; 87502; 87641; 87899; 92526; 92610; 92611; 93005; 93306; 94002; 94003; 94640; 94669; 95816; 96361; 96365; 96367; 99152; 99291; C9254; J1160

== ENCOUNTER → 2023-11-04 11:09 | Outpatient (REF) | payer OTHER, MEDICARE, SELFPAY ==
[2023-11-04 11:36] LABS: Blood Urea Nitrogen 11 mg/dl (7-17); Calcium 7.9 mg/dl (8.4-10.2); Chloride 95 mmol/L (98-107); Glucose 76 mg/dl (70-99); Potassium 3.4 mmol/L (3.5-5.1); Sodium 137 mmol/L (135-145); eGFR > 60.00
[2023-11-04 11:45] LABS: Carbon Dioxide 39 mmol/L (22-30)
== END ==
LOC: OLABN 11:09
PROVIDERS: ATTENDING PHYSICIAN Student in an Organized Health Care Education/Training Program
DX: J96.11 Chronic respiratory failure with hypoxia (principal)
CPT/HCPCS: 36415; 80048

== ENCOUNTER → 2023-11-07 10:20 | Outpatient (REF) | payer OTHER, MEDICARE, SELFPAY ==
[2023-11-07 11:26] LABS: Blood Urea Nitrogen 10 mg/dl (7-17); Calcium 8.3 mg/dl (8.4-10.2); Chloride 98 mmol/L (98-107); Glucose 74 mg/dl (70-99); Sodium 137 mmol/L (135-145); eGFR > 60.00
[2023-11-07 11:37] LABS: Carbon Dioxide 36 mmol/L (22-30)
== END ==
LOC: OLABN 10:20
PROVIDERS: ATTENDING PHYSICIAN Student in an Organized Health Care Education/Training Program
DX: J96.11 Chronic respiratory failure with hypoxia (principal)
CPT/HCPCS: 36415; 80048

== ENCOUNTER → 2023-11-18 10:48 | Outpatient (REF) | payer OTHER, MEDICARE, SELFPAY ==
[2023-11-18 11:07] LABS: Blood Urea Nitrogen 20 mg/dl (7-17); Calcium 8.4 mg/dl (8.4-10.2); Carbon Dioxide 31 mmol/L (22-30); Chloride 102 mmol/L (98-107); Glucose 89 mg/dl (70-99); Sodium 137 mmol/L (135-145); eGFR > 60.00
[2023-11-18 14:20] LABS: Potassium 4.4 mmol/L (3.5-5.1)
== END ==
LOC: OLABN 10:48
PROVIDERS: ATTENDING PHYSICIAN Student in an Organized Health Care Education/Training Program
DX: J96.11 Chronic respiratory failure with hypoxia (principal)
CPT/HCPCS: 36415; 80048

== ENCOUNTER → 2023-11-21 09:29 | Outpatient (REF) | payer OTHER, MEDICARE, SELFPAY ==
[2023-11-21 10:57] LABS: Blood Urea Nitrogen 14 mg/dl (7-17); Calcium 8.1 mg/dl (8.4-10.2); Carbon Dioxide 32 mmol/L (22-30); Chloride 104 mmol/L (98-107); Digoxin 0.4 ng/ml (0.8-2.0); Glucose 77 mg/dl (70-99); Potassium 3.9 mmol/L (3.5-5.1); Sodium 136 mmol/L (135-145); eGFR > 60.00
== END ==
LOC: OLABN 09:29
PROVIDERS: ATTENDING PHYSICIAN Student in an Organized Health Care Education/Training Program
DX: J96.11 Chronic respiratory failure with hypoxia (principal); J84.9 Interstitial pulmonary disease, unspecified; I50.9 Heart failure, unspecified
CPT/HCPCS: 36415; 80048; 80162

== ENCOUNTER → 2023-11-25 10:11 | Outpatient (REF) | payer OTHER, MEDICARE, SELFPAY ==
[2023-11-25 11:40] LABS: Digoxin 0.4 ng/ml (0.8-2.0)
== END ==
LOC: OLABN 10:11
PROVIDERS: ATTENDING PHYSICIAN Student in an Organized Health Care Education/Training Program
DX: J84.9 Interstitial pulmonary disease, unspecified (principal); I50.9 Heart failure, unspecified
CPT/HCPCS: 80162

== ENCOUNTER → 2023-12-02 10:09 | Outpatient (REF) | payer OTHER, MEDICARE, SELFPAY ==
[2023-12-02 12:03] LABS: Digoxin < 0.4 ng/ml (0.8-2.0)
== END ==
LOC: OLABN 10:09
PROVIDERS: ATTENDING PHYSICIAN Student in an Organized Health Care Education/Training Program
DX: J84.9 Interstitial pulmonary disease, unspecified (principal); I50.9 Heart failure, unspecified
CPT/HCPCS: 36415; 80162

== ENCOUNTER → 2023-12-05 09:33 | Outpatient (REF) | payer OTHER, MEDICARE, SELFPAY ==
[2023-12-05 11:30] LABS: Blood Urea Nitrogen 12 mg/dl (7-17); Calcium 8.3 mg/dl (8.4-10.2); Carbon Dioxide 32 mmol/L (22-30); Chloride 103 mmol/L (98-107); Glucose 75 mg/dl (70-99); Potassium 4.1 mmol/L (3.5-5.1); Sodium 137 mmol/L (135-145); eGFR > 60.00
== END ==
LOC: OLABN 09:33
PROVIDERS: ATTENDING PHYSICIAN Student in an Organized Health Care Education/Training Program
DX: J96.11 Chronic respiratory failure with hypoxia (principal)
CPT/HCPCS: 36415; 80048

== ENCOUNTER → 2023-12-19 09:01 | Outpatient (REF) | payer MEDICARE, OTHER, SELFPAY ==
[2023-12-19 10:43] LABS: Blood Urea Nitrogen 13 mg/dl (7-17); Calcium 8.5 mg/dl (8.4-10.2); Carbon Dioxide 32 mmol/L (22-30); Chloride 101 mmol/L (98-107); Glucose 80 mg/dl (70-99); Potassium 3.7 mmol/L (3.5-5.1); Sodium 137 mmol/L (135-145); eGFR > 60.00
== END ==
LOC: OLABN 09:01
PROVIDERS: ATTENDING PHYSICIAN Student in an Organized Health Care Education/Training Program
DX: J96.11 Chronic respiratory failure with hypoxia (principal)
CPT/HCPCS: 36415; 80048

== ENCOUNTER → 2023-12-29 13:00 | Outpatient (REF) | payer MEDICARE, OTHER, SELFPAY ==
[2023-12-29 14:33] LABS: Blood Urea Nitrogen 14 mg/dl (7-17); Calcium 8.4 mg/dl (8.4-10.2); Carbon Dioxide 29 mmol/L (22-30); Chloride 104 mmol/L (98-107); Glucose 84 mg/dl (70-99); Potassium 3.8 mmol/L (3.5-5.1); Sodium 136 mmol/L (135-145); eGFR > 60.00
== END ==
LOC: OLABN 13:00
PROVIDERS: ATTENDING PHYSICIAN Student in an Organized Health Care Education/Training Program
DX: E87.6 Hypokalemia (principal)
CPT/HCPCS: 36415; 80048

== ENCOUNTER → 2024-01-02 12:25 | Outpatient (REF) | payer MEDICARE, OTHER, SELFPAY ==
[2024-01-02 13:06] LABS: Blood Urea Nitrogen 14 mg/dl (7-17); Calcium 8.8 mg/dl (8.4-10.2); Carbon Dioxide 32 mmol/L (22-30); Chloride 105 mmol/L (98-107); Glucose 80 mg/dl (70-99); Potassium 4.3 mmol/L (3.5-5.1); Sodium 138 mmol/L (135-145); eGFR > 60.00
== END ==
LOC: OLABN 12:25
PROVIDERS: ATTENDING PHYSICIAN Student in an Organized Health Care Education/Training Program
DX: J96.11 Chronic respiratory failure with hypoxia (principal)
CPT/HCPCS: 36415; 80048

== ENCOUNTER → 2024-01-16 12:46 | Outpatient (REF) | payer MEDICARE, OTHER, SELFPAY ==
[2024-01-16 13:58] LABS: Blood Urea Nitrogen 21 mg/dl (7-17); Calcium 8.6 mg/dl (8.4-10.2); Carbon Dioxide 31 mmol/L (22-30); Chloride 107 mmol/L (98-107); Glucose 86 mg/dl (70-99); Potassium 4.4 mmol/L (3.5-5.1); Sodium 140 mmol/L (135-145); eGFR > 60.00
== END ==
LOC: OLABN 12:46
PROVIDERS: ATTENDING PHYSICIAN Student in an Organized Health Care Education/Training Program
DX: J96.11 Chronic respiratory failure with hypoxia (principal)
CPT/HCPCS: 36415; 80048

== ENCOUNTER → 2024-01-30 10:12 | Outpatient (REF) | payer MEDICARE, OTHER, SELFPAY ==
[2024-01-30 12:01] LABS: Blood Urea Nitrogen 11 mg/dl (7-17); Calcium 8.5 mg/dl (8.4-10.2); Carbon Dioxide 32 mmol/L (22-30); Chloride 104 mmol/L (98-107); Glucose 84 mg/dl (70-99); Potassium 3.8 mmol/L (3.5-5.1); Sodium 137 mmol/L (135-145); eGFR > 60.00
== END ==
LOC: OLABN 10:12
PROVIDERS: ATTENDING PHYSICIAN Student in an Organized Health Care Education/Training Program
DX: J96.11 Chronic respiratory failure with hypoxia (principal)
CPT/HCPCS: 36415; 80048

== ENCOUNTER → 2024-02-13 10:33 | Outpatient (REF) | payer MEDICARE, OTHER, SELFPAY ==
[2024-02-13 12:46] LABS: Blood Urea Nitrogen 11 mg/dl (7-17); Calcium 8.8 mg/dl (8.4-10.2); Carbon Dioxide 33 mmol/L (22-30); Chloride 105 mmol/L (98-107); Glucose 77 mg/dl (70-99); Potassium 3.7 mmol/L (3.5-5.1); Sodium 138 mmol/L (135-145); eGFR > 60.00
== END ==
LOC: OLABN 10:33
PROVIDERS: ATTENDING PHYSICIAN Student in an Organized Health Care Education/Training Program
DX: J96.11 Chronic respiratory failure with hypoxia (principal)
CPT/HCPCS: 36415; 80048

== ENCOUNTER → 2024-02-19 09:50 | Outpatient (REF) | payer MEDICARE, OTHER, SELFPAY ==
[2024-02-19 11:55] LABS: Blood Urea Nitrogen 12 mg/dl (7-17); Calcium 8.6 mg/dl (8.4-10.2); Carbon Dioxide 32 mmol/L (22-30); Chloride 104 mmol/L (98-107); Glucose 86 mg/dl (70-99); Potassium 3.9 mmol/L (3.5-5.1); Sodium 138 mmol/L (135-145); eGFR > 60.00
== END ==
LOC: OLABN 09:50
PROVIDERS: ATTENDING PHYSICIAN Student in an Organized Health Care Education/Training Program
DX: E87.6 Hypokalemia (principal)
CPT/HCPCS: 36415; 80048

== ENCOUNTER → 2024-02-26 11:22 | Outpatient (REF) | payer MEDICARE, OTHER, SELFPAY ==
[2024-02-26 13:45] LABS: Blood Urea Nitrogen 14 mg/dl (7-17); Calcium 8.5 mg/dl (8.4-10.2); Carbon Dioxide 34 mmol/L (22-30); Chloride 103 mmol/L (98-107); Glucose 79 mg/dl (70-99); Potassium 4.1 mmol/L (3.5-5.1); Sodium 137 mmol/L (135-145); eGFR > 60.00
== END ==
LOC: OLABN 11:22
PROVIDERS: ATTENDING PHYSICIAN Student in an Organized Health Care Education/Training Program
DX: E87.6 Hypokalemia (principal)
CPT/HCPCS: 36415; 80048

== ENCOUNTER → 2024-03-10 12:22 | Outpatient (REF) | payer MEDICARE, OTHER, SELFPAY ==
[2024-03-10 13:53] LABS: Blood Urea Nitrogen 14 mg/dl (7-17); Calcium 8.4 mg/dl (8.4-10.2); Carbon Dioxide 31 mmol/L (22-30); Chloride 104 mmol/L (98-107); Glucose 83 mg/dl (70-99); Sodium 137 mmol/L (135-145); eGFR > 60.00
== END ==
LOC: OLABN 12:22
PROVIDERS: ATTENDING PHYSICIAN Student in an Organized Health Care Education/Training Program
DX: E87.6 Hypokalemia (principal)
CPT/HCPCS: 36415; 80048

== ENCOUNTER → 2024-03-17 10:39 | Outpatient (REF) | payer MEDICARE, OTHER, SELFPAY ==
[2024-03-17 13:30] LABS: Blood Urea Nitrogen 15 mg/dl (7-17); Calcium 8.4 mg/dl (8.4-10.2); Carbon Dioxide 36 mmol/L (22-30); Chloride 100 mmol/L (98-107); Glucose 82 mg/dl (70-99); Potassium 3.9 mmol/L (3.5-5.1); Sodium 137 mmol/L (135-145); eGFR > 60.00
== END ==
LOC: OLABN 10:39
PROVIDERS: ATTENDING PHYSICIAN Student in an Organized Health Care Education/Training Program
DX: E87.6 Hypokalemia (principal)
CPT/HCPCS: 36415; 80048

== ENCOUNTER → 2024-04-07 10:18 | Outpatient (REF) | payer MEDICARE, OTHER, SELFPAY ==
[2024-04-07 14:16] LABS: Blood Urea Nitrogen 13 mg/dl (7-17); Calcium 8.4 mg/dl (8.4-10.2); Carbon Dioxide 35 mmol/L (22-30); Chloride 103 mmol/L (98-107); Glucose 102 mg/dl (70-99); Potassium 3.5 mmol/L (3.5-5.1); Sodium 138 mmol/L (135-145); eGFR > 60.00
== END ==
LOC: OLABN 10:18
PROVIDERS: ATTENDING PHYSICIAN Student in an Organized Health Care Education/Training Program
DX: E87.6 Hypokalemia (principal)
CPT/HCPCS: 36415; 80048

== ENCOUNTER → 2024-04-12 13:21 | Outpatient (REF) | payer MEDICARE, OTHER, SELFPAY ==
[2024-04-12 16:13] LABS: Blood Urea Nitrogen 9 mg/dl (7-17); Calcium 8.8 mg/dl (8.4-10.2); Carbon Dioxide 34 mmol/L (22-30); Chloride 102 mmol/L (98-107); Glucose 87 mg/dl (70-99); Potassium 4.4 mmol/L (3.5-5.1); Sodium 136 mmol/L (135-145); eGFR > 60.00
[2024-04-12 16:14] LABS: % Basophils 0.8 % (0-2); % Eosinophils 3.4 % (0-6); % Lymphocytes 37.2 % (20.5-51.1); % Monocytes 14.4 % (1.7-9.3); % Neutrophils 44.2 % (42.2-75.2); Absolute Eosinophils 0.1 10^3/uL (0-0.7); Absolute Lymphocytes 1.4 10^3/uL (1.2-3.4); Absolute Monocytes 0.6 10^3/uL (0.1-0.6); Absolute Neutrophils 1.7 10^3/uL (1.4-6.5); Hematocrit 35.4 % (37.0-47.0); Mean Corp Hgb Conc. 33.9 g/dL (33.0-37.0); Mean Corpuscular Volume 103.2 fL (81.0-99.0); Mean Platelet Volume 9.8 fL (7.4-10.4); Nucleated Red Blood Cells % 0 %; Platelet Count 107 10^3/uL (130-400); Red Blood Cell Count 3.43 10^6/uL (4.20-5.40); Red Cell Dist. Width 13.1 % (11.5-14.5); White Blood Cell Count 3.8 10^3/uL (4.8-10.8)
== END ==
LOC: OLABN 13:21
PROVIDERS: ATTENDING PHYSICIAN Student in an Organized Health Care Education/Training Program
DX: R05.9 Cough, unspecified (principal)
CPT/HCPCS: 36415; 80048; 85025

== ENCOUNTER → 2024-04-20 10:40 | Outpatient (REF) | payer MEDICARE, OTHER, SELFPAY ==
[2024-04-20 11:58] LABS: Blood Urea Nitrogen 11 mg/dl (7-17); Calcium 8.5 mg/dl (8.4-10.2); Carbon Dioxide 33 mmol/L (22-30); Chloride 99 mmol/L (98-107); Glucose 95 mg/dl (70-99); Sodium 135 mmol/L (135-145); eGFR > 60.00
== END ==
LOC: OLABN 10:40
PROVIDERS: ATTENDING PHYSICIAN Student in an Organized Health Care Education/Training Program
DX: E87.6 Hypokalemia (principal)
CPT/HCPCS: 36415; 80048

== ENCOUNTER → 2024-06-01 10:37 | Outpatient (REF) | payer MEDICARE, OTHER, SELFPAY ==
[2024-06-01 16:44] LABS: Digoxin 0.5 ng/ml (0.8-2.0)
== END ==
LOC: OLABN 10:37
PROVIDERS: ATTENDING PHYSICIAN Student in an Organized Health Care Education/Training Program
DX: J84.9 Interstitial pulmonary disease, unspecified (principal); I50.9 Heart failure, unspecified
CPT/HCPCS: 36415; 80162

== ENCOUNTER → 2024-11-30 11:15 | Outpatient (REF) | payer MEDICARE, OTHER, SELFPAY ==
[2024-11-30 13:36] LABS: Digoxin < 0.4 ng/ml (0.8-2.0)
== END ==
LOC: OLABN 11:15
PROVIDERS: ATTENDING PHYSICIAN Student in an Organized Health Care Education/Training Program
DX: J84.9 Interstitial pulmonary disease, unspecified (principal); I50.9 Heart failure, unspecified
CPT/HCPCS: 36415; 80162

== ENCOUNTER → 2024-12-10 13:04 | Outpatient (REF) | payer MEDICARE, OTHER, SELFPAY ==
[2024-12-10 13:48] LABS: % Eosinophils 3.8 % (0-6); % Immature Granulocytes 0.3 % (0-0.5); % Lymphocytes 37.3 % (20.5-51.1); % Monocytes 11.1 % (1.7-9.3); % Neutrophils 46.5 % (42.2-75.2); Absolute Eosinophils 0.2 10^3/uL (0-0.7); Absolute Lymphocytes 1.5 10^3/uL (1.2-3.4); Absolute Monocytes 0.4 10^3/uL (0.1-0.6); Absolute Neutrophils 1.9 10^3/uL (1.4-6.5); Hematocrit 33.7 % (37.0-47.0); Hemoglobin 11.7 g/dL (12.0-16.0); Mean Corp Hgb Conc. 34.7 g/dL (33.0-37.0); Mean Corpuscular Volume 100.9 fL (81.0-99.0); Mean Platelet Volume 10.6 fL (7.4-10.4); Nucleated Red Blood Cells % 0 %; Platelet Count 116 10^3/uL (130-400); Red Blood Cell Count 3.34 10^6/uL (4.20-5.40); Red Cell Dist. Width 13.1 % (11.5-14.5)
[2024-12-10 14:19] LABS: ALT (SGPT) 12 U/L (0-35); AST (SGOT) 27 U/L (14-36); Albumin 2.6 g/dl (3.5-5.0); Alkaline Phosphatase 74 U/L (38-126); Blood Urea Nitrogen 10 mg/dl (7-17); Calcium 8.4 mg/dl (8.4-10.2); Carbon Dioxide 34 mmol/L (22-30); Chloride 97 mmol/L (98-107); Glucose 72 mg/dl (70-99); Magnesium 1.6 mg/dl (1.6-2.3); Potassium 4.2 mmol/L (3.5-5.1); Sodium 136 mmol/L (135-145); Total Bilirubin 1.2 mg/dl (0.2-1.3); Total Protein 5.1 g/dl (6.3-8.2); eGFR > 60.00
== END ==
LOC: OLABN 13:04
PROVIDERS: ATTENDING PHYSICIAN Student in an Organized Health Care Education/Training Program
DX: I10 Essential (primary) hypertension (principal)
CPT/HCPCS: 36415; 80053; 83735; 85025

== ENCOUNTER → 2025-01-07 12:04 | Outpatient (REF) | payer MEDICARE, OTHER, SELFPAY ==
[2025-01-07 12:36] LABS: % Eosinophils 3.4 % (0-6); % Immature Granulocytes 0.3 % (0-0.5); % Lymphocytes 42.2 % (20.5-51.1); % Monocytes 10.9 % (1.7-9.3); % Neutrophils 42.2 % (42.2-75.2); Absolute Eosinophils 0.1 10^3/uL (0-0.7); Absolute Lymphocytes 1.6 10^3/uL (1.2-3.4); Absolute Monocytes 0.4 10^3/uL (0.1-0.6); Absolute Neutrophils 1.6 10^3/uL (1.4-6.5); Hematocrit 34.1 % (37.0-47.0); Hemoglobin 11.4 g/dL (12.0-16.0); Mean Corp Hgb Conc. 33.4 g/dL (33.0-37.0); Mean Corpuscular Hgb 33.9 pg (27.0-31.0); Mean Corpuscular Volume 101.5 fL (81.0-99.0); Mean Platelet Volume 10.1 fL (7.4-10.4); Nucleated Red Blood Cells % 0 %; Platelet Count 125 10^3/uL (130-400); Red Blood Cell Count 3.36 10^6/uL (4.20-5.40); Red Cell Dist. Width 12.7 % (11.5-14.5); White Blood Cell Count 3.9 10^3/uL (4.8-10.8)
[2025-01-07 12:53] LABS: ALT (SGPT) 13 U/L (0-35); AST (SGOT) 22 U/L (14-36); Albumin 2.7 g/dl (3.5-5.0); Alkaline Phosphatase 75 U/L (38-126); Blood Urea Nitrogen 11 mg/dl (7-17); Calcium 8.5 mg/dl (8.4-10.2); Carbon Dioxide 33 mmol/L (22-30); Chloride 98 mmol/L (98-107); Glucose 79 mg/dl (70-99); Magnesium 1.7 mg/dl (1.6-2.3); Potassium 4.5 mmol/L (3.5-5.1); Sodium 137 mmol/L (135-145); Total Protein 5.2 g/dl (6.3-8.2); eGFR > 60.00
== END ==
LOC: OLABN 12:04
PROVIDERS: ATTENDING PHYSICIAN Student in an Organized Health Care Education/Training Program
DX: I10 Essential (primary) hypertension (principal)
CPT/HCPCS: 36415; 80053; 83735; 85025

== ENCOUNTER → 2025-02-11 11:09 | Outpatient (REF) | payer MEDICARE, OTHER, SELFPAY ==
[2025-02-11 12:05] LABS: % Basophils 0.8 % (0-2); % Eosinophils 3.1 % (0-6); % Immature Granulocytes 0.3 % (0-0.5); % Lymphocytes 42.7 % (20.5-51.1); % Monocytes 10.7 % (1.7-9.3); % Neutrophils 42.4 % (42.2-75.2); Absolute Eosinophils 0.1 10^3/uL (0-0.7); Absolute Lymphocytes 1.7 10^3/uL (1.2-3.4); Absolute Monocytes 0.4 10^3/uL (0.1-0.6); Absolute Neutrophils 1.7 10^3/uL (1.4-6.5); Hematocrit 33.5 % (37.0-47.0); Hemoglobin 11.4 g/dL (12.0-16.0); Mean Corpuscular Hgb 34.8 pg (27.0-31.0); Mean Corpuscular Volume 102.1 fL (81.0-99.0); Mean Platelet Volume 9.5 fL (7.4-10.4); Nucleated Red Blood Cells % 0 %; Platelet Count 117 10^3/uL (130-400); Red Blood Cell Count 3.28 10^6/uL (4.20-5.40); Red Cell Dist. Width 13.5 % (11.5-14.5); White Blood Cell Count 3.9 10^3/uL (4.8-10.8)
[2025-02-11 13:22] LABS: ALT (SGPT) 12 U/L (0-35); AST (SGOT) 17 U/L (14-36); Albumin 2.5 g/dl (3.5-5.0); Alkaline Phosphatase 68 U/L (38-126); Blood Urea Nitrogen 8 mg/dl (7-17); Calcium 8.2 mg/dl (8.4-10.2); Carbon Dioxide 34 mmol/L (22-30); Chloride 104 mmol/L (98-107); Glucose 86 mg/dl (70-99); Magnesium 1.8 mg/dl (1.6-2.3); Potassium 4.2 mmol/L (3.5-5.1); Sodium 136 mmol/L (135-145); Total Bilirubin 1.1 mg/dl (0.2-1.3); eGFR > 60.00
== END ==
LOC: OLABN 11:09
PROVIDERS: ATTENDING PHYSICIAN Student in an Organized Health Care Education/Training Program
DX: I10 Essential (primary) hypertension (principal)
CPT/HCPCS: 36415; 80053; 83735; 85025

== ENCOUNTER → 2025-02-16 09:03 | Outpatient (REF) | payer MEDICARE, OTHER, SELFPAY ==
[2025-02-16 10:34] LABS: % Basophils 1.1 % (0-2); % Eosinophils 3.5 % (0-6); % Immature Granulocytes 0.3 % (0-0.5); % Lymphocytes 43.5 % (20.5-51.1); % Monocytes 9.5 % (1.7-9.3); % Neutrophils 42.1 % (42.2-75.2); Absolute Eosinophils 0.1 10^3/uL (0-0.7); Absolute Lymphocytes 1.6 10^3/uL (1.2-3.4); Absolute Monocytes 0.4 10^3/uL (0.1-0.6); Absolute Neutrophils 1.6 10^3/uL (1.4-6.5); Hematocrit 33.7 % (37.0-47.0); Hemoglobin 11.4 g/dL (12.0-16.0); Mean Corp Hgb Conc. 33.8 g/dL (33.0-37.0); Mean Corpuscular Hgb 34.1 pg (27.0-31.0); Mean Corpuscular Volume 100.9 fL (81.0-99.0); Mean Platelet Volume 9.6 fL (7.4-10.4); Nucleated Red Blood Cells % 0 %; Platelet Count 127 10^3/uL (130-400); Red Blood Cell Count 3.34 10^6/uL (4.20-5.40); Red Cell Dist. Width 12.8 % (11.5-14.5); White Blood Cell Count 3.7 10^3/uL (4.8-10.8)
== END ==
LOC: OLABN 09:03
PROVIDERS: ATTENDING PHYSICIAN Student in an Organized Health Care Education/Training Program
DX: J84.9 Interstitial pulmonary disease, unspecified (principal)
CPT/HCPCS: 36415; 85025

== ENCOUNTER → 2025-03-11 11:34 | Outpatient (REF) | payer MEDICARE, OTHER, SELFPAY ==
[2025-03-11 12:36] LABS: Hematocrit 34.2 % (37.0-47.0); Hemoglobin 11.2 g/dL (12.0-16.0); Mean Corp Hgb Conc. 32.7 g/dL (33.0-37.0); Mean Corpuscular Volume 103.3 fL (81.0-99.0); Nucleated Red Blood Cells % 0 %; Platelet Count 122 10^3/uL (130-400); Red Cell Dist. Width 12.9 % (11.5-14.5)
[2025-03-11 13:01] LABS: ALT (SGPT) 12 U/L (0-35); AST (SGOT) 17 U/L (14-36); Albumin 2.7 g/dl (3.5-5.0); Alkaline Phosphatase 71 U/L (38-126); Blood Urea Nitrogen 13 mg/dl (7-17); Calcium 8.2 mg/dl (8.4-10.2); Carbon Dioxide 36 mmol/L (22-30); Chloride 102 mmol/L (98-107); Glucose 85 mg/dl (70-99); Magnesium 1.9 mg/dl (1.6-2.3); Potassium 4.0 mmol/L (3.5-5.1); Sodium 138 mmol/L (135-145); Total Protein 5.1 g/dl (6.3-8.2); eGFR > 60.00
== END ==
LOC: OLABN 11:34
PROVIDERS: ATTENDING PHYSICIAN Student in an Organized Health Care Education/Training Program
DX: I10 Essential (primary) hypertension (principal)
CPT/HCPCS: 36415; 80053; 83735; 85025

== ENCOUNTER → 2025-04-08 11:51 | Outpatient (REF) | payer MEDICARE, OTHER, SELFPAY ==
[2025-04-08 13:50] LABS: Hematocrit 34.7 % (37.0-47.0); Hemoglobin 11.3 g/dL (12.0-16.0); Mean Corp Hgb Conc. 32.6 g/dL (33.0-37.0); Mean Corpuscular Volume 104.2 fL (81.0-99.0); Nucleated Red Blood Cells % 0 %; Platelet Count 115 10^3/uL (130-400); Red Cell Dist. Width 13.2 % (11.5-14.5)
[2025-04-08 16:10] LABS: ALT (SGPT) 11 U/L (0-35); AST (SGOT) 18 U/L (14-36); Albumin 2.6 g/dl (3.5-5.0); Alkaline Phosphatase 64 U/L (38-126); Blood Urea Nitrogen 11 mg/dl (7-17); Calcium 8.9 mg/dl (8.4-10.2); Carbon Dioxide 31 mmol/L (22-30); Chloride 107 mmol/L (98-107); Glucose 83 mg/dl (70-99); Magnesium 1.8 mg/dl (1.6-2.3); Potassium 4.5 mmol/L (3.5-5.1); Sodium 138 mmol/L (135-145); Total Protein 5.2 g/dl (6.3-8.2); eGFR > 60.00
== END ==
LOC: OLABN 11:51
PROVIDERS: ATTENDING PHYSICIAN Student in an Organized Health Care Education/Training Program
DX: I10 Essential (primary) hypertension (principal)
CPT/HCPCS: 36415; 80053; 83735; 85025

== ENCOUNTER → 2025-05-13 09:59 | Outpatient (REF) | payer MEDICARE, OTHER, SELFPAY ==
[2025-05-13 11:16] LABS: ALT (SGPT) 13 U/L (0-35); AST (SGOT) 16 U/L (14-36); Albumin 2.7 g/dl (3.5-5.0); Alkaline Phosphatase 75 U/L (38-126); Blood Urea Nitrogen 11 mg/dl (7-17); Calcium 8.4 mg/dl (8.4-10.2); Carbon Dioxide 35 mmol/L (22-30); Chloride 103 mmol/L (98-107); Glucose 88 mg/dl (70-99); Hematocrit 33.8 % (37.0-47.0); Hemoglobin 11.3 g/dL (12.0-16.0); Magnesium 1.8 mg/dl (1.6-2.3); Mean Corp Hgb Conc. 33.4 g/dL (33.0-37.0); Mean Corpuscular Volume 101.8 fL (81.0-99.0); Nucleated Red Blood Cells % 0 %; Platelet Count 114 10^3/uL (130-400); Potassium 4.1 mmol/L (3.5-5.1); Red Cell Dist. Width 13.2 % (11.5-14.5); Sodium 138 mmol/L (135-145); Total Protein 5.3 g/dl (6.3-8.2); eGFR > 60.00
== END ==
LOC: OLABN 09:59
PROVIDERS: ATTENDING PHYSICIAN Student in an Organized Health Care Education/Training Program
DX: I10 Essential (primary) hypertension (principal)
CPT/HCPCS: 36415; 80053; 83735; 85025

== ENCOUNTER → 2025-06-07 11:46 | Outpatient (REF) | payer MEDICARE, OTHER, SELFPAY ==
[2025-06-07 13:25] LABS: Blood Urea Nitrogen 10 mg/dl (7-17); Calcium 8.4 mg/dl (8.4-10.2); Carbon Dioxide 38 mmol/L (22-30); Chloride 100 mmol/L (98-107); Glucose 82 mg/dl (70-99); Potassium 4.1 mmol/L (3.5-5.1); Sodium 137 mmol/L (135-145); eGFR > 60.00
[2025-06-07 13:42] LABS: Digoxin < 0.4 ng/ml (0.8-2.0)
== END ==
LOC: OLABN 11:46
PROVIDERS: ATTENDING PHYSICIAN Student in an Organized Health Care Education/Training Program
DX: J84.9 Interstitial pulmonary disease, unspecified (principal); I50.9 Heart failure, unspecified
CPT/HCPCS: 36415; 80048; 80162

== ENCOUNTER → 2025-06-10 11:33 | Outpatient (REF) | payer MEDICARE, OTHER, SELFPAY ==
[2025-06-10 12:12] LABS: Hematocrit 33.8 % (37.0-47.0); Hemoglobin 11.1 g/dL (12.0-16.0); Mean Corp Hgb Conc. 32.8 g/dL (33.0-37.0); Mean Corpuscular Volume 102.1 fL (81.0-99.0); Nucleated Red Blood Cells % 0 %; Platelet Count 129 10^3/uL (130-400); Red Cell Dist. Width 13.2 % (11.5-14.5)
[2025-06-10 12:37] LABS: ALT (SGPT) 12 U/L (0-35); AST (SGOT) 22 U/L (14-36); Albumin 2.7 g/dl (3.5-5.0); Alkaline Phosphatase 71 U/L (38-126); Blood Urea Nitrogen 10 mg/dl (7-17); Calcium 8.5 mg/dl (8.4-10.2); Carbon Dioxide 35 mmol/L (22-30); Chloride 102 mmol/L (98-107); Glucose 84 mg/dl (70-99); Magnesium 1.9 mg/dl (1.6-2.3); Potassium 4.4 mmol/L (3.5-5.1); Sodium 137 mmol/L (135-145); Total Protein 5.3 g/dl (6.3-8.2); eGFR > 60.00
== END ==
LOC: OLABN 11:33
PROVIDERS: ATTENDING PHYSICIAN Student in an Organized Health Care Education/Training Program
DX: I10 Essential (primary) hypertension (principal)
CPT/HCPCS: 36415; 80053; 83735; 85025

== ENCOUNTER → 2025-07-15 11:44 | Outpatient (REF) | payer MEDICARE, OTHER, SELFPAY ==
[2025-07-15 12:51] LABS: Hematocrit 35.4 % (37.0-47.0); Hemoglobin 11.1 g/dL (12.0-16.0); Mean Corp Hgb Conc. 31.4 g/dL (33.0-37.0); Mean Corpuscular Volume 106.9 fL (81.0-99.0); Nucleated Red Blood Cells % 0 %; Platelet Count 119 10^3/uL (130-400); Red Cell Dist. Width 13.2 % (11.5-14.5)
[2025-07-15 13:05] LABS: ALT (SGPT) 14 U/L (0-35); AST (SGOT) 23 U/L (14-36); Albumin 2.8 g/dl (3.5-5.0); Alkaline Phosphatase 75 U/L (38-126); Blood Urea Nitrogen 11 mg/dl (7-17); Calcium 8.7 mg/dl (8.4-10.2); Carbon Dioxide 35 mmol/L (22-30); Chloride 102 mmol/L (98-107); Glucose 80 mg/dl (70-99); Magnesium 1.9 mg/dl (1.6-2.3); Potassium 4.2 mmol/L (3.5-5.1); Sodium 134 mmol/L (135-145); Total Protein 5.7 g/dl (6.3-8.2); eGFR > 60.00
== END ==
LOC: OLABN 11:44
PROVIDERS: ATTENDING PHYSICIAN Student in an Organized Health Care Education/Training Program
DX: I10 Essential (primary) hypertension (principal)
CPT/HCPCS: 36415; 80053; 83735; 85025

== ENCOUNTER → 2025-08-12 09:29 | Outpatient (REF) | payer MEDICARE, OTHER, SELFPAY ==
[2025-08-12 11:18] LABS: Hematocrit 35.9 % (37.0-47.0); Hemoglobin 12.0 g/dL (12.0-16.0); Mean Corp Hgb Conc. 33.4 g/dL (33.0-37.0); Mean Corpuscular Volume 100.3 fL (81.0-99.0); Nucleated Red Blood Cells % 0 %; Platelet Count 137 10^3/uL (130-400); Red Cell Dist. Width 13.4 % (11.5-14.5)
[2025-08-12 11:41] LABS: ALT (SGPT) 15 U/L (0-35); AST (SGOT) 23 U/L (14-36); Albumin 2.9 g/dl (3.5-5.0); Alkaline Phosphatase 86 U/L (38-126); Blood Urea Nitrogen 13 mg/dl (7-17); Calcium 8.4 mg/dl (8.4-10.2); Carbon Dioxide 35 mmol/L (22-30); Chloride 99 mmol/L (98-107); Glucose 89 mg/dl (70-99); Magnesium 1.7 mg/dl (1.6-2.3); Potassium 3.7 mmol/L (3.5-5.1); Sodium 137 mmol/L (135-145); Total Protein 5.8 g/dl (6.3-8.2); eGFR > 60.00
== END ==
LOC: OLABN 09:29
PROVIDERS: ATTENDING PHYSICIAN Student in an Organized Health Care Education/Training Program
DX: I10 Essential (primary) hypertension (principal)
CPT/HCPCS: 36415; 80053; 83735; 85025

== ENCOUNTER 2025-08-14 10:50 | Emergency (ER) | payer MEDICARE, OTHER, SELFPAY ==
[2025-08-14] VITALS (11 sets, daily range): BP systolic 90–130; BP diastolic 47–82
--- NOTE | 2025-08-14 10:59 | ED.GENMED ---
History of Present Illness
<Mark Mcdowell PA-C - Last Filed: 08/14/25 13:55>
General
Chief Complaint: Change Level of Consciousness
Source: records and ambulance crew
Time Seen by Provider: 08/14/25 10:51
History of Present Illness
History of Present Illness:
79-year-old female with a reported past medical history of seizure disorder that based off of record review was diagnosed in September 2023, atrial fibrillation on Eliquis, COPD, previous DVT, [id number] diabetes presenting to the emergency
department from [facility] where patient is a long-term resident for evaluation of change in mental status with staff at [facility] noting that patient is usually conversive and will follow commands but today was found to be somnolent, not
following commands and unable to speak. EMS transported the patient, blood glucose of 120, they noted her heart rate was tachycardic and irregular, were unsure of history of A-fib but did note patient is on Eliquis. Staff at [facility] stated
that they noticed the patient incontinent of liquid stool this morning and was altered past her baseline which is why EMS was contacted. No reported fevers.
Past History
<Mark Mcdowell PA-C - Last Filed: 08/14/25 13:55>
Past History
ED Past Medical History: Arrthythmia (PAF), COPD (Restrictive lung disease, O2 dependent), GERD, HTN, NIDDM, Seizures, Psychiatric (Chronic anxiety), Other (Pulmonary hypertension, chronic interstitial lung disease, O2 dependent) and Other (Morbid
obesity, constipation); Negative CVA or [place]
ED Past Surgical History: Appendectomy, Gynecological (Oophorectomy) and Tonsilectomy
Social History
Tobacco: Non-smoker
Alcohol: None
Drug: None
Personal:
Living: jail (Resident of [facility] since July 2020)
Employment: Not employed
Family History
Family History: Hypertension; Negative Early CAD
Review of Systems
<Mark Mcdowell PA-C - Last Filed: 08/14/25 13:55>
Review of Systems
All Other Systems: ROS reviewed and negative except as documented in HPI and ROS
Phy Exam
<Mark Mcdowell PA-C - Last Filed: 08/14/25 13:55>
Physical Exam
Physical Exam:
GENERAL: obtunded, unable to answer questions, appears older than stated age, unwell, patient had large volume liquid stool within her diaper
HEAD: Normocephalic atraumatic
EYE: pupils clear conjunctiva
NECK: Supple, no significant adenopathy.
ENT: o/p clr, dry mucous membranes
CARDIAC: Irregularly irregular, tachycardic
LUNGS: Clear lung sounds, no tachypnea noted, maintaining O2 sats on room air
ABDOMEN: Soft, without focal tenderness, no r/g, no cvat
NEUROLOGICAL: Unable to assess, does not follow commands
SKIN: Warm and dry, skin intact.
MUSCULOSKELETAL: No edema, well perfused.
PSYCH: Unable to assess
Scores
<Mark Mcdowell PA-C - Last Filed: 08/14/25 13:55>
Heart Failure Risk
Heart Failure Risk Score: Not Applicable
Heart Score for Chest Pain Patients
STEMI patient?: Not applicable
Withdrawal Assessment of Alcohol
Withdrawal Assessment Completed?: Not applicable
Course
<Mark Mcdowell PA-C - Last Filed: 08/14/25 13:55>
Orders/Labs/Results
Orders:
Orders
08/14/25 10:56
CT Head W/o Iv Contrast Urgent
Comment:
Reason For Exam: AMS, hx afib
Ceribell [Rapid Point of Care EEG (ED/ICU ONLY)] Q1H
Indications for use:: Altered Mental Status
08/14/25 10:57
Electrocardiogram (*1) Urgent
Reason for Study: Tachycardia
EKG- Treatment ONCE
08/14/25 10:59
CR Chest Portable - 1 View Urgent
Comment:
Reason For Exam: AMS
Reason Study Needs to be Portable: Patient Unstable
08/14/25 11:08
Urinalysis Reflex To Culture Urgent
Date Specimen was Collected: 08/14/25
Time Specimen was Collected: 10:59
Norovirus by PCR Urgent
SAMUEL Source: Feces/Stool
Specimen Description:
Date Specimen was Collected: 08/14/25
Time Specimen was Collected: 10:59
STOOL [C difficile Antigen & Toxins] Urgent
SAMUEL Source: Feces/Stool
Specimen Description:
Date Specimen was Collected: 08/14/25
Time Specimen was Collected: 10:59
Stool Culture Urgent
SAMUEL Source: Feces/Stool
Specimen Description:
Date Specimen was Collected: 08/14/25
Time Specimen was Collected: 10:59
08/14/25 11:10
0.9% Sodium Chloride 1000 ml [Nss] 1,000 ml IV BOLUS
08/14/25 11:17
Complete Blood Count/With Diff Urgent
Lactic Acid Q4H
Comment: CANCEL 2nd LACTIC ACID IF 1st LACTIC ACID IS LESS THAN 2
08/14/25 11:24
Blood Culture Q30M
SAMUEL Source: Blood/Venous
Specimen Description:
Blood Culture Q30M
SAMUEL Source: Blood/Venous
Specimen Description:
08/14/25 11:28
COVID-19 Antigen Urgent
Source: Nasal Swab
Influenza A+B Rapid Molecular Urgent
SAMUEL Source: Nasal Swab
Specimen Description:
08/14/25 11:52
Comprehensive Metabolic Panel Urgent
Troponin I Urgent
08/14/25 12:05
Lorazepam [Ativan] 1 mg IV NOW STA
08/14/25 12:15
Lorazepam [Ativan] 1 mg IV NOW STA
08/14/25 12:16
Levetiracetam Injectable [Keppra] 3,000 mg IV NOW STA
08/14/25 12:38
PRN Pain Medication Management As Directed
May give lesser potent ordered pain med per pt: Yes
preference::
Protocol:: Medication orders for pain may be administered in a
manner that supports deferring to patient preference
when the pt is:
- Requesting an ordered lesser potent pain medication.
Least to most potent pain medications are defined
as: acetaminophen < NSAID < tramadol < opioids
(morphine, oxycodone, hydromorphone).
- Requesting a lesser dose of the same medication IF
ORDERED.
- Requesting a less intrusive route of administration
if both routes are prescribed by the provider (PO <
IV).
08/14/25 12:41
Lorazepam [Ativan] 2 mg .ROUTE .STK-MED ONE
Lorazepam [Ativan] 2 mg IV NOW STA
08/14/25 12:46
NEUROLOGY CONSULT Urgent
Consulting Provider: Luis A Marcelino
Was physician already notified: Yes
08/14/25 15:00
Lactic Acid Q4H
Comment: CANCEL 2nd LACTIC ACID IF 1st LACTIC ACID IS LESS THAN 2
Abnormal Lab Results
08/14/25 08/14/25 08/14/25
11:08 11:17 11:52
RBC 3.98 L 10^6/uL
(4.20-5.40)
MCV 99.2 H fL
(81.0-99.0)
MCH 34.2 H pg
(27.0-31.0)
Plt Count 119 L 10^3/uL
(130-400)
Absolute Lymphs (auto) 1.1 L 10^3/uL
(1.2-3.4)
Monocytes % 12.2 H %
(1.7-9.3)
BUN 18 H mg/dl
(7-17)
Creatinine 0.3 L mg/dL
(0.6-1.0)
Glucose 105 H mg/dl
(70-99)
Lactic Acid 2.4 H mmol/L
(0.7-2.0)
Calcium 8.1 L mg/dl
(8.4-10.2)
Total Protein 5.7 L g/dl
(6.3-8.2)
Albumin 2.9 L g/dl
(3.5-5.0)
Urine Ketones 1+ A
(Negative)
08/14/25 11:17
08/14/25 11:52
Vital Signs
Initial and Last Documented VS:
Initial Vital Signs
Temp Pulse Resp
98.5 F 110 15
08/14/25 10:57 08/14/25 10:57 08/14/25 10:57
Last Documented Vital Signs
Temp Pulse Resp BP Pulse Ox
98.5 F 93 25 127/82 100
08/14/25 10:57 08/14/25 13:45 08/14/25 13:45 08/14/25 13:45 08/14/25 13:45
<Jaime Brizuela MD - Last Filed: 08/14/25 13:49>
Orders/Labs/Results
Orders:
Orders
08/14/25 10:56
CT Head W/o Iv Contrast Urgent
Comment:
Reason For Exam: AMS, hx afib
Ceribell [Rapid Point of Care EEG (ED/ICU ONLY)] Q1H
Indications for use:: Altered Mental Status
08/14/25 10:57
Electrocardiogram (*1) Urgent
Reason for Study: Tachycardia
EKG- Treatment ONCE
08/14/25 10:59
CR Chest Portable - 1 View Urgent
Comment:
Reason For Exam: AMS
Reason Study Needs to be Portable: Patient Unstable
08/14/25 11:08
Urinalysis Reflex To Culture Urgent
Date Specimen was Collected: 08/14/25
Time Specimen was Collected: 10:59
Norovirus by PCR Urgent
SAMUEL Source: Feces/Stool
Specimen Description:
Date Specimen was Collected: 08/14/25
Time Specimen was Collected: 10:59
STOOL [C difficile Antigen & Toxins] Urgent
SAMUEL Source: Feces/Stool
Specimen Description:
Date Specimen was Collected: 08/14/25
Time Specimen was Collected: 10:59
Stool Culture Urgent
SAMUEL Source: Feces/Stool
Specimen Description:
Date Specimen was Collected: 08/14/25
Time Specimen was Collected: 10:59
08/14/25 11:10
0.9% Sodium Chloride 1000 ml [Nss] 1,000 ml IV BOLUS
08/14/25 11:17
Complete Blood Count/With Diff Urgent
Lactic Acid Q4H
Comment: CANCEL 2nd LACTIC ACID IF 1st LACTIC ACID IS LESS THAN 2
08/14/25 11:24
Blood Culture Q30M
SAMUEL Source: Blood/Venous
Specimen Description:
Blood Culture Q30M
SAMUEL Source: Blood/Venous
Specimen Description:
08/14/25 11:28
COVID-19 Antigen Urgent
Source: Nasal Swab
Influenza A+B Rapid Molecular Urgent
SAMUEL Source: Nasal Swab
Specimen Description:
08/14/25 11:52
Comprehensive Metabolic Panel Urgent
Troponin I Urgent
08/14/25 12:05
Lorazepam [Ativan] 1 mg IV NOW STA
08/14/25 12:15
Lorazepam [Ativan] 1 mg IV NOW STA
08/14/25 12:16
Levetiracetam Injectable [Keppra] 3,000 mg IV NOW STA
08/14/25 12:38
PRN Pain Medication Management As Directed
May give lesser potent ordered pain med per pt: Yes
preference::
Protocol:: Medication orders for pain may be administered in a
manner that supports deferring to patient preference
when the pt is:
- Requesting an ordered lesser potent pain medication.
Least to most potent pain medications are defined
as: acetaminophen < NSAID < tramadol < opioids
(morphine, oxycodone, hydromorphone).
- Requesting a lesser dose of the same medication IF
ORDERED.
- Requesting a less intrusive route of administration
if both routes are prescribed by the provider (PO <
IV).
08/14/25 12:41
Lorazepam [Ativan] 2 mg .ROUTE .STK-MED ONE
Lorazepam [Ativan] 2 mg IV NOW STA
08/14/25 12:46
NEUROLOGY CONSULT Urgent
Consulting Provider: Luis A Marcelino
Was physician already notified: Yes
08/14/25 15:00
Lactic Acid Q4H
Comment: CANCEL 2nd LACTIC ACID IF 1st LACTIC ACID IS LESS THAN 2
Abnormal Lab Results
08/14/25 08/14/25 08/14/25
11:08 11:17 11:52
RBC 3.98 L 10^6/uL
(4.20-5.40)
MCV 99.2 H fL
(81.0-99.0)
MCH 34.2 H pg
(27.0-31.0)
Plt Count 119 L 10^3/uL
(130-400)
Absolute Lymphs (auto) 1.1 L 10^3/uL
(1.2-3.4)
Monocytes % 12.2 H %
(1.7-9.3)
BUN 18 H mg/dl
(7-17)
Creatinine 0.3 L mg/dL
(0.6-1.0)
Glucose 105 H mg/dl
(70-99)
Lactic Acid 2.4 H mmol/L
(0.7-2.0)
Calcium 8.1 L mg/dl
(8.4-10.2)
Total Protein 5.7 L g/dl
(6.3-8.2)
Albumin 2.9 L g/dl
(3.5-5.0)
Urine Ketones 1+ A
(Negative)
08/14/25 11:17
08/14/25 11:52
Vital Signs
Initial and Last Documented VS:
Initial Vital Signs
Temp Pulse Resp
98.5 F 110 15
08/14/25 10:57 08/14/25 10:57 08/14/25 10:57
Last Documented Vital Signs
Temp Pulse Resp BP Pulse Ox
98.5 F 93 25 127/82 100
08/14/25 10:57 08/14/25 13:45 08/14/25 13:45 08/14/25 13:45 08/14/25 13:45
Procedures
<Mark Mcdowell PA-C - Last Filed: 08/14/25 13:55>
Intubations
Procedure completed by: Gelacio/Jeremias
Method of Intubation: glidescope
Tube size (cm): 7.5
Placement confirmed by: CXR, capnography and direct visualization
Breath sounds after intubation: equal
Intubation complications: no complications
<Mark Mcdowell PA-C - Last Filed: 08/14/25 13:55>
MDM/Problems Addressed
Differential Diagnosis Includes:
Seizure
CVA
Intracranial bleeding
Infectious etiology such as UTI or pneumonia
Metabolic encephalopathy
Hypercapnic respiratory failure given history of COPD
Electrolyte imbalance
Dehydration
MDM/Problems Addressed:
79-year-old female presenting to the emergency department for evaluation of altered mental status, staff Daja Blas noticed the altered mental status this morning upon seeing the patient. On arrival patient is incontinent of stool, unable to
answer questions appropriately, does not follow commands. She is tachycardic and found to be in A-fib with rates around 117 bpm, no fevers noted. Very dry mucous membranes, will initiate some IV fluids but will have this run slowly given her
cardiac history. We did not believe stroke alert this would be unlikely to change patient's disposition as she is not a TNK or IAT candidate but CT of the head was ordered to further assess. Patient will need admission.
Chronic conditions affecting care: Arrhythmia and Neurological disorder
Acute Exacerbation and/or Progression of Chronic Illness: Arrhythmia and Neurological disorder
<Mark Mcdowell PA-C - Last Filed: 08/14/25 13:55>
*Pulse Oximetry
SaO2: 98
Oxygen Mode of Delivery: Room air
Patient hypoxic: no
*EKG
Heart Rate: 89
Rate: normal
Rhythm: a-fib
Ischemia: T-wave inversion (inferior leads)
*Cell Repairer Interpretation
Rate: tachycardiac
Heart Rate: 117
Rhythm: a-fib
*Critical Care Note
Total Time (30-74mins, 75-104mins- exclusive of procedures): 70
comment:
Critical care statement: A total of 70 minutes of critical care time was provided for this patient. This includes management of unstable vital signs, evaluation of the patient at bedside, reviewing the patient's pertinent medical records, discussion
with consultants, review of old EKGs and review of pertinent medical records. This time with separate from time utilized to perform the aforementioned documented procedures
Data Reviewed
Review of Other/Old Records Reveals: Labs, Records and Discharge Summary
<Mark Mcdowell PA-C - Last Filed: 08/14/25 13:55>
Patient Management
Discussion with other providers: Dye Tub Tender
Escalation/DeEscalation of care consider admission/obs:
12:08 PM: Cerebella was noted to be alerting that patient is having continuous seizure-like activity, neurology team notified and asking if we do any long-term 24-hour EEG monitoring over the weekend, discussed with learning officer team who states
likely not able to get this testing done. Neurology team updated, awaiting disposition recommendation
12:35 PM: Patient remaining with seizure burden despite 2mg ativan and 3g keppra IV. Additional 2mg IV ativan given
1:20 PM: Patient continues with seizure burden following the additional 2mg ativan IV. Due to inability to continuously monitor patient, decision was made to transfer to the NICU at [facility]. Accepted by Dr. Hall
1:50 PM: Patient intubated for airway protection and increased somnolence due to meds given for seizure
ED Attending Note
<Mark Mcdowell PA-C - Last Filed: 08/14/25 13:55>
-
Portions of this chart may have been created with voice recognition software.� Occasional wrong word or��sound alike� substitutions may have occurred due to the inherent limitations of voice recognition software.
<Jaime Brizuela MD - Last Filed: 08/14/25 13:49>
ED Attending Note
Patient seen and examined by attending physician: Yes
ED Attending Note:
I have seen and evaluated the patient with a [id number] encounter. I have spoken to the advance practicer provider and involved in the medical history, the physical exam, medical decision making.
Evaluation and management service: agree unless noted differently below.
Results interpretation: agree unless noted differently below.
Focused HPI: 79-year-old female with past medical history as noted significant for COPD, atrial fibrillation, CHF, hypertension, chronic lymphedema, diabetes who presents to the emergency department from jail at [facility] for change in
mental status. According to jail staff she is able to talk at baseline but is independent for ADLs otherwise. Apparently this morning when they checked on her she was lethargic and not responding appropriately which prompted referral to
the ER. On arrival patient is very lethargic and not responding verbally although she does during my assessment at least attempt to open her eyes when I can wake her. According to jail staff she had some vomiting a few days ago and this
morning had large volume of liquid stool. She does apparently have a history of seizures and is on multiple AEDs. No witnessed seizure per jail.
Physical exam: Patient is very lethargic arousable only to vigorous physical stimulation or painful stimulus. Not responding verbally but did try to follow basic commands (try to open her eyes for me, tried to raise her arm for me). Mucous
membranes are dry but gag reflex intact appears to be protecting her airway for now. Vital signs were significant for tachycardia but no tachypnea or hypoxia, no fever. She is normotensive. She has no signs of trauma to the head. On cardiac
auscultation she has irregularly irregular rhythm. Breath sounds somewhat diminished at the lung bases. Abdomen soft, no apparent tenderness. She was notably covered in liquid stool on arrival here.
Medical Decision Makin-year-old female with history as noted presents with change in mental status�difficult to arouse and not responding verbally this morning. She did have some vomiting a few days ago and had large volume of liquid stool
this morning. Vitals and exam are as above. Seems to be protecting her airway for the time being and her vital signs are stable. While stroke is in the differential diagnosis she would not be a thrombolysis candidate as she would be outside safe
window with less normal time last night; furthermore she would not be IAT candidate given high modified Samy score; for this reason and low overall suspicion for stroke no stroke alert called but we will proceed with head imaging. Send labs
including a CBC and a CMP, can send stool for studies as well. Check urinalysis. Viral swabs, chest x-ray. Check EKG. Provide some IV fluids as she does appear clinically hypovolemic. Reassess after the above. Anticipate admission.
Cerebell shows signs concerning for status epilepticus�treating with benzodiazepines, Keppra load. Neuro evaluated at bedside. Plan for admission pending initial treatment.
Patient still in status, neuro discussed with physicians down at [facility], recommending transfer for continuous EEG monitoring. Recommended intubating and placed on propofol infusion which was done as documented in procedure note. Monitor pending
transfer.
Discharge Plan
Departure
Patient Disposition: Acute Care Hospital
Date of Disposition: 08/14/25
Time of Disposition: 12:20
Discharge Problem:
Status epilepticus
Hospital Transfer
Other hospital: [facility]
I certify that the patient requires transfer: Yes
Discussed case with accepting physician: Dr. Hall
Reason for transfer: higher level of care, medical necessity and specialties available
Interventions
Interventions:
*Risk Screen - Suicide Last Done: 08/14/25 10:58
*General Assessment Last Done: 08/14/25 10:58
*Neglect/Abuse Screening Last Done: 08/14/25 10:58
*ED COVID-19 Vaccine History Last Done: 08/14/25 10:58
*ED Influenza Vaccine History Last Done: 08/14/25 10:58
[facility] Risk Assessment Tool Last Done: 08/14/25 12:02
ED- Cardiac Assessment Last Done: 08/14/25 11:00
ED- Neurological Assessment Last Done: 08/14/25 11:00
ED- Pulmonary Assessment Last Done: 08/14/25 11:00
[2025-08-14 11:23] LABS: Hematocrit 39.5 % (37.0-47.0); Hemoglobin 13.6 g/dL (12.0-16.0); Mean Corp Hgb Conc. 34.4 g/dL (33.0-37.0); Mean Corpuscular Volume 99.2 fL (81.0-99.0); Nucleated Red Blood Cells % 0 %; Platelet Count 119 10^3/uL (130-400); Red Cell Dist. Width 13.7 % (11.5-14.5)
[2025-08-14] MEDS: NSS 1000 IV (11:27)
[2025-08-14 11:31] LABS: Urine Character Clear (Clear)
[2025-08-14 12:01] LABS: COVID-19 Antigen Negative (Negative)
[2025-08-14] MEDS: ATIVAN 1 MG IV ×2 (12:08→12:18)
[2025-08-14] MEDS: KEPPRA 3000 MG IV (12:20)
[2025-08-14 12:22] LABS: ALT (SGPT) 19 U/L (0-35); AST (SGOT) 30 U/L (14-36); Albumin 2.9 g/dl (3.5-5.0); Alkaline Phosphatase 85 U/L (38-126); Blood Urea Nitrogen 18 mg/dl (7-17); Calcium 8.1 mg/dl (8.4-10.2); Carbon Dioxide 28 mmol/L (22-30); Chloride 103 mmol/L (98-107); Glucose 105 mg/dl (70-99); Potassium 3.7 mmol/L (3.5-5.1); Sodium 137 mmol/L (135-145); Total Protein 5.7 g/dl (6.3-8.2); eGFR > 60.00
[2025-08-14 12:23] LABS: Troponin I 0.016 ng/ml
--- NOTE | 2025-08-14 12:24 | CON.NEURO ---
Neuro Assessment/Plan
Assessment
#Status epilepticus
Ms. Huber has a PMH of epilepsy. No known missed doses of home Keppra and Vimpat. No known infectious cause at this time. her Vimpat dose was reduced from 100mg to 50mg due to bradycardia. Her cerebell shows seizures despite IV ativan. The cause of
her seizures could be due to lower vimpat dose. vimpat may be need changed to another agent for better seizure control. If seizure burden not improved with ativan and Keppra load will consider transfer for LTM. I recommend an MRI head w/o contrast
to assess for stroke. seizure precautions. continue home carbidopa/levodopa when able.
Plan
- LTM when able
- t/c transfer for LTM if seizure burden not improved with ativan challenge
- MRI head w/o contrast
- load 3g Keppra IV followed by 1.5g every 12 hours
- c/w lacosamide 50mg BID, IV if possible
- Ativan trial with 2mg ativan IV
- seizure precautions
- infectious work-up per primary team
- c/w home 0.5mg carbidopa/levodopa three times daily
Consultation
Order
Date of Consultation: 08/14/25
Requesting Provider: Dr. Mcdowell
Reason for Consult: Seizure
Subjective/Objective
Subjective Data
Date of Service: August 14, 2025
Ms. Huber is unable to participate in providing history. History is obtained by chart review and discussion with ED.
HPI: Ms. Huber is a 79 y.o. female w/ a PMH of epilepsy (on 1500mg Keppra, 50mg lacosamide [reduced from 100mg due to bradycardia]), afib on eliquis, COPD, previous DVT, Diabetes presenting from her residence at [facility] for AMS. At baseline,
she is conversive and will follow commands. She was somnolent this morning. She didn't speak. EMS was called. Blood glucose was 120. Her heart rate was tachycardic and irregular. She presenting 09/2023 with seizures and had an EEG that showed a
seizure originating from the right centrotemporal region and severe generalized slowing indicative of severe cerebral dysfunction. She was put on Keppra and vimpat at that time. In the ED here today, she was put on Cerebell that showed seizures
although no overt seizure activity was noted. She was given 1mg IV ativan x2 (total of 2mg). Seizure burden resolved but then quickly re-occurred. Given another 2mg IV ativan. Given 3g Keppra IV load.
PMH: as above
PSH: Appendectomy, Gynecological (Oophorectomy) and Tonsilectomy
Allergies: per chart; unable to obtain for AMS
Meds: per chart; unable to obtain for AMS
SH: unable to obtain for AMS
Objective Data
Vital Signs
Temp Pulse Resp BP Pulse Ox
36.9 C 107 16 122/60 95
08/14/25 10:57 08/14/25 12:00 08/14/25 12:00 08/14/25 12:00 08/14/25 11:45
Lab Results
08/14/25 11:17
Sodium Cancelled 08/14/25 11:17
Potassium Cancelled 08/14/25 11:17
BUN Cancelled 08/14/25 11:17
Glucose Cancelled 08/14/25 11:17
Calcium Cancelled 08/14/25 11:17
Patient Allergies
Influenza Virus Vaccines Allergy (Verified 10/14/23 21:18)
'Dr. Ricardo Mosher told me never to take it'
Neuromuscular Blockers, Steroidal Allergy (Verified 10/14/23 21:18)
Unknown
steroids Allergy (Uncoded 10/14/23 21:18)
in a coma for 5 days after taken
Review of Systems
-
Unable to obtain full review of systems at this time due to: Other (Altered mental status)
Physical Exam
-
General: Appears Chronically Ill
HEENT: Normocephalic and Atraumatic
Respiratory: Clear to Auscultation
Cardiac: Irregular Rhythm
GI: Normal Bowel Sounds
Psych: Unable to Assess
Extended Neurological Exam
Mood & Affect: Unable to Assess
Attention Span & Concentration: Unable to assess (Patient doesn't respond to stimuli but did forcibly keep eyes closed initially. on later assessment, she did not forcibly keep her eyes closed.)
Memory: Unable to Assess
Tremor: Hand Tremor Absent
Involuntary Movement: None
Speech: Unable to Assess
Cranial Nerve II: Left Eye: Pupillary Reactivity Unremarkable and Unable to Assess (unable to assess visual gonsalves)
Cranial Nerve II: Right Eye: Pupillary Reactivity Unremarkable and Unable to Assess (unable to assess visual gonsalves)
Cranial Nerves III, IV, : Extraocular Movement: Unable to Assess (Eyes straight in primary gaze. No roving eye movements. No VOR. eyes don't cross midline)
Cranial Nerve V: Facial Sensation: Unable to Assess
Cranial Nerve VII: Facial Symmetry: Unable to Assess
Cranial Nerve VIII: Hearing: Unable to Assess
Cranial Nerves IX, X: Palate Movement: Unable to Assess
Cranial Nerve XI: Shoulder Shrug: Unable to Assess
Cranial Nerve XII: Tongue Protusion: Unable to Assess
Muscle Strength, Overall: Unable to Assess (severe rigidity bilaterally in upper and lower extremities. Upper extremities worse than lower extremities)
Muscle Bulk & Tone: Bulk Unremarkable
Pronator Drift: Unable to Assess
Deep Tendon Reflexes: Trace Throughout
Touch Sensation: Unable to Assess
Coordination: Unable to Assess
Gait & Station: Unable to Assess
Data Reviewed
-
CT Head: Image Reviewed (no acute hemorrhage)
Medications
-
Home Medications
�Medication �Instructions �Recorded
cyanocobalamin (vitamin B-12) 1,000 mcg PO DAILY Supplement 01/20/23
1,000 mcg tablet
lidocaine 4 % topical patch 1 patch topical DAILY lower back 01/20/23
pantoprazole 40 mg granules 20 mg PO HS Gastrointestinal issue 01/20/23
delayed-release for susp in packet
(Protonix)
polyethylene glycol 3350 17 gram 17 grams PO DAILY Constipation #0 01/23/23
oral powder packet ea
cranberry fruit 450 mg tablet 425 mg PO DAILY UTI prophylaxis 02/20/23
(cranberry)
Held on 10/28/23.
Instructions: Resume on
11/05/23. Restart only if
okay with outpatient
physician.
sennosides 8.6 mg-docusate sodium 2 tab PO DAILY Constipation 02/20/23
50 mg tablet (Senna Plus)
benzocaine 6 mg-menthol 10 mg 1 brianda mucous membrane Q4HPRN PRN 09/17/23
lozenges (Chloraseptic Sore Throat) cough/sore throat
carbamide peroxide 6.5 % ear drops 4 drp RIGHT EAR HS x 30 days 09/17/23
(Debrox) starting 10/08/23
carboxymethylcellulose 0.5 1 drp BOTH EYES BID Eye Condition 09/17/23
%-glycerin 0.9 % eye drops
(Refresh Optive)
phenylephrine 0.25 %-cocoa butter 1 supp [place] DAILYPRN PRN hemorrhoids 09/17/23
88.44 % rectal suppository
selenium sulfide 1 % shampoo 1 applic topical MOTH scalp 09/17/23
(Anti-Dandruff)
Probiotic 250 mg PO DAILY GI health 10/14/23
apixaban 5 mg tablet (Eliquis) 5 mg PO BID Blood Clot 10/14/23
Prevention/Tx
bisacodyl 10 mg rectal suppository 10 mg [place] DAILY PRN every 3 days if 10/14/23
no BM and MOM and/or lactulose ine
carbidopa 25 mg-levodopa 100 mg 0.5 tab PO TID parkinson's disease 10/14/23
tablet
dextromethorphan-guaifenesin 10 10 ml PO Q4H PRN cough/congestion 10/14/23
mg-100 mg/5 mL oral liquid (Tussin
DM)
levetiracetam 500 mg/5 mL (5 mL) 1,500 mg PO BID seizure 10/14/23
oral solution
magnesium hydroxide 400 mg/5 mL 60 ml PO HS PRN constipation 10/14/23
oral suspension (Milk of Magnesia)
midodrine 5 mg tablet 5 mg PO Q8HPRN PRN SBP<90 10/14/23
albuterol sulfate 2.5 mg/3 mL 2.5 mg (3 mL) inhalation R Q4HPRN 10/28/23
(0.083 %) solution for nebulization PRN SOB, COUGH, WHEEZE #75 mL
albuterol sulfate 2.5 mg/3 mL 2.5 mg (3 mL) inhalation R TID #75 10/28/23
(0.083 %) solution for nebulization mL
digoxin 125 mcg (0.125 mg) tablet 125 mcg PO NOON #60 tabs 10/28/23
doxazosin 1 mg tablet 1 mg PO HS #30 tabs 10/28/23
fluconazole 100 mg tablet 100 mg PO DAILY 9 days #9 tabs 10/28/23
furosemide 40 mg tablet 40 mg PO DAILY #30 tabs 10/28/23
lacosamide 50 mg tablet 50 mg PO BID #60 tabs 10/28/23
lansoprazole 30 mg delayed 30 mg PO DAILY #30 tabs 10/28/23
release,disintegrating tablet
metoprolol tartrate 25 mg tablet 12.5 mg (1/2 x 25 mg) PO BID #60 10/28/23
tabs
miconazole nitrate 2 % topical 1 applic topical BID #85 grams 10/28/23
powder (Miconazorb AF)
sodium chloride 3 % for 4 ml inhalation R TID #120 mL 10/28/23
nebulization (NebuSal)
[2025-08-14] MEDS: ATIVAN 2 MG IV (12:42)
--- NOTE | 2025-08-14 13:07 | W.PN.UPDATE ---
Update Note
Progress Note Update
79-year-old female with history of seizures(onset 2023) on Keppra and lacosamide, atrial fibrillation on Eliquis, DVT, COPD, GERD, chronic dysphagia, obstructive sleep apnea, diabetes presents from [facility] with change in mental status.
Patient was doing okay until yesterday she was less concerned conversive and was not able to follow commands and unable to speak. Staff at [facility] noted that the patient was incontinent of liquid stool this morning and was more altered than
her baseline which is why EMS was contacted. Patient did not take antiseizure medications this morning. No fevers reported. Blood glucose of 120 per EMS.
Upon arrival to the ED patient was given IV Ativan 4 mg, Keppra 3 g. Cerebelli showing 97 percent seizure burden post treatment. Head CT showed no evidence of acute intracranial hemorrhage or transcortical infarct, severe white matter
leukoaraiosis in both cerebral hemisphere. Currently patient is not responsive/obtunded, sleeping with mouth open, not following any commands.
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
--- NOTE | 2025-08-14 13:14 | EDCM ---
Addendum entered by Latonya Fleming 08/14/25 14:20:
Pt has been intubated and for transfer to [facility].
Original Note:
Reviewed chart, attempted to reach friend Pat listed at primary contact but had to leave voicemail. Information obtained from [place] transfer sheet. Pt resides at [facility] on LTC. Requires total care, OOB to wheelchair using damian lift, is not
ambulatory.
Medical history includes Seizure disorder, afib, COPD, DT and DM. She is being admitted for Status Epilepticus.
PCP: Solomon Troy
Medications supplied by [facility]
Anticipate return to [place] L[place] once medically stable, CM will continue to follow.
--- NOTE | 2025-08-14 13:27 | W.PN.UPDATE ---
Addendum entered and electronically signed by Mary Landry NP 08/15/25 16:23:
08/15/25 4:20 Blood culture positive preliminary gram + cocci in clusters. Faxed to by community liaison
Original Note:
Update Note
Progress Note Update
Ms. Huber received a total of 4mg IV ativan and 3g keppra load. Cerebell continued to show seizures. She didn't have any clinical seizure activity. Her exam coninues to be poor. She doesn't respond to painful stimuli. Concern for subclinic status
despite treatment with benzos and Keppra. Spoke to Neuro ICU attending, Dr. Hall, at [facility] for transfer for status epilepticus. Given poor mental status, she will be intubated for airway protection and transferred level 0 to [facility].
--- NOTE | 2025-08-14 13:45 | EDRN ---
1338: 200mcg phenylephrine administered IV to increase BP per Dr Brizuela's verbal orders
1340: 20mg etomidate administered IV
1341: 100mg succinylcholine administered IV
1342: pt intubated by WANDA Rodarte
--- NOTE | 2025-08-14 13:47 | EDRN ---
7.5 ETT w/ 24 @ the lip. portable chest x-ray at bedside along w/ Dr Brizuela who believes the ET tube is down too far. tube pulled back to 22 @ the lip at this time
--- NOTE | 2025-08-14 13:49 | EDRN ---
propofol gtt initiated in L hand IV at 10mcg/kg/min 4.5mL/hr based on patient's weight and Dr Brizuela's verbal orders
--- NOTE | 2025-08-14 14:04 | EDRN ---
pt flinching and intermittently biting on ETT. WANDA Rodarte gave verbal order to increase propofol gtt to 15mcg/kg/min (6.8mL/hr) at this time
--- NOTE | 2025-08-15 09:53 | W.RAPID.EEG ---
Rapid EEG
-
Procedure Date: 08/14/25
Patient Status: Emergency Room
Results:
Clinical Correlation/Impression:
Continuous Seizures Suspected indicating possible non-convulsive seizures
> 20% Of the first 60 Minutes indicating Electrographic Status Epilepticus
Recording Information: Diagnostic Recording Time: 01:52:38 (113 minutes)
Recording 1: [email or web address]
Start Time: Aug 14, 2025 12:00 PM End Time: Aug 14, 2025 13:53 PM
Recording Technique: This EEG was obtained using a 10 lead, 8 channel system positioned circumferentially without any parasagittal coverage (rapid EEG). Computer selected EEG is reviewed as well as background features and all clinically significant
events. Clarity algorithm utilized and implemented to provide analysis of underlying activity and seizure detection used to facilitate reading. ICD-10 Code XS58J69
Recording 2: Diagnostic Recording Time: 00:46:04 (46 minutes)
== END 2025-08-14 14:43 | disposition short-term general hospital (02) ==
LOC: EMR 10:50
PROVIDERS: Physician Assistant Medical; CONSULT PHYSICIAN Student in an Organized Health Care Education/Training Program; EMERGENCY PHYSICIAN Emergency Medicine; FAMILY PHYSICIAN Student in an Organized Health Care Education/Training Program
DX: G40.901 Epilepsy, unspecified, not intractable, with status epilepticus (principal); E11.9 Type 2 diabetes mellitus without complications; I10 Essential (primary) hypertension; I27.21 Secondary pulmonary arterial hypertension; I48.0 Paroxysmal atrial fibrillation; J44.9 Chronic obstructive pulmonary disease, unspecified; Z79.01 Long term (current) use of anticoagulants; Z86.718 Personal history of other venous thrombosis and embolism; Z99.81 Dependence on supplemental oxygen; Z90.49 Acquired absence of other specified parts of digestive tract; Z11.52 Encounter for screening for COVID-19
CPT/HCPCS: 96374; 96375; 96361; 31500; 99291; 70450; 71045; 80053; 81003; 83605; 84484; 85025; 87040; 87045; 87046; 87077; 87205; 87324; 87427; 87449; 87502; 87798; 87811; 93005; 94002; 95813